=== PATIENT | female | born 1955 | race American Indian/Alaskan Native ===

== ENCOUNTER 2018-01-16 15:39 | Emergency (ER) | payer BC, OTHER ==
[~2018-01-16] VITALS: Ht 162.6 cm; Wt 94.8 kg
--- OUTSIDE RECORDS SUMMARY | ~2018-01-16 | XMS | Encounter Summary ---
Demographics + + + | Address | [address] | | | [place] [address] | + + + | Home Phone | | + + + | Preferred Language | Unknown | + + + | Marital Status | | + + + | Samaritan Affiliation | 1041 | + + + | Race | Unknown | + + + | Ethnic Group | Unknown | + + + Author + + + | Author | [facility] | + + + | Organization | [facility] | + + + | Address | Unknown | + + + | Phone | Unavailable | + + + Support + + + + + | Name | Relationship | Address | Phone | + + + + + | Jaydon Cornejo | ECON | [address] | | | | | [place] | | | | | [address] | | + + + + + Care Team Providers + +------+ + | Care Mutual Funds Agent Name | Role | Phone | + +------+ + | Ana Paula Mays MD | PCP | | + +------+ + Encounter Details +--------+ + + + + | Date | Type | Department | Care Team | Description | +--------+ + + + + | 01/16/ | Telephone | [facility] | Alessia Gamez, | | | 2018 | | Pulmonology [address] | WOOD CARVING LATHE OPERATOR | | | | | [address] | | | | | | [place] | | | | | | [address] | | | | | | [phone] | | | +--------+ + + + [...] Description | +--------+---------+ + + + | 01/26/ | Office | Pulmonology | Patrice Rowe MD | | | 2018 | Visit | | [address] | | | | | | [place] [address] | | | | | | [phone] | | | | | | | | +--------+---------+ + + + as of this encounter Visit Diagnoses Not on filein this encounter"
--- OUTSIDE RECORDS SUMMARY | ~2018-01-16 | XMS | Clinical Summary ---
Demographics + + + | Address | [address] | | | [place] [address] | + + + | Home Phone | | + + + | Preferred Language | Unknown | + + + | Marital Status | | + + + | Rastafari Affiliation | 1041 | + + + | Race | Unknown | + + + | Ethnic Group | Unknown | + + + Author + + + | Author | [facility] | + + + | Organization | [facility] | + + + | Address | Unknown | + + + | Phone | Unavailable | + + + Support + + + + + | Name | Relationship | Address | Phone | + + + + + | Jaydon Cornejo | ECON | [address] | | | | | [place] | | | | | [address] | | + + + + + Care Team Providers + +------+ + | Care Environmental Epidemiologist Name | Role | Phone | + +------+ + | Ana Paula Mays MD | PP | | + +------+ + Allergies + + + + + + | Active Allergy | Reactions | Severity | Noted | Comments | | | | | Date | | + + + + + + | Atorvastatin | Other (See Comments) | Medium | 03/15/20 | Muscle ache | | | | | 17 | | + + + + + + | Codeine | Nausea and Vomiting | Low | 03/15/20 | | | | | | 17 | | + + + + + + | Lisinopril | Cough | Low | 03/15/20 | | | | | | 17 | | + + + + + + | Metoclopramide | Nausea and Vomiting, | Low | 03/15/20 | | | | Headache | | 17 | | + + + + + + | Morphine | Other (See Comments) | Medium | 03/15/20 | UNKNOWN | | | | | 17 | | + + + + + + Current Medications + + +--------+---------+------+------+-------+ | Prescription | Sig. | Disp. | Refills | Star | End | Statu | | | | | | t | Date | s | | | | | | Date | | | + + +--------+---------+------+------+-------+ | | Take 25 mg by mouth | | | | | Activ | | hydrochlorothiazide | daily. | | | | | e | | (HYDRODIURIL) 25 MG | | | | | | | | tablet | | | | | | | + + +--------+---------+------+------+-------+ | omeprazole | Take 20 mg by mouth | | | | | Activ | | (PRILOSEC) 20 MG | daily. | | | | | e | | capsule | | | | | | | + + +--------+---------+------+------+-------+ | glipiZIDE | Take 5 mg by mouth | | | | | Activ | | (GLUCOTROL) 5 MG | daily. | | | | | e | | tablet | | | | | | | + + +--------+---------+------+------+-------+ | fluoxetine | Take 20 mg by mouth | | | | | Activ | | (PROZAC) 20 MG | daily. | | | | | e | | tablet | | | | | | | + + +--------+---------+------+------+-------+ | telmisartan | Take 80 mg by mouth | | | | | Activ | | (MICARDIS) 80 MG | daily. Pt is unsure | | | | | e | | tablet | of dose | | | | | | + + +--------+---------+------+------+-------+ | cholecalciferol | Take 1,000 Units by | | | | | Activ | | (VITAMIN D-3) 1000 | mouth daily. | | | | | e | | units tablet | | | | | | | + + +--------+---------+------+------+-------+ | cyanocobalamin | Take 500 mcg by | | | | | Activ | | (VITAMIN B-12) 500 | mouth daily. | | | | | e | | MCG tablet | | | | | | | + + +--------+---------+------+------+-------+ | albuterol | Inhale 2 puffs into | | | | | Activ | | (PROVENTIL | the lungs every 4 | | | | | e | | HFA;VENTOLIN HFA) | (four) hours as | | | | | | | 108 (90 Base) | needed for Wheezing. | | | | | | | MCG/ACT inhaler | | | | | | | + + +--------+---------+------+------+-------+ | JANUMET XR 50-1000 | | | | 05/1 | | Activ | | MG TB24 | | | | 1/20 | | e | | | | | | 17 | | | + + +--------+---------+------+------+-------+ | montelukast | Take 1 tablet by | 30 | 11 | 06/0 | 06/0 | Activ | | (SINGULAIR) 10 MG | mouth nightly. | tablet | | 6/20 | 6/20 | e | | tablet | | | | 17 | 18 | | + + +--------+---------+------+------+-------+ | ASMANEX 30 METERED | | | | 01/2 | | Activ | | DOSES 220 MCG/INH | | | | 4/20 | | e | | inhaler | | | | 18 | | | + + +--------+---------+------+------+-------+ | fish oil omega-3 | Take 1 g by mouth | | | | | Activ | | fatty acids 1000 MG | daily. | | | | | e | | capsule | | | | | | | + + +--------+---------+------+------+-------+ | Probiotic Product | Take by mouth. | | | | | Activ | | (PROBIOTIC DAILY PO) | | | | | | e | + + +--------+---------+------+------+-------+ | ranitidine | Take 150 mg by | | | | | Activ | | (ZANTAC) 150 MG | mouth. Pt taking one | | | | | e | | tabletIndications: | every other day | | | | | | | Gastroesophageal | | | | | | | | Reflux Disease | | | | | | | + + +--------+---------+------+------+-------+ | | Take 1 tablet by | 28 | 0 | 04/0 | 04/1 | Activ | | amoxicillin-clavulan | mouth 2 (two) times | tablet | | 2/20 | 6/20 | e | | ate (AUGMENTIN) | daily for 14 days. | | | 18 | 18 | | | 875-125 MG per | | | | | | | | tablet | | | | | | | + + +--------+---------+------+------+-------+ | levofloxacin | Take 1 tablet by | 10 | 0 | 04/0 | | Activ | | (LEVAQUIN) 500 MG | mouth daily. | tablet | | 2/20 | | e | | tablet | | | | 18 | | | + + +--------+---------+------+------+-------+ Active Problems + + + | Problem | Noted Date | + + + | Pneumonia due to infectious organism | 01/11/2018 | + + + | Mild intermittent asthma without complication | 03/15/2017 | + + + | Chest pain, unspecified | 09/05/2012 | + + + | Unspecified essential hypertension | 09/05/2012 | + + + | DM (diabetes mellitus) | 09/05/2012 | + + + | DHAVAL (obstructive sleep apnea) | 09/05/2012 | + + + Encounters +--------+ + + + + | Date | Type | Specialty | Care Team | Description | +--------+ + + + + | 01/16/ | Telephone | | Alessia Gamez, | | | 2017 | | | DOG FOOD DOUGH MIXER | | +--------+ + + + + | 01/09/ | Office | | Patrice Rowe MD | DHAVAL (obstructive | | 2018 | Visit | | | sleep apnea) | | | | | | (Primary Dx); Mild | | | | | | intermittent asthma | | | | | | without | | | | | | complication; | | | | | | Pneumonia of right | | | | | | lower lobe due to | | | | | | infectious organism | | | | | | (HCC) | +--------+ + + + + from Last 3 Months Family History + + +------+ + | Medical History | Relation | Name | Comments | + + +------+ + | Cancer | Brother | | lung cancer | + + +------+ + | Diabetes type II | Father | | | + + +------+ + | Diabetes type II | Mother | | | + + +------+ + | Cancer | Sister | | lung cancer | + + +------+ + + +------+ + + | Relation | Name | Status | Comments | + +------+ + + | Brother | | | | + +------+ + + | Father | | | | + +------+ + + | Mother | | | | + +------+ + + | Sister | | | | + +------+ + + Social History + +-------+ +--------+------+ [...] on file | | + + + Last Filed Vital Signs + + + + | Vital Sign | Reading | Time Taken | + + + + | Blood Pressure | 126/81 | 01/09/2018 12:34 PM PDT | + + + + | Pulse | 85 | 01/09/2018 12:34 PM PDT | + + + + | Temperature | 36.2 C (97.2 F) | 01/09/2018 12:34 PM PDT | + + + + | Respiratory Rate | 16 | 03/15/2017 9:53 AM PDT | + + + + | Oxygen Saturation | 96% | 01/09/2018 12:34 PM PDT | + + + + | Inhaled Oxygen | - | - | | Concentration | | | + + + + | Weight | 94.9 kg (209 lb 4.8 | 01/09/2018 12:34 PM PDT | | | oz) | | + + + + | Height | 163.8 cm (5' 4.5") | 01/09/2018 12:34 PM PDT | + + + + | Body Mass Index | 35.37 | 01/09/2018 12:34 PM PDT | + + + + Plan of Treatment +--------+---------+ + + + | Date | Type | Specialty | Care Team | Description | +--------+---------+ + + + | 01/26/ | Office | | Patrice Rowe MD | | | 2018 | Visit | | [address] | | | | | | [place] [address] | | | | | | [phone] | | | | | | | | +--------+---------+ + + + Results Not on filefrom Last 3 Months Insurance + +--------+ +------+-------+ + | Payer | Benefi | Subscriber | Type | Phone | Address | | | t Plan | ID | | | | | | / | | | | | | | Group | | | | | + +--------+ +------+-------+ + | PREMERA | PREMER | xxxxxxxxx | | | [address] [address] | | | A BLUE | | | | [place] | | | [place]OSS | | | | [phone] | | | FED | | | | | | | PPO | | | | | + +--------+ +------+-------+ + | [employer] | YELLOW | [phone] | | | | | PLANS | [place] | | | | | + +--------+ +------+-------+ + + +--------+ +--------+ + + | Guarantor Name | Accoun | Relation to | Date | Phone | Billing Address | | | t Type | Patient | of | | | | | | | | | | + +--------+ +--------+ + + | JAMIA CORNEJO | Person | Self | [birth year] Home: | [address] | | | al/Fam | | 1955 | [phone] | [place] | | | [address] | | | [address] | [phone] | + +--------+ +--------+ + +
--- OUTSIDE RECORDS SUMMARY | ~2018-01-16 | XMS | Encounter Summary ---
Demographics + + + | Address | [address] | | | [place] [address] | + + + | Home Phone | | + + + | Preferred Language | Unknown | + + + | Marital Status | | + + + | Sikh Affiliation | 1041 | + + + | Race | Unknown | + + + | Ethnic Group | Unknown | + + + Author + + + | Author | [facility] | + + + | Organization | [facility] | + + + | Address | Unknown | + + + | Phone | Unavailable | + + + Support + + + + + | Name | Relationship | Address | Phone | + + + + + | Jaydon Cornejo | ECON | [address] | | | | | [place] | | | | | [address] | | + + + + + Care Team Providers + +------+ + | Care Industrial Safety And Health Manager Name | Role | Phone | + +------+ + | Ana Paula Mays MD | PCP | | + +------+ + Encounter Details +--------+ + + + + | Date | Type | Department | Care Team | Description | +--------+ + + + + | 01/16/ | Telephone | [facility] | Alessia Gamez, | | | 2018 | | Pulmonology [address] | SENIOR TALENT MANAGEMENT CONSULTANT | | | | | [address] | | | | | | [place] | | | | | | [address] | | | | | | [phone] | | | +--------+ + + + [...] | | | | | [place] [address] | | | | | | [phone] | | | | | | | | +--------+---------+ + + + as of this encounter Visit Diagnoses Not on filein this encounter"
--- OUTSIDE RECORDS SUMMARY | ~2018-01-16 | XMS | Encounter Summary ---
Demographics + + + | Address | [address] | | | [place] [address] | + + + | Home Phone | | + + + | Preferred Language | Unknown | + + + | Marital Status | | + + + | Mandaen Affiliation | 1041 | + + + | Race | Unknown | + + + | Ethnic Group | Unknown | + + + Author + + + | Author | [facility] | + + + | Organization | [facility] | + + + | Address | Unknown | + + + | Phone | Unavailable | + + + Support + + + + + | Name | Relationship | Address | Phone | + + + + + | Jaydon Cornejo | ECON | [address] | | | | | [place] | | | | | [address] | | + + + + + Care Team Providers + +------+ + | Care Subway Conductor Name | Role | Phone | + +------+ + | Ana Paula Mays MD | PCP | | + +------+ + Reason for Visit + + + | Reason | Comments | + + + | Follow-up | | + + + | Asthma | lungs hurts, sputum yellow green | + + + Encounter Details +--------+---------+ + + + | Date | Type | Department | Care Team | Description | +--------+---------+ + + + | 01/09/ | Office | [facility] | Patrice Rowe MD | DHAVAL (obstructive | | 2018 | Visit | Pulmonology [address] | [address] | sleep apnea) | | | | [address] | [place] [address] | (Primary Dx); Mild | | | | [place], [place] | [phone] | intermittent asthma | | | | [address] | | without | | | | [phone] | | complication; | | | | [...] encounter Progress Notes Patrice Rowe MD - 01/09/2018 12:30 PM PDTFormatting of this note may be different from judy varghese. Subjective: Patient ID: Odalys Cornejo is a 62 y.o. female is here for evaluation of cough and shortne ss of breath. 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 She had been using albuterol . Now she feels better. She has stopped using Asmanex. Her albuterol use is minimal. 01/10/2018 The patient has been having cough with expectoration. She is having fever and chills. Her cough was thick with green expectoration. Review of Systems Constitutional: Positive for activity [...] to Visit Medication Sig Dispense Refill albuterol (PROVENTIL HFA;VENTOLIN HFA) 108 (90 Base) MCG/ACT inhaler Inhale 2 puffs int o the lungs every 4 (four) hours as needed for Wheezing. cholecalciferol (VITAMIN D-3) 1000 units tablet Take 1,000 Units by mouth daily. cyanocobalamin (VITAMIN B-12) 500 MCG tablet Take 500 mcg by mouth daily. fluoxetine (PROZAC) 20 MG tablet Take 20 mg by mouth daily. glipiZIDE (GLUCOTROL) 5 MG tablet Take 5 mg by mouth daily. hydrochlorothiazide (HYDRODIURIL) 25 MG tablet Take 25 mg by mouth daily. JANUMET XR 50-1000 MG TB24 montelukast (SINGULAIR) 10 MG tablet Take 1 tablet by mouth nightly. 30 tablet 11 omeprazole (PRILOSEC) 20 MG capsule Take 20 mg by mouth daily. telmisartan (MICARDIS) 80 MG tablet Take 80 mg by mouth daily. Pt is unsure of dose No current facility-administered medications on file prior to visit. Objective: Physical Exam Vitals: 01/09/18 1234 BP: 126/81 Pulse: 85 Temp: 97.2 F (36.2 C) SpO2: 96% Vital signs reviewed. GENERAL: pleasant, cooperative, oriented, [...] asymme try, and no other abnormalities. LUNGS: Right basilar crackles ABDOMEN: Flat abdomen, NABS, non-tender on palpation, Traube's space intact, liver span nor mal, no masses palpated EXTREMITIES: good distal pulses, no cyanosis, no edema, no clubbing, no nail abnormalities NEURO: awake and oriented, gait normal, no focal neurologic deficits Assessment and Plan: 1. Pneumonia bacterial I will start the patient on Levaquin 500 mg daily I have advised the patient to stay hydrated 2. Mild intermittent asthma She will continue to use Singulair 10 mg daily. 3. Obstructive sleep apnea Continue using CPAP regularly Thank you for allowing me to participate in your patient's care. We will review test result s that we have ordered with the patient once they become available. A return visit has been scheduled in 2 weeks. Patrice Rowe MD Pulmonary and Critical Care Medicine [facility] [address], [place] [address] in this encounter Plan of Treatment +--------+---------+ + + + | Date | Type | Specialty | Care Team | Description | +--------+---------+ + + + | 01/26/ | Office | Pulmonology | Patrice Rowe MD | | | 2017 | Visit | | [address] | | | | | | [place] [address] | | | | | | [phone] | | | | | | | | +--------+---------+ + + + as of this encounter Visit Diagnoses + + | Diagnosis | + + | DHAVAL (obstructive sleep apnea) - Primary | + + | Obstructive sleep apnea (adult) (pediatric) | + + | Mild intermittent asthma without complication | + + | Unspecified asthma | + + | Pneumonia of right lower lobe due to infectious organism (HCC) | + +
--- OUTSIDE RECORDS SUMMARY | ~2018-01-16 | XMS | Clinical Summary ---
Demographics + + + | Address | [address] | | | [place] [address] | + + + | Home Phone | | + + + | Preferred Language | Unknown | + + + | Marital Status | | + + + | Sikhism Affiliation | 1013 | + + + | Race | Unknown | + + + | Ethnic Group | Unknown | + + + Author + + + | Author | [facility] | | | and [place] | + + + | Organization | [facility] | | | and [place] | + + + | Address | Unknown | + + + | Phone | Unavailable | + + + Support + + + + + | Name | Relationship | Address | Phone | + + + + + | Jaydon Sweet | ECON | [address] | | | | | [place] | | | | | [address] | | + + + + + | Del Sweet | ECON | Unknown | | + + + + + Care Team Providers + +------+ + | Care No Bake Molder Name | Role | Phone | + [...] feel | | | | | | wierd | + + + + + + [...] + + +---------+ + | Cancer | | Farhat | Esophageal | + + +---------+ + | Diabetes | Brother | Farhat | | + + +---------+ + | Heart disease | Brothcarmita | Farhat | | + + +---------+ + | Other (see comment) | | Farhat | snored | + + +---------+ + | Cancer | | Zeferino | 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 | + + +---------+ + | Diabetes | | Zeferino | | + + +---------+ + | Heart disease | Brothcarmita | Zeferino | | + + +---------+ + | Diabetes | Brother | Mateo | | + + +---------+ + | Heart disease | Brothcarmita | Mateo | | + + +---------+ + | Kidney cancer | Brothcarmita | Mateo | | + + +---------+ + | Other (see comment) | | Mateo | fermin Delcid | + + +---------+ + | Diabetes | Brothcarmita | Pat | | + + +---------+ + | Heart disease | Brothcarmita | Pat | | + + +---------+ + | High blood pressure | Brother | Pat | | + + +---------+ + | Cancer | Brother | Randy | lymphoma | + + +---------+ + | Diabetes | Brothcarmita | Randy | | + + +---------+ + | Heart disease | Brothcarmita | Randy | | + + +---------+ + | Other (see comment) | | Randy | miguel | + + +---------+ + | Diabetes | Brothcarmita | Ra | | + + +---------+ + | Heart disease | Brother Harsh Knapp | | + + +---------+ + | [...] | + + +---------+ + | Sleep Apnea | Son | | | + + [...] + +---------+ + + | Brother | Miguel Ángel | | pancreatic cancer [...] + +---------+ + + | Brother | Mateo | | renal cell carcinoma | | | | (Age | | | | | 70) | | + +---------+ + + | Brother | Pat | | heart | | | | (Age | | | | | 73) | | + +---------+ + + | Brother | Randy | | lymphoma, snore | | | | (Age | | | | | 65) | | + +---------+ + + | Brother | Ra | | heart disease | | | [...] | + + + + + | Hepatitis C | | | | | Screening | 5 | | | + + + + + | Diabetic Eye Exam | | | | | (Bi-Annually) | 3 | | | + + + + + | Diabetic Foot Exam | | | | | | 3 | [...] | + + + + + | BREAST CANCER | | | | | SCREENING (MAMM Q2 | 5 | | | | YEARS 50-74) | | | | + + + + + | Vaccine: Zoster (#1) | | | | | | 5 | | | + + + + + | Hemoglobin A1c Q3 | | 12/01/2015, 09/17/2015 | | | Months | 6 | | | + + + + + | Microalbumin | | 12/01/2015, 12/01/2015, | | | Screening | 7 | 11/21/2015, Additional history | | | | | exists | | + + + + + | Vaccine: Influenza | | | | | (Season Ended) | 8 | | | + + + + + | COLON CANCER | | 04/02/2015 | | | SCREENING | 5 | | | | (COLONOSCOPY EVERY | | | | | 10 YEARS 50-75) | | | | + + + [...] +--------+ +--------+-------+---------+ | BCBS | BCBS | xxxxxxxxx | PPO | | | | | [place] | | | | | | | L FEP | | | | | + +--------+ +--------+-------+---------+ | HEALTH | IHS | xxxxxxxxx | Indemn | | | | SERVICE [...] | Self | [birth year] | Home: | [address] | | | al/Reji | | 1955 | [phone] | [place] [address] | | | [place] | | | [address] | | + +--------+ +--------+ + +
--- OUTSIDE RECORDS SUMMARY | ~2018-01-16 | XMS | Clinical Summary ---
Demographics + + + | Address | [address] | | | [place] [address] | + + + | Home Phone | | + + + | Preferred Language | Unknown | + + + | Marital Status | | + + + | Restorationist Affiliation | 1041 | + + + | Race | Unknown | + + + | Ethnic Group | Unknown | + + + Author + + + | Author | [facility] | + + + | Organization | [facility] | + + + | Address | Unknown | + + + | Phone | Unavailable | + + + Support + + + + + | Name | Relationship | Address | Phone | + + + + + | Jaydon Cornejo | ECON | [address] | | | | | [address] | | | | | [address] | | + + + + + Care Team Providers + +------+ + | Care Sheet Metal Fabricator Name | Role | Phone | + [...] | | | 2017 | | | AGILE BUSINESS ANALYST | | +--------+ + + + + [...] [address] | | | | | | [place] [address] | | | | | | [phone] | | | | | | | [...] | xxxxxxxxx | | | [address] [address] | | | A BLUE | | | | [place] | | | [place]OSS | | | | [address] | | | FED | | | | | | | PPO | | | | | + +--------+ +------+-------+ + | [employer] | YELLOW | xxxxxxxxx | | [...] | Self | [birth year] | Home: | [address] | | | al/Fam | | 1955 | [phone] | [place] | | | [place] | | | [address] | [address] | + +--------+ +--------+ + +
--- OUTSIDE RECORDS SUMMARY | ~2018-01-16 | XMS | Clinical Summary ---
Demographics + + + | Address | [address] | | | [place] [address] | + + + | Home Phone | | + + + | Preferred Language | Unknown | + + + | Marital Status | | + + + | Jew Affiliation | 1013 | + + + | Race | Unknown | + + + | Ethnic Group | Unknown | + + + Author + + + | Author | [facility] | | | and [place] | + + + | Organization | [facility] | | | and [place] | + + + | Address | Unknown | + + + | Phone | Unavailable | + + + Support + + + + + | Name | Relationship | Address | Phone | + + + + + | Jaydon Sweet | ECON | [address] | | | | | [place], [place] | | | | | [address] | | + + + + + | Del Sweet | ECON | Unknown | | + + + + + Care Team Providers + +------+ + | Care Yard Truck Driver Name | Role | Phone | + [...] | Self | [birth year] | Home: | [address] | | | al/Reji | | 1955 | [phone] | [place] [address] | | | [place] | | | [address] | | + +--------+ +--------+ + +
--- OUTSIDE RECORDS SUMMARY | ~2018-01-16 | XMS | Encounter Summary ---
Demographics + + + | Address | [address] | | | [place] [address] | + + + | Home Phone | | + + + | Preferred Language | Unknown | + + + | Marital Status | | + + + | Spiritism Affiliation | 1041 | + + + | Race | Unknown | + + + | Ethnic Group | Unknown | + + + Author + + + | Author | [facility] | + + + | Organization | [facility] | + + + | Address | Unknown | + + + | Phone | Unavailable | + + + Support + + + + + | Name | Relationship | Address | Phone | + + + + + | Jaydon Cornejo | ECON | [address] | | | | | [place] | | | | | [address] | | + + + + + Care Team Providers + +------+ + | Care Full Stack Php Developer Name | Role | Phone | + [...] + + | 01/09/ | Office | [facility] | Patrice Rowe MD | DHAVAL (obstructive | | 2018 | Visit | Pulmonology [address] | [address] | sleep apnea) | | | | [address] | [place] [address] | (Primary Dx); Mild | | | | [place], [place] | [phone] | intermittent asthma | | | | [address] | | without | | | | [phone] | | complication; | | | | [...] of this note may be different from juyd varghese. 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
[~2018-01-16 15:39] MED LIST: ASMANEX220 MC1 INH; ASPIRIN EC325 MG PO; FISH OIL 1,0001 EAC3 PO; FLUOXETINE HCL10 MG PO; GLIPIZIDE XL5 MG PO; HYDROCHLOROTHIA25 MG PO; JANUMET 50-1,01 EACH PO; LOVASTATIN20 MG PO; NIASPAN500 MG PO; NITROSTAT0.4 MG SL; OMEPRAZOLE20 MG PO; PREDNISONE20 MG PO; VENTOLIN HFA18 GM INH; VITAMIN B COMP1 EACH PO; VITAMIN D3400 UNIT PO; ZITHROMAX250 MG PO
[2018-01-16] MEDS ORDERED: METHYLPREDNISOLO4 M1 PO (17:21)
[2018-01-16] MEDS ORDERED: AUGMENTIN 875-1 EACH PO (17:21)
--- NOTE | 2018-01-17 07:22 | EKG ---
[facility] [address] [facility] [place] [address] Signed Normal sinus rhythm Nonspecific ST and T wave abnormality Abnormal ECG No previous ECGs available Confirmed by TERRENCE KRUSE MD ([id number]) on 01/17/2018 7:22:29 AM Electronically Signed By: TERRENCE KRUSE MD 01/17/18 07 PATIENT NAME: JAMIA SWEET Electrocardiogram DATE OF : 55 PHYSICIAN: TERRENCE KRUSE MD REPORT #: [id number] REPORT IS CONFIDENTIAL AND NOT TO BE RELEASED WITHOUT AUTHORIZATION
== END 2018-01-16 18:19 | disposition home or self-care (01) ==
LOC: ED 15:39
DX: J44.1 Chronic obstructive pulmonary disease with (acute) exacerbation (principal); E11.9 Type 2 diabetes mellitus without complications; I10 Essential (primary) hypertension; Z88.8 Allergy status to other drugs, medicaments and biological substances; Z79.84 Long term (current) use of oral hypoglycemic drugs; Z79.899 Other long term (current) drug therapy
CPT/HCPCS: 71046; 80053; 81001; 83880; 84484; 85025; 87502; 93005; 93010; 96374; 99283; J2930; J7030

== ENCOUNTER 2019-01-02 18:56 | Emergency (ER) | payer OTHER ==
[~2019-01-02] VITALS: Ht 162.6 cm; Wt 94.8 kg
--- OUTSIDE RECORDS SUMMARY | ~2019-01-02 | XMS | Encounter Summary ---
Demographics + + + | Address | [address] | | | [place] [address] | + + + | Home Phone | | + + + | Preferred Language | Unknown | + + + | Marital Status | | + + + | Lutheran Affiliation | 1041 | + + + | Race | Unknown | + + + | Ethnic Group | Unknown | + + + Author + + + | Author | [facility] | + + + | Organization | [facility] | + + + | Address | Unknown | + + + | Phone | Unavailable | + + + Support + + + + + | Name | Relationship | Address | Phone | + + + + + | Jaydon Cornejo | ECON | [address] | | | | | [place] | | | | | [address] | | + + + + + Care Team Providers + +------+ + | Care Upholstery Instructor Name | Role | Phone | + +------+ + | Ana Paula Mays MD | PCP | | + +------+ + Encounter Details +--------+ + + + + | Date | Type | Department | Care Team | Description | +--------+ + + + + | 12/22/ | Documentati | Adiel | Sofiya Colindres, | | | 2019 | on Only | [facility] | [address] | | | | [address] | [place] | | | | | [place] | [address] | | | | | [address] | | | | | | [phone] | | | +--------+ + + + + Social History + +-------+ +--------+------+ | Tobacco Use | Types | Packs/Day | Years | Date | | | | | Used | | + +-------+ +--------+------+ | Never Smoker | | | | | + +-------+ +--------+------+ + +---+---+---+ | Smokeless Tobacco: | | | | | Never Used | | | | + +---+---+---+ + + +---------+ + | Alcohol Use | Drinks/We | oz/Week | Comments | | | ek | | | + + +---------+ + | No | | | | + + +---------+ + + + + | Sex Assigned at | Date Recorded | | | | + + + | Not on file | | + + + as of this encounter Plan of Treatment +--------+---------+ + + + | Date | Type | Specialty | Care Team | Description | +--------+---------+ + + + | 01/05/ | Office | Neurology | Sofiya Colindres, | | | 2018 | Visit | | MD [address] | | | | | | [place] | | | | | | [address] | | | | | | | | +--------+---------+ + + + | 03/01/ | Office | Pulmonology | Patrice Rowe MD | | | 2019 | Visit | | [address] | | | | | | [place] [address] | | | | | | [phone] | | | | | | | | +--------+---------+ + + + as of this encounter Visit Diagnoses Not on filein this encounter"
--- OUTSIDE RECORDS SUMMARY | ~2019-01-02 | XMS | Clinical Summary ---
Demographics + + + | Address | [address] | | | [place] [address] | + + + | Home Phone | | + + + | Preferred Language | Unknown | + + + | Marital Status | | + + + | Bahai Affiliation | 1041 | + + + | Race | Unknown | + + + | Ethnic Group | Unknown | + + + Author + + + | Author | [facility] | | | and [place] | + + + | Organization | [facility] | | | and [place] | + + + | Address | Unknown | + + + | Phone | Unavailable | + + + Support + + + + + | Name | Relationship | Address | Phone | + + + + + | Jaydon Sweet | ECON | [address] | | | | | [place] | | | | | [address] | | + + + + + Care Team Providers + +------+ + | Care Microsoft Bi Architect Name | Role | Phone | + +------+ + | Karyn Shields PA-C | PP | | + +------+ + Allergies + + + + + + | Active Allergy | Reactions | Severity | Noted | Comments | | | | | Date | | + + + + + + | Atorvastatin | | | 03/05/20 | Muscle aches | | | | | 15 | | + + + + + + | Codeine Sulfate | | | | Nausea and vomit | + + + + + + | Lisinopril | | Medium | 03/05/20 | Cough | | | | | 15 | | + + + + + + | Metoclopramide | | | 01/01/20 | | | | | | 16 | | + + + + + + | Morphine | | Low | 03/05/20 | Pt. Dose not like | | | | | 15 | as makes her feel | | | | | | nicolasad | + + + + + + Current Medications + + +--------+---------+------+------+-------+ | Prescription | Sig. | Disp. | Refills | Star | End | Statu | | | | | | t | Date | s | | | | | | Date | | | + + +--------+---------+------+------+-------+ | nitroglycerin | Place 0.4 mg under | | | | | Activ | | (NITROSTAT) 0.4 mg | the tongue every 5 | | | | | e | | SL tablet | minutes as needed | | | | | | | | for Chest pain. | | | | | | + + +--------+---------+------+------+-------+ | | Take 1 tablet by | | | | | Activ | | sitagliptan-metFORMI | mouth 2 times daily | | | | | e | | N (JANUMET) 50-1000 | (with breakfast & | | | | | | | MG per tablet | dinner). | | | | | | + + +--------+---------+------+------+-------+ | omeprazole | Take 20 mg by mouth | | | | | Activ | | (PRILOSEC) 20 mg | every morning | | | | | e | | capsule | (before breakfast). | | | | | | + + +--------+---------+------+------+-------+ | lovastatin | Take 20 mg by mouth | | | | | Activ | | (MEVACOR) 20 mg | nightly. | | | | | e | | tablet | | | | | | | + + +--------+---------+------+------+-------+ | | Take 25 mg by mouth | | | | | Activ | | hydrochlorothiazide | Daily. | | | | | e | | 25 mg tablet | | | | | | | + + +--------+---------+------+------+-------+ | glipiZIDE | Take 5 mg by mouth | | | | | Activ | | (GLUCOTROL XL) 5 mg | daily (with | | | | | e | | 24 hr tablet | breakfast). | | | | | | + + +--------+---------+------+------+-------+ | FLUoxetine | Take 10 mg by mouth | | | | | Activ | | (PROZAC) 10 mg | Daily. | | | | | e | | capsule | | | | | | | + + +--------+---------+------+------+-------+ | Cholecalciferol | Take 2,000 Units by | | | | | Activ | | (VITAMIN D-3) 2000 | mouth Daily. | | | | | e | | units CAPS | | | | | | | + + +--------+---------+------+------+-------+ | ondansetron | Slowly start prep. | 2 | 0 | 06/1 | | Activ | | (ZOFRAN) 4 mg | If nausea occurs, | tablet | | 5/20 | | e | | tabletIndications: | wait 1/2 hr. Take 1 | | | 15 | | | | Gastroesophageal | tablet, wait 1/2 | | | | | | | reflux disease | hour. Slowly resume | | | | | | | without esophagitis, | prep. | | | | | | | Special screening | | | | | | | | for malignant | | | | | | | | neoplasms, colon | | | | | | | + + +--------+---------+------+------+-------+ | aspirin 325 mg | Take 81 mg by mouth | | | | | Activ | | tablet | Daily. | | | | | e | + + +--------+---------+------+------+-------+ | LORazepam (ATIVAN) | Take 0.5 mg by mouth | | | | | Activ | | 0.5 mg tablet | as needed for | | | | | e | | | Anxiety or Insomnia. | | | | | | | | Prn prior to | | | | | | | | Imaging study 1 | | | | | | | | tablet may repeat | | | | | | | | one time. | | | | | | + + +--------+---------+------+------+-------+ | dicyclomine | Take 10 mg by mouth | | | | | Activ | | (BENTYL) 10 mg | 4 times daily. | | | | | e | | capsule | | | | | | | + + +--------+---------+------+------+-------+ | metoclopramide | Take 10 mg by mouth | | | | | Activ | | (REGLAN) 10 mg | 3 times daily | | | | | e | | tablet | (before meals). | | | | | | + + +--------+---------+------+------+-------+ | ibuprofen | | | | 03/1 | | Activ | | (ADVIL,MOTRIN) 600 | | | | 0/20 | | e | | MG tablet | | | | 16 | | | + + +--------+---------+------+------+-------+ | albuterol 90 | Inhale 2 puffs into | | | | | Activ | | mcg/puff inhaler | the lungs every 6 | | | | | e | | | hours as needed for | | | | | | | | Wheezing or | | | | | | | | Shortness of Breath. | | | | | | + + +--------+---------+------+------+-------+ | cyanocobalamin | Take 500 mcg by | | | | | Activ | | (VITAMIN B-12) 500 | mouth Daily. | | | | | e | | mcg tablet | | | | | | | + + +--------+---------+------+------+-------+ | Fish Oil 1000 MG | Take 1,000 mg by | | | | | Activ | | delayed release | mouth 2 times daily. | | | | | e | | capsule | | | | | | | + + +--------+---------+------+------+-------+ Active Problems + + + | Problem | Noted Date | + + + | Pulmonary nodule seen on imaging study | 01/15/2016 | + + + | Restless legs syndrome | 04/24/2015 | + + + | GERD (gastroesophageal reflux disease) | 04/02/2015 | + + + | Chest pain | 03/05/2015 | + + + | Hyperlipidemia | 03/05/2015 | + + + | Stress at home | 03/05/2015 | + + + | DHAVAL (obstructive sleep apnea) | 09/25/2010 | + + + | Diabetes mellitus, type II (HCC) | 09/25/2010 | + + + | Family history of ischemic heart disease | 09/25/2010 | + + + | PERIODIC LIMB MOVEMENT DISORDER | 09/25/2010 | + + + | VERTIGO, CHRONIC | 09/25/2010 | + + + | Shortness of breath | | + + + + + | Overview: intermittent | + + Resolved Problems + + + + | Problem | Noted | Resolved | | | Date | Date | + + + + | BRBPR (bright red blood per rectum) | 04/02/20 | | | | 15 | 6 | + + + + Family History + + +---------+ + | Medical History | Relation | Name | Comments | + + +---------+ + | Diabetes | Brother | | | + + +---------+ + | Heart disease | Brother | | | + + +---------+ + | Diabetes | Brother | | | + + +---------+ + | Heart disease | Brother | | | + + +---------+ + | Diabetes | Brother | | | + + +---------+ + | Heart disease | Brother | | | + + +---------+ + | Diabetes | Brother | | | + + +---------+ + | Heart disease | Brother | | | + + +---------+ + | Cancer | Brother | Miguel Ángel | pancreatic | + + +---------+ + | Diabetes | Brother | Miguel Ángel | | + + +---------+ + | Heart disease | Brother | Miguel Ángel | | + + +---------+ + | Other (see comment) | Brother | Miguel Ángel | snored | + + +---------+ + | Cancer | Brother | Farhat | Esophageal | + + +---------+ + | Diabetes | Brother | Farhat | | + + +---------+ + | Heart disease | Brother | Farhat | | + + +---------+ + | Other (see comment) | Lizzer | Farhat | snored | + + +---------+ + | Cancer | Brother | Zeferino | 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 | + + +---------+ + | Diabetes | Brothcarmita | Zeferino | | + + +---------+ + | Heart disease | Brother | Zeferino | | + + +---------+ + | Diabetes | Brother | Mateo | | + + +---------+ + | Heart disease | Brother | Mateo | | + + +---------+ + | Kidney cancer | Brother | Mateo | | + + +---------+ + | Other (see comment) | | Mateo | fermin Delcid | + + +---------+ + | Diabetes | Brothcarmita | Pat | | + + +---------+ + | Heart disease | Brother | Pat | | + + +---------+ + | High blood pressure | Brother | Pat | | + + +---------+ + | Cancer | Brother | Randy | lymphoma | + + +---------+ + | Diabetes | Brother | Randy | | + + +---------+ + | Heart disease | Brother | Randy | | + + +---------+ + | Other (see comment) | | Randy | miguel | + + +---------+ + | Diabetes | Brothcarmita | Ra | | + + +---------+ + | Heart disease | Brothcarmita | Ra | | + + +---------+ + | Diabetes | Father | | | + + +---------+ + | Heart disease | Father | | | + + +---------+ + | High blood pressure | Father | | | + + +---------+ + | Diabetes | Mother | | | + + +---------+ + | Heart disease | Mother | | | + + +---------+ + | High blood pressure | Mother | | | + + +---------+ + | Other (see comment) | Mother | | snored | + + +---------+ + | Stroke | Mother | | | + + +---------+ + | Diabetes | Sister | | | + + +---------+ + | Heart disease | Sister | | CABG age about 60 | + + +---------+ + | Other (see comment) | Sister | | snores | + + +---------+ + | Sleep apnea | Son | | | + + +---------+ + + +---------+ + + | Relation | Name | Status | Comments | + +---------+ + + | Brother | | Alive | snore | + +---------+ + + | Brother | | Alive | snore | + +---------+ + + | Brother | | Alive | snore | + +---------+ + + | Brother | | Alive | snore | + +---------+ + + | Brothcarmiat | Miguel Ángel | | pancreatic cancer | | | | (Age | | | | | 61) | | + +---------+ + + | Brother | Farhat | | Esophageal Cancer | | | | (Age | | | | | 68) | | + +---------+ + + | Brother | Zeferino | | cancer | | | | (Age | | | | | 87) | | + +---------+ + + | Brothcarmita | Mateo | | renal cell carcinoma | | | | (Age | | | | | 70) | | + +---------+ + + | Brothcarmita | Nat | | heart | | | | (Age | | | | | 73) | | + +---------+ + + | | Randy | | lymphoma, snore | | | | (Age | | | | | 65) | | + +---------+ + + | Brother Harsh Gutiérrezald | | heart disease | | | | (Age | | | | | 52) | | + +---------+ + + | Father | | | heart attack | | | | (Age | | | | | 77) | | + +---------+ + + | Mother | | | diabetes complications | | | | (Age | | | | | 73) | | + +---------+ + + | Sister | | Alive | | + +---------+ + + | Son | | Alive | | + +---------+ + + | Son | | Alive | | + +---------+ + + | Son | | Alive | | + +---------+ + + Social History + + + [...] + +---------+ + | No | 0 | 0.0 | | | | Standard | | | | | drinks or | | | | | | | | | | equivalen | | | | | t | | | + + +---------+ + + + + | Sex Assigned at | Date Recorded | | | | + + + | Not on file | | + + + Last Filed Vital Signs + + + + | Vital Sign | Reading | Time Taken | + + + + | Blood Pressure | 130/64 | 05/28/2016914 PDT | + + + + | Pulse | 84 | 05/28/2016914 PDT | + + + + | Temperature | 36.5 C (97.7 F) | 01/15/2016924 PDT | + + + + | Respiratory Rate | 14 | 05/28/2016914 PDT | + + + + | Oxygen Saturation | 98% | 05/28/2016914 PDT | + + + + | Inhaled Oxygen | - | - | | Concentration | | | + + + + | Weight | 96.8 kg (213 lb 4.8 | 05/28/2016914 PDT | | | oz) | | + + + + | Height | 163.8 cm (5' 4.5") | 05/28/2016914 PDT | + + + + | Body Mass Index | 36.05 | 05/28/2016914 PDT | + + + + Plan of Treatment + + + + + | Health Maintenance | Due Date | Last Done | Comments | + + + + + | Vaccine: | | | | | Dtap/Tdap/Td (1 - | 4 | | | | Tdap) | | | | + + + + + | Vaccine: Zoster (1 | | | | | of 2) | 5 | | | + + + + + | Vaccine: Influenza | | | | | (#1) | 8 | | | + + + + + Results Not on filefrom Last 3 Months Insurance + +--------+ +--------+-------+---------+ | Payer | Benefi | Subscriber | Type | Phone | Address | | | t Plan | ID | | | | | | / | | | | | | | Group | | | | | + +--------+ +--------+-------+---------+ | [employer] | BCBS | [id number] | PPO | | | | | [place] | | | | | | | L FEP | | | | | + +--------+ +--------+-------+---------+ | [employer] | [employer] | [id number] | Indemn | | | | SERVICE | YELLOW | | ity | | | | | [place] | | | | | + +--------+ +--------+-------+---------+ + +--------+ +--------+ + + | Guarantor Name | Accoun | Relation to | Date | Phone | Billing Address | | | t Type | Patient | of | | | | | | | | | | + +--------+ +--------+ + + | JAMIA SWEET | Person | Self [birth year] | Home: | [address] | | | al/Fam | | 1955 | [phone] [place], [place] | | | [address]olinar | | | [address] | [address] | + +--------+ +--------+ + +
--- OUTSIDE RECORDS SUMMARY | ~2019-01-02 | XMS | Encounter Summary ---
Demographics + + + | Address | [address] | | | [place] [address] | + + + | Home Phone | | + + + | Preferred Language | Unknown | + + + | Marital Status | | + + + | Yarsanism Affiliation | 1041 | + + + | Race | Unknown | + + + | Ethnic Group | Unknown | + + + Author + + + | Author | [facility] | + + + | Organization | [facility] | + + + | Address | Unknown | + + + | Phone | Unavailable | + + + Support + + + + + | Name | Relationship | Address | Phone | + + + + + | Jaydon Cornejo | ECON | [address] | | | | | [place] | | | | | [address] | | + + + + + Care Team Providers + +------+ + | Care Brush Loader And Handle Attacher Name | Role | Phone | + +------+ + | Karyn Shields PA-C | PCP | | + +------+ + Reason for Visit + + + | Reason | Comments | + + + | Follow-up | 5 month follow up | + + + Consult and Treat (Routine) + +--------+ + + + + | Status | Reason | Specialty | Diagnoses / | Referred By | Referred To | | | | | Procedures | Contact | Contact | + +--------+ + + + + | Pending | | Pulmonology | Diagnoses | Clinic, | [facility] | | Review | | | asthma/dhaval | [place] | Pulmonology | | | | | | [address] | | | | | | [address] | [address] | | | | | | [place], | [place], [place] | | | | | | [place] [address] | [address] | | | | | | Phone: | Phone: | | | | | | [phone] | [phone] | | | | | | Fax: | | | | | | | [phone] | | + +--------+ + + + + Encounter Details +--------+---------+ + + + | Date | Type | Department | Care Team | Description | +--------+---------+ + + + | 12/25/ | Office | [facility] | Patrice Rowe MD | Mild persistent | | 2019 | Visit | Pulmonology [address] | [address] | asthma without | | | | [address] | [place] [address] | complication | | | | [place], [place] | [phone] | (Primary Dx); DHAVAL | | | | [address] | | (obstructive sleep | | | | [phone] | | apnea) | +--------+---------+ + + + Social History + +-------+ [...] + + + as of this encounter Last Filed Vital Signs + + + + | Vital Sign | Reading | Time Taken | + + + + | Blood Pressure | 131/76 | 12/25/2018 12:59 PM PDT | + + + + | Pulse | 77 | 12/25/2018 12:59 PM PDT | + + + + | Temperature | 36.8 C (98.2 F) | 12/25/2018 12:59 PM PDT | + + + + | Respiratory Rate | - | - | + + + + | Oxygen Saturation | 97% | 12/25/2018 12:59 PM PDT | + + + + | Inhaled Oxygen | - | - | | Concentration | | | + + + + | Weight | 87.5 kg (193 lb) | 12/25/2018 12:59 PM PDT | + + + + | Height | 162.6 cm (5' 4") | 12/25/2018 12:59 PM PDT | + + + + | Body Mass Index | 33.13 | 12/25/2018 12:59 PM PDT | + + + + in this encounter Progress Notes Patrice Rowe MD - 12/25/2018 1:00 PM PDTFormatting of this note may be different from th e original. Subjective: Patient ID: Odalys Cornejo is a 63 y.o. female is here for evaluation of cough and sh ortness of breath. HPI The following portions of the patient's history were reviewed and updated as appropriate: a llergies, current medications, past family history, past medical history, past social histor y, past surgical history and problem list. The patient is a pleasant 61-year-old female with past medical history of obstructive sleep apnea, hypertension, diabetes who presents with one year history of cough and shortness of breath. She says that her lungs hurt it to person time of the year. The shortness of breat h comes and goes. There is no significant aggravating or relieving factor. When she has th mamadou episodes of shortness of breath she uses albuterol which initially increases the symptom s but then ultimately relieve the symptoms. She often uses CPAP during the day during those episodes. Intermittently she will get a left-sided pleuritic chest pain which can stay 4 w eeks. She has history of gastroesophageal reflux disease for which she uses omeprazole twic e a day. She was seen by Dr. andres Paul and she says that she is here for a second opinion. She wa s given Asmanex which she uses once a week. Use of albuterol She is a lifetime nonsmoker. She has history of secondhand smoking. Her mother was diagno sed with tuberculosis. She has a left lower lobe calcified from August which has been fol lowed in the past. She says that she has been treated with prednisone in the past. She lives with animals such as chickens, dogs, cats. 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 She had been using albuterol . Now she feels better. She has stopped using Asmanex. Her albuterol use is minimal. 01/10/2018 The patient has been having cough with expectoration. She is having fever and chills. Her cough was thick with green expectoration. 01/26/2018 In the previous visit I treated the patient with 10 days of Levaquin. She felt little bett er but then went to the ER because of worsening symptoms where she was treated with Medrol D osepak. She feels much better now. Her cough is essentially resolved. 07/31/2018 The patient had one more exacerbation in the interim. She says she was treated with antibi otics and steroids. She has been prescribed inhaled steroids which she uses regularly. Lion pite that she has been using albuterol. She denies any nocturnal awakening. She has no regina st pain. INTERIM HISTORY 12/25/2018 The patient has been stable since her last visit. She has decreased her Symbicort by herse lf to 1 puff daily. She has no recurrence of symptoms. She has been complaining of some ru nny nose. She denies any significant allergies. The requirement of albuterol is minimal. Review of Systems Constitutional: Positive for activity change and fatigue. HENT: Negative. Eyes: Negative. Respiratory: Positive for apnea. Cardiovascular: Negative. Gastrointestinal: Negative. Endocrine: Negative. Genitourinary: Negative. Musculoskeletal: Negative. Allergic/Immunologic: Negative. Neurological: Negative. Hematological: Negative. Psychiatric/Behavioral: Negative. History: Past Medical History Diagnosis Date Bowel obstruction (HCC) 1987 and 1993 Bowel Obsturction Surgery Due to Endometriosis Diabetes mellitus type II Endometriosis Hypertension Sleep apnea Uses CPAP at home Past Surgical History Procedure Laterality Date HYSTERECTOMY TUBAL LIGATION Social History Main Topics Smoking status: Never Smoker Smokeless tobacco: Never Used Alcohol use No Drug use: No Sexual activity: Not Asked Allergies: Allergies Allergen Reactions Atorvastatin Other (See Comments) Muscle ache Morphine Other (See Comments) UNKNOWN Codeine Nausea and Vomiting Lisinopril Cough Metoclopramide Nausea and Vomiting and Headache Current Medications: Current Outpatient Prescriptions on File Prior to Visit Medication Sig Dispense Refill albuterol (ACCUNEB) 0.63 MG/3ML nebulizer solution Take 1 ampule by nebulization every 6 (six) hours as needed for Wheezing. albuterol (PROVENTIL HFA;VENTOLIN HFA) 108 (90 Base) MCG/ACT inhaler Inhale 2 puffs int o the lungs every 4 (four) hours as needed for Wheezing. budesonide-formoterol (SYMBICORT) 80-4.5 MCG/ACT inhaler Inhale 2 puffs into the lungs 2 (two) times daily. 1 Inhaler 12 cholecalciferol (VITAMIN D-3) 1000 units tablet Take 1,000 Units by mouth daily. cyanocobalamin (VITAMIN B-12) 500 MCG tablet Take 500 mcg by mouth daily. fish oil omega-3 fatty acids 1000 MG capsule Take 1 g by mouth daily. fluoxetine (PROZAC) 20 MG tablet Take 20 mg by mouth daily. glipiZIDE (GLUCOTROL) 5 MG tablet Take 5 mg by mouth daily. hydrochlorothiazide (HYDRODIURIL) 25 MG tablet Take 25 mg by mouth daily. JANUMET XR 50-1000 MG TB24 omeprazole (PRILOSEC) 20 MG capsule Take 20 mg by mouth daily. Probiotic Product (PROBIOTIC DAILY PO) Take by mouth. ranitidine (ZANTAC) 150 MG tablet Take 150 mg by mouth. Pt taking one every other day montelukast (SINGULAIR) 10 MG tablet Take 1 tablet by mouth nightly. 30 tablet 11 telmisartan (MICARDIS) 80 MG tablet Take 80 mg by mouth daily. Pt is unsure of dose [DISCONTINUED] levofloxacin (LEVAQUIN) 500 MG tablet Take 1 tablet by mouth daily. (Pat ient not taking: Reported on 12/25/2018) 10 tablet 0 No current facility-administered medications on file prior to visit. Objective: Physical Exam Vitals: 12/25/18 1259 BP: 131/76 Pulse: 77 Temp: 98.2 F (36.8 C) SpO2: 97% Vital signs reviewed. GENERAL: pleasant, cooperative, oriented, not in distress HEENT: pink conjunctiva, anicteric sclerae, moist oral mucosae and without any lesions, nor mal appearing nasal mucosae; no JVD; MALAMPATTI _2__; no thyromegaly; no cervicolymphadenopa najma CVS: PMI non displaced, NRRR, S1 and S2, no murmurs/gallops/rubs CHEST: Examination of the chest was unremarkable. There were no bony deformities, no asymme try, and no other abnormalities. LUNGS: Bilateral air entry equal ABDOMEN: Flat abdomen, NABS, non-tender on palpation, Traube's space intact, liver span nor mal, no masses palpated EXTREMITIES: good distal pulses, no cyanosis, no edema, no clubbing, no nail abnormalities NEURO: awake and oriented, gait normal, no focal neurologic deficits Assessment and Plan: 1. Mild persistent asthma She will continue to use Singulair 10 mg daily. I've advised her to keep Symbicort 1 puff daily for now and then we will stop it after her current prescription is over. I will give her a prescription of Atrovent solution for postnasal drip. She'll use albuterol as needed 2. Obstructive sleep apnea Continue using CPAP regularly Thank you for allowing me to participate in your patient's care. We will review test result s that we have ordered with the patient once they become available. A return visit has been scheduled in 4 months. Patrice Rowe MD Pulmonary and Critical Care Medicine [place] [address] [facility] , [place] [address] in this encounter Plan of Treatment +--------+---------+ + + + | Date | Type | Specialty | Care Team | Description | +--------+---------+ + + + | 01/05/ | Office | Neurology | Sofiya Colindres, | | | 2018 | Visit | | [address] | | | | | | [place] | | | | | | [address] | | | | | | | | +--------+---------+ + + + | 03/01/ | Office | Pulmonology | Patrice Rowe MD | | | 2018 | Visit | | [address] | | | | | | [place] [address] | | | | | | [phone] | | | | | | | | +--------+---------+ + + + as of this encounter Visit Diagnoses + + | Diagnosis | + + | Mild persistent asthma without complication - Primary | + + | Unspecified asthma | + + | DHAVAL (obstructive sleep apnea) | + + | Obstructive sleep apnea (adult) (pediatric) | + +
--- OUTSIDE RECORDS SUMMARY | ~2019-01-02 | XMS | Encounter Summary ---
Demographics + + + | Address | [address] | | | [place] [address] | + + + | Home Phone | | + + + | Preferred Language | Unknown | + + + | Marital Status | | + + + | Scientology Affiliation | 1041 | + + + | Race | Unknown | + + + | Ethnic Group | Unknown | + + + Author + + + | Author | [facility] | + + + | Organization | [facility] | + + + | Address | Unknown | + + + | Phone | Unavailable | + + + Support + + + + + | Name | Relationship | Address | Phone | + + + + + | Jaydon Cornejo | ECON | [address] | | | | | [address] | | | | | [address] | | + + + + + Care Team Providers + +------+ + | Care Portable Grinding Machine Operator Name | Role | Phone | + +------+ + | Karyn Shields PA-C | PCP | | + +------+ + Encounter Details +--------+ + + + + | Date | Type | Department | Care Team | Description | +--------+ + + + + | 12/25/ | Documentati | [facility] | Jannie Mcnair, | | | 2018 | on Only | Pulmonology [address] | [employer]IST[employer]OTB[employer]ACH | | | | | [address] | | | | | | [place], [place] | | | | | | [address] | | | | | | [phone] | | | +--------+ + + + [...] + + + as of this encounter Progress Notes Xu JannieCOLBY richter - 12/25/2018 4:14 PM PDTFaxed Rx for Atrovent nasal to Kevin at . Confirmation received in this encounter Plan of Treatment +--------+---------+ + + + | Date | Type | Specialty | Care Team | Description | +--------+---------+ + + + | 01/05/ | Office | Neurology | Sofiya Colindres, | | | 2018 | Visit | | [address] | | | | | | [place] | | | | | | [address] | | | | | | | | +--------+---------+ + + + | 03/01/ | Office | Pulmonology | Patrice Rowe MD | | | 2019 | Visit | | [address] | | | | | | [place] [address] | | | | | | [phone] | | | | | | | | +--------+---------+ + + + as of this encounter Visit Diagnoses Not on filein this encounter"
--- OUTSIDE RECORDS SUMMARY | ~2019-01-02 | XMS | Encounter Summary ---
Demographics + + + | Address | [address] | | | [place] [address] | + + + | Home Phone | | + + + | Preferred Language | Unknown | + + + | Marital Status | | + + + | Scientologist Affiliation | 1041 | + + + | Race | Unknown | + + + | Ethnic Group | Unknown | + + + Author + + + | Author | [facility] | + + + | Organization | [facility] | + + + | Address | Unknown | + + + | Phone | Unavailable | + + + Support + + + + + | Name | Relationship | Address | Phone | + + + + + | Jaydon Cornejo | ECON | [address] | | | | | [address] | | | | | [address] | | + + + + + Care Team Providers + +------+ + | Care Scooter Mechanic Name | Role | Phone | + +------+ + | Karyn Shields PA-C | PCP | | + +------+ + Reason for Visit +--------+ + | Reason | Comments | +--------+ + | Other | sooner appointment | +--------+ + Encounter Details +--------+ + + + + | Date | Type | Department | Care Team | Description | +--------+ + + + + | 01/01/ | Telephone | [facility] | Bernadine Sofiya, | Other (sooner | | 2019 | | [facility] | [address] | appointment ) | | | | [address] | [address] [place], [place] | | | | | [place], [place] | [address] | | | | | [address] | | | | | | [phone] | | | +--------+ + + + [...] [place] | | | | | | [address] | | | | | | | | +--------+---------+ + + + | 03/01/ | Office | Pulmonology | Patrice Rowe MD | | | 2019 | Visit | | [address] | | | | | | [place] [address] | | | | | | [phone] | | | | | | | | +--------+---------+ + + + as of this encounter Visit Diagnoses Not on filein this encounter"
--- OUTSIDE RECORDS SUMMARY | ~2019-01-02 | XMS | Encounter Summary ---
Demographics + + + | Address | [address] | | | [place] [address] | + + + | Home Phone | | + + + | Preferred Language | Unknown | + + + | Marital Status | | + + + | Mu-Ism Affiliation | 1041 | + + + | Race | Unknown | + + + | Ethnic Group | Unknown | + + + Author + + + | Author | [facility] | + + + | Organization | [facility] | + + + | Address | Unknown | + + + | Phone | Unavailable | + + + Support + + + + + | Name | Relationship | Address | Phone | + + + + + | Jaydon Cornejo | ECON | [address] | | | | | [address] | | | | | [address] | | + + + + + Care Team Providers + +------+ + | Care Search Engine Optimization Consultant Name | Role | Phone | + +------+ + | Ana Paula Mays MD | PCP | | + +------+ + Encounter Details +--------+ + + + + | Date | Type | Department | Care Team | Description | +--------+ + + + + | 10/17/ | Telephone | [facility] | Yonas Linn RN | | | 2018 | | Pulmonology [address] | | | | | | [address] | | | | | | [place] | | | | | | [address] | | | | | | [phone] | | | +--------+ + + + [...] [place] | | | | | | [id number] | | | | | | | | +--------+---------+ + + + | 03/01/ | Office | Pulmonology | Patrice Rowe MD | | | 2018 | Visit | | [address] | | | | | | [place] [address] | | | | | | [phone] | | | | | | | | +--------+---------+ + + + as of this encounter Visit Diagnoses Not on filein this encounter"
--- OUTSIDE RECORDS SUMMARY | ~2019-01-02 | XMS | Clinical Summary ---
Demographics + + + | Address | [address] | | | [place] [address] | + + + | Home Phone | | + + + | Preferred Language | Unknown | + + + | Marital Status | | + + + | Sabianist Affiliation | 1041 | + + + | Race | Unknown | + + + | Ethnic Group | Unknown | + + + Author + + + | Author | [facility] | + + + | Organization | [facility] | + + + | Address | Unknown | + + + | Phone | Unavailable | + + + Support + + + + + | Name | Relationship | Address | Phone | + + + + + | Jaydon Cornejo | ECON | [address] | | | | | [address] | | | | | [address] | | + + + + + Care Team Providers + +------+ + | Care Automatic Blocker Name | Role | Phone | + [...] + + + Current Medications + + +---------+---------+------+------+-------+ | Prescription | Sig. | Disp. | Refills | Star | End | Statu | | | | | | t | Date | s | | | | | | Date | | | + + +---------+---------+------+------+-------+ | | Take 25 mg by mouth | | | | | Activ | | hydrochlorothiazide | daily. | | | | | e | | (HYDRODIURIL) 25 MG | | | | | | | | tablet | | | | | | | + + +---------+---------+------+------+-------+ | omeprazole | Take 20 mg by mouth | | | | | Activ | | (PRILOSEC) 20 MG | daily. | | | | | e | | capsule | | | | | | | + + +---------+---------+------+------+-------+ | glipiZIDE | Take 5 mg by mouth | | | | | Activ | | (GLUCOTROL) 5 MG | daily. | | | | | e | | tablet | | | | | | | + + +---------+---------+------+------+-------+ | fluoxetine | Take 20 mg by mouth | | | | | Activ | | (PROZAC) 20 MG | daily. | | | | | e | | tablet | | | | | | | + + +---------+---------+------+------+-------+ | telmisartan | Take 80 mg by mouth | | | | | Activ | | (MICARDIS) 80 MG | daily. Pt is unsure | | | | | e | | tablet | of dose | | | | | | + + +---------+---------+------+------+-------+ | cholecalciferol | Take 1,000 Units by | | | | | Activ | | (VITAMIN D-3) 1000 | mouth daily. | | | | | e | | units tablet | | | | | | | + + +---------+---------+------+------+-------+ | cyanocobalamin | Take 500 mcg by | | | | | Activ | | (VITAMIN B-12) 500 | mouth daily. | | | | | e | | MCG tablet | | | | | | | + + +---------+---------+------+------+-------+ | albuterol | Inhale 2 puffs into [...] | | | | | + + +---------+---------+------+------+-------+ | JANUMET XR 50-1000 | | | | 05/1 | | Activ | | MG TB24 | | | | 1/20 | | e | | | | | | 17 | | | + + +---------+---------+------+------+-------+ | montelukast | Take 1 tablet by | 30 | 11 | 06/0 | | Activ | | (SINGULAIR) 10 MG | mouth nightly. | tablet | | 6/20 | | e | | tablet | | | | 17 | | | + + +---------+---------+------+------+-------+ | fish oil omega-3 | Take 1 g by mouth | | | | | Activ | | fatty acids 1000 MG | daily. | | | | | e | | capsule | | | | | | | + + +---------+---------+------+------+-------+ | Probiotic Product | Take by mouth. | | | | | Activ | | (PROBIOTIC DAILY PO) | | | | | | e | + + +---------+---------+------+------+-------+ | ranitidine | Take 150 mg by | | | | | Activ | | (ZANTAC) 150 MG | mouth. Pt taking one | | | | | e | | tabletIndications: | every other day | | | | | | | Gastroesophageal | | | | | | | | Reflux Disease | | | | | | | + + +---------+---------+------+------+-------+ | albuterol | Take 1 ampule by | | | | | Activ | | (ACCUNEB) 0.63 | nebulization every 6 | | | | | e | | MG/3ML nebulizer | (six) hours as | | | | | | | solution | needed for Wheezing. | | | | | | + + +---------+---------+------+------+-------+ | | Inhale 2 puffs into | 1 | 12 | 10/2 | 10/2 | Activ | | budesonide-formotero | the lungs 2 (two) | Inhaler | | 2/20 | 2/20 | e | | l (SYMBICORT) 80-4.5 | times daily. | | | 18 | 19 | | | MCG/ACT inhaler | | | | | | | + + +---------+---------+------+------+-------+ | ipratropium | 1 spray by Each Nare | 30 mL | 12 | 03/1 | 03/1 | Activ | | (ATROVENT) 0.03 % | route 2 (two) times | | | 8/ | 7/20 | e | | nasal | daily. | | | 19 | 20 | | + + +---------+---------+------+------+-------+ | levofloxacin | Take 1 tablet by | 10 | 0 | 04/0 | 03/1 | Disco | | (LEVAQUIN) 500 MG | mouth daily. | tablet | | 2/20 | 8/20 | ntinu | | tablet | | | | 18 | 19 | ed | + + +---------+---------+------+------+-------+ Active Problems + + + | Problem [...] + + | 01/01/ | Telephone | | Sofiya Colindres | Other (sooner | | 2018 | | | | appointment ) | +--------+ + + + + | 12/25/ | Office | | Patrice Rowe MD | Mild persistent | | 2019 | Visit | | | asthma without | | | | | | complication | | | | | | (Primary Dx); DHAVAL | | | | | | (obstructive sleep | | | | | | apnea) | +--------+ + + + + | 12/25/ | Telephone | | Yonas Linn RN | | | 2018 | | | | | +--------+ + + + + | 12/25/ | Documentati | | Jannie Mcnair, | | | 2019 | on Only | | MICROFILM OPERATOR | | +--------+ + + + + | 12/22/ | Telephone | | Sofiya Colindres, | Referral | | 2019 | | | MD | | +--------+ + + + + | 12/22/ | Documentati | | Sofiya Colindres, | | | 2019 | on Only | | MD | | +--------+ + + + + | 10/17/ | Telephone | | Yonas iLnn RN | | | 2019 | | | | | +--------+ + + + + from [...] + + + | Respiratory Rate | 18 | 07/31/2018 11:31 AM PDT | + + + + [...] + + | 01/05/ | Office | | Krysta Colindresitha, | | | 2018 | Visit | | [address] | | | | | | [place] | | | | | | [address] | | | | | | | | +--------+---------+ + + + | 03/01/ | Office | | Patrice Rowe MD | | | 2018 | Visit | | [address] | | | | | | [place] [address] | | | | | | [phone] | | | | | | | | +--------+---------+ + + + + + + + + | Health Maintenance | Due Date | Last Done | Comments | + + + + + | Diabetic Eye Exam | | | | | | 5 | | | + + + + + | Diabetic Foot Exam | | | | | | 5 | | | + + + + + | Microalbumin | | | | | Screening | 5 | | | + + + + + | Vaccine: | | | | | Dtap/Tdap/Td (1 - | 4 | | | | Tdap) | | | | + + + + + | Vaccine: | | | | | Pneumococcal 19-64 | 4 | | | | (PPSV23 only) Medium | | | | | Risk (1 of 1 - | | | | | PPSV23) | | | | + + + + + | Cervical Cancer | | | | | Screening (Pap) | 5 | | | + + + + + | Breast Cancer | | | | | Screening | 5 | | | | (Mammogram) | | | | + + + + + | Colon Cancer | | | | | Screening | 5 | | | | (Colonoscopy) | | | | + + + + + | Vaccine: Zoster (1 | | | | | of 2) | 5 | | | + + + + + | Hemoglobin A1c | | 09/05/2012 | | | | 3 | | | + + + + + | Vaccine: Influenza | | | | | (#1) | 8 | | | + + + + + Results Not on filefrom Last 3 Months Insurance + +--------+ +------+-------+---------+ | Payer | Benefi | Subscriber | Type | Phone | Address | | | t Plan | ID | | | | | | / | | | | | | | Group | | | | | + +--------+ +------+-------+---------+ | [employer] | YELLOW | [id number] | | | | | PLANS | [place] | | | | | + +--------+ +------+-------+---------+ + +--------+ +--------+ + + | Guarantor Name | Accoun | Relation to | Date | Phone | Billing Address | | | t Type | Patient | of | | | | | | | | | | + +--------+ +--------+ + + | JAMIA CORNEJO | Person | Self | [birth year] | Home: | [address] | | | al/Fam | | 5 | [phone] [place] | | | [place]olin[place] | | | [phone] | [phone] | + +--------+ +--------+ + +
--- OUTSIDE RECORDS SUMMARY | ~2019-01-02 | XMS | Encounter Summary ---
Demographics + + + | Address | [address] | | | [place] [address] | + + + | Home Phone | | + + + | Preferred Language | Unknown | + + + | Marital Status | | + + + | Jewish Affiliation | 1041 | + + + | Race | Unknown | + + + | Ethnic Group | Unknown | + + + Author + + + | Author | [facility] [employer] | + + + | Organization | [facility] [employer] | + + + | Address | Unknown | + + + | Phone | Unavailable | + + + Support + + + + + | Name | Relationship | Address | Phone | + + + + + | Jaydon Cornejo | ECON | [address] | | | | | [place] | | | | | [address] | | + + + + + Care Team Providers + +------+ + | Care Chef Head Name | Role | Phone | + +------+ + | Ana Paula Mays MD | PCP | | + +------+ + Encounter Details +--------+ + + + + | Date | Type | Department | Care Team | Description | +--------+ + + + + | 12/22/ | Documentati | Adiel | Sofiya Colindres, | | | 2019 | on Only | [facility] | [address] | | | | [address] | [place] | | | | | [place] | [address] | | | | | [address] | | | | | | [phone] | | | +--------+ + + + [...] [place] | | | | | | [address] | | | | | | | | +--------+---------+ + + + | 03/01/ | Office | Pulmonology | Patrice Rowe MD | | | 2019 | Visit | | [address] | | | | | | [place] [address] | | | | | | [phone] | | | | | | | | +--------+---------+ + + + as of this encounter Visit Diagnoses Not on filein this encounter"
--- OUTSIDE RECORDS SUMMARY | ~2019-01-02 | XMS | Encounter Summary ---
Demographics + + + | Address | [address] | | | [place] [address] | + + + | Home Phone | | + + + | Preferred Language | Unknown | + + + | Marital Status | | + + + | Jew Affiliation | 1041 | + + + | Race | Unknown | + + + | Ethnic Group | Unknown | + + + Author + + + | Author | [facility] [employer] | + + + | Organization | [facility] [employer] | + + + | Address | Unknown | + + + | Phone | Unavailable | + + + Support + + + + + | Name | Relationship | Address | Phone | + + + + + | Jaydon Cornejo | ECON | [address] | | | | | [place] | | | | | [address] | | + + + + + Care Team Providers + +------+ + | Care Door Core Assembler Name | Role | Phone | + [...] Pulmonology | | | | | | [place] [address] | [address] | | | | | | [address] | [address] | | | | | | [place], | [place], [place] | | | | | | [place] [address] | [address] | | | | | | Phone: | Phone: | | | | | | [phone] | [phone] | | | | | | Fax: | | | | | | | [phone] | | + +--------+ + + + + Encounter Details +--------+---------+ + + + | Date | Type | Department | Care Team | Description | +--------+---------+ + + + | 12/25/ | Office | [facility] | Patrice Rowe MD | Mild persistent | | 2019 | Visit | Pulmonology [address] | [address] | asthma without | | | | [address] | [place] [address] | complication | | | | [place], [place] | [phone] | (Primary Dx); [place] | | | | [address] | | (obstructive sleep | | | | [phone] | | apnea) | +--------+---------+ + + [...] 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 07/12/2017 The patient had difficult time when [...] Rowe MD Pulmonary and Critical Care Medicine [place] [address] [address] [facility], [facility] , [place] [address] in this encounter Plan of Treatment +--------+---------+ + + + | Date | Type | Specialty | Care Team | Description | +--------+---------+ + + + | 01/05/ | Office | Neurology | Sofiya Colindres, | | | 2018 | Visit | | [address] | | | | | | [place] | | | | | | [address] | | | | | | | | +--------+---------+ + + + | 03/01/ | Office | Pulmonology | Patrice Rowe MD | | | 2018 | Visit | | [address] | | | | | | [place] [address] | | | | | | [phone] | | | | | | | [...]
--- OUTSIDE RECORDS SUMMARY | ~2019-01-02 | XMS | Encounter Summary ---
Demographics + + + | Address | [address] | | | [place] [address] | + + + | Home Phone | | + + + | Preferred Language | Unknown | + + + | Marital Status | | + + + | Episcopal Affiliation | 1041 | + + + | Race | Unknown | + + + | Ethnic Group | Unknown | + + + Author + + + | Author | [facility] [employer] [facility] | + + + | Organization | [facility] [employer] | + + + | Address | Unknown | + + + | Phone | Unavailable | + + + Support + + + + + | Name | Relationship | Address | Phone | + + + + + | Jaydon Cornejo | ECON | [address] | | | | | [place] | | | | | [address] | | + + + + + Care Team Providers + +------+ + | Care Hydrometeorological Technician Name | Role | Phone | + +------+ + | Karyn Shields PA-C | PCP | | + +------+ + Encounter Details +--------+ + + + + | Date | Type | Department | Care Team | Description | +--------+ + + + + | 12/25/ | Documentati | [facility] | Jannie Mcnair, | | | 2018 | on Only | Pulmonology [address] | CERTIFIED PROCEDURAL CODER | | | | | [address] | | | | | | [place], [place] | | | | | | [address] | | | | | | [phone] | | | +--------+ + + + [...] [place] | | | | | | [address] | | | | | | | | +--------+---------+ + + + | 03/01/ | Office | Pulmonology | Patrice Rowe MD | | | 2019 | Visit | | [address] | | | | | | [place] [address] | | | | | | [phone] | | | | | | | | +--------+---------+ + + + as of this encounter Visit Diagnoses Not on filein this encounter"
--- OUTSIDE RECORDS SUMMARY | ~2019-01-02 | XMS | Encounter Summary ---
Demographics + + + | Address | [address] | | | [place] [address] | + + + | Home Phone | | + + + | Preferred Language | Unknown | + + + | Marital Status | | + + + | Samaritan Affiliation | 1041 | + + + | Race | Unknown | + + + | Ethnic Group | Unknown | + + + Author + + + | Author | [facility] [employer] | + + + | Organization | [facility] [employer] | + + + | Address | Unknown | + + + | Phone | Unavailable | + + + Support + + + + + | Name | Relationship | Address | Phone | + + + + + | Jaydon Cornejo | ECON | [address] | | | | | [place] | | | | | [address] | | + + + + + Care Team Providers + +------+ + | Care Ironer Or Presser Name | Role | Phone | + +------+ + | Karyn Shields PA-C | PCP | | + +------+ + Reason for Visit + + + | Reason | Comments | + + + | Referral | | + + + Encounter Details +--------+ + + + + | Date | Type | Department | Care Team | Description | +--------+ + + + + | 12/22/ | Telephone | [facility] | Sofiya Colindres, | Referral | | 2019 | | [facility] | [address] | | | | | [address] | [place] | | | | | [place] | [address] | | | | | [address] | | | | | | [phone] | | | +--------+ + + + [...] [place] | | | | | | Dr [place] | | | | | | [address] | | | | | | | | +--------+---------+ + + + | 03/01/ | Office | Pulmonology | Patrice Rowe MD | | | 2019 | Visit | | [address] | | | | | | [place] [address] | | | | | | [phone] | | | | | | | | +--------+---------+ + + + as of this encounter Visit Diagnoses Not on filein this encounter"
--- OUTSIDE RECORDS SUMMARY | ~2019-01-02 | XMS | Encounter Summary ---
Demographics + + + | Address | [address] | | | [place] [address] | + + + | Home Phone | | + + + | Preferred Language | Unknown | + + + | Marital Status | | + + + | Mandaeism Affiliation | 1041 | + + + | Race | Unknown | + + + | Ethnic Group | Unknown | + + + Author + + + | Author | [facility] [employer] [facility] | + + + | Organization | [facility] [employer] | + + + | Address | Unknown | + + + | Phone | Unavailable | + + + Support + + + + + | Name | Relationship | Address | Phone | + + + + + | Jaydon Cornejo | ECON | [address] | | | | | [place] | | | | | [address] | | + + + + + Care Team Providers + +------+ + | Care End Finder Twisting Department Name | Role | Phone | + [...] + + | 01/01/ | Telephone | [facility] | Bernadine Sofiya, | Other (sooner | | 2019 | | [facility] | [address] | appointment ) | | | | [address] | [address] [place], [place] | | | | | [place], [place] | [address] | | | | | [address] | | | | | | [phone] | | | +--------+ + + + [...] [place] | | | | | | [address] | | | | | | | | +--------+---------+ + + + | 03/01/ | Office | Pulmonology | Patrice Rowe MD | | | 2019 | Visit | | [address] | | | | | | [place] [address] | | | | | | [phone] | | | | | | | | +--------+---------+ + + + as of this encounter Visit Diagnoses Not on filein this encounter"
--- OUTSIDE RECORDS SUMMARY | ~2019-01-02 | XMS | Encounter Summary ---
Demographics + + + | Address | [address] | | | [place] [address] | + + + | Home Phone | | + + + | Preferred Language | Unknown | + + + | Marital Status | | + + + | Jainism Affiliation | 1041 | + + + | Race | Unknown | + + + | Ethnic Group | Unknown | + + + Author + + + | Author | [facility] [employer] | + + + | Organization | [facility] [employer] | + + + | Address | Unknown | + + + | Phone | Unavailable | + + + Support + + + + + | Name | Relationship | Address | Phone | + + + + + | Jaydon Cornejo | ECON | [address] | | | | | [place] | | | | | [address] | | + + + + + Care Team Providers + +------+ + | Care Manager Leasing Name | Role | Phone | + +------+ + | Ana Paula Mays MD | PCP | | + +------+ + Encounter Details +--------+ + + + + | Date | Type | Department | Care Team | Description | +--------+ + + + + | 10/17/ | Telephone | [facility] | Yonas Linn RN | | | 2018 | | Pulmonology [address] | | | | | | [address] | | | | | | [place] | | | | | | [address] | | | | | | [phone] | | | +--------+ + + + [...] [place] | | | | | | [id number] | | | | | | | | +--------+---------+ + + + | 03/01/ | Office | Pulmonology | Patrice Rowe MD | | | 2018 | Visit | | [address] | | | | | | [place] [address] | | | | | | [phone] | | | | | | | | +--------+---------+ + + + as of this encounter Visit Diagnoses Not on filein this encounter"
--- OUTSIDE RECORDS SUMMARY | ~2019-01-02 | XMS | Encounter Summary ---
Demographics + + + | Address | [address] | | | [place] [address] | + + + | Home Phone | | + + + | Preferred Language | Unknown | + + + | Marital Status | | + + + | Jehovah'S Witness Affiliation | 1041 | + + + | Race | Unknown | + + + | Ethnic Group | Unknown | + + + Author + + + | Author | [facility] [employer] | + + + | Organization | [facility] [employer] | + + + | Address | Unknown | + + + | Phone | Unavailable | + + + Support + + + + + | Name | Relationship | Address | Phone | + + + + + | Jaydon Cornejo | ECON | [address] | | | | | [place] | | | | | [address] | | + + + + + Care Team Providers + +------+ + | Care Tetryl Wringer Operator Name | Role | Phone | + +------+ + | Karyn Shields PA-C | PCP | | + +------+ + Encounter Details +--------+ + + + + | Date | Type | Department | Care Team | Description | +--------+ + + + + | 12/25/ | Telephone | [facility] | Yonas Linn RN | | | 2019 | | Pulmonology [address] | | | | | | [address] | | | | | | [place] | | | | | | [address] | | | | | | [phone] | | | +--------+ + + + [...] [place] | | | | | | [id number] | | | | | | | | +--------+---------+ + + + | 03/01/ | Office | Pulmonology | Patrice Rowe MD | | | 2019 | Visit | | [address] | | | | | | [place] [address] | | | | | | [phone] | | | | | | | | +--------+---------+ + + + as of this encounter Visit Diagnoses Not on filein this encounter"
--- OUTSIDE RECORDS SUMMARY | ~2019-01-02 | XMS | Clinical Summary ---
Demographics + + + | Address | [address] | | | [place] [address] | + + + | Home Phone | | + + + | Preferred Language | Unknown | + + + | Marital Status | | + + + | Nondenominational Affiliation | 1041 | + + + | Race | Unknown | + + + | Ethnic Group | Unknown | + + + Author + + + | Author | [facility] [employer] | + + + | Organization | [facility] [employer] | + + + | Address | Unknown | + + + | Phone | Unavailable | + + + Support + + + + + | Name | Relationship | Address | Phone | + + + + + | Jaydon Cornejo | ECON | [address] | | | | | [place] | | | | | [address] | | + + + + + Care Team Providers + +------+ + | Care Optical Design Engineer Name | Role | Phone | + [...] | 2019 | on Only | | CELEBRITY MANAGER | | +--------+ + + + + | 12/22/ | Telephone | | Sofiya Colindres, | Referral | | 2019 | | | MD | | +--------+ + + + + | 12/22/ | Documentati | | Sofiya Colindres, | | | 2019 | on Only | | MD | | +--------+ + + + + | 10/17/ | Telephone | | Yonas Linn RN [...] [place] | | | | | | [address] | | | | | | | | +--------+---------+ + + + | 03/01/ | Office | | Patrice Rowe MD | | | 2018 | Visit | | [address] | | | | | | [place] [address] | | | | | | [phone] | | | | | | | [...] | | | + +--------+ +------+-------+---------+ | [facility] | YELLOW | [id number] | | | | | PLANS | [...] | Self | [birth year] | Home: | [address] | | | al/Fam | | [phone] | [phone] [place] | | | [place] | | | [phone] | [address] | + +--------+ +--------+ + +
--- OUTSIDE RECORDS SUMMARY | ~2019-01-02 | XMS | Clinical Summary ---
Demographics + + + | Address | [address] | | | [place] [address] | + + + | Home Phone [...] | Author | [facility] | | | and [place] | + + + | Organization | [facility] | | | and [place] | + + + | Address | Unknown | + + + | Phone | Unavailable | + + + Support + + + + + | Name | Relationship | Address | Phone | + + + + + | Jaydon Sweet | ECON | [address] | | | | | [place] | | | | | [address] | | + + + + + Care Team Providers + +------+ + | Care Machine Finisher Name | Role | Phone | + [...] snore | + +---------+ + + | Brothcarmita | Miguel Ángel | | pancreatic cancer [...] +--------+ +--------+-------+---------+ | BCBS | BCBS | [id number] | PPO | | | | | [place] | | | | | | | L FEP | | | | | + +--------+ +--------+-------+---------+ | [facility] | IHS | [id number] | Indemn | | | | SERVICE [...] | Self | [birth year] | Home: | [address] | | | al/Fam | | [phone] | [phone] [place], [place] | | | [place] | | | [address] | [address] | + +--------+ +--------+ + +
--- OUTSIDE RECORDS SUMMARY | ~2019-01-02 | XMS | Encounter Summary ---
Demographics + + + | Address | [address] | | | [place] [address] | + + + | Home Phone | | + + + | Preferred Language | Unknown | + + + | Marital Status | | + + + | Rastafari Affiliation | 1041 | + + + | Race | Unknown | + + + | Ethnic Group | Unknown | + + + Author + + + | Author | [facility] [employer] [facility] | + + + | Organization | [facility] [employer] [facility] | + + + | Address | Unknown | + + + | Phone | Unavailable | + + + Support + + + + + | Name | Relationship | Address | Phone | + + + + + | Jaydon Cornejo | ECON | [address] | | | | | [place] | | | | | [address] | | + + + + + Care Team Providers + +------+ + | Care Wig Comber Name | Role | Phone | + [...] | | | [place] | [address] | | | | | [address] | | | | | | [phone] | | | +--------+ + + + [...] | | | | | Dr [place] [place] | | | | | | [address] | | | | | | | | +--------+---------+ + + + | 03/01/ | Office | Pulmonology | Patrice Rowe MD | | | 2019 | Visit | | [address] | | | | | | [place] [address] | | | | | | [phone] | | | | | | | | +--------+---------+ + + + as of this encounter Visit Diagnoses Not on filein this encounter"
--- OUTSIDE RECORDS SUMMARY | ~2019-01-02 | XMS | Encounter Summary ---
Demographics + + + | Address | [address] | | | [place] [address] | + + + | Home Phone | | + + + | Preferred Language | Unknown | + + + | Marital Status | | + + + | Amish Affiliation | 1041 | + + + | Race | Unknown | + + + | Ethnic Group | Unknown | + + + Author + + + | Author | [facility] [employer] | + + + | Organization | [facility] [employer] | + + + | Address | Unknown | + + + | Phone | Unavailable | + + + Support + + + + + | Name | Relationship | Address | Phone | + + + + + | Jaydon Cornejo | ECON | [address] | | | | | [place] | | | | | [address] | | + + + + + Care Team Providers + +------+ + | Care Dog Or Horse Racing Official Name | Role | Phone | + +------+ + | Karyn Shields PA-C | PCP | | + +------+ + Encounter Details +--------+ + + + + | Date | Type | Department | Care Team | Description | +--------+ + + + + | 12/25/ | Telephone | [facility] | Yonas Linn RN | | | 2019 | | Pulmonology [address] | | | | | | [address] | | | | | | [place] | | | | | | [address] | | | | | | [phone] | | | +--------+ + + + [...] [place] | | | | | | [id number] | | | | | | | | +--------+---------+ + + + | 03/01/ | Office | Pulmonology | Patrice Rowe MD | | | 2019 | Visit | | [address] | | | | | | [place] [address] | | | | | | [phone] | | | | | | | | +--------+---------+ + + + as of this encounter Visit Diagnoses Not on filein this encounter"
[~2019-01-02 18:56] MED LIST changes: +AUGMENTIN 875-1 EACH PO; +METHYLPREDNISOLO4 M1 PO
== END 2019-01-02 21:27 | disposition home or self-care (01) ==
LOC: ED 18:56
DX: R51 Headache (principal); E11.9 Type 2 diabetes mellitus without complications; I10 Essential (primary) hypertension; J43.9 Emphysema, unspecified; Z87.01 Personal history of pneumonia (recurrent); Z87.891 Personal history of nicotine dependence; Z90.710 Acquired absence of both cervix and uterus; Z88.8 Allergy status to other drugs, medicaments and biological substances; Z79.899 Other long term (current) drug therapy
CPT/HCPCS: 70450; 71045; 80053; 81001; 83605; 85025; 96361; 96374; 96375; 99284-25; J1200; J1885; J2765; J7030

== ENCOUNTER 2020-05-31 17:28 | Emergency (ER) | payer OTHER ==
[~2020-05-31] VITALS: Ht 162.6 cm; Wt 86.2 kg
--- OUTSIDE RECORDS SUMMARY | ~2020-05-31 | XMS | Encounter Summary ---
Demographics + + + | Address | [address] | | | [place] [address] | + + + | Home Phone | | + + + | Preferred Language | Unknown | + + + | Marital Status | | + + + | Mormon Affiliation | 1041 | + + + | Race | or | + + + | Ethnic Group | Not or | + + + Author + + + | Author | [facility] | | | and [place] | + + + | Organization | [facility] | | | and [place] | + + + | Address | Unknown | + + + | Phone | Unavailable | + + + Support + + +---------+ + | Name | Relationship | Address | Phone | + + +---------+ + | Kisha Rene | ECON | Unknown | | + + +---------+ + Care Team Providers + +------+ + | Care Elevator Operator Service Name | Role | Phone | + +------+ + | Conversion Transaction, | PCP | | | Provider Unknown | | | + +------+ + Encounter Details +--------+ + + + + | Date | Type | Department | Care Team | Description | +--------+ + + + + | 01/14/ | Hospital | [facility] | [place], | | | 2016 | Encounter | [facility] | Lisset Lira MD | | | | | [address] | | | | | | [place] | | | | | | [address] | | | | | | [phone] | | | +--------+ + + + + Social History + + + +--------+ + | Tobacco Use | Types | Packs/Day | Years | Date | | | | | Used | | + + + +--------+ + | Former Smoker | Cigarettes | 1.5 | 15 | Quit: 10/10/1983 | + + + +--------+ + + +---+---+---+ | Smokeless Tobacco: | | | | | Never Used | | | | + +---+---+---+ + + +---------+ + | Alcohol Use | Drinks/Week | oz/Week | Comments | + + +---------+ + | No | 0 Standard drinks | 0.0 | | | | or equivalent | | | + + +---------+ + + + + | Sex Assigned at | Date Recorded | | | | + + + | Not on file | | + + + documented as of this encounter Plan of Treatment Not on filedocumented as of this encounter Visit Diagnoses Not on filedocumented in this encounter"
--- OUTSIDE RECORDS SUMMARY | ~2020-05-31 | XMS | Encounter Summary ---
Demographics + + + | Address | [address] | | | [place] [address] | + + + | Home Phone | | + + + | Preferred Language | Unknown | + + + | Marital Status | | + + + | Confucianism Affiliation | 1041 | + + + | Race | or | + + + | Ethnic Group | Not or | + + + Author + + + | Author | [facility] | | | and [place] | + + + | Organization | [facility] | | | and [place] | + + + | Address | Unknown | + + + | Phone | Unavailable | + + + Support + + +---------+ + | Name | Relationship | Address | Phone | + + +---------+ + | Kishayessi Rene | ECON | Unknown | | + + +---------+ + Care Team Providers + +------+ + | Care Blending Technician Name | Role | Phone | + +------+ + | Conversion Transaction, | PCP | | | Provider Unknown | | | + +------+ + Reason for Visit +--------+--------+ + | Reason | Onset | Comments | | | Date | | +--------+--------+ + | Other | 11/19/ | | | | 2020 | | +--------+--------+ + Encounter Details +--------+ + + + + | Date | Type | Department | Care Team | Description | +--------+ + + + + | 11/19/ | Telephone | [facility] | Patrice Rowe MD | Other | | 2020 | | PULMONOLOGY [address] | [address] | | | | | [address] | [place], [place] | | | | | [place], [place] | [address] | | | | | [address] | | | | | | [phone] | | | +--------+ + + + [...] + + documented as of this encounter Miscellaneous Notes Telephone Encounter - Jannie Mcnair Acute Care Occupational Therapist - 11/19/2019 4:11 PM PSTLeft det red VM letting patient know Dr. Rowe has sent Medrol dose pack and Arnuity ellipta inhale r to [facility] fax [phone]. Confirmation received elephone Encounter - Jannie Mcnair M edical Lift Truck Operator - 11/19/2019 2:54 PM PSTSissy, (patient) is calling regarding Other and would like a call back. Additional Call Details: Patient is having a hard time breathing and is wheezing when layi ng down. Are you having any cough? yes SOB? yes Wheezing? yes Fevers? no Coughing anything up? no If phlegm present, what color is it? No Are you using any inhalers or nebulizers? Yes, albuterol How long have you had this for? Has got worse this last week What medications have you taken for this? No Have you received any treatment from anyone else? no What pharmacy do you use? [facility] If this is a symptom based call, was patient offered triage? Not Applicable If this is a symptom based call and you were unable to immediately transfer the call to a conchita ramsay mold construction supervisor was caller made aware that if at any time she feels it is an emergency they sh ould call 911 or go to the nearest emergency room? not applicable docum ented in this encounter Plan of Treatment Not on filedocumented as of this encounter Visit Diagnoses Not on filedocumented in this encounter"
--- OUTSIDE RECORDS SUMMARY | ~2020-05-31 | XMS | Encounter Summary ---
Demographics + + + | Address | [address] | | | [place] [address] | + + + | Home Phone | | + + + | Preferred Language | Unknown | + + + | Marital Status | | + + + | Shinto Affiliation | [id number] | + + + | Race | or | + + + | Ethnic Group | Not or | + + + Author + + + | Author | [facility] | | | and [place] | + + + | Organization | [facility] | | | [...] Team Providers + +------+ + | Care Platform Loader Name | Role | Phone | + +------+ + | Ana Paula Mays MD | PCP | | + +------+ + Reason for Visit + + + | Reason | Comments | + + + | New Patient | lung pain for the last 3 months with cough | + + + Evaluate & Treat (Routine) +--------+--------+ + + + + | Status | Reason | Specialty | Diagnoses / | Referred By | Referred To | | | | | Procedures | Contact | Contact | +--------+--------+ + + + + | Closed | | Pulmonology | Diagnoses | Otis, | Yoandy, | | | | | LUNG PAIN | Paolo Vazquez, | Lisset Lira, | | | | | Procedures | PA-C [id number] | MD [address] | | | | | NEW PT | [address] | [address] | | | | | CONSULT | [address] | [place] | | | | | | [place], | [place] [address] | | | | | | [place] [address] | | | | | | | Phone: | | | | | | | [phone] | | | | | | | Fax: | | | | | | | [phone] | | +--------+--------+ + + + + Encounter Details +--------+---------+ + + + | Date | Type | Department | Care Team | Description | +--------+---------+ + + + | 01/14/ | Office | [facility] [place] | Offenstein, | Pleuritic chest | | 2015 | Visit | PULMONARY [address] | Lisset Lira MD | pain; Pulmonary | | | | [place], | | nodule seen on | | | | [place] [address] | | imaging study; | | | | [phone] | | Duodenitis; | | | | | | Panlobular emphysema | | | | | | (HCC) | +--------+---------+ + + + Social History + + [...] + + documented as of this encounter Last Filed Vital Signs + + + + + | Vital Sign | Reading | Time Taken | Comments | + + + + + | Blood Pressure | 142/70 | 01/15/2016 9:25 AM | | | | | PDT | | + + + + + | Pulse | 72 | 01/15/2016 9:25 AM | | | | | PDT | | + + + + + | Temperature | 36.5 C (97.7 F) | 01/15/2016 9:25 AM | | | | | PDT | | + + + + + | Respiratory Rate | 16 | 01/15/2016 9:25 AM | | | | | PDT | | + + + + + | Oxygen Saturation | 98% | 01/15/2016 9:25 AM | | | | | PDT | | + + + + + | Inhaled Oxygen | - | - | | | Concentration | | | | + + + + + | Weight | 96.2 kg (212 lb) | 01/15/2016 9:25 AM | | | | | PDT | | + + + + + | Height | 162.6 cm (5' 4") | 01/15/2016 9:25 AM | | | | | PDT | | + + + + + | Body Mass Index | 36.39 | 01/15/2016 9:25 AM | | | | | PDT | | + + + + + documented in this encounter Patient Instructions Patient Instructions Lisset Pitt MD - 01/15/2016 10:47 AM PDTHave labs done toda y. Schedule upper GI barium swallow. Stop the Asmanex. If you need to, use the Proventil inhaler. You do not need a follow up CT scan routinely. I do think you should walk more and do some regular exercise. Instructions for Avoidance of Reflux 1. Elevate the head of your bed about 5 inches, using a cinder block, or 6x6". 2. Avoid eating about 4 hours before bed. 3. Avoid lying down about 1 hour after eating. 4. Avoid drinking caffeine. 5. Avoid drinking alcohol. 6. Avoid eating fatty or spicy foods. 7. Your largest meal should be at breakfast or lunch, instead of dinner. 8. Avoid large bolus meals, and eat small amounts frequently throughout the day. 9. Weight loss is beneficial. 10. Take your reflux medication, omeprazole, 30 minutes prior to eating. documented in this encounter Progress Notes Lisset Pitt MD - 01/15/2016 9:32 AM PDTFormatting of this note might be differe nt from the original. Pulmonary Consult Referring Provider: Paolo Berg PA-C HPI Odalys Cornejo is a 60 y.o. female patient of nAa Paula Mays MD here today for evalua tion of pain in her chest with coughing and a possible enlarging pulmonary nodule. She notes that she first started having troubles with burning in her lungs. She notes it wa s in early October. She had not been sick when this started. She describes it as a tightness , as if she is getting a cold. She then gets a burning sensation in the central part of her chest, and then down to the left lower part of her chest. She does not associate it with eat ing or exerting herself. She gets the pain before she starts coughing, but it is worse when she coughs. The pain is more prominent on some days than others. It lasts for hours when it occurs. There are no relieving factors. She took some inhalers, which seem to help, but it t akes a while to go away, about 1/2 hour. She was using Proventil and Asmanex, both as needed , but has not used either of these in a week. She was also given ibuprofen to use 2-3 months ago, and is still taking this. She notes she is currently about 90% better. She was having to use her sleep machine all da y. She notes she thinks taking ibuprofen helped tremendously as did the inhalers. She notes that last month, she had high fevers up to 104 degrees. She was treated with a co uple of courses of antibiotics. Her was sick at the time as well. She also had prolo nged worsening of her cough, but no sputum production. She had another episode of bronchitis last April, and was treated with antibiotics then too. She had upper respiratory symptoms wh en that began. She notes that with these episodes, she started having pain, that radiated to her should, then coughing, and fevers both times. She does have shortness of breath the last few months, which has gotten better. It does get better if she uses the inhaler. Currently they are able to walk 5 blocks at their own pace on level ground. The distance walked is predominately limited by her breathing. Six months a go, they feel that they could walk about a mile. 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 She does not produce mucous. They have not had hemoptysis. She has had a bloody nose. She saw gastroenterology in March of last year and had an endoscopy done. This showed mild c hronic duodenitis and Lianet's gland hyperplasia, a gastric polyp and minimal chronic gastr itis with vascular congestion. She saw Dr. Hamilton in follow up who suggested an MRCP of her l iver and raised the question of IBS. Her MRCP was normal. She was not seen back but is on om eprazole daily. She has a diagnosis of DHAVAL, and wears her CPAP machine reliably and follows with John Oro in the sleep center. She has not had any recent issues with her CPAP machine. Past Medical History Past Medical History Diagnosis Date DM type 2 (diabetes mellitus, type 2) (HCC) Hyperchloremia Heat stroke 2011 thinks that she might have had once, lost feeling on one side and fell down. mouth went d own for 2-3 weeks. GERD (gastroesophageal reflux disease) DHAVAL (obstructive sleep apnea) on CPAP PONV (postoperative nausea and vomiting) Depression feels alone Hypertension Hyperlipidemia Obesity Miscarriage 7, 3 successful pregnancies Diverticulitis of gastrointestinal tract Allergic rhinitis Vitamin D deficiency Diabetic polyneuropathy (HCC) Dysfunction of eustachian tube Spinal stenosis of lumbar region Chronic serous otitis media Disc disorder of lumbar region L4- L5 disc herniation Coronary arteriosclerosis Past Surgical History Past Surgical History Procedure Laterality Date Jeremy and bso 1994 Tonsillectomy age 4 Lumbar spine surgery 09/2014 Knee cartilage surgery Right Cholecystectomy Ectopic surgery Abdominal exploration surgery x 2 for bowel obstruction that she reports was due to endometriois Tubal ligation Egd and colonoscopy N/A 04/02/2015 Procedure: EGD / COLONOSCOPY; Surgeon: Yahir Edwards MD; Location: [facility] Cystoscopy Dr. Garrett Family History: Family History Problem Relation Age of Onset Heart disease Sister CABG age about 60 Diabetes Sister Other (see comment) Sister snores Heart disease Brother Diabetes Brother Cancer Brother 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 Heart disease Brother Diabetes Brother Other (see comment) Brother [place] PTSD, snore Kidney cancer Brother Diabetes Mother Heart disease Mother High blood pressure Mother Stroke Mother Other (see comment) Mother snored Diabetes Father Heart disease Father High blood pressure Father Diabetes Brother Heart disease Brother High blood pressure Brother Cancer Brother pancreatic Heart disease Brother Diabetes Brother Other (see comment) Brother snored Diabetes Brother Heart disease Brother Cancer Brother lymphoma Other (see comment) Brother snored Diabetes Brother Heart disease Brother Cancer Brother Esophageal Other (see comment) Brother snored Diabetes Brother Heart disease Brother Diabetes Brother Heart disease Brother Diabetes Brother Heart disease Brother Diabetes Brother Heart disease Brother Diabetes Brother Heart disease Brother Sleep Apnea Son Social History: History Social History Marital Status: Spouse Name: N/A Number of Children: N/A Years of Education: 12+ 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 Exposure to asbestos: Yes she took out instalation from her mothers attic that was wet and moldy. Exposure to tuberculosis: When younger her mother had it and was in the hospital for a yea r from it. Has had a PPD or Quantiferon before: Positive PPD test in the past and last one she had do ne was negative. Has pets at home: Cattle, dogs, cats, chickens, horses and mules Has ever owned birds: Parrot and canary about 15 years ago Other animal exposures: no Hobbies: Zesty work, playing [employer], painting and drawing. Travel: Recently [place] Allergies: Allergies Allergen Reactions Lisinopril Cough Atorvastatin Muscle aches Codeine Sulfate Nausea and vomit Metoclopramide Morphine Pt. Dose not like as makes her feel wierd Medications: Outpatient Encounter Prescriptions as of 01/15/2016 Medication Sig Dispense Refill [DISCONTINUED] albuterol 5 mg/mL nebulizer solution albuterol 90 mcg/puff inhaler Inhale 2 puffs into the lungs every 6 hours as needed for Wheezing or Shortness of Breath. [DISCONTINUED] albuterol-ipratropium (COMBIVENT RESPIMAT) 100-20 mcg/puff inhaler Inhal e 1 puff into the lungs 4 times daily. ASMANEX 120 METERED DOSES 220 MCG/INH inhaler 1 Inhaler as needed. aspirin 325 mg tablet Take 81 mg by mouth Daily. Cholecalciferol (VITAMIN D-3) 2000 units CAPS Take 2,000 Units by mouth Daily. dicyclomine (BENTYL) 10 mg capsule Take 10 mg by mouth 4 times daily. FLUoxetine (PROZAC) 10 mg capsule Take 10 mg by mouth Daily. glipiZIDE (GLUCOTROL XL) 5 mg 24 hr tablet Take 5 mg by mouth daily (with breakfast). hydrochlorothiazide 25 mg tablet Take 25 mg by mouth Daily. ibuprofen (ADVIL,MOTRIN) 600 MG tablet ipratropium (ATROVENT) 500 mcg/2.5 mL nebulizer solution LORazepam (ATIVAN) 0.5 mg tablet Take 0.5 mg by mouth as needed for Anxiety or Insomnia . Prn prior to Imaging study 1 tablet may repeat one time. lovastatin (MEVACOR) 20 mg tablet Take 20 mg by mouth nightly. metoclopramide (REGLAN) 10 mg tablet Take 10 mg by mouth 3 times daily (before meals). nitroglycerin (NITROSTAT) 0.[address] 0.4 mg under the tongue every 5 minute s as needed for Chest pain. omeprazole (PRILOSEC) 20 mg capsule Take 20 mg by mouth every morning (before breakfast ). ondansetron (ZOFRAN) 4 mg tablet Slowly start prep. If nausea occurs, wait 1/2 hr. Take 1 tablet, wait 1/2 hour. Slowly resume prep. 2 tablet 0 [DISCONTINUED] oxybutynin (DITROPAN-XL) 10 MG 24 hr tablet Take 10 mg by mouth Daily. [DISCONTINUED] promethazine (PHENERGAN) 25 mg tablet Take 25 mg by mouth every 6 hours as needed for Nausea. sitagliptan-metFORMIN (JANUMET) 50-1000 MG per tablet Take 1 tablet by mouth 2 times da apolinar (with breakfast & dinner). No facility-administered encounter medications on file as of 01/15/2016. Review of Systems: General: [x]Weight loss/gain (over 10 lbs) []Fever/chills/sweats [x]Night sweats Hematologic: []Bleeding/bruising tendencies [x]History of blood transfusion []Anemia []Enlarged lymph n odes EENT: [x]Hearing loss [x]Vision loss/change [x]Sinus congestion/nasal drainage []Nosebleeds [x]Hoarseness Cardiac: [x]Chest pain [x]Palpitations/heart racing [x]Swelling of legs/ankles []Waking up at nigh t short of breath []Difficulty sleeping flat Gastrointestinal: [x]Nausea/vomiting []Difficulty swallowing []Heartburn/acid reflux [x]Loss of appetite [x] Abdominal pain Musculoskeletal: [x]Joint stiffness/swelling [x]Joint pain [x]Back pain []Arthritis []Gout Urologic: []Blood in urine []Frequent urination at night []Burning/painful urination []Difficulty wit h urination Neurological: [x]Headaches []Seizures [x]Memory loss or confusion [x]Numbness or tingling in feet or hand s Psychiatric: []Depression []Anxiety/panic attacks []Suicidal ideation Sleep: [x]Difficulty falling asleep [x]Waking up at night frequently [x]Snoring [x]Stop breathin g in their sleep [x]Fall asleep frequently, or excessively tired Objective BP 142/70 mmHg | Pulse 72 | Temp(Src) 36.5 C (97.7 F) (Temporal) | Resp 16 | Ht 1.626 m (5' 4") | Wt 96.163 kg (212 lb) | BMI 36.37 kg/m2 | SpO2 98% RA General Appearance: Alert, cooperative, no distress, appears stated age Head: Normocephalic, without obvious abnormality, atraumatic Eyes: PERRL, conjunctiva clear, no scleral icterus, EOM's intact Ears: Normal TM's, external auditory canals, normal acuity Nose: Nares normal, septum midline, mucosa normal Mouth: No oral lesions or exudate Neck: Supple, symmetrical, no adenopathy Lungs: No accessory muscle use, breath sounds are very slightly diminished bilaterally, n o wheezes, crackles or rhonchi Chest Wall: No deformity Heart: Regular rate and rhythm, no murmur, rub or gallop Abdomen: Soft, non-tender, non-distended, mildly obese Extremities: No cyanosis, clubbing, or edema Pulses: Radial pulses 2+ and symmetric Skin: Warm and dry Lymph nodes: Cervical and supraclavicular nodes normal Data: Chest CT scan done December 29, 2015 was reviewed and interpreted in clinic today. It shows a calcified left lung base nodule measuring 9.6mm. Compared to imaging from 2014 and 2013 this appears stable in size. There is likely a background of mild emphysema. Pulmonary function tests were performed on January 11, 2016 and were reviewed and interpreted in clinic today. They show normal spirometry, normal lung volumes, and mildly reduced diffu na capacity. NM stress test was performed on March 06, 2015 and results were reviewed in clinic today. 1. Regadenoson EKG is negative. 2. Normal Regadenoson Sestamibi myocardial perfusion study with a normal left ventricular size and wall thickness. Preserved left ventricular systolic function. LVEF by gated SP ECT is 77 %. Labs: Ref. Range 12/01/2015 00:00 WBC, External Latest Ref Range: 4-11 7.3 RBC, External Unknown 4.63 HGB, External Unknown 12.4 HCT, External Unknown 38.2 MCV, External Unknown 82 MCH Latest Ref Range: 27.0-33.0 pg 26.8 (A) MCHC Latest Ref Range: 30.0-36.0 % 32.5 RDW, External Unknown 15.7 PLT, External Unknown 596 Neutrophils %, External Latest Ref Range: 37-67 63.3 Lymphocytes %, External Latest Ref Range: 24-44 31.6 Sodium, External Latest Ref Range: 132-140 138 Potassium, External Latest Ref Range: 3.6-5 4.8 Carbon Dioxide, External Latest Ref Range: 19-31 25 Chloride, External Latest Ref Range: 95-112 100 ANION GAP Latest Ref Range: 7-21 mmol/L 18 Glucose, External Latest Ref Range: 70-100 88 BUN, External Latest Ref Range: 6-23 18 Bun/Creatinine Latest Ref Range: 6.0-28 21.2 Creatinine, External Latest Ref Range: 0.7-1 0.85 Albumin, External Latest Ref Range: 3.5-5 3.9 Calcium, External Latest Ref Range: 8.4-10 9.8 ALP, External Latest Ref Range: 30-128 102 ALT, External Latest Ref Range: 7-52 16 AST, External Latest Ref Range: 13-39 14 Bilirubin, Total, External Latest Ref Range: 0-1 0.4 Protein, Total, External Latest Ref Range: 6-8 7.6 A/G Ratio Latest Ref Range: 1.1-2.0 1.1 eGFR, External Unknown 68 Hemoglobin A1c, external Unknown 6.2 Chol/HDL Ratio Latest Ref Range: 4.4 4.3 Cholesterol, Total, External Latest Ref Range: 200 mg/dl 207 (A) HDL Cholesterol, External Latest Ref Range: 40 mg/dl 47.9 LDL Cholesterol, External Latest Ref Range: 100 139 (A) Non HDL Chol. (LDL+VLDL) Latest Ref Range: 130 159 (A) Triglycerides, External Latest Ref Range: 30-150 102 Globulin Latest Ref Range: 1.8-3.5 3.7 (A) Ana Paula Mays MD's notes were reviewed in clinic today. Assessment 1. Pleuritic chest pain - Etiology is not clear, but may be due to pulled muscles from coug isma, costochondritis, muscle spasm, refluxing causing cough and pain. I did add on an autoi mmune panel given her history of 7 miscarriages as some disease such as lupus can be associa del with pleurisy. 2. Pulmonary nodule seen on imaging study - Calcified and stable in size. I do not know suzy navarrete was seen in [place], but given 2 year stability, no further imaging is required. I did s uggest a TB test to ensure no signs of latent TB which could present in this fashion. 3. Duodenitis - Endoscopy finding show gastritis and duodenitis with Lianet's gland hyperp lasia while on omeprazole. I do suspect some hypersecretory state, though on visual exam and biopsy she did not have esophagitis. It would not surprise me if reflux is contributing to her complex of pain and the cough. We will check an UGI and I provided anti reflux instructi ons. 4. Panlobular emphysema (HCC) - This is very minimal, and was not read by the radiologist o n her CT, but is likely present. This likely explains her mild reduction in her DLCO in comb ination with some degree of hypoventilation. Plan 1.Check Quantiferon and LEENA panel today. 2.No further routine chest imaging required. 3.Check UGI barium swallow. 4. Discontinue Asmanex, as it should not be used as needed anyway. 5. Continue Proventil as needed. 6. Continue omeprazole for now given endoscopy findings. This should be readdressed by GI i n the future. 7. Lifestyle modification instructions for avoidance of reflux provided. 8. I encouraged her to walk more often. She was advised to call if new pulmonary symptoms were to develop. Return to clinic as needed. CC: Ana Paula Mays MD, Paolo Berg, RONALD Portions of this report were transcribed using voice recognition software. Every effort wa s made to ensure accuracy; however, inadvertent computerized salesperson driver errors may be pre sent. documented in t his encounter Plan of Treatment +--------+---------+--------+ + + | Name | Type | Priori | Associated Diagnoses | Order Schedule | | | | ty | | | +--------+---------+--------+ + + | FL UGI | Imaging | Routin | Panlobular | Expected: | | | | e | emphysema (HCC) | 01/15/2016, Expires: | | | | | | 01/14/2017 | +--------+---------+--------+ + + documented as of this encounter Procedures + +--------+ + + + | Procedure Name | Priori | Date/Time | Associated Diagnosis | Comments | | | ty | | | | + +--------+ + + + | IMAGING REPORT - | | 12/29/2015 | | | | EXTERNAL SCAN | | 12:00 AM | | | | | | PDT | | | + +--------+ + + + | LABS - EXTERNAL SCAN | | 12/01/2015 | | | | | | 12:00 AM | | | | | | PST | | | + +--------+ + + + | IMAGING REPORT - | | 04/15/2015 | | | | EXTERNAL SCAN | | 12:00 AM | | | | | | PDT | | | + +--------+ + + + documented in this encounter Results Esvin Moses (01/15/2016 11:08 AM PDT) + + + + + + | Component | Value | Ref Range | Performed | Pathologist | | | | | At | Signature | + + + + + + | QUANTIFERON | See CommentsComment: | NEG | REFERENCE | | | GOLD TB | NegativeM. tuberculosis | | LAB [facility] | | | | infection NOT likelyThis | | | | | | is a qualitative test. | | | | | | The IU/mL values should | | | | | | not be used tomonitor | | | | | | disease progression or | | | | | | response to therapy. | | | | | | Diagnosing orexcluding | | | | | | tuberculosis disease and | | | | | | assessing the | | | | | | probability of | | | | | | LTBIrequire a | | | | | | combination of | | | | | | epidemiological, | | | | | | historical, medical | | | | | | anddiagnostic findings | | | | | | that should be taken | | | | | | into account | | | | | | wheninterpreting | | | | | | QuantiFERON TB Gold | | | | | | results.Values in IU/mL | | | | | | for the TB Antigen and | | | | | | Mitogen are corrected | | | | | | forbackground by | | | | | | subtracting the IU/mL | | | | | | value obtained from the | | | | | | respectiveNil control. | | | | | | These corrected values | | | | | | are used for | | | | | | interpretation of | | | | | | thetest results. | | | | + + + + + + | Tuberculosi | 0.02 | <0.35 IU/mL | REFERENCE | | | s Antigen | | | [facility] | | | Value | | | | | | (Ag-Nil) | | | | | + + + + + + | Mitogen | >10.00 | IU/mL | REFERENCE | | | | | | [facility] | | + + + + + + | NIL | 0.09Comment: Testing | IU/mL | REFERENCE | | | | Performed: [facility], [address] | | [facility] | | | | [address], [place] | | | | | | [id number] | | | | + + + + + + + + | Specimen | + + | Blood specimen | | (specimen) | + + + + + + + | Performing | Address | City/State/Zipcode | Phone Number | | Organization | | | | + + + + + | [facility] | [address] | [place] [address] | [phone] | + + + + + LEENA Specific Antibody Panel (01/15/2016 11:08 AM PDT) + + + + + + | Component | Value | Ref Range | Performed | Pathologist | | | | | At | Signature | + + + + + + | Centromere | <0.2Comment: Negative | <1.0 AI | REFERENCE | | | B | | | [facility] | | | Autoantibod | | | | | | y | | | | | + + + + + + | dsDNA | 1Comment: Negative: | <5 IU/mL | REFERENCE | | | Autoantibod | Equal to or <4 | | [facility] | | | y | | | | | + + + + + + | SM | <0.2Comment: Negative | <1.0 AI | REFERENCE | | | Autoantibod | | | [facility] | | | y | | | | | + + + + + + | Ribosomal P | <0.2Comment: Negative | <1.0 AI | REFERENCE | | | | | | [facility] | | | Autoantibod | | | | | | y | | | | | + + + + + + | Chromatin | <0.2Comment: Negative | <1.0 AI | REFERENCE | | | Autoantibod | | | [facility] | | | y | | | | | + + + + + + | STUDY COORDINATOR | <0.2Comment: Negative | <1.0 AI | REFERENCE | | | Autoantibod | | | [facility] | | | y | | | | | + + + + + + | SMRNP | <0.2Comment: Negative | <1.0 AI | REFERENCE | | | Autoantibod | | | [facility] | | | y | | | | | + + + + + + | Scleroderma | 0.2Comment: Negative | <1.0 AI | REFERENCE | | | SCL-70 AB | | | [facility] | | | IgG | | | | | + + + + + + | SS-A | <0.2Comment: Negative | <1.0 AI | REFERENCE | | | Autoantibod | | | [facility] | | | y | | | | | + + + + + + | SS-B | <0.2Comment: Negative | <1.0 AI | REFERENCE | | | Autoantibod | | | [facility] | | | y | | | | | + + + + + + | EDA-1 | <0.2Comment: | <1.0 AI | REFERENCE | | | ANTIBODY | NegativeTesting | | [facility] | | | IGG | Performed: [facility], [address] | | | | | | [address], [place] | | | | | | [address] | | | | + + + + + + + + | Specimen | + + | Blood specimen | | (specimen) | + + + + + + + | Performing | Address | City/State/Zipcode | Phone Number | | Organization | | | | + + + + + | [facility] | [address] | [place] [address] | [phone] | + + + + + documented in this encounter Visit Diagnoses + + | Diagnosis | + + | Pleuritic chest pain Painful respiration | + + | Pulmonary nodule seen on imaging study | + + | Duodenitis Duodenitis without mention of hemorrhage | + + | Panlobular emphysema (HCC) Other emphysema | + + documented in this encounter
--- OUTSIDE RECORDS SUMMARY | ~2020-05-31 | XMS | Encounter Summary ---
Demographics + + + | Address | [address] | | | [place] [address] | + + + | Home Phone | | + + + | Preferred Language | Unknown | + + + | Marital Status | | + + + | Presybeterian Affiliation | 1041 | + + + | Race | or | + + + | Ethnic Group | Not or | + + + Author + + + | Author | [facility] | | | and [place] | + + + | Organization | [facility] | | | and [...] Team Providers + +------+ + | Care Valving Machine Operator Name | Role | Phone | + +------+ + | Ana Paula Mays MD | PCP | | + +------+ + Encounter Details +--------+ + + + + | Date | Type | Department | Care Team | Description | +--------+ + + + + | 05/26/ | Hospital | [facility] | Jose Sanz | Restless legs | | 2015 | Encounter | [facility] | MD [place] [address] | syndrome | | | | [address] [place] | [address] [place] | | | | | [place], [place] | [place] [address] | | | | | [address] | [phone] | | | | | [phone] | | | +--------+ + + + + Social History + + + +--------+ + | Tobacco Use | Types | Packs/Day | Years | Date | | | | | Used | | + + + +--------+ + | Former Smoker | Cigarettes | | | Quit: 10/10/1983 | + + + [...] + + documented as of this encounter Medications at Time of Discharge + + + +---------+ + + | Medication | Sig | Dispensed | Refills | Start | End Date | | | | | | Date | | + + + +---------+ + + | FLUoxetine | Take 10 mg by mouth | | 0 | | | | (PROZAC) 10 mg | Daily. | | | | | | capsule | | | | | | + + + +---------+ + + | glipiZIDE | Take 5 mg by mouth | | 0 | | | | (GLUCOTROL XL) 5 mg | daily (with | | | | | | 24 hr tablet | breakfast). | | | | | + + + +---------+ + + | | Take 25 mg by mouth | | 0 | | | | hydrochlorothiazide | Daily. | | | | | | 25 mg tablet | | | | | | + + + +---------+ + + | | Take 1 tablet by | | 0 | | | | sitagliptan-metFORMI | mouth 2 times daily | | | | | | N (TATEDinesh) 50-1000 | (with breakfast & | | | | | | MG per tablet | dinner). | | | | | + + + +---------+ + + | aspirin 325 mg | Take 81 mg by mouth | | 0 | | | | tablet | Daily. | | | | 9 | + + + +---------+ + + | Cholecalciferol | Take 2,000 Units by | | 0 | | | | (VITAMIN D-3) 2000 | mouth Daily. | | | | 9 | | units CAPS | | | | | | + + + +---------+ + + | LORazepam (ATIVAN) | Take 0.5 mg by mouth | | 0 | | | | 0.5 mg tablet | as needed for | | | | 9 | | | Anxiety or Insomnia. | | | | | | | Prn prior to | | | | | | | Imaging study 1 | | | | | | | tablet may repeat | | | | | | | one time. | | | | | + + + +---------+ + + | lovastatin | Take 20 mg by mouth | | 0 | | | | (MEVACOR) 20 mg | nightly. | | | | 9 | | tablet | | | | | | + + + +---------+ + + | nitroglycerin | Place 0.4 mg under | | 0 | | | | (NITROSTAT) 0.4 mg | the tongue every 5 | | | | 9 | | SL tablet | minutes as needed | | | | | | | for Chest pain. | | | | | + + + +---------+ + + | omeprazole | Take 20 mg by mouth | | 0 | | | | (PRILOSEC) 20 mg | every morning | | | | 9 | | capsule | (before breakfast). | | | | | + + + +---------+ + + | ondansetron | Slowly start prep. | 2 | 0 | 03/24/20 | | | (ZOFRAN) 4 mg | If nausea occurs, | tablet | | 15 | 9 | | tabletIndications: | wait 1/2 hr. Take 1 | | | | | | Gastroesophageal | tablet, wait 1/2 | | | | | | reflux disease | hour. Slowly resume | | | | | | without esophagitis, | prep. | | | | | | Special screening | | | | | | | for malignant | | | | | | | neoplasms, colon | | | | | | + + + +---------+ + + documented as of this encounter Plan of Treatment Not on filedocumented as of this encounter Procedures + +--------+ + + + | Procedure Name | Priori | Date/Time | Associated Diagnosis | Comments | | | ty | | | | + +--------+ + + + | FERRITIN | Routin | 05/26/2015 | Restless legs | Results for this | | | e | 12:10 PM | syndrome | procedure are in the | | | | PDT | | results section. | + +--------+ + + + documented in this encounter Results Ferritin (05/26/2015 12:10 PM PDT) + +-------+ + + + | Component | Value | Ref Range | Performed | Pathologist | | | | | At | Signature | + +-------+ + + + | FERRITIN | 7 (L) | 11-<307 ng/mL | [facility] | | [facility] | [facility] - | | | | | | LABORATORY | | + +-------+ + + + + + | Specimen | + + | Blood | + + + + + + + | Performing | Address | City/State/Zipcode | Phone Number | | Organization | | | | + + + + + | [facility] | [address] | [place] | [phone] | | [facility] | | [address] | | | - LABORATORY | | | | + + + + + documented in this encounter Visit Diagnoses + + | Diagnosis | + + | Restless legs syndrome Restless legs syndrome (RLS) | + + documented in this encounter"
--- OUTSIDE RECORDS SUMMARY | ~2020-05-31 | XMS | Encounter Summary ---
Demographics + + + | Address | [address] | | | [place] [address] | + + + | Home Phone | | + + + | Preferred Language | Unknown | + + + | Marital Status | | + + + | Samaritan Affiliation | 1041 | + + + | Race | or | + + + | Ethnic Group | Not or | + + + Author + + + | Author | [facility] | | | and [place] | + + + | Organization | [facility] | | | and [...] Team Providers + +------+ + | Care Die Trouble Shooter Name | Role | Phone | + +------+ + PCP | Unavailable | + +------+ + Encounter Details +--------+ + + + + | Date | Type | Department | Care Team | Description | +--------+ + + + + | 06/26/ | Documentati | [facility] | Jannie Mcnair, | | | 2019 | on | PULMONOLOGY [address] | Powdered Sugar Supervisor | | | | | [address] | | | | | | [place], [place] | | | | | | [address] | | | | | | [phone] | | | +--------+ + + + [...] + + documented as of this encounter Progress Jannie Vences, Powdered Sugar Supervisor - 06/26/2019 9:43 AM PDTFaxed Rx for albuterol inhaler to isac phillips at [phone]. Confirmation received documented in this encounter Plan of Treatment Not on filedocumented as of this encounter Visit Diagnoses Not on filedocumented in this encounter"
--- OUTSIDE RECORDS SUMMARY | ~2020-05-31 | XMS | Encounter Summary ---
Demographics + + + | Address | [address] | | | [place] [address] | + + + | Home Phone | | + + + | Preferred Language | Unknown | + + + | Marital Status | | + + + | Religion Affiliation | 1041 | + + + | Race | or | + + + | Ethnic Group | Not or | + + + Author + + + | Author | [facility] | | | and [place] | + + + | Organization | [facility] | | | and [...] Team Providers + +------+ + | Care Cutter Operator Asbestos Shingle Name | Role | Phone | + +------+ + PCP | Unavailable | + +------+ + Encounter Details +--------+ + + + + | Date | Type | Department | Care Team | Description | +--------+ + + + + | 01/05/ | Emergency | [facility] | Mika Dennison, | ABDOMINAL PAIN | | 2002 | | [facility] | MD [address] | [address] SITE | | | | EMERGENCY CENTER | [place], [place] | | | | | [address] | [address] | | | | | [place], [place] | [phone] | | | | | [address] | | | | | | [phone] | | | +--------+ + + + + Social History + +-------+ +--------+------+ | Tobacco Use | Types | Packs/Day | Years | Date | | | | | Used | | + +-------+ +--------+------+ | Never Assessed | | | | | + +-------+ +--------+------+ + + + | Sex Assigned at | Date Recorded | | | | + + + | Not on file | | + + + documented as of this encounter Plan of Treatment Not on filedocumented as of this encounter Visit Diagnoses + + | Diagnosis | + + | Abdominal pain, unspecified site | + + documented in this encounter"
--- OUTSIDE RECORDS SUMMARY | ~2020-05-31 | XMS | Encounter Summary ---
Demographics + + + | Address | [address] | | | [place] [address] | + + + | Home Phone | | + + + | Preferred Language | Unknown | + + + | Marital Status | | + + + | Yarsani Affiliation | 1041 | + + + | Race | or | + + + | Ethnic Group | Not or | + + + Author + + + | Author | [facility] | | | and [place] | + + + | Organization | [facility] | | | [...] Team Providers + +------+ + | Care Economics Teacher Name | Role | Phone | + +------+ + PCP | Unavailable | + +------+ + Reason for Visit + + + | Reason | Comments | + + + | Constipation | | + + + | Diarrhea | | + + + Evaluate & Treat (Routine) +--------+--------+ + + + + | Status | Reason | Specialty | Diagnoses / | Referred By | Referred To | | | | | Procedures | Contact | Contact | +--------+--------+ + + + + | Closed | | Gastroenterol | Diagnoses | Hrabetin, | [facility] | | | | ogy | Alternating | Yehuda | Gastroenterol | | | | | | Santo, SENIOR SYSTEMS PROGRAMMER | ogy [address] | | | | | constipation | [address] [place] | | | | | and | [place] | [address] [place] | | | | | diarrhea | St | [place], [place] | | | | | Procedures | [place], | [address] | | | | | CONTACT WORKER office | [place] [address] | Phone: | | | | | visit | Phone: | [phone] | | | | | | [phone] | Fax: | | | | | | Fax: | [phone] | | | | | | [phone] | | +--------+--------+ + + + + Encounter Details +--------+---------+ + + + | Date | Type | Department | Care Team | Description | +--------+---------+ + + + | 06/13/ | Office | [facility] | Yahir Edwards MD | Fatty liver (Primary | | 2019 | Visit | GASTROENTEROLOGY | [address] | Dx); Nausea and | | | | [address] [place] | [place], [place] | vomiting, | | | | [address] [place], [place] | [address] | intractability of | | | | [address] | [phone] | vomiting not | | | | [phone] | | specified, | | | | | | unspecified vomiting | | | | | | type; Abdominal | | | | | | pain, unspecified | | | | | | abdominal location; | | | | | | RUQ abdominal pain; | | | | | | Constipation, | | | | | | unspecified | | | | | | constipation type | +--------+---------+ + + + Social History [...] + + + | Blood Pressure | 120/50 | 06/13/2019 3:14 PM | | | | | PDT | | + + + + + | Pulse | 81 | 06/13/2019 3:14 PM | | | | | PDT | | + + + + + | Temperature | 35.8 C (96.5 F) | 06/13/2019 3:14 PM | | | | | PDT | | + + + + + | Respiratory Rate | 14 | 06/13/2019 3:14 PM | | | | | PDT | | + + + + + | Oxygen Saturation | 98% | 06/13/2019 3:14 PM | | | | | PDT | | + + + + + | Inhaled Oxygen | - | - | | | Concentration | | | | + + + + + | Weight | 86.9 kg (191 lb 9.3 | 06/13/2019 3:14 PM | | | | oz) | PDT | | + + + + + | Height | 163.8 cm (5' 4.5") | 06/13/2019 3:14 PM | | | | | PDT | | + + + + + | Body Mass Index | 32.38 | 06/13/2019 3:14 PM | | | | | PDT | | + + + + + documented in this encounter Progress Notes Nina Sellers RN - 06/13/2019 3:30 PM PDTReferral for abdominal US entered and will luz l to schedule at [facility] once approved; advised high fiber diet with handout provided and adding metamucil QD and Miralax BID. Electronically signed by Nina Selelrs RN at 03/2019 1:40 PM PDTdocumented in this encounter H&P Notes Yahir Edwards MD - 06/13/2019 3:30 PM PDT Date of Office Visit: 06/13/19 Chief Complaint: Constipation and Diarrhea History of Present Illness: Odalys Cornejo is a 63 y.o. female who presents the GI cl in with complaints of a recent severe gastrointestinal illness with significant nausea and vomiting as well as abdominal pain in the upper abdomen as well as the lower abdomen. The patient states that most of her symptoms resolved. She was evaluated in the emergency depar tment were CT scan was unremarkable. She no longer has nausea and vomiting and the abdomina l pain is only located in the right upper quadrant. The pain is worse with eating. The pat ient does have significant constipation which started approximately a year ago. At times kenan edwards may not have a bowel movement for over a week. She denies bloody stools or black stools. She does take stool softeners including Dulcolax however this does not appear to be helping . She denies tobacco or alcohol use and also denies marijuana or illicit drug use. She las t had upper endoscopy and colonoscopy in 2014 which were unremarkable with negative biopsies . No polyps are noted on colonoscopy and she was advised to follow-up in 10 years. The pat chico did have her gallbladder taken out years ago. Past Medical History: Past Medical History: Diagnosis Date Abdominal pain Allergic rhinitis Alternating constipation and diarrhea Bowel obstruction (HCC) Chronic serous otitis media Coronary arteriosclerosis Depression feels alone Diabetic polyneuropathy (HCC) Disc disorder of lumbar region L4- L5 disc herniation Diverticulitis of gastrointestinal tract DM type 2 (diabetes mellitus, type 2) (HCC) Dysfunction of eustachian tube GERD (gastroesophageal reflux disease) Heat stroke 2011 thinks that she might have had once, lost feeling on one side and fell down. mouth went do wn for 2-3 weeks. Hyperchloremia Hyperlipidemia Hypertension Miscarriage 7, 3 successful pregnancies Obesity DHAVAL (obstructive sleep apnea) on CPAP PONV (postoperative nausea and vomiting) Spinal stenosis of lumbar region Vitamin D deficiency Past Surgical History: Past Surgical History: Procedure Laterality Date ABDOMINAL EXPLORATION SURGERY x 2 for bowel obstruction that she reports was due to endometriois CHOLECYSTECTOMY CYSTOSCOPY Dr. Garrett ECTOPIC SURGERY EGD AND COLONOSCOPY N/A 04/02/2015 Procedure: EGD / COLONOSCOPY; Surgeon: Yahir Edwards MD; Location: [facility] KNEE CARTILAGE SURGERY Right LUMBAR SPINE SURGERY 09/2014 DANA AND BSO 1994 TONSILLECTOMY age 4 TUBAL LIGATION Family History: Family History Problem Relation Age [...] Brother Diabetes Brother Heart disease Brother Sleep apnea Son Allergies: Allergies Allergen Reactions Atorvastatin Other (See Comments) Muscle aches Muscle ache Morphine Other (See Comments) Pt. Dose not like as makes her feel wierd UNKNOWN Codeine Sulfate Not Noted Nausea and vomit Codeine Nausea And Vomiting Metoclopramide Headache,Nausea And Vomiting Intolerance Allergen Reactions Lisinopril Cough Cough Medications: has a current medication list which includes the following prescription(s): acetaminophen, albuterol, cholecalciferol, dicyclomine, fish oil, fluoxetine, glipizide, hydrochlorothiazid e, ibuprofen, ipratropium, lovastatin, mometasone, montelukast, sitagliptin-metformin, sitag liptin, and topiramate. Review of Systems: A 10-point review of systems was performed and was negative except as n oted in the history of present illness. Physical Exam: Vitals:BP 120/50 | Pulse 81 | Temp 35.8 C (96.5 F) (Temporal) | Resp 14 | Ht 1.638 m (5' 4.5") | Wt 86.9 kg (191 lb 9.3 oz) | SpO2 98% | BMI 32.38 kg/m General: This is a well-developed,well-nurished female in no apparent distress, alert and o riented times 3. HEENT: Reveals normocephalic, atraumatic with extraocular muscles intact. Oropharynx is negar ar without obstruction. Neck: Supple without lymphadenopathy or thyromegaly. Lungs: Clear to auscultation without rales or wheezes. Cardiac: Reveals regular rate and rhythm with normal S1 and S2 and no murmurs, rubs or gall ops. Abdomen: Soft and nontender without masses or organmegaly. Extremities: Without cyanosis, clubbing or edema. Neuro: Awake, alert, oriented x3. Normal station and gait. Skin: Warm and dry, no erythematous rash. Lab Results Component Value Date NA 138 03/05/2015 K 3.5 03/05/2015 CL 104 03/05/2015 CO2 29 03/05/2015 ANIONGAP 18 12/01/2015 GLU 117 (H) 03/05/2015 BUN 15 03/05/2015 CREA 0.81 03/05/2015 GFRNONAA >60 03/05/2015 CALCIUM 8.7 03/05/2015 ALBUMIN 3.4 03/05/2015 BILITOT 0.4 03/05/2015 TOTALPROTEIN 6.1 03/05/2015 AST 18 03/05/2015 ALT 18 03/05/2015 ALKPHOS 84 03/05/2015 WBC 1 12/01/2015 HGB 11.6 03/05/2015 HCT 35.6 03/05/2015 MCV 83.8 03/05/2015 PLT 315 03/05/2015 No results found for this or any previous visit. No results found for: LACTOQL, CAMPY, CULTURE, SHIGATOXINI, SHIGATOXINII, GIARDIAAG, CRSPAG , CDIFFICILEGD, CDIFF, LABOVA Last CT abd - No results found for this or any previous visit. Last MRI abd - No results found for this or any previous visit. Last US abd - No results found for this or any previous visit. Assessment and Plan: 63-year-old female with recent gastrointestinal illness which has for the most part resolved. She does have persistent intermittent right upper quadrant pain will ecially after eating. The patient also complains of significant constipation with no stool for a week at times. I recommend further evaluation with right upper quadrant ultrasound to evaluate for liver or biliary disorder. The patient did have cholecystectomy years ago. I also advise MiraLAX twice a day as well as Metamucil once a day for constipation and hard s tools. documented in thi s encounter Plan of Treatment Not on filedocumented as of this encounter Procedures + +--------+ + + + | Procedure Name | Priori | Date/Time | Associated Diagnosis | Comments | | | ty | | | | + +--------+ + + + | IMAGING REPORT - | | 01/02/2019 | | Results for this | | EXTERNAL SCAN | | 12:00 AM | | procedure are in the | | | | PDT | | results section. | + +--------+ + + + documented in this encounter Results IMAGING REPORT - EXTERNAL SCAN (01/02/2019 12:00 AM PDT) + + + | Narrative | Performed At | + + + | Ordered by an | | | unspecified provider. | | + + + documented in this encounter Visit Diagnoses + + | Diagnosis | + + | Fatty liver - Primary Other chronic nonalcoholic liver disease | + + | Nausea and vomiting, intractability of vomiting not specified, unspecified vomiting | | type | + + | Abdominal pain, unspecified abdominal location | + + | RUQ abdominal pain Abdominal pain, right upper quadrant | + + | Constipation, unspecified constipation type | + + documented in this encounter
--- OUTSIDE RECORDS SUMMARY | ~2020-05-31 | XMS | Encounter Summary ---
Demographics + + + | Address | [address] | | | [place] [address] | + + + | Home Phone | | + + + | Preferred Language | Unknown | + + + | Marital Status | | + + + | Muslim Affiliation | 1041 | + + + | Race | or | + + + | Ethnic Group | Not or | + + + Author + + + | Author | [facility] | | | and [place] | + + + | Organization | [facility] | | | and [...] Team Providers + +------+ + | Care Engrosser Name | Role | Phone | + +------+ + | Ana Paula Mays MD | PCP | | + +------+ + Reason for Referral Diagnostic/Screening (Routine) +--------+--------+ + + + + | Status | Reason | Specialty | Diagnoses / | Referred By | Referred To | | | | | Procedures | Contact | Contact | +--------+--------+ + + + + | Closed | | Radiology | Diagnoses | Harri, | [facility] | | | | | RUQ pain | Carlos Yao MD | [address] | | | | | Jaundice | [address] | [place], | | | | | Procedures | [address], [place] | [place] | | | | | MRI MRCP | [address] [place] | [address] | | | | | Liver SD | [place], [place] | Phone: | | | | | MRI, ABDOMEN | [address] | [phone] | | | | | (MRI) | Phone: | Fax: | | | | | | [phone] | [phone] | | | | | | Fax: | | | | | | | [phone] | | +--------+--------+ + + + + Reason for Visit Diagnostic/Screening (Routine) +--------+--------+ + + + + | Status | Reason | Specialty | Diagnoses / | Referred By | Referred To | | | | | Procedures | Contact | Contact | +--------+--------+ + + + + | Closed | | Radiology | Diagnoses | Harri, | [facility] | | | | | RUQ pain | Calros Yao MD | [address] | | | | | Jaundice | [address] | [place], | | | | | Procedures | [address], [place] | [place] | | | | | MRI MRCP | [address] [place] | [address] | | | | | Liver SD | [place], [place] | Phone: | | | | | MRI, ABDOMEN | [address] | [phone] | | | | | (MRI) | Phone: | Fax: | | | | | | [phone] | [phone] | | | | | | Fax: | | | | | | | [phone] | | +--------+--------+ + + + + Encounter Details +--------+ + + + + | Date | Type | Department | Care Team | Description | +--------+ + + + + | 05/29/ | Hospital | [facility] | Carlos Hamilton MD | RUQ pain; | | 2014 | Encounter | MED CTR MRI [address] | [address], [place] | Jaundice | | | | [address] [place], | [address] [place], [place] | | | | | [place] [address] | [address] | | | | | [phone] | | | +--------+ + + + [...] | | | | | | N (JEANNE) [phone] | (with breakfast & | | [...] | + +--------+ + + + | MRI MRCP LIVER WO | Routin | 05/29/2015 | RUQ pain Jaundice | Results for this | | CONTRAST | e | 9:38 AM | | procedure are in the | | | | PDT | | results section. | + +--------+ + + + documented in this encounter Results MRI MRCP Liver (05/29/2015 9:38 AM PDT) + + | Specimen | + + | | + + + + + | Narrative | Performed At | + + + | MRI MRCP LIVER 05/29/2015 9:00 AM HISTORY:?RUQ pain, jaundice, | [facility] | | post cholecystectomy. COMPARISON: CT scan of abdomen and pelvis | [facility] | | 12/31/2008, MRCP 11/19/2008. PROTOCOL: Coronal T2 airline radio operator, axial T2 [facility] | | airline radio operator, coronal 3D respiratory triggered, coronal T2 thin slab, T2 | - IMAGING | | thick slab set. Reconstruction views were obtained. FINDINGS: The | | | gallbladder is absent, consistent with prior cholecystectomy. Hepatic | | | ducts are normal. The common bile duct measures 5.6 mm, which is | | | normal. The pancreatic duct has a normal appearance and measures 2.2 | | | mm, which is normal. Chest base and liver are normal. Spleen, | | | pancreas, and adrenals show no acute findings. There is a tiny cyst | | | with high T2 signal in the mid right kidney. The left kidney is | | | normal. Limited evaluation of the stomach, small bowel, and colon | | | demonstrate no acute findings. Vasculature and lymph nodes are normal. | | | Body wall structures are normal. There are no acute osseous | | | abnormalities. IMPRESSION - Normal appearance of common bile duct | | | and pancreatic duct, no evidence for choledocholithiasis. | | | Dictated and Signed by: Jaydon Garner MD Electronically signed: | | | 05/29/2015 11:27 AM | | + + + + + | Procedure Note | + + | Kristian, Rad Results In - 05/29/2015 11:30 AM PDT MRI MRCP LIVER 05/29/2015 9:00 AM | | | | HISTORY:?RUQ pain, jaundice, post cholecystectomy. | | | | COMPARISON: CT scan of abdomen and pelvis 12/31/2008, MRCP 11/19/2008. | | | | PROTOCOL: Coronal T2 airline radio operator, axial T2 airline radio operator, coronal 3D respiratory triggered, | | coronal T2 thin slab, T2 thick slab set. Reconstruction views were obtained. | | | | FINDINGS: | | The gallbladder is absent, consistent with prior cholecystectomy. Hepatic ducts | | are normal. The common bile duct measures 5.6 mm, which is normal. The | | pancreatic duct has a normal appearance and measures 2.2 mm, which is normal. | | | | Chest base and liver are normal. Spleen, pancreas, and adrenals show no acute | | findings. There is a tiny cyst with high T2 signal in the mid right kidney. The | | left kidney is normal. Limited evaluation of the stomach, small bowel, and colon | | demonstrate no acute findings. Vasculature and lymph nodes are normal. Body wall | | structures are normal. There are no acute osseous abnormalities. | | | | IMPRESSION - | | Normal appearance of common bile duct and pancreatic duct, no evidence for | | choledocholithiasis. | | | | Dictated and Signed by: Jaydon Garner MD | | Electronically signed: 05/29/2015 11:27 AM | + + + + + + + | Performing | Address | City/State/Zipcode | Phone Number | | Organization | | | | + + + + + | [facility] | [address] | [place] | [phone] | | [facility] | | [address] | | | - IMAGING | | | | + + + + + documented in this encounter Visit Diagnoses + + | Diagnosis | + + | RUQ pain Abdominal pain, right upper quadrant | + + | Jaundice Jaundice, unspecified, not of | + + documented in this encounter"
--- OUTSIDE RECORDS SUMMARY | ~2020-05-31 | XMS | Encounter Summary ---
Demographics + + + | Address | [address] | | | [place] [address] | + + + | Home Phone | | + + + | Preferred Language | Unknown | + + + | Marital Status | | + + + | Yazdanism Affiliation | 1041 | + + + | Race | or | + + + | Ethnic Group | Not or | + + + Author + + + | Author | [facility] | | | and [place] | + + + | Organization | [facility] | | | [...] Team Providers + +------+ + | Care Seamless Tube Roller Name | Role | Phone | + +------+ + PCP | Unavailable | + +------+ + Encounter Details +--------+ + + + + | Date | Type | Department | Care Team | Description | +--------+ + + + + | 12/19/ | [facility] | [facility] | Jose Sanz | | | 2006 | Encounter | MED CTR SLEEP | MD Chi[address] | | | | | [place] [address] | [address] [place] | | | | | [place], [place] | [place] [address] | | | | | [address] | [phone] | | | | | [phone] | | | +--------+ + + + [...]
--- OUTSIDE RECORDS SUMMARY | ~2020-05-31 | XMS | Encounter Summary ---
Demographics + + + | Address | [address] | | | [place] [address] | + + + | Home Phone | | + + + | Preferred Language | Unknown | + + + | Marital Status | | + + + | Anglican Affiliation | 1041 | + + + | Race | or | + + + | Ethnic Group | Not or | + + + Author + + + | Author | [facility] | | | and [place] | + + + | Organization | [facility] | | | and [...] Team Providers + +------+ + | Care Director Enterprise Sales Name | Role | Phone | + +------+ + PCP | Unavailable | + +------+ + Encounter Details +--------+ + + + + | Date | Type | Department | Care Team | Description | +--------+ + + + + | 07/15/ | Hospital | [facility] | Pamela Blandon | | | 2006 | Encounter | MED CTR EMERGENCY | MD Soraida [address] | | | | | CENTER [address] | [facility], | | | | | [place], [place] | [place] [address] | | | | | [address] | [phone] | | | | | [phone] | | | +--------+ + + + [...]
--- OUTSIDE RECORDS SUMMARY | ~2020-05-31 | XMS | Encounter Summary ---
Demographics + + + | Address | [address] | | | [place] [address] | + + + | Home Phone [...] Team Providers + +------+ + | Care Final Tester Name | Role | Phone | + +------+ + | Ana Paula Mays MD | PCP | | + +------+ + Reason for Referral Evaluate & Treat (Routine) +--------+ + + + + + | Status | Reason | Specialty | Diagnoses / | Referred By | Referred To | | | | | Procedures | Contact | Contact | +--------+ + + + + + | Closed | Specialty | Gastroenterol | Diagnoses | Matti, | Grace, | | | Services | ogy | | Carlos Yao MD | MD Yahir | | | Required | | Gastroesopha | [address] | | | | | geal reflux | [place], [place] | [place], | | | | | disease | [address] [place] | [place] [address] | | | | | without | [place], [place] | Phone: | | | | | esophagitis | [address] | [phone] | | | | | Special | Phone: | Fax: | | | | | screening | [phone] | [phone] | | | | | for | Fax: | | | | | | malignant | [phone] | | | | | | neoplasms, | | | | | | | colon | | | | | | | Obstructive | | | | | | | sleep apnea | | | | | | | (adult) | | | | | | | (pediatric) | | | +--------+ + + + + + Reason for Visit +--------+--------+ + | Reason | Onset | Comments | | | Date | | +--------+--------+ + | Other | 03/21/ | schedule egd/colon | | | 2014 | | +--------+--------+ + Encounter Details +--------+ + + + + | Date | Type | Department | Care Team | Description | +--------+ + + + + | 03/21/ | Telephone | [facility] | Carlos Hamilton MD | Other (schedule | | 2014 | | GASTROENTEROLOGY | [address] [place], [facility] | egd/colon) | | | | [address] [facility] | [address] [place], [place] | | | | | [address] [place], [place] | [id number] | | | | | [address] | | | | | | [phone] | | | +--------+ + + + + Social History + +-------+ +--------+------+ | Tobacco Use | Types | Packs/Day | Years | Date | | | | | Used | | + +-------+ +--------+------+ | Never Smoker | | | | | + +-------+ +--------+------+ + + +---------+ + | Alcohol Use [...] this encounter Miscellaneous Notes Telephone Encounter - Kelly Bonilla RN - 03/24/2015 11:27 AM PDTSpoke with Odalys, she st ates she would like to have the procedures as soon as possible. There has been a in and would like to go back to [place] as soon as possible to be with family. I let the patient know some insurances may take a couple weeks before we receive an answer regarding authorization. Patient states she wishes to talk with her insurance and will also talk with Lidia from our department. After we determine insurance wait time, will schedule p rocedures accordingly. Lidia let me know we should be able to get auth in a timely manner. Patient has been scheduled for egd/colon, prop with Dr. Edwards. Procedure date 04/02/15, arri hannah time 0730, at [facility]. Patient instruction sheet has been reviewed with patient. Patient allergies, medications, address, and pharmacy have been verified. Denies joint replacement, heart valve replacement, pacemaker, or stent placement in the pas t year. Patient has had back surgery 07/2014, states 4 metal rods were placed. Patient instructions, map, low residue diet info sheet, clear liquid diet info sheet and pa caro questionnaire have been mailed. Referral placed, prep sent to pharmacy, OR booking request submitted. elephone Encounter - Kelly Bonilla RN - 03/21/2015 11:51 AM PDTReceived [facility] After Dr[facility] Matt judd's review ok'd for egd/colon only, propofol d/t DHAVAL. LM for patient to return call. 11: 52 AM PDTdocumented in this encounter Plan of Treatment + + +--------+ + + | Name | Type | Priori | Associated Diagnoses | Order Schedule | | | | ty | | | + + +--------+ + + | Ambulatory referral | Outpatient | Routin | Gastroesophageal | Expected: | | to Gastroenterology | Referral | e | reflux disease | 04/02/2015, Expires: | | [facility] | | | without esophagitis | 03/23/2016 | | | | | Special screening | | | | | | for malignant | | | | | | neoplasms, colon | | + + +--------+ + + documented as of this encounter Visit Diagnoses + + | Diagnosis | + + | Gastroesophageal reflux disease without esophagitis - Primary Esophageal reflux | + + | Special screening for malignant neoplasms, colon | + + documented in this encounter"
--- OUTSIDE RECORDS SUMMARY | ~2020-05-31 | XMS | Encounter Summary ---
Demographics + + + | Address | [address] | | | [place] [address] | + + + | Home Phone | | + + + | Preferred Language | Unknown | + + + | Marital Status | | + + + | Evangelical Affiliation | 1041 | + + + | Race | or | + + + | Ethnic Group | Not or | + + + Author + + + | Author | [facility] | | | and [place] | + + + | Organization | [facility] | | | [...] Team Providers + +------+ + | Care Pathology Laboratory Technologist Name | Role | Phone | + [...] Closed | | Radiology | Diagnoses | Dominique, | | | | | | Sciatica, | Manojer | | | | | | right | TIM Rodriguez | | | | | | Procedures | [address] | | | | | | MRI Lumbar | [address] | | | | | | Spine wo | [place], | | | | | | Contrast | [place] [address] | | | | | | | Phone: | | | | | | | [phone] | | | | | | | Fax: | | | | | | | [phone] | | +--------+--------+ + + + + Reason for Visit Diagnostic/Screening (Routine) +--------+--------+ + + + + | Status | Reason | Specialty | Diagnoses / | Referred By | Referred To | | | | | Procedures | Contact | Contact | +--------+--------+ + + + + | Closed | | Radiology | Diagnoses | Dominique, | | | | | | Sciatica, | Marcinopher | | | | | | right | TIM Rodriguez | | | | | | Procedures | [address] | | | | | | MRI Lumbar | [address] | | | | | | Spine wo | [place], | | | | | | Contrast | [place] [address] | | | | | | | Phone: | | | | | | | [phone] | | | | | | | Fax: | | | | | | | [phone] | | +--------+--------+ + + + + Encounter Details +--------+ + + + + | Date | Type | Department | Care Team | Description | +--------+ + + + + | 06/14/ | Hospital | [facility] | Wojciech Fox | Reymundoa, right | | 2013 | Encounter | MED CTR MRI [address] | [address] | (Primary Dx) | | | | [address] [place], | [address] | | | | | [place] [address] | [place] | | | | | [phone] | [address] | | | | | | | | +--------+ + + + [...] + + + +---------+ + + | fluoxetine | Take 20 mg by mouth | | 0 | 06/22/20 | | | (PROZAC) 20 MG | Daily. | | | 12 | 5 | | tablet | | | | | | + + + +---------+ + + | glipiZIDE | 1/2 tablet daily | | 0 | 06/22/20 | | | (GLUCOTROL) 10 MG | | | | 12 | 5 | | tablet | | | | | | + + + +---------+ + + | metformin | two and half daily | | 0 | 06/22/20 | | | (GLUCOPHAGE) 1000 MG | | | | 12 | 5 | | tablet | | | | | | + + + +---------+ + + | omeprazole | Take 20 mg by mouth | | 0 | 06/22/20 | | | (PRILOSEC) 20 mg | 2 times daily. | | | 12 | 5 | | TBEC | | | | | | + + + +---------+ + + | telmisartan | Take 80 mg by mouth | | 0 | 06/22/20 | | | (MICARDIS) 80 MG | Daily. | | | 12 | 5 | | tablet | | | | | | + + + +---------+ + + documented as of this encounter Miscellaneous Notes Miscellaneous - ANASTAICO YEBOAH - 06/27/2014 12:00 AM PDT documented in this encounter Plan of Treatment Not on filedocumented as of this encounter Procedures + +--------+ + + + | Procedure Name | Priori | Date/Time | Associated Diagnosis | Comments | | | ty | | | | + +--------+ + + + | MRI LUMBAR SPINE WO | Routin | 06/14/2014 | Sciatica, right | Results for this | | CONTRAST | e | 4:42 PM | | procedure are in the | | | | PDT | | results section. | + +--------+ + + + documented in this encounter Results MRI Lumbar Spine wo Contrast (06/14/2014 4:42 PM PDT) + + | Specimen | + + | | + + + + + | Narrative | Performed At | + + + | MRI LUMBAR SPINE WITHOUT CONTRAST: 06/14/2014 4:00 PM CLINICAL | [facility] | | HISTORY: LOW BACK PAIN, RT LEG BURNING BC FED I # [id number] | LAB | | COMPARISON: None TECHNIQUE: In the 3T scanner multiplanar, | | | multisequence imaging of the lumbar spine is performed. FINDINGS: | | | There are 5 lumbar-type vertebral bodies. Vertebral body heights are | | | normally maintained. Vertebral alignment is within normal limits. No | | | areas of abnormal marrow signal. No adjacent soft tissue abnormality. | | | Conus terminates at L1-L2. Distal cord and cauda equina nerve | | | roots show normal appearance. Level by level analysis follows | | | T12-L1: Not included on the axial image set. Moderate broad-based disc | | | bulge and posterior vertebral endplate osteophytes. This disc | | | osteophyte complex mildly contours the anterior cord but anterior to | | | posterior dimension of the canal is maintained at 10 mm. L1-L2 | | | and L2-L3: Also not included in the axial images. Minimal prominence | | | to the disc posteriorly with no central canal or foraminal narrowing | | | suggested. L3-L4: Minimal broad-based disc bulge. Desiccation | | | change to the nucleus pulposus. Mild symmetric facet degenerative | | | change. No central canal or foraminal narrowing. L4-L5: Minimal | | | prominence to the posterior disc. Mild symmetric posterior facet | | | degenerative change. No central canal or foraminal narrowing. | | | L5-S1: Large midline disc protrusion extending 8 mm posteriorly. High | | | signal in the annulus indicating an accompanying annular tear. | | | Endplate osteophyte of the inferior endplate of L5 overhangs S1 | | | vertebral body. Moderate posterior facet degenerative change. The | | | central canal is capacious but the large disc bulge contacts the | | | descending S1 nerve roots in the lateral recess and subarticular | | | region. No foraminal stenosis. IMPRESSION - 1. Large midline | | | disc protrusion at L5-S1 with annular tear. Disc is broad-based and | | | combines with facet degenerative changes to encroach upon the | | | descending S1 nerve roots bilaterally in the lateral recess and | | | subarticular regions. 2. Broad-based moderate disc bulge at T12-L1 | | | producing mild central canal stenosis. Dictated and Signed by: | | | Vince Cornejo MD Electronically signed: 06/14/2014 5:08 PM | | + + + + + | Procedure Note | + + | Kristian, Rad Results In - 06/14/2014 5:11 PM PDT MRI LUMBAR SPINE WITHOUT CONTRAST: | | 06/14/2014 4:00 PMCLINICAL HISTORY: LOW BACK PAIN, RT LEG BURNINGBC FED RQI # | | [id number]: NoneTECHNIQUE: In the 3T scanner multiplanar, multisequence imaging | | of the lumbarspine is performed.FINDINGS: There are 5 lumbar-type vertebral bodies. | | Vertebral body heights arenormally maintained. Vertebral alignment is within normal | | limits. No areas ofabnormal marrow signal. No adjacent soft tissue abnormality.Conus | | terminates at L1-L2. Distal cord and cauda equina nerve roots show normalappearance. | | Level by level analysis [id number]: Not included on the axial image set. Moderate | | broad-based disc bulge andposterior vertebral endplate osteophytes. This disc osteophyte | | complex mildlycontours the anterior cord but anterior to posterior dimension of the | | canal ismaintained at 10 mm.L1-L2 and L2-L3: Also not included in the axial images. | | Minimal prominence tothe disc posteriorly with no central canal or foraminal narrowing | | suggested.L3-L4: Minimal broad-based disc bulge. Desiccation change to the | | nucleuspulposus. Mild symmetric facet degenerative change. No central canal orforaminal | | narrowing.L4-L5: Minimal prominence to the posterior disc. Mild symmetric posterior | | facetdegenerative change. No central canal or foraminal narrowing.L5-S1: Large midline | | disc protrusion extending 8 mm posteriorly. High signal inthe annulus indicating an | | accompanying annular tear. Endplate osteophyte of theinferior endplate of L5 overhangs | | S1 vertebral body. Moderate posterior facetdegenerative change. The central canal is | | capacious but the large disc bulgecontacts the descending S1 nerve roots in the lateral | | recess and subarticularregion. No foraminal stenosis.IMPRESSION - 1. Large midline disc | | protrusion at L5-S1 with annular tear. Disc is broad-basedand combines with facet | | degenerative changes to encroach upon the descending A7btopx roots bilaterally in the | | lateral recess and subarticular regions.2. Broad-based moderate disc bulge at T12-L1 | | producing mild central canalstenosis.Dictated and Signed by: Vince Cornejo MD | | Electronically signed: 06/14/2014 5:08 PM | |pulposus. Mild symmetric facet degenerative change. No central canal or | |foraminal narrowing. | | | |L4-L5: Minimal prominence to the posterior disc. Mild symmetric posterior facet | |degenerative change. No central canal or foraminal narrowing. | | | |L5-S1: Large midline disc protrusion extending 8 mm posteriorly. High signal in | |the annulus indicating an accompanying annular tear. Endplate osteophyte of the | |inferior endplate of L5 overhangs S1 vertebral body. Moderate posterior facet | |degenerative change. The central canal is capacious but the large disc bulge | |contacts the descending S1 nerve roots in the lateral recess and subarticular | |region. No foraminal stenosis. | | | |IMPRESSION - | |1. Large midline disc protrusion at L5-S1 with annular tear. Disc is broad-based | |and combines with facet degenerative changes to encroach upon the descending S1 | |nerve roots bilaterally in the lateral recess and subarticular regions. | | | |2. Broad-based moderate disc bulge at T12-L1 producing mild central canal | |stenosis. | | | |Dictated and Signed by: Vince Cornejo MD | | Electronically signed: 06/14/2014 5:08 PM | + + + +---------+ + + | Performing | Address | City/State/Zipcode | Phone Number | | Organization | | | | + +---------+ + + | MISCELLANEOUS LAB | | | [phone] | + +---------+ + + | MISCELANIOUS LAB | | | [phone] | + +---------+ + + documented in this encounter Visit Diagnoses + + | Diagnosis | + + | Sciatica, right - Primary | + + documented in this encounter"
--- OUTSIDE RECORDS SUMMARY | ~2020-05-31 | XMS | Encounter Summary ---
Demographics + + + | Address | [address] | | | [place] [address] | + + + | Home Phone | | + + + | Preferred Language | Unknown | + + + | Marital Status | | + + + | Sikhism Affiliation | 1041 | + + + | Race | or | + + + | Ethnic Group | Not or | + + + Author + + + | Author | [facility] | | | and [place] | + + + | Organization | [facility] | | [...] Team Providers + +------+ + | Care Patient Services Rep Name | Role | Phone | + +------+ + PCP | Unavailable | + +------+ + Reason for Visit + +--------+ + | Reason | Onset | Comments | | | Date | | + +--------+ + | Medication Refill | 06/25/ | | | | 2019 | | + +--------+ + Encounter Details +--------+--------+ + + + | Date | Type | Department | Care Team | Description | +--------+--------+ + + + | 06/25/ | Refill | [facility] | Patrice Rowe MD | Medication Refill | | 2019 | | PULMONOLOGY [address] | | | | | [address] | [place], [place] | | | | | [place], [place] | [address] | | | | | [address] | | | | | | [phone] | | | +--------+--------+ + + + Social History + + [...] Mild persistent asthma without complication - Primary Unspecified asthma | + + documented in this encounter"
--- OUTSIDE RECORDS SUMMARY | ~2020-05-31 | XMS | Encounter Summary ---
Demographics + + + | Address | [address] | | | [place] [address] | + + + | Home Phone | | + + + | Preferred Language | Unknown | + + + | Marital Status | | + + + | Yazdanism Affiliation | 1041 | + + + | Race | or | + + + | Ethnic Group | Not or | + + + Author + + + | Author | [facility] | | | and [place] | + + + | Organization | [facility] | | | [...] Team Providers + +------+ + | Care Wafer Production Worker Name | Role | Phone | + +------+ + PCP | Unavailable | + +------+ + Reason for Visit + +--------+ + | Reason | Onset | Comments | | | Date | | + +--------+ + | Results, Imaging | 07/31/ | ([facility]) | | | 2019 | | + +--------+ + Encounter Details +--------+ + + + + | Date | Type | Department | Care Team | Description | +--------+ + + + + | 07/31/ | Telephone | [facility] | Ray Astudillo | Results, Imaging (US | | 2019 | | GASTROENTEROLOGY | MD Sukhwinder [address] | ([facility])) | | | | [address] | [address] | | | | | [address] | [facility] [place] [address] | | | | | [address] | [phone] | | | | | [phone] | | | +--------+ + + + [...] this encounter Miscellaneous Notes Telephone Encounter - Rosetta Santana RN - 07/31/2019 10:44 AM PDTAdvised patient of her results from [place] was normal; she was excited to hear and reports she feels great. Further advised there is nothing else to do at this point; she agreed; informed her Dr. Edwards is now at [facility] so if she needs GI care, Dr. Astudillo or JEAN CARLOS De [place] co shaunna assist. docum ented in this encounter Plan of Treatment Not on filedocumented as of this encounter Visit Diagnoses Not on filedocumented in this encounter"
--- OUTSIDE RECORDS SUMMARY | ~2020-05-31 | XMS | Encounter Summary ---
Demographics + + + | Address | [address] | | | [place] [address] | + + + | Home Phone | | + + + | Preferred Language | Unknown | + + + | Marital Status | | + + + | Scientology Affiliation | 1041 | + + + | Race | or | + + + | Ethnic Group | Not or | + + + Author + + + | Author | [facility] | | | and [place] | + + + | Organization | [facility] | | | [...] Team Providers + +------+ + | Care Change Manager Name | Role | Phone | + +------+ + | Ana Paula Mays MD | PCP | | + +------+ + Encounter Details +--------+ + + + + | Date | Type | Department | Care Team | Description | +--------+ + + + + | 03/21/ | Orders Only | [facility] [place] | [place], | Other chest pain | | 2016 | | PULMONARY [address] | Lisset Lira MD | | | | | [place], | | | | | | [place] [address] | | | | | | [phone] | | | +--------+ + + + [...] + | Diagnosis | + + | Other chest pain | + + documented in this encounter"
--- OUTSIDE RECORDS SUMMARY | ~2020-05-31 | XMS | Encounter Summary ---
Demographics + + + | Address | [address] | | | [place] [address] | + + + | Home Phone | | + + + | Preferred Language | Unknown | + + + | Marital Status | | + + + | Roman Catholic Affiliation | 1041 | + + + | Race | or | + + + | Ethnic Group | Not or | + + + Author + + + | Author | [facility] | | | and [place] | + + + | Organization | [facility] | | | [...] Team Providers + +------+ + | Care Mother Baby Rn Name | Role | Phone | + +------+ + | Ana Paula Mays MD | PCP | | + +------+ + Reason for Visit +---------+ + | Reason | Comments | +---------+ + | Consult | | +---------+ + | Snoring | | +---------+ + Evaluate & Treat (Routine) +--------+--------+ + + + + | Status | Reason | Specialty | Diagnoses / | Referred By | Referred To | | | | | Procedures | Contact | Contact | +--------+--------+ + + + + | Closed | | Internal | Diagnoses | Tabatha, | Yvon, | | | | Medicine - | Obstructive | MD Ana Paula | Jose Horton | | | | Sleep | sleep apnea | [address] | MD [address] | | | | Medicine / | (adult) | SUSANNA TREVINO | Oneil Silva | | | | Sleep | (pediatric) | [facility] [place] | [facility] | | | | Medicine | CONSULT [address] | [address] | [place], [place] | | | | | 930 YRS AGO | Phone: | [phone] Phone: | | | | | Procedures | [phone] | [phone] | | | | | NEW PATIENT | Fax: | Fax: | | | | | | [phone] | [phone] | +--------+--------+ + + + + Encounter Details +--------+---------+ + + + | Date | Type | Department | Care Team | Description | +--------+---------+ + + + | 04/24/ | Office | [facility] | Jose Sanz | DHAVAL (obstructive | | 2014 | Visit | SLEEP DISORDER [address] | MD [address] | sleep apnea) | | | | [address] [place] | [address] [place] | (Primary Dx); | | | | [place] [address] | [place] [address] | Restless legs | | | | [phone] | [phone] | syndrome; Depression | | | | | | with anxiety; Type | | | | | | 2 diabetes mellitus | | | | | | without complication | | | | | | ([facility]); Chest pain, | | | | | | unspecified chest | | | | | | pain type | +--------+---------+ + + + Social [...] + + + | Blood Pressure | 140/80 | 04/24/2015 9:43 AM | | | | | PDT | | + + + + + | Pulse | 77 | 04/24/2015 9:43 AM | | | | | PDT | | + + + + + | Temperature | - | - | | + + + + + | Respiratory Rate | 14 | 04/24/2015 9:43 AM | | | | | PDT | | + + + + + | Oxygen Saturation | 97% | 04/24/2015 9:43 AM | | | | | PDT | | + + + + + | Inhaled Oxygen | - | - | | | Concentration | | | | + + + + + | Weight | 99.2 kg (218 lb 9.6 | 04/24/2015 9:43 AM | | | | oz) | PDT | | + + + + + | Height | 163.8 cm (5' 4.5") | 04/24/2015 9:43 AM | | | | | PDT | | + + + + + | Body Mass Index | 36.94 | 04/24/2015 9:43 AM | | | | | PDT | | + + + + + documented in this encounter Patient Instructions Patient Instructions Jose Sanz Jr., MD - 04/24/2015 10:35 AM PDT Continuous Positive Air Pressure (CPAP) Continuous positive air pressure (CPAP)uses gentle air pressure to hold the airway open. CPAP is often the most effective treatment for sleep apnea and severe snoring. It works very well for many people. But keep in mind that it can take several adjustments before the setu p is right for you. How CPAP Works CPAP is asmall portable pump beside the bed. The pumpsends air through a hose, which is held over your noseand/or mouthby a mask.Mild air pressureis gently pushed through your airway. The air pressure nudges sagging tissues aside. This widens the airway so you ca n breathe better. CPAP may be combined with other kinds of therapy for sleep apnea. Types of Air Pressure Treatments There are different types of CPAP. Your doctor or CPAP survey data technician will help you decide whic h type is best for you: Basic CPAPkeeps the pressure constant all night long. A bilevel device(BiPAP)providesmore pressure when you breathe in and less when you breathe out.A BiPAP machine also may be set to provide automatic breaths to maintain jesus thing if you stop breathing while sleeping. An autoCPAP deviceautomatically adjusts pressure throughout the night and in response to changes such as body position, sleep stage, and snoring. [id number] [employer]. [address] [place] [address], [place] [address]. All righ ts reserved. This information is not intended as a substitute for professional medical care. Always follow your healthcare professional's instructions. Continuous Positive Airway Pressure (CPAP) Your health care provider has prescribed continuous positive airway pressure (CPAP) therapy for you. A CPAPdevice helps you breathe better at night. The device delivers air through your nose or mouth when you breathe in to keep your air passages open. CPAP is: Used most often to treat sleep apnea and some other problems (Sleep apnea is a chronic c ondition with periods of sleep in which you briefly stop breathing.) Safe and very effective, but it takes time to get used to the mask. Your health care provider, nurse, or medical supplier will give you tips for wearing and ca ring for your CPAP device. General guidelines It's very important not togive up! It takes time to get used to wearing the mask at [facility]. Practice using your CPAP device during the day, especially whenever you take a nap. Remember, there are several different types of masks. If you can t get used to your ma sk, ask your provider or medical supply company about trying another style. If you have nasal stuffiness or dryness when using your CPAP device, talk with your prov ider or medical supply company. There are ways to lessen these problems. For example, your p rovider may recommend moistening nasal spray or the medical supply company may recommend a d evice with a humidifier. The goal is to use yourCPAP all night, every night, during all naps, and even when you travel. Keep your mask clean. Wash it with soap and water. Be sure to rinse the mask and tubing well with water to remove any soap. Let them air-dry thoroughly before using. Make yourself comfortable when sleeping with CPAP. Try using extra pillows. Work with your medical supply company so that you know how to correctly use your CPAP. The r field representative will be able to help you: Use the CPAP correctly Troubleshoot any problems that come up Learn to clean and maintain the device Adjust to regular use of the CPAP [id number] [employer]. [address] [place] [address]. All righ ts reserved. This information is not intended as a substitute for professional medical care. Always follow your healthcare professional's instructions. documented in this encounter Progress Notes Jose Sanz Jr., MD - 04/24/2015 10:03 AM PDTFormatting of this note might be differen t from the original. 04/24/15 0900 Davis Depression Inventory-II Depression Score 15 - Mild depression Insomnia Severity Index Insomnia Severity Index 15 Turkey Sleepiness Scale Sitting and reading 2 Watching TV 2 Sitting, inactive in a public place (e.g. a theatre or a meeting) 0 As a passenger in a car for an hour without a break 0 Lying down to rest in the afternoon when circumstances permit 2 Sitting and talking to someone 0 Sitting quietly after a lunch without alcohol 0 In a car, while stopped for a few minutes in traffic 0 Total score 6 SF-36v2 Score PF 23.36 RP 27.47 BP 37.18 GH 41.02 VT 48.97 SF 35.03 RE 20.89 MH 58.46 PCS 28.29 MCS 47.5 imon, Jose Horton Jr., MD - 04/24/2015 9:39 AM PDTFormatting of this note might be different from the origin al. [facility] [place] [address] Ref: Ana Paula Mays MD CC: Chief Complaint Patient presents with Consult Snoring History of the Present Illness: This is a 59 year old female who is referred for sleep medi cine consultation by Dr. Carlos Mays because of DHAVAL. Other significant medical issues include atypical chest pain, AODM, history of CVA, GERD, anxiety/depression. The patient's records ( [facility] EMR, Dr. Carlos Bean's notes, old sleep records) are reviewed. The patient is interviewed and examined. The patient was admitted to [facility] in February with chest pain. Nuclear medicine st ress test was normal (EKG and perfusion normal) and the LVEF was estimated at 71%. She has s ubsequently also undergone colonoscopy at [facility] in March (it was unremarkable). I first saw t his patient in sleep medicine consultation on 11/30/2006 because of sleepiness and snoring. P SG performed on 12/19/2006 demonstrated a latency to sleep onset of 12.5 minutes and a sleep efficiency of 83.4%. All stages of sleep were present. The AHI was25.6 with a branden oxygen s aturation of 89%. Based on a PSG guided CPAP titration, she was treated with CPAP 9cm. She d id well until fall when she stopped wearing CPAP because of vertigo. Repeat PSG perf ormed on 11/01/2010 demonstrated a prolonged latency to sleep onset of 37.5 minutes and a low sleep efficiency of 57.7%. The RDI was mildly elevated at 13.7 and the AHI was mildly eleva del at 6 with minimal oxygen desaturation (she had lost 12 pounds). Mild PLMS (PLMS Arousal Index 6.7) were also noted. She was on 11/05/[address] Rivka Alvarez for consideration of dental appliance therapy - I have not seen her since then. Our last note from Dr. Alvarez 's office was from 03/31/2011 which states that she was given a TAP3 TL appliance. She felt t hat the dental appliance actually made her choke and so she stopped it. Over the several years she has lost 5 brothers to cancer and she has another who has renal cancer. She had back surgery also about 8 months ago. This has been a very stressful year. Bedtime is about 10pm and rise time is about 7:30am. She estimates a latency to sleep onset of about 30 minutes. She gets up three times a night to urinate and she gets back to sleep easily most of the but occasionally she has trouble falling asleep and she then prays a lot. She has night sweats every night. She has nocturnal heartburn every night too. She always a wakens with a dry mouth and nasal/sinus congestion. She also awakens frequently with headach es. She dreams in her sleep. She dreams vividly but she denies hypnagogic hallucinations. She d oesn't have nightmares. She doesn't walk in her sleep. She denies dream enactment while asle ep. She denies sleep paralysis. She gets a restlessness in her legs about 4 nights a month which can make it difficult for her to sleep. Movement doesn't seem to help much though. Her has told her that her l egs and arms can kick and twitch rhythmically at night after she falls asleep. She is snoring every night and she thinks that this is getting worse. He has noted that she does stop breathing too. He has told her that she really needs to get back on her CPAP mach ine. She awakens herself gasping and choking frequently too. In the daytime she feels fatigued and tired. She naps infrequently. She doesn't fall asleep driving. She denies cataplexy. She consumes about 2 cups of coffee in the morning. Past Medical History: has a past medical history of Diabetes mellitus (HCC); Hyperchloremi a; Stroke (HCC); GERD (gastroesophageal reflux disease); DHAVAL (obstructive sleep apnea); PONV (postoperative nausea and vomiting); Depression; Chest pain; Diabetes type 2, controlled (H CC); Shortness of breath; Abdominal pain; Nausea; Hypertension; and Hyperlipidemia. has past surgical history that includes Hysterectomy (1994); Tonsillectomy; Lumbar spine s urgery (Approx ); knee surgery; Cholecystectomy; Ectopic surgery; bowel obs truction surgery; endometriosis surgery; Tubal ligation; back surgery (07/2014); and Esophag us dilation (N/A, 04/02/2015). Allergies Allergen Reactions Lisinopril Cough Atorvastatin Muscle aches Codeine Sulfate Nausea and vomit Morphine Pt. Dose not like as makes her feel wierd Current Outpatient Prescriptions Medication Sig Dispense Refill aspirin 325 mg tablet Take 325 mg by mouth Daily. Cholecalciferol (VITAMIN D-3) 2000 units CAPS Take 2,000 Units by mouth Daily. FLUoxetine (PROZAC) 10 mg capsule Take 10 mg by mouth Daily. glipiZIDE (GLUCOTROL XL) 5 mg 24 hr tablet Take 5 mg by mouth daily (with breakfast). hydrochlorothiazide 25 mg tablet Take 25 mg by mouth Daily. lovastatin (MEVACOR) 20 mg tablet Take 20 mg by mouth nightly. nitroglycerin (NITROSTAT) 0.[address] 0.4 mg under the tongue every 5 minute s as needed for Chest pain. omeprazole (PRILOSEC) 20 mg capsule Take 20 mg by mouth every morning (before breakfast ). ondansetron (ZOFRAN) 4 mg tablet Slowly start prep. If nausea occurs, wait 1/2 hr. Take 1 tablet, wait 1/2 hour. Slowly resume prep. 2 tablet 0 sitagliptan-metFORMIN (JANUMET) 50-1000 MG per tablet Take 1 tablet by mouth 2 times da apolinar (with breakfast & dinner). No current facility-administered medications for this visit. Family Medical History: family history includes Cancer in her brother and another family me mber; Heart disease in her brother and sister. has no family status information on file. Social History: History Social History Marital Status: Spouse Name: N/A Number of Children: N/A Years of Education: N/A Social History Main Topics Smoking status: Former Smoker Types: Cigarettes Quit date: 10/10/1983 Smokeless tobacco: Never Used Alcohol Use: No Drug Use: No Sexual Activity: Not on file Other Topics Concern Not on file Social History Narrative Review of Systems: Constitutional: Denies unexplained fevers, chills, significant recent weight change. Occ asional sweats. Eyes:Denies sudden loss of vision, diplopia, blurred vision. ENT: Denies loss of hearing, vertigo, nasal or sinus congestion, bleeding gums or poor de ntal repair. Card:Currently no chest pain. Resp: some wheezing GI: Denies vomiting, abdominal pain, diarrhea, Hematochezia. Frequent nausea and consti pation. : Occasional blood in urine in the past but not currently. MS: Denies back pain, neck pain, arthralgias, arthritis, myalgias - she states that she d oesn't have pain currently. Neuro: Denies seizures, strokes, loss of consciousness, dysesthesias or paresthesias, syn cope, concussions. Psych: Significant depression from grief. Endocrine: Denies heat or cold intolerance Heme: Denies easy bruising or prolonged bleeding. Allergic/Immunologic: Has seasonal allergies PE: BP 140/80 mmHg | Pulse 77 | Resp 14 | Ht 1.638 m (5' 4.5") | Wt 99.156 kg (218 lb 9.6 o z) | BMI 36.96 kg/m2 | SpO2 97% Gen: alert and not in acute distress HEENT:Head: Normocephalic, no lesions, without obvious abnormality. Eye: Normal external eye, conjunctiva, lids cornea, SEGUNDO. Nose: Normal external nose, mucus membranes and septum. Pharynx: Dental Hygiene adequate. Normal buccal mucosa. Mallamapti 2. Neck / Thyroid: Supple, no masses, nodes, nodules or enlargement. Pulm: lungs clear to auscultation Card: regular rate and rhythm, S1, S2 normal, no murmur, click, rub or gallop GI: soft and normal bowel sounds : Not examined Rectal: Not Examined Ext: peripheral pulses normal, no pedal edema, no clubbing or cyanosis Skin:no rashes Neuro:Grossly normal Psych:age appropriate and casually dressedoriented to time, place and person, mood and aff ect are within normal limits, pt is a good historian; no memory problems were noted Heme: No cervical LN. Questionnaires Review: The score of 6 on the Turkey Sleepiness scale suggests mild excessi ve daytime sleepiness. The score of 15 on the Insomnia Severity Scale suggests that the jeanne ent has mild to moderate dissatisfaction with the quality of sleep. The score of 15 on the B cheryl Depression Inventory is consistent with mild depression. The score of 19 on the Davis Anx iety Inventory suggests mild to moderate recognized anxiety. The SF36v2 suggests demonstrate s that she scores nearly 3 standard deviations below the mean on subscales Physical Function and Role Emotional; that she scores about 2 standard deviations below the mean on the Role Physical subscale; that she scores about 1 standard deviation below the mean subscales Body Pain, General Health, and social function; and that she scores at the mean on the Vitality s ubscale. She scores nearly 1 standard deviation above the mean on the Mental Health subscale . She scores at the mean on the Mental Component Scale and about 2 standard deviations below the mean on the Physical Component Scale. Assessment: DHAVAL: The patient has had moderate to mild DHAVAL in the past. She wore CPAP for se veral years but then stopped it. She was intolerant of a dental appliance and it appears she stopped wearing it but didn't follow-up with Dr. Alvarez. She recently was hospitalized at [facility] with chest pain with normal Stress Test and was felt to have DHAVAL. I have discussed in d etail the pathophysiology of Obstructive Sleep Apnea with the patient. I've discussed that d uring NREM sleep the skeletal muscles relax and in REM sleep the skeletal muscles are paraly zed. The muscles that support the back of the throat (the tongue in particular) also relax d uring NREM sleep and are paralyzed in REM sleep and when this occurs, the back of the throat collapses some. In some patients with a smaller back of the throat, this can result in obst ruction to the flow of air. This is fundamentally what occurs in DHAVAL. This can cause repetit nigel obstruction to the flow of air all night long cause a person with DHAVAL to awaken repeated ly at night to "open" the back of the throat. If airflow is significantly restricted, blood oxygen levels can fall. The combination of the repetitive awakenings at night and low oxygen levels lead to numerous other physiologic abnormalities which can result in nocturia, noctu rnal heartburn, night sweats, morning dry mouth, morning headache, and daytime fatigue/sleep iness. Additionally, DHAVAL can cause hypertension and it dramatically increases the risk of he art disease, heart attack, and stroke. It may play a causative role in obesity and AODM. Unt reated DHAVAL also dramatically increases the risk of fall asleep car accidents. Treatment can help with all of these issues. But I've discussed that typically DHAVAL has to be relatively se alexander (AHI 20-30) for these co-morbidities to be significant. I've suggested that we could ta ke one of two approaches: repeat PSG (I think this is the best) or restart autoadjusting CPA P and do PSG if she is unable to wear it. She prefers the latter approach - in part because she is leaving to visit her now dying brother in [place] in two or three days. RLS: I've discussed Restless Legs Syndrome with the patient. I've also discussed Periodic Limb Movements of Sleep. I've discussed the relationship between the two. I've also discuss ed that I generally offer treatment symptomatically. I've also discussed an overview of mauricio goddardkelly: 1) maintain a ferritin level above 50; 2) Bedtime leg/arm massage; 3) review the nee d for medications that can worsen RLS/PLMS (such as antidepressants (except for buproprion) and antihistamines); 4) prescribe medications such as a) dopaminergics, b) benzodiazepine re ceptor agonists, c) opiates, and/or d) atypical anti-seizure agents. Chest Pain: I'm not sure the etiology of this. Depression and Anxiety: I think very important issues, probably related to the stresses s he has had to face with numerous deaths in her family. She states that she has good support from friends, all of whom are counselors. AODM: I do not know the control of this. Plan: Resmed AirSense 10 autoset CPAP: 4-20cm with f/u in [facility] in 3 weeks Ferritin Level. Patient Active Problem List Diagnosis Obstructive sleep apnea Diabetes mellitus, type II Family history of ischemic heart disease PERIODIC LIMB MOVEMENT DISORDER VERTIGO, CHRONIC Chest pain Hyperlipidemia Stress at home Shortness of breath BRBPR (bright red blood per rectum) GERD (gastroesophageal reflux disease) Lung nodule documented in th is encounter Plan of Treatment Not on filedocumented as of this encounter Results Ferritin (05/26/2015 12:10 PM PDT) + +-------+ + + + | Component | Value | Ref Range | Performed | Pathologist | | | | | At | Signature | + +-------+ + + + | [facility] | 7 (L) | 11-<307 ng/mL | [facility] | | | | | | [facility] | | | | | | [facility] [...] + + | [facility] | [address] | [place] | [phone] | | [facility] | | [address] | | | - LABORATORY | | | | + + + + + documented in this encounter Visit Diagnoses + + | Diagnosis | + + | DHAVAL (obstructive sleep apnea) - Primary Obstructive sleep apnea (adult) (pediatric) | + + | Restless legs syndrome Restless legs syndrome (RLS) | + + | Depression with anxiety Dysthymic disorder | + + | Type 2 diabetes mellitus without complication (HCC) | + + | Chest pain, unspecified chest pain type | + + documented in this encounter
--- OUTSIDE RECORDS SUMMARY | ~2020-05-31 | XMS | Encounter Summary ---
Demographics + + + | Address | [address] | | | [place] [address] | + + + | Home Phone | | + + + | Preferred Language | Unknown | + + + | Marital Status | | + + + | Holiness Affiliation | 1041 | + + + | Race | or | + + + | Ethnic Group | Not or | + + + Author + + + | Author | [facility] | | | and [place] | + + + | Organization | [facility] | | | [...] Team Providers + +------+ + | Care Cider Press Operator Name | Role | Phone | + +------+ + | Conversion Transaction, | PCP | | | Provider Unknown | | | + +------+ + Reason for Visit + +--------+ + | Reason | Onset | Comments | | | Date | | + +--------+ + | Follow-up | 06/08/ | | | | 2019 | | + +--------+ + Encounter Details +--------+ + + + + | Date | Type | Department | Care Team | Description | +--------+ + + + + | 06/08/ | Telephone | [facility] | Sofiya Colindres, | Follow-up | | 2019 | | NEUROLOGY [address] | MD [address] | | | | | [address] | [address] [facility] | | | | | [place], [place] | [place] [address] | | | | | [address] | [phone] | | | | | [phone] | | | +--------+ + + + [...] this encounter Miscellaneous Notes Telephone Encounter - [place], Fuad George - 06/08/2019 2:01 PM PDTSissy, is calling regarding Follow-up and would like a call back. Additional Call Details: Calling to reschedule (06/12/19) appointment. Please call her trinity k at [phone]. If this is a symptom based call, was patient offered triage? Not Applicable If this is a symptom based call and you were unable to immediately transfer the call to a conchita ramsay towboat operator was caller made aware that if at any time she feels it is an emergency they sh ould call 911 or go to the nearest emergency room? not applicable documented in this encounter Plan of Treatment Not on filedocumented as of this encounter Visit Diagnoses Not on filedocumented in this encounter"
--- OUTSIDE RECORDS SUMMARY | ~2020-05-31 | XMS | Encounter Summary ---
Demographics + + + | Address | [address] | | | [place] [address] | + + + | Home Phone [...] + + + | Author | [facility] | | | and [place] | + + + | Organization | [facility] | | [...] Team Providers + +------+ + | Care Client Operations Manager Name | Role | Phone | + +------+ + | Ana Paula Mays MD | PCP | | + +------+ + Reason for Visit Auth/Cert +--------+--------+ + + + + | Status | Reason | Specialty | Diagnoses / | Referred By | Referred To | | | | | Procedures | Contact | Contact | +--------+--------+ + + + + | Closed | | | Diagnoses | | | | | | | | | | | | | | Gastroesopha | | | | | | | geal reflux | | | | | | | disease | | | | | | | without | | | | | | | esophagitis | | | | | | | Special | | | | | | | screening | | | | | | | for | | | | | | | malignant | | | | | | | neoplasms, | | | | | | | colon | | | | | | | Gastroesopha | | | | | | | geal reflux | | | | | | | disease | | | | | | | without | | | | | | | esophagitis | | | | | | | [530.81] | | | | | | | Special | | | | | | | screening | | | | | | | for | | | | | | | malignant | | | | | | | neoplasms, | | | | | | | colon | | | | | | | [V76.51] | | | | | | | Procedures | | | | | | | [facility] | | | | | | | ESOPHAGOGAST | | | | | | | RODUODENOSCO | | | | | | | PY TRANSORAL | | | | | | | DIAGNOSTIC | | | | | | | [place] | | | | | | | COLONOSCOPY | | | | | | | FLX DX | | | | | | | W/COLLJ SPEC | | | | | | | WHEN PFRMD | | | | | | | EGD / | | | | | | | COLONOSCOPY | | | +--------+--------+ + + + + Encounter Details +--------+ + + + + | Date | Type | Department | Care Team | Description | +--------+ + + + + | 04/02/ | Anesthesia | [facility] | Michael Aceves MD | | | 2015 | Event | MED CTR MP INTRA OP | [address] | | | | | [address] | [place] | | | | | [place] | [address] | | | | | [address] | [phone] | | | | | [phone] | | | +--------+ + + + + Anesthesia Record + + + + + | Procedure Name | Responsible | Anesthesia Start | Anesthesia Stop Time | | | Anesthesiologist | Time | | + + + + + | EGD / SAMUEL Aceves MD | 04/02/15 0833 | 04/02/15 0917 | | (N/A ) | | | | + + + + + +----+---+ + + | Da | T | Event | Comment | | te | i | | | | | m | | | | | e | | | +----+---+ + + | 06 | 0 | An Checkout | Pre-use anesthesia machine/equipment checkout. | | /2 | 8 | | | | 4/ | 3 | | | | 20 | 2 | | | | 15 | | | | +----+---+ + + | | 0 | | | | | 8 | | | | | 3 | | | | | 3 | | | +----+---+ + + | | 0 | An Start | Reassessment prior to anesthesia induction/procedure. | | | 8 | | | | | 3 | | | | | 3 | | | +----+---+ + + | | 0 | An | | | | 8 | Induction | | | | 3 | | | | | 9 | | | +----+---+ + + | | 0 | Breathing | | | | 8 | Spontaneous | | | | 4 | ly | | | | 0 | | | +----+---+ + + | | 0 | an stop | | | | 9 | data | | | | 0 | | | | | 8 | | | +----+---+ + + | | 0 | An Stop | Patient handed off to recovery nurse. | | | 1 | | | | | 7 | | | +----+---+ + + +------+ | Meds | +------+ + + + | Name | Total | + + + | propofol | 120 mg | + + + | propofol | 526.14 mg | + + + | lidocaine 2% | 50 mg | + + + | lactated ringers (LR) infusion | 475 mL | + + + + + | No agents on file. | + + + + | No blood administrations on file. | + + +--------+ + + + | Type | Details | Placement | Removal | +--------+ + + + | [READ | 04/02/15; 0741 (started by Kayla | 04/02/15 0741 by | 04/02/15 1029 by | | ONLY] | YUNIEL Davison); Chemistry; 04/02/15; | Pari Leavitt RN | Joanna E | | | 1029 | | YUNIEL Aquino | | Periph | | | | | eral | | | | | IV - | | | | | Single | | | | | Lumen | | | | | | | | | +--------+ + + + documented in this encounter Social History + + + +--------+ + [...] + + documented as of this encounter OR Notes Anesthesia Postprocedure Evaluation - Michael Aceves MD - 04/02/2015 9:21 AM PDTFormattin g of this note might be different from the original. ANESTHESIA POSTANESTHESIA EVALUATION Odalys Cornejo 59 y.o. female 1955 [id number] Procedure(s) EGD / COLONOSCOPY (N/A ) Filed Vitals: 04/02/15 0713 04/02/15 0915 BP: 133/77 128/68 Pulse: 80 67 Temp: 36.6 C (97.9 F) Resp: 16 16 SpO2: 97% 95% Cooperates? Yes Mental Status Performs simple tasks. Respiratory Satisfactory - Airway patent (self maintained). Cardiovascular Satisfactory Blood pressure and heart rate acceptable Temperature Satisfactory Pain Satisfactory N/V Control Satisfactory Hydration Satisfactory No signs of dehydration Complications None apparent Electronically signed by Michael Aceves MD 04/02/2015 9:21 [facility] 5{TEMPERATURE:13640::"Satisfactory"}6{POST OP PAIN:73499::"Satisfactory"}7{NAUSEA/ VOMITING CONTROL:::"Satisfactory"}9{ANESTHESIA COMPLICATION:::"None apparent"} PL ACEHOLDER_METADATA_END GRAMMAR_METADATA_BEGIN GRAMMAR_METADATA_END AUTOREFRESH_METADATA_BEG IN AUTOREFRESH_METADATA_END A M PDTAnesthesia Preprocedure Evaluation - Michael Aceves MD - 04/02/2015 8:10 AM PDTFormat ting of this note might be different from the original. ANESTHESIA PREANESTHESIA EVALUATION Odalys Cornejo 59 y.o. female 1955 [id number] Procedure(s): EGD / COLONOSCOPY (N/A ) Medical history, anesthesia, medications, allergy histories reviewed. Labs reviewed. ROS / Med History Ane (+) PONV. CV (+) hypertension. Pulm (+) shortness of breath, sleep apnea. Neuro (+) CVA (some right side weakness). Psych (+) depression. GI/Hep (+) reflux/GERD, hypercholesterolemia. Endo (+) Diabetes:type 2. (+) obesity: BMI (30-39). Physical Exam Airway MP II, TM >3 FB, Mouth opening >2 FB. Neck: full ROM, extends >30 degrees. Jaw protrus ion normal. Dental Grossly normal except where noted below.; CV Rhythm regular. Rate Normal. (-) murmur. Neuro Grossly normal. Anesthesia Plan ASA 3 Type: General and TIVA. Induction: Intravenous. Potential problems: None anticipated. Monitors: Standard ASA monitors. Consent statement:Anesthetic plan, alternatives, risks and benefits discussed with patient. Risks discussed included (but were not limited to): sore throat, pain, nausea, . Consenting person understands and agrees to proceed. documented in this enc ounter Plan of Treatment Not on filedocumented as of this encounter Visit Diagnoses Not on filedocumented in this encounter Administered Medications + +--------+ +-------+------+------+ | Medication Order | MAR | Action | Dose | Rate | Site | | | Action | Date | | | | + +--------+ +-------+------+------+ | lidocaine (PF) 2% injection | Given | 04/02/20 | 50 mg | | | | Intravenous, PRN, Starting Wed | | 15 8:39 | | | | | 04/02/15 at 0839, Anesthesia | | AM PDT | | | | | Intra-op | | | | | | + +--------+ +-------+------+------+ +---+---+ | | | +---+---+ + +-------+ +--------+---+---+ | propofol (DIPRIVAN) injection | Given | 04/02/20 | 120 mg | | | | Intravenous, PRN, Starting Wed | | 15 8:39 | | | | | 04/02/15 at 0839, Anesthesia | | AM PDT | | | | | Intra-op | | | | | | + +-------+ +--------+---+---+ +---+---+ | | | +---+---+ + +---------+ + +-------+---+ | propofol (DIPRIVAN) injection | New Bag | 04/02/20 | 150 | 85.3 | | | Intravenous, CONTINUOUS PRN, | | 15 8:40 | mcg/kg/m | mL/hr | | | Starting 04/02/15 at 0840, | | AM PDT | in | | | | Anesthesia Intra-op | | | | | | + +---------+ + +-------+---+ +---+---+ | | | +---+---+ documented in this encounter
--- OUTSIDE RECORDS SUMMARY | ~2020-05-31 | XMS | Encounter Summary ---
Demographics + + + | Address | [address] | | | [place] [address] | + + + | Home Phone | | + + + | Preferred Language | Unknown | + + + | Marital Status | | + + + | Taoism Affiliation | 1041 | + + + | Race | or | + + + | Ethnic Group | Not or | + + + Author + + + | Author | [facility] | | | and [place] | + + + | Organization | [facility] | | [...] Team Providers + +------+ + | Care Group Leader Wafer Polishing Name | Role | Phone | + +------+ + PCP | Unavailable | + +------+ + Encounter Details +--------+ + + + + | Date | Type | Department | Care Team | Description | +--------+ + + + + | 12/20/ | [facility] | [facility] | Jose Sanz | | | 2006 | Encounter | MED CTR SLEEP | MD [place] [address] | | | | | [place] [address] | [address] [place] | | | | | [place], [place] | [place] [address] | | | | | [address] | [phone] | | | | | [phone] | | | +--------+ + + + [...]
--- OUTSIDE RECORDS SUMMARY | ~2020-05-31 | XMS | Encounter Summary ---
Demographics + + + | Address | [address] | | | [place] [address] | + + + | Home Phone | | + + + | Preferred Language | Unknown | + + + | Marital Status | | + + + | Advent Affiliation | 1041 | + + + | Race | or | + + + | Ethnic Group | Not or | + + + Author + + + | Author | [facility] | | | and [place] | + + + | Organization | [facility] | | | [...] Team Providers + +------+ + | Care River Boat Captain Name | Role | Phone | + +------+ + | Ana Paula Mays MD | PCP | | + +------+ + Reason for Visit +--------+--------+ + | Reason | Onset | Comments | | | Date | | +--------+--------+ + | Other | 03/11/ | RE: Appointment 03/17/15 | | | 2015 | | +--------+--------+ + Encounter Details +--------+ + + + + | Date | Type | Department | Care Team | Description | +--------+ + + + + | 03/11/ | Telephone | [facility] | Garcia Felipe | Other (RE: | | 2014 | | [address] | MD [address] | [facility] 03/17/15) | | | | [address], | [address] [place] | | | | | [place] [address] | [place] [address] | | | | | [phone] | [phone] | | | | | | | [...] this encounter Miscellaneous Notes Telephone Encounter - Rosalba Vallejo Master of Arts - 03/11/2015 4:24 PM PDTPre-appt Intake call to patient. Patient expressed her wishes that this appointment be cancelled. A recent d eath in the family along with other health concerns she is addressing. Assured patient we sonu e here for her in the future should she ever need follow up with a Refuge Manager. Initial Cons ultation appointment for 03/17/15 is cancelled. Thank you, Rosalba Yoni, MA-R documented in this encounter Plan of Treatment Not on filedocumented as of this encounter Visit Diagnoses Not on filedocumented in this encounter"
--- OUTSIDE RECORDS SUMMARY | ~2020-05-31 | XMS | Encounter Summary ---
Demographics + + + | Address | [address] | | | [place] [address] | + + + | Home Phone | | + + + | Preferred Language | Unknown | + + + | Marital Status | | + + + | Methodist Affiliation | 1041 | + + + | Race | or | + + + | Ethnic Group | Not or | + + + Author + + + | Author | [facility] | | | and [place] | + + + | Organization | [facility] | | | [...] Team Providers + +------+ + | Care Teasel Setter Name | Role | Phone | + +------+ + PCP | Unavailable | + +------+ + Encounter Details +--------+ + + + + | Date | Type | Department | Care Team | Description | +--------+ + + + + | 11/18/ | [facility] | [facility] | Carlos Hamilton MD | | | 2006 | Encounter | MED CTR GENERIC OP | [address], [place] | | | | | CONV DEPT [address] [place], [place] | | | | | [place], | [address] | | | | | [place] [address] | | | | | | [phone] | | | +--------+ + + + [...]
--- OUTSIDE RECORDS SUMMARY | ~2020-05-31 | XMS | Encounter Summary ---
Demographics + + + | Address | [address] | | | [place] [address] | + + + | Home Phone | | + + + | Preferred Language | Unknown | + + + | Marital Status | | + + + | Yazidi Affiliation | 1041 | + + + | Race | or | + + + | Ethnic Group | Not or | + + + Author + + + | Author | [facility] | | | and [place] | + + + | Organization | [facility] | | [...] Team Providers + +------+ + | Care Rib Builder Name | Role | Phone | + +------+ + | Ana Paula Mays MD | PCP | | + +------+ + Encounter Details +--------+ + + + + | Date | Type | Department | Care Team | Description | +--------+ + + + + | 12/28/ | Orders Only | [facility] | [place], | Other chest pain | | 2016 | | PULMONARY [address] | Lisset Lira MD | (Primary Dx) | | | | [place], | | | | | | [place] [address] | | | | | | [phone] | | | +--------+ + + + [...] as of this encounter Plan of Treatment + +---------+--------+ + + | Name | Type | Priori | Associated Diagnoses | Order Schedule | | | | ty | | | + +---------+--------+ + + | XR Chest PA and | Imaging | Routin | Other chest pain | Expected: | | Lateral | | e | | 12/29/2015, Expires: | | | | | | 12/28/2016 | + +---------+--------+ + + documented as of this encounter Results PFT PULMONARY FUNCTION TESTING ORDERS Full PFT (Lawrence w/BD, lung volumes, diffusion)?: Yes (01/11/2016 4:36 PM PDT) + + + | Narrative | Performed At | + + + | Lisset Pitt MD 01/11/2016 16:36 PULMONARY | | | FUNCTION TESTING METHOD: Spirometry was obtained pre | | | administration of inhaled bronchodilator only. Lung volumes were | | | obtained by body plethysmography. Diffusion capacity was obtained by | | | single breath method and was not corrected for a measured | | | hemoglobin. ATS standards were met. SPIROMETRY: FVC was | | | normal at 2.79 L or 88% of predicted. FEV1 was normal at 2.21 L or | | | 88% of predicted. FEV1/FVC ratio was normal at 79%. LUNG | | | VOLUMES: Total lung capacity was normal at 5.19 L or 101% of | | | predicted. Residual volume was normal at 2.37 L or 118% of | | | predicted. RV/TLC ratio was normal at 46% or 116 % of predicted. | | | DIFFUSION CAPACITY: Diffusion capacity was mildly reduced at 16.3 | | | mL/mmHg per minute or 65% of predicted and was not corrected for a | | | measured hemoglobin. IMPRESSION: Spirometry is normal. Lung volume | | | testing is normal. Diffusion capacity is normal and is not | | | corrected for measured hemoglobin. Electronically signed by: | | | Lisset Pitt MD 01/11/2016 16:34 [facility] | | | [facility] CC: Ana Paula Mays MD | | + + + documented in this encounter Visit Diagnoses + + | Diagnosis | + + | Other chest pain - Primary | + + documented in this encounter"
--- OUTSIDE RECORDS SUMMARY | ~2020-05-31 | XMS | Encounter Summary ---
Demographics + + + | Address | [address] | | | [place] [address] | + + + | Home Phone | | + + + | Preferred Language | Unknown | + + + | Marital Status | | + + + | Cheondoism Affiliation | 1041 | + + + | Race | or | + + + | Ethnic Group | Not or | + + + Author + + + | Author | [facility] | | | and [place] | + + + | Organization | [facility] | | | [...] Team Providers + +------+ + | Care Editor News Name | Role | Phone | + +------+ + PCP | Unavailable | + +------+ + Encounter Details +--------+ + + + + | Date | Type | Department | Care Team | Description | +--------+ + + + + | 05/01/ | Orders Only | [facility] | Provider, | | | 2019 | | SYSTEM GENERIC OP | MD [address] | | | | | [address] | [place] | | | | | [address] [place], [place] | [place] [address] | | | | | [address] | | | | | | [phone] | | | +--------+ + + + [...]
--- OUTSIDE RECORDS SUMMARY | ~2020-05-31 | XMS | Encounter Summary ---
Demographics + + + | Address | [address] | | | [place] [address] | + + + | Home Phone | | + + + | Preferred Language | Unknown | + + + | Marital Status | | + + + | Restorationism Affiliation | 1041 | + + + | Race | or | + + + | Ethnic Group | Not or | + + + Author + + + | Author | [facility] | | | and [place] | + + + | Organization | [facility] | | | and [...] Team Providers + +------+ + | Care Customer Complaint Clerk Name | Role | Phone | + +------+ + | Ana Paula Mays MD | PCP | | + +------+ + Encounter Details +--------+ + + + + | Date | Type | Department | Care Team | Description | +--------+ + + + + | 12/31/ | Abstract | [facility] | [place], | | | 2015 | | PULMONARY [address] | Lisset Lira MD | | | | | [place], | | | | | | [place] [address] | | | | | | [phone] | | | +--------+ + + + [...] | + +--------+ + + + | EXTERNAL LAB: BUN | Routin | 12/01/2015 | | Results for this | | | e | | | procedure are in the | | | | | | results section. | + +--------+ + + + | EXTERNAL LAB: | Routin | 12/01/2015 | | Results for this | | GLUCOSE | e | | | procedure are in the | | | | | | results section. | + +--------+ + + + | EXTERNAL LAB: | Routin | 12/01/2015 | | Results for this | | GLUCOSE | e | | | procedure are in the | | | | | | results section. | + +--------+ + + + | EXTERNAL LAB: ALT | Routin | 12/01/2015 | | Results for this | | | e | | | procedure are in the | | | | | | results section. | + +--------+ + + + | EXTERNAL LAB: AST | Routin | 12/01/2015 | | Results for this | | | e | | | procedure are in the | | | | | | results section. | + +--------+ + + + | EXTERNAL LAB: | Routin | 12/01/2015 | | Results for this | | ALKALINE PHOSPHATASE | e | | | procedure are in the | | | | | | results section. | + +--------+ + + + | EXTERNAL LAB: | Routin | 12/01/2015 | | Results for this | | BILIRUBIN, TOTAL | e | | | procedure are in the | | | | | | results section. | + +--------+ + + + | EXTERNAL LAB: | Routin | 12/01/2015 | | Results for this | | ALBUMIN | e | | | procedure are in the | | | | | | results section. | + +--------+ + + + | EXTERNAL LAB: | Routin | 12/01/2015 | | Results for this | | PROTEIN, TOTAL | e | | | procedure are in the | | | | | | results section. | + +--------+ + + + | EXTERNAL LAB: | Routin | 12/01/2015 | | Results for this | | CALCIUM | e | | | procedure are in the | | | | | | results section. | + +--------+ + + + | EXTERNAL LAB: CARBON | Routin | 12/01/2015 | | Results for this | | DIOXIDE | e | | | procedure are in the | | | | | | results section. | + +--------+ + + + | EXTERNAL LAB: | Routin | 12/01/2015 | | Results for this | | CHLORIDE | e | | | procedure are in the | | | | | | results section. | + +--------+ + + + | EXTERNAL LAB: | Routin | 12/01/2015 | | Results for this | | POTASSIUM | e | | | procedure are in the | | | | | | results section. | + +--------+ + + + | EXTERNAL LAB: SODIUM | Routin | 12/01/2015 | | Results for this | | | e | | | procedure are in the | | | | | | results section. | + +--------+ + + + | EXTERNAL LAB: | Routin | 12/01/2015 | | Results for this | | URINALYSIS | e | | | procedure are in the | | | | | | results section. | + +--------+ + + + | EXTERNAL LAB: CBC | Routin | 12/01/2015 | | Results for this | | | e | | | procedure are in the | | | | | | results section. | + +--------+ + + + | EXTERNAL LAB: CBC | Routin | 12/01/2015 | | Results for this | | | e | | | procedure are in the | | | | | | results section. | + +--------+ + + + | EXTERNAL LAB: | Routin | 12/01/2015 | | Results for this | | TRIGLYCERIDES | e | | | procedure are in the | | | | | | results section. | + +--------+ + + + | EXTERNAL LAB: | Routin | 12/01/2015 | | Results for this | | CHOLESTEROL, HDL | e | | | procedure are in the | | | | | | results section. | + +--------+ + + + | EXTERNAL LAB: | Routin | 12/01/2015 | | Results for this | | CHOLESTEROL, TOTAL | e | | | procedure are in the | | | | | | results section. | + +--------+ + + + | EXTERNAL LAB: | Routin | 12/01/2015 | | Results for this | | CHOLESTEROL, LDL | e | | | procedure are in the | | | | | | results section. | + +--------+ + + + | EXTERNAL LAB: | Routin | 12/01/2015 | | Results for this | | MICROALBUMIN/CREATIN | e | | | procedure are in the | | INE RATIO, URINE | | | | results section. | + +--------+ + + + | EXTERNAL LAB: EGFR | Routin | 12/01/2015 | | Results for this | | | e | | | procedure are in the | | | | | | results section. | + +--------+ + + + | EXTERNAL LAB: | Routin | 12/01/2015 | | Results for this | | CREATININE | e | | | procedure are in the | | | | | | results section. | + +--------+ + + + | LIPID PANEL | Routin | 12/01/2015 | | Results for this | | | e | | | procedure are in the | | | | | | results section. | + +--------+ + + + | URINALYSIS, REFLEX | Routin | 12/01/2015 | | Results for this | | MICROSCOPIC AND/OR | e | | | procedure are in the | | CULTURE | | | | results section. | + +--------+ + + + | MICROALBUMIN/CREATIN | Routin | 12/01/2015 | | Results for this | | INE RATIO, URINE | e | | | procedure are in the | | TEST | | | | results section. | + +--------+ + + + | CBC WITH | Routin | 12/01/2015 | | Results for this | | DIFFERENTIAL | e | | | procedure are in the | | | | | | results section. | + +--------+ + + + | HEMOGLOBIN A1C | Routin | 12/01/2015 | | Results for this | | | e | | | procedure are in the | | | | | | results section. | + +--------+ + + + | COMPREHENSIVE | Routin | 12/01/2015 | | Results for this | | METABOLIC PANEL | e | | | procedure are in the | | | | | | results section. | + +--------+ + + + | EXTERNAL LAB: | Routin | 11/21/2015 | | Results for this | | MICROALBUMIN/CREATIN | e | | | procedure are in the | | INE RATIO, URINE | | | | results section. | + +--------+ + + + | MICROALBUMIN/CREATIN | Routin | 11/21/2015 | | Results for this | | INE RATIO, URINE | e | | | procedure are in the | | TEST | | | | results section. | + +--------+ + + + | EXTERNAL LAB: BUN | Routin | 09/17/2015 | | Results for this | | | e | | | procedure are in the | | | | | | results section. | + +--------+ + + + | EXTERNAL LAB: | Routin | 09/17/2015 | | Results for this | | GLUCOSE | e | | | procedure are in the | | | | | | results section. | + +--------+ + + + | EXTERNAL LAB: | Routin | 09/17/2015 | | Results for this | | GLUCOSE | e | | | procedure are in the | | | | | | results section. | + +--------+ + + + | EXTERNAL LAB: ALT | Routin | 09/17/2015 | | Results for this | | | e | | | procedure are in the | | | | | | results section. | + +--------+ + + + | EXTERNAL LAB: AST | Routin | 09/17/2015 | | Results for this | | | e | | | procedure are in the | | | | | | results section. | + +--------+ + + + | EXTERNAL LAB: | Routin | 09/17/2015 | | Results for this | | ALKALINE PHOSPHATASE | e | | | procedure are in the | | | | | | results section. | + +--------+ + + + | EXTERNAL LAB: | Routin | 09/17/2015 | | Results for this | | BILIRUBIN, TOTAL | e | | | procedure are in the | | | | | | results section. | + +--------+ + + + | EXTERNAL LAB: | Routin | 09/17/2015 | | Results for this | | ALBUMIN | e | | | procedure are in the | | | | | | results section. | + +--------+ + + + | EXTERNAL LAB: | Routin | 09/17/2015 | | Results for this | | PROTEIN, TOTAL | e | | | procedure are in the | | | | | | results section. | + +--------+ + + + | EXTERNAL LAB: | Routin | 09/17/2015 | | Results for this | | CALCIUM | e | | | procedure are in the | | | | | | results section. | + +--------+ + + + | EXTERNAL LAB: CARBON | Routin | 09/17/2015 | | Results for this | | DIOXIDE | e | | | procedure are in the | | | | | | results section. | + +--------+ + + + | EXTERNAL LAB: | Routin | 09/17/2015 | | Results for this | | CHLORIDE | e | | | procedure are in the | | | | | | results section. | + +--------+ + + + | EXTERNAL LAB: | Routin | 09/17/2015 | | Results for this | | POTASSIUM | e | | | procedure are in the | | | | | | results section. | + +--------+ + + + | EXTERNAL LAB: SODIUM | Routin | 09/17/2015 | | Results for this | | | e | | | procedure are in the | | | | | | results section. | + +--------+ + + + | EXTERNAL LAB: | Routin | 09/17/2015 | | Results for this | | VITAMIN D, | e | | | procedure are in the | | 1,25-DIHYDROXY | | | | results section. | + +--------+ + + + | EXTERNAL LAB: CBC | Routin | 09/17/2015 | | Results for this | | | e | | | procedure are in the | | | | | | results section. | + +--------+ + + + | EXTERNAL LAB: TSH | Routin | 09/17/2015 | | Results for this | | | e | | | procedure are in the | | | | | | results section. | + +--------+ + + + | EXTERNAL LAB: | Routin | 09/17/2015 | | Results for this | | TRIGLYCERIDES | e | | | procedure are in the | | | | | | results section. | + +--------+ + + + | EXTERNAL LAB: | Routin | 09/17/2015 | | Results for this | | CHOLESTEROL, HDL | e | | | procedure are in the | | | | | | results section. | + +--------+ + + + | EXTERNAL LAB: | Routin | 09/17/2015 | | Results for this | | CHOLESTEROL, TOTAL | e | | | procedure are in the | | | | | | results section. | + +--------+ + + + | EXTERNAL LAB: | Routin | 09/17/2015 | | Results for this | | CHOLESTEROL, LDL | e | | | procedure are in the | | | | | | results section. | + +--------+ + + + | EXTERNAL LAB: EGFR | Routin | 09/17/2015 | | Results for this | | | e | | | procedure are in the | | | | | | results section. | + +--------+ + + + | EXTERNAL LAB: | Routin | 09/17/2015 | | Results for this | | CREATININE | e | | | procedure are in the | | | | | | results section. | + +--------+ + + + | TSH+T3+T4 (NON ORD) | Routin | 09/17/2015 | | Results for this | | | e | | | procedure are in the | | | | | | results section. | + +--------+ + + + | LIPID PANEL | Routin | 09/17/2015 | | Results for this | | | e | | | procedure are in the | | | | | | results section. | + +--------+ + + + | VITAMIN B-12 | Routin | 09/17/2015 | | Results for this | | | e | | | procedure are in the | | | | | | results section. | + +--------+ + + + | CBC WITH | Routin | 09/17/2015 | | Results for this | | DIFFERENTIAL | e | | | procedure are in the | | | | | | results section. | + +--------+ + + + | HEMOGLOBIN A1C | Routin | 09/17/2015 | | Results for this | | | e | | | procedure are in the | | | | | | results section. | + +--------+ + + + | COMPREHENSIVE | Routin | 09/17/2015 | | Results for this | | METABOLIC PANEL | e | | | procedure are in the | | | | | | results section. | + +--------+ + + + documented in this encounter Results CBC with Differential (12/01/2015) + + + + + + | Component | Value | Ref Range | Performed | Pathologist | | | | | At | Signature | + + + + + + | MCH | 26.8 (A) | 27.0 - 33.0 pg | | | + + + + + + | MCHC | 32.5 | 30.0 - 36.0 % | | | + + + + + + + + | Specimen | + + | Blood specimen | | (specimen) | + + External Lab: CBC (12/01/2015) + + + + + + | Component | Value | Ref Range | Performed | Pathologist | | | | | At | Signature | + + + + + + | HGB, | 12.4 | | EXTERNAL | | | External | | | LAB | | + + + + + + | HCT, | 38.2 | | EXTERNAL | | | External | | | LAB | | + + + + + + | PLT, | 596Comment: High | | EXTERNAL | | | External | | | LAB | | + + + + + + | Neutrophils | 63.3 | 37 - 67 | EXTERNAL | | | %, | | | LAB | | | External | | | | | + + + + + + | Lymphocytes | 31.6 | 24 - 44 | EXTERNAL | | | %, | | | LAB | | | External | | | | | + + + + + + | RBC, | 4.63 | | EXTERNAL | | | External | | | LAB | | + + + + + + | MCV, | 82 | | EXTERNAL | | | External | | | LAB | | + + + + + + | RDW, | 15.7Comment: High | | EXTERNAL | | | External | | | LAB | | + + + + + + + + | Resulting Agency Comment | + + | [facility] | + + + +---------+ + + | Performing | Address | City/State/Zipcode | Phone Number | | Organization | | | | + +---------+ + + | EXTERNAL LAB | | | | + +---------+ + + Hemoglobin A1C (12/01/2015) + +-------+ + + + | Component | Value | Ref Range | Performed | Pathologist | | | | | At | Signature | + +-------+ + + + | Hemoglobin | 6.2 | | EXTERNAL | | | A1c, | | | LAB | | | external | | | | | + +-------+ + + + + + | Specimen | + + | Blood specimen | | (specimen) | + + + + | Resulting Agency Comment | + + | [facility] | + + + +---------+ + + | Performing | Address | City/State/Zipcode | Phone Number | | Organization | | | | + +---------+ + + | EXTERNAL LAB | | | | + +---------+ + + External Lab: Glucose (12/01/2015) + + + + + + | Component | Value | Ref Range | Performed | Pathologist | | | | | At | Signature | + + + + + + | Glucose, | 131 (A)Comment: EST AVG | 65 - 100 | EXTERNAL | | | External | GLUCOSE | | LAB | | + + + + + + + + | Resulting Agency Comment | + + | [facility] | + + + +---------+ + + | Performing | Address | City/State/Zipcode | Phone Number | | Organization | | | | + +---------+ + + | EXTERNAL LAB | | | | + +---------+ + + External Lab: CBC (12/01/2015) + +-------+ + + + | Component | Value | Ref Range | Performed | Pathologist | | | | | At | Signature | + +-------+ + + + | WBC, | 7.3 | 4 - 11 | EXTERNAL | | | External | | | LAB | | + +-------+ + + + + + | Resulting Agency Comment | + + | [facility] | + + + +---------+ + + | Performing | Address | City/State/Zipcode | Phone Number | | Organization | | | | + +---------+ + + | EXTERNAL LAB | | | | + +---------+ + + Lipid Panel (12/01/2015) + +---------+ + + + | Component | Value | Ref Range | Performed | Pathologist | | | | | At | Signature | + +---------+ + + + | Chol/HDL | 4.3 | 4.4 | | | | Ratio | | | | | + +---------+ + + + | VLDL | 20 | 4 - 40 | | | | Cholesterol | | | | | | Jaden | | | | | + +---------+ + + + | Non HDL | 159 (A) | 130 | | | | Chol. | | | | | | (LDL+VLDL) | | | | | + +---------+ + + + + + | Specimen | + + | Blood specimen | | (specimen) | + + External Lab: Triglycerides (12/01/2015) + +-------+ + + + | Component | Value | Ref Range | Performed | Pathologist | | | | | At | Signature | + +-------+ + + + | Triglycerid | 102 | 30 - 150 | EXTERNAL | | | es, | | | LAB | | | External | | | | | + +-------+ + + + + + | Specimen | + + | Blood specimen | | (specimen) | + + + + | Resulting Agency Comment | + + | [facility] | + + + +---------+ + + | Performing | Address | City/State/Zipcode | Phone Number | | Organization | | | | + +---------+ + + | EXTERNAL LAB | | | | + +---------+ + + External Lab: Cholesterol, HDL (12/01/2015) + +-------+ + + + | Component | Value | Ref Range | Performed | Pathologist | | | | | At | Signature | + +-------+ + + + | HDL | 47.9 | 40 mg/dl | EXTERNAL | | | Cholesterol | | | LAB | | | , External | | | | | + +-------+ + + + + + | Specimen | + + | Blood specimen | | (specimen) | + + + + | Resulting Agency Comment | + + | [facility] | + + + +---------+ + + | Performing | Address | City/State/Zipcode | Phone Number | | Organization | | | | + +---------+ + + | EXTERNAL LAB | | | | + +---------+ + + External Lab: Cholesterol, Total (12/01/2015) + +---------+ + + + | Component | Value | Ref Range | Performed | Pathologist | | | | | At | Signature | + +---------+ + + + | Cholesterol | 207 (A) | 200 mg/dl | EXTERNAL | | | , Total, | | | LAB | | | External | | | | | + +---------+ + + + + + | Specimen | + + | Blood specimen | | (specimen) | + + + + | Resulting Agency Comment | + + | [facility] | + + + +---------+ + + | Performing | Address | City/State/Zipcode | Phone Number | | Organization | | | | + +---------+ + + | EXTERNAL LAB | | | | + +---------+ + + External Lab: Cholesterol, LDL (12/01/2015) + +---------+ + + + | Component | Value | Ref Range | Performed | Pathologist | | | | | At | Signature | + +---------+ + + + | LDL | 139 (A) | 100 | EXTERNAL | | | Cholesterol | | | LAB | | | , Direct, | | | | | | External | | | | | + +---------+ + + + + + | Specimen | + + | Blood specimen | | (specimen) | + + + + | Resulting Agency Comment | + + | [facility] | + + + +---------+ + + | Performing | Address | City/State/Zipcode | Phone Number | | Organization | | | | + +---------+ + + | EXTERNAL LAB | | | | + +---------+ + + Comprehensive Metabolic Panel (12/01/2015) + +---------+ + + + | Component | Value | Ref Range | Performed | Pathologist | | | | | At | Signature | + +---------+ + + + | Anion Gap | 18 | 7 - 21 mmol/L | [facility] | | | | | | [facility] | | | | | | [facility] | | | | [facility] - | | | | | | [facility]ORY | | + +---------+ + + + | Bun/Creatin | 21.2 | 6.0 - 28 | [facility] | | | ine | | | [facility] | | | | | | [facility] | | [facility] | | | [facility] - | | | | | | LABORATORY | | + +---------+ + + + | Globulin | 3.7 (A) | 1.8 - 3.5 | [facility] | | | | | | [facility] | | | | | | [facility] | | | | | [facility] - | | | | | | LABORATORY | | + +---------+ + + + | Albumin/Janene | 1.1 | 1.1 - 2.0 | [facility] | | | bulin Ratio | | | [facility] | | | | | | [facility] | | | | | | [facility] - | | | | | | LABORATORY | | + +---------+ + + + + + | Specimen | + + | Blood specimen | | (specimen) | + + + + + + + | Performing | Address | City/State/Zipcode | Phone Number | | Organization | | | | + + + + + | [facility] | [address] | [place] | [phone] | | [facility] | | [id number], [facility] | | | - LABORATORY | | | | + + + + + External Lab: PATRICK (12/01/2015) + +-------+ + + + | Component | Value | Ref Range | Performed | Pathologist | | | | | At | Signature | + +-------+ + + + | PATRICK, | 18 | 6 - 23 | EXTERNAL | | | External | | | LAB | | + +-------+ + + + + + | Resulting Agency Comment | + + | [facility] | + + + +---------+ + + | Performing | Address | City/State/Zipcode | Phone Number | | Organization | | | | + +---------+ + + | EXTERNAL LAB | | | | + +---------+ + + External Lab: Glucose (12/01/2015) + +-------+ + + + | Component | Value | Ref Range | Performed | Pathologist | | | | | At | Signature | + +-------+ + + + | Glucose, | 88 | 70 - 100 | EXTERNAL | | | External | | | LAB | | + +-------+ + + + + + | Resulting Agency Comment | + + | [facility] | + + + +---------+ + + | Performing | Address | City/State/Zipcode | Phone Number | | Organization | | | | + +---------+ + + | EXTERNAL LAB | | | | + +---------+ + + External Lab: ALT (12/01/2015) + +-------+ + + + | Component | Value | Ref Range | Performed | Pathologist | | | | | At | Signature | + +-------+ + + + | ALT, | 16 | 7 - 52 | EXTERNAL | | | External | | | LAB | | + +-------+ + + + + + | Resulting Agency Comment | + + | [facility] | + + + +---------+ + + | Performing | Address | City/State/Zipcode | Phone Number | | Organization | | | | + +---------+ + + | EXTERNAL LAB | | | | + +---------+ + + External Lab: AST (12/01/2015) + +-------+ + + + | Component | Value | Ref Range | Performed | Pathologist | | | | | At | Signature | + +-------+ + + + | AST, | 14 | 13 - 39 | EXTERNAL | | | External | | | LAB | | + +-------+ + + + + + | Resulting Agency Comment | + + | [facility] | + + + +---------+ + + | Performing | Address | City/State/Zipcode | Phone Number | | Organization | | | | + +---------+ + + | EXTERNAL LAB | | | | + +---------+ + + External Lab: Alkaline Phosphatase (12/01/2015) + +-------+ + + + | Component | Value | Ref Range | Performed | Pathologist | | | | | At | Signature | + +-------+ + + + | ALP, | 102 | 30 - 128 | EXTERNAL | | | External | | | LAB | | + +-------+ + + + + + | Resulting Agency Comment | + + | [facility] | + + + +---------+ + + | Performing | Address | City/State/Zipcode | Phone Number | | Organization | | | | + +---------+ + + | EXTERNAL LAB | | | | + +---------+ + + External Lab: Bilirubin, Total (12/01/2015) + +-------+ + + + | Component | Value | Ref Range | Performed | Pathologist | | | | | At | Signature | + +-------+ + + + | Bilirubin, | 0.4 | 0 - 1 | EXTERNAL | | | Total, | | | LAB | | | External | | | | | + +-------+ + + + + + | Resulting Agency Comment | + + | [facility] | + + + +---------+ + + | Performing | Address | City/State/Zipcode | Phone Number | | Organization | | | | + +---------+ + + | EXTERNAL LAB | | | | + +---------+ + + External Lab: Albumin (12/01/2015) + +-------+ + + + | Component | Value | Ref Range | Performed | Pathologist | | | | | At | Signature | + +-------+ + + + | Albumin, | 3.9 | 3.5 - 5 | EXTERNAL | | | External | | | LAB | | + +-------+ + + + + + | Resulting Agency Comment | + + | [facility] | + + + +---------+ + + | Performing | Address | City/State/Zipcode | Phone Number | | Organization | | | | + +---------+ + + | EXTERNAL LAB | | | | + +---------+ + + External Lab: Protein, Total (12/01/2015) + +-------+ + + + | Component | Value | Ref Range | Performed | Pathologist | | | | | At | Signature | + +-------+ + + + | Protein, | 7.6 | 6 - 8 | EXTERNAL | | | Total, | | | LAB | | | External | | | | | + +-------+ + + + + + | Resulting Agency Comment | + + | [facility] | + + + +---------+ + + | Performing | Address | City/State/Zipcode | Phone Number | | Organization | | | | + +---------+ + + | EXTERNAL LAB | | | | + +---------+ + + External Lab: Calcium (12/01/2015) + +-------+ + + + | Component | Value | Ref Range | Performed | Pathologist | | | | | At | Signature | + +-------+ + + + | Calcium, | 9.8 | 8.4 - 10 | EXTERNAL | | | External | | | LAB | | + +-------+ + + + + + | Resulting Agency Comment | + + | [facility] | + + + +---------+ + + | Performing | Address | City/State/Zipcode | Phone Number | | Organization | | | | + +---------+ + + | EXTERNAL LAB | | | | + +---------+ + + External Lab: Carbon Dioxide (12/01/2015) + +-------+ + + + | Component | Value | Ref Range | Performed | Pathologist | | | | | At | Signature | + +-------+ + + + | Carbon | 25 | 19 - 31 | EXTERNAL | | | Dioxide, | | | LAB | | | External | | | | | + +-------+ + + + + + | Resulting Agency Comment | + + | [facility] | + + + +---------+ + + | Performing | Address | City/State/Zipcode | Phone Number | | Organization | | | | + +---------+ + + | EXTERNAL LAB | | | | + +---------+ + + External Lab: Chloride (12/01/2015) + +-------+ + + + | Component | Value | Ref Range | Performed | Pathologist | | | | | At | Signature | + +-------+ + + + | Chloride, | 100 | 95 - 112 | EXTERNAL | | | External | | | LAB | | + +-------+ + + + + + | Resulting Agency Comment | + + | [facility] | + + + +---------+ + + | Performing | Address | City/State/Zipcode | Phone Number | | Organization | | | | + +---------+ + + | EXTERNAL LAB | | | | + +---------+ + + External Lab: Potassium (12/01/2015) + +-------+ + + + | Component | Value | Ref Range | Performed | Pathologist | | | | | At | Signature | + +-------+ + + + | Potassium, | 4.8 | 3.6 - 5 | EXTERNAL | | | External | | | LAB | | + +-------+ + + + + + | Resulting Agency Comment | + + | [facility] | + + + +---------+ + + | Performing | Address | City/State/Zipcode | Phone Number | | Organization | | | | + +---------+ + + | EXTERNAL LAB | | | | + +---------+ + + External Lab: Sodium (12/01/2015) + +-------+ + + + | Component | Value | Ref Range | Performed | Pathologist | | | | | At | Signature | + +-------+ + + + | Sodium, | 138 | 132 - 140 | EXTERNAL | | | External | | | LAB | | + +-------+ + + + + + | Resulting Agency Comment | + + | [facility] | + + + +---------+ + + | Performing | Address | City/State/Zipcode | Phone Number | | Organization | | | | + +---------+ + + | EXTERNAL LAB | | | | + +---------+ + + External Lab: eGFR (12/01/2015) + +-------+ + + + | Component | Value | Ref Range | Performed | Pathologist | | | | | At | Signature | + +-------+ + + + | eGFR, | 68 | | EXTERNAL | | | External | | | LAB | | + +-------+ + + + + + | Specimen | + + | Blood specimen | | (specimen) | + + + + | Resulting Agency Comment | + + | [facility] | + + + +---------+ + + | Performing | Address | City/State/Zipcode | Phone Number | | Organization | | | | + +---------+ + + | EXTERNAL LAB | | | | + +---------+ + + External Lab: Creatinine (12/01/2015) + +-------+ + + + | Component | Value | Ref Range | Performed | Pathologist | | | | | At | Signature | + +-------+ + + + | Creatinine, | 0.85 | 0.7 - 1 | EXTERNAL | | | External | | | LAB | | + +-------+ + + + + + | Specimen | + + | Blood specimen | | (specimen) | + + + + | Resulting Agency Comment | + + | [facility] | + + + +---------+ + + | Performing | Address | City/State/Zipcode | Phone Number | | Organization | | | | + +---------+ + + | EXTERNAL LAB | | | | + +---------+ + + Urinalysis, Reflex Microscopic and/or Culture (12/01/2015) + + + + + + | Component | Value | Ref Range | Performed | Pathologist | | | | | At | Signature | + + + + + + | Color | Yellow | | [facility] | | | | | | [facility] | | | | | | [facility] | | | | | | [facility] - | | | | | | LABORATORY | | + + + + + + | Clarity, | Clear | | [facility] | | | Urine | | | [facility] | | | | | | MED[facility] | | | | | | CENTER - | | | | | | LABORATORY | | + + + + + + | Nitrite, | Negative | Negative | [facility] | | | Urine | | | [facility] | | | | | | MEDICAL | | | | | | CENTER - | | | | | | LABORATORY | | + + + + + + | Urobilinoge | Normal | < 0.2 mg/dL, | [facility] | | | n, Urine | | 1.0 mg/dL, 4.0 | [facility] | | | | | mg/dL, Normal, | MEDICAL | | | | | 1.0 E.U./dL, | CENTER - | | | | | 0.2 E.U./dL, | LABORATORY | | | | | 0.2 mg/dL, | | | | | | Negative, 1 | | | | | | mg/dL, <2.0 | | | | | | mg/dL | | | + + + + + + | Bilirubin, | Negative | Negative | [facility] | | | Urine | | | [facility] | | | | | | MEDICAL | | | | | | CENTER - | | | | | | LABORATORY | | + + + + + + | WBC | 1 | 0 - 4 | [facility] | | | | | | [facility] | | | | | | MEDICAL | | | | | | CENTER - | | | | | | LABORATORY | | + + + + + + | Epithelial | Few | | [facility] | | | Cells | | | [facility] | | | | | | MEDICAL | | | | | | CENTER - | | | | | | LABORATORY | | + + + + + + | CASTS | Negative | | [facility] | | | | | | [facility] | | | | | | MEDICAL | | | | | | CENTER - | | | | | | LABORATORY | | + + + + + + | Bacteria, | Negative | Negative /HPF | [facility] | | | Urine | | | [facility] | | | | | | MEDICAL | | | | | | CENTER - | | | | | | LABORATORY | | + + + + + + | CRYSTAL UA | Negative | | [facility] | | | | | | [facility] | | | | | | MEDICAL | | | | | | CENTER - | | | | | | LABORATORY | | + + + + + + + + | Specimen | + + | Urine specimen | | (specimen) | + + + + + + + | Performing | Address | City/State/Zipcode | Phone Number | | Organization | | | | + + + + + | [facility] | [address] | [place] | [phone] | | [facility] | | [address] | | | - LABORATORY | | | | + + + + + External Lab: Urinalysis (12/01/2015) + + + + + + | Component | Value | Ref Range | Performed | Pathologist | | | | | At | Signature | + + + + + + | UA Blood, | Negative | | EXTERNAL | | | External | | | LAB | | + + + + + + | UA Glucose, | Negative | | EXTERNAL | | | External | | | LAB | | + + + + + + | UA Ketones, | Negative | | EXTERNAL | | | External | | | LAB | | + + + + + + | UA Ph, | 7.0 | 5 - 9 | EXTERNAL | | | External | | | LAB | | + + + + + + | UA | Negative | | EXTERNAL | | | Proteins, | | | LAB | | | External | | | | | + + + + + + | UA RBC, | 0 | 0 - 4 | EXTERNAL | | | External | | | LAB | | + + + + + + | UA Specific | 1.010 | | EXTERNAL | | | [place], | | | LAB | | | External | | | | | + + + + + + | UA | Negative | | EXTERNAL | | | Leukocyte | | | LAB | | | Esterase, | | | | | | External | | | | | + + + + + + + + | Resulting Agency Comment | + + | [facility] | + + + +---------+ + + | Performing | Address | City/State/Zipcode | Phone Number | | Organization | | | | + +---------+ + + | EXTERNAL LAB | | | | + +---------+ + + External Lab: Microalbumin/Creatinine Ratio, Urine (12/01/2015) + +-------+ + + + | Component | Value | Ref Range | Performed | Pathologist | | | | | At | Signature | + +-------+ + + + | Microalbumi | 8.7 | 0 - 18 | EXTERNAL | | | n/Creatinin | | | LAB | | | e Ratio, | | | | | | External | | | | | + +-------+ + + + + + | Specimen | + + | Blood specimen | | (specimen) | + + + + | Resulting Agency Comment | + + | [facility] | + + + +---------+ + + | Performing | Address | City/State/Zipcode | Phone Number | | Organization | | | | + +---------+ + + | EXTERNAL LAB | | | | + +---------+ + + Microalbumin/Creatinine Ratio, Urine (12/01/2015) + +-------+ + + + | Component | Value | Ref Range | Performed | Pathologist | | | | | At | Signature | + +-------+ + + + | Microalbumi | 0.5 | mg/L | [facility] | | | n, Urine | | | [facility] | | | | | | MEDICAL | | | | | | CENTER - | | | | | | LABORATORY | | + +-------+ + + + | Creatinine, | 57.2 | | [facility] | | | Urine | | | [facility] | | | | | | MEDICAL | | | | | | CENTER - | | | | | | LABORATORY | | + +-------+ + + + + + | Specimen | + + | Urine specimen | | (specimen) | + + + + + + + | Performing | Address | City/State/Zipcode | Phone Number | | Organization | | | | + + + + + | [facility] | [address] | [place] | [phone] | | [facility] | | [id number], [facility] | | | - LABORATORY | | | | + + + + + Microalbumin/Creatinine Ratio, Urine (11/21/2015) + + + + + + | Component | Value | Ref Range | Performed | Pathologist | | | | | At | Signature | + + + + + + | Microalbumi | 40.9 (A) | 0.0 - 2.0 mg/L | [facility] | | | n, Urine | | | [facility] | | | | | | MEDICAL | | | | | | CENTER - | | | | | | LABORATORY | | + + + + + + | Creatinine, | 377 | | [facility] | | | Urine | | | [facility] | | | | | | MEDICAL | | | | | | CENTER - | | | | | | LABORATORY | | + + + + + + + + | Specimen | + + | Urine specimen | | (specimen) | + + + + + + + | Performing | Address | City/State/Zipcode | Phone Number | | Organization | | | | + + + + + | [facility] | [address] | [place], [place] | [phone] | | [facility] | | [id number] | | | - LABORATORY | | | | + + + + + External Lab: Microalbumin/Creatinine Ratio, Urine (11/21/2015) + + + + + + | Component | Value | Ref Range | Performed | Pathologist | | | | | At | Signature | + + + + + + | Microalbumi | 108.5 (A) | 0 - 30 | EXTERNAL | | | n/Creatinin | | | LAB | | | e Ratio, | | | | | | External | | | | | + + + + + + + + | Specimen | + + | Blood specimen | | (specimen) | + + + + | Resulting Agency Comment | + + | [facility] | + + + +---------+ + + | Performing | Address | City/State/Zipcode | Phone Number | | Organization | | | | + +---------+ + + | EXTERNAL LAB | | | | + +---------+ + + CBC with Differential (09/17/2015) + + + + + + | Component | Value | Ref Range | Performed | Pathologist | | | | | At | Signature | + + + + + + | MCH | 36.4 (A) | 26.0 - 33.0 pg | | | + + + + + + | MCHC | 32.3 | 30.0 - 36.0 % | | | + + + + + + + + | Specimen | + + | Blood specimen | | (specimen) | + + External Lab: Glucose (09/17/2015) + + + + + + | Component | Value | Ref Range | Performed | Pathologist | | | | | At | Signature | + + + + + + | Glucose, | 151 (A)Comment: | 65 - 100 | EXTERNAL | | | External | ESTIMATED AVG GLUCOSE | | LAB | | + + + + + + + + | Resulting Agency Comment | + + | [facility] | + + + +---------+ + + | Performing | Address | City/State/Zipcode | Phone Number | | Organization | | | | + +---------+ + + | EXTERNAL LAB | | | | + +---------+ + + External Lab: CBC (09/17/2015) + +-------+ + + + | Component | Value | Ref Range | Performed | Pathologist | | | | | At | Signature | + +-------+ + + + | WBC, | 7.0 | | EXTERNAL | | | External | | | LAB | | + +-------+ + + + | HGB, | 12.8 | | EXTERNAL | | | External | | | LAB | | + +-------+ + + + | HCT, | 39.6 | | EXTERNAL | | | External | | | LAB | | + +-------+ + + + | PLT, | 394 | | EXTERNAL | | | External | | | LAB | | + +-------+ + + + | Neutrophils | 60.6 | | EXTERNAL | | | %, | | | LAB | | | External | | | | | + +-------+ + + + | Lymphocytes | 31.8 | | EXTERNAL | | | %, | | | LAB | | | External | | | | | + +-------+ + + + | RBC, | 4.85 | | EXTERNAL | | | External | | | LAB | | + +-------+ + + + | MCV, | 82 | | EXTERNAL | | | External | | | LAB | | + +-------+ + + + | RDW, | 15 | | EXTERNAL | | | External | | | LAB | | + +-------+ + + + + + | Resulting Agency Comment | + + | [facility] | + + + +---------+ + + | Performing | Address | City/State/Zipcode | Phone Number | | Organization | | | | + +---------+ + + | EXTERNAL LAB | | | | + +---------+ + + Comprehensive Metabolic Panel (09/17/2015) + +---------+ + + + | Component | Value | Ref Range | Performed | Pathologist | | | | | At | Signature | + +---------+ + + + | Bun/Creatin | 25.9 | | [facility] | | | ine | | | [facility] | | | | | | MEDICAL | | | | | | CENTER - | | | | | | LABORATORY | | + +---------+ + + + | Anion Gap | 16 | 7 - 21 mmol/L | [facility] | | | | | | [facility] | | | | | | MEDICAL | | | | | | CENTER - | | | | | | LABORATORY | | + +---------+ + + + | Globulin | 3.6 (A) | 1.8 - 3.5 | [facility] | | | | | | [facility] | | | | | | MEDICAL | | | | | | CENTER - | | | | | | LABORATORY | | + +---------+ + + + | Albumin/Janene | 1.1 | | [facility] | | | bulin Ratio | | | [facility] | | | | | | MEDICAL | | | | | | CENTER - | | | | | | LABORATORY | | + +---------+ + + + + + | Specimen | + + | Blood specimen | | (specimen) | + + + + + + + | Performing | Address | City/State/Zipcode | Phone Number | | Organization | | | | + + + + + | [facility] | [address] | [place], [place] | [phone] | | [facility] | | [id number] | | | - LABORATORY | | | | + + + + + Hemoglobin A1C (09/17/2015) + +-------+ + + + | Component | Value | Ref Range | Performed | Pathologist | | | | | At | Signature | + +-------+ + + + | Hemoglobin | 6.9 | | EXTERNAL | | | A1c, | | | LAB | | | external | | | | | + +-------+ + + + + + | Specimen | + + | Blood specimen | | (specimen) | + + + + | Resulting Agency Comment | + + | [facility] | + + + +---------+ + + | Performing | Address | City/State/Zipcode | Phone Number | | Organization | | | | + +---------+ + + | EXTERNAL LAB | | | | + +---------+ + + External Lab: PATRICK (09/17/2015) + +-------+ + + + | Component | Value | Ref Range | Performed | Pathologist | | | | | At | Signature | + +-------+ + + + | BUN, | 22 | 6 - 23 | EXTERNAL | | | External | | | LAB | | + +-------+ + + + + + | Resulting Agency Comment | + + | [facility] | + + + +---------+ + + | Performing | Address | City/State/Zipcode | Phone Number | | Organization | | | | + +---------+ + + | EXTERNAL LAB | | | | + +---------+ + + External Lab: Glucose (09/17/2015) + +---------+ + + + | Component | Value | Ref Range | Performed | Pathologist | | | | | At | Signature | + +---------+ + + + | Glucose, | 160 (A) | 70 - 100 | EXTERNAL | | | External | | | LAB | | + +---------+ + + + + + | Resulting Agency Comment | + + | [facility] | + + + +---------+ + + | Performing | Address | City/State/Zipcode | Phone Number | | Organization | | | | + +---------+ + + | EXTERNAL LAB | | | | + +---------+ + + External Lab: ALT (09/17/2015) + +-------+ + + + | Component | Value | Ref Range | Performed | Pathologist | | | | | At | Signature | + +-------+ + + + | ALT, | 21 | 7 - 52 | EXTERNAL | | | External | | | LAB | | + +-------+ + + + + + | Resulting Agency Comment | + + | [facility] | + + + +---------+ + + | Performing | Address | City/State/Zipcode | Phone Number | | Organization | | | | + +---------+ + + | EXTERNAL LAB | | | | + +---------+ + + External Lab: AST (09/17/2015) + +-------+ + + + | Component | Value | Ref Range | Performed | Pathologist | | | | | At | Signature | + +-------+ + + + | AST, | 16 | 13 - 39 | EXTERNAL | | | External | | | LAB | | + +-------+ + + + + + | Resulting Agency Comment | + + | [facility] | + + + +---------+ + + | Performing | Address | City/State/Zipcode | Phone Number | | Organization | | | | + +---------+ + + | EXTERNAL LAB | | | | + +---------+ + + External Lab: Alkaline Phosphatase (09/17/2015) + +-------+ + + + | Component | Value | Ref Range | Performed | Pathologist | | | | | At | Signature | + +-------+ + + + | ALP, | 121 | 30 - 128 | EXTERNAL | | | External | | | LAB | | + +-------+ + + + + + | Resulting Agency Comment | + + | [facility] | + + + +---------+ + + | Performing | Address | City/State/Zipcode | Phone Number | | Organization | | | | + +---------+ + + | EXTERNAL LAB | | | | + +---------+ + + External Lab: Bilirubin, Total (09/17/2015) + +-------+ + + + | Component | Value | Ref Range | Performed | Pathologist | | | | | At | Signature | + +-------+ + + + | Bilirubin, | 0.6 | | EXTERNAL | | | Total, | | | LAB | | | External | | | | | + +-------+ + + + + + | Resulting Agency Comment | + + | [facility] | + + + +---------+ + + | Performing | Address | City/State/Zipcode | Phone Number | | Organization | | | | + +---------+ + + | EXTERNAL LAB | | | | + +---------+ + + External Lab: Albumin (09/17/2015) + +-------+ + + + | Component | Value | Ref Range | Performed | Pathologist | | | | | At | Signature | + +-------+ + + + | Albumin, | 4.1 | | EXTERNAL | | | External | | | LAB | | + +-------+ + + + + + | Resulting Agency Comment | + + | [facility] | + + + +---------+ + + | Performing | Address | City/State/Zipcode | Phone Number | | Organization | | | | + +---------+ + + | EXTERNAL LAB | | | | + +---------+ + + External Lab: Protein, Total (09/17/2015) + +-------+ + + + | Component | Value | Ref Range | Performed | Pathologist | | | | | At | Signature | + +-------+ + + + | Protein, | 7.7 | | EXTERNAL | | | Total, | | | LAB | | | External | | | | | + +-------+ + + + + + | Resulting Agency Comment | + + | [facility] | + + + +---------+ + + | Performing | Address | City/State/Zipcode | Phone Number | | Organization | | | | + +---------+ + + | EXTERNAL LAB | | | | + +---------+ + + External Lab: Calcium (09/17/2015) + +-------+ + + + | Component | Value | Ref Range | Performed | Pathologist | | | | | At | Signature | + +-------+ + + + | Calcium, | 9.3 | 8.4 - 10 | EXTERNAL | | | External | | | LAB | | + +-------+ + + + + + | Resulting Agency Comment | + + | [facility] | + + + +---------+ + + | Performing | Address | City/State/Zipcode | Phone Number | | Organization | | | | + +---------+ + + | EXTERNAL LAB | | | | + +---------+ + + External Lab: Carbon Dioxide (09/17/2015) + +-------+ + + + | Component | Value | Ref Range | Performed | Pathologist | | | | | At | Signature | + +-------+ + + + | Carbon | 24 | | EXTERNAL | | | Dioxide, | | | LAB | | | External | | | | | + +-------+ + + + + + | Resulting Agency Comment | + + | [facility] | + + + +---------+ + + | Performing | Address | City/State/Zipcode | Phone Number | | Organization | | | | + +---------+ + + | EXTERNAL LAB | | | | + +---------+ + + External Lab: Chloride (09/17/2015) + +-------+ + + + | Component | Value | Ref Range | Performed | Pathologist | | | | | At | Signature | + +-------+ + + + | Chloride, | 101 | | EXTERNAL | | | External | | | LAB | | + +-------+ + + + + + | Resulting Agency Comment | + + | [facility] | + + + +---------+ + + | Performing | Address | City/State/Zipcode | Phone Number | | Organization | | | | + +---------+ + + | EXTERNAL LAB | | | | + +---------+ + + External Lab: Potassium (09/17/2015) + +-------+ + + + | Component | Value | Ref Range | Performed | Pathologist | | | | | At | Signature | + +-------+ + + + | Potassium, | 4.2 | | EXTERNAL | | | External | | | LAB | | + +-------+ + + + + + | Resulting Agency Comment | + + | [facility] | + + + +---------+ + + | Performing | Address | City/State/Zipcode | Phone Number | | Organization | | | | + +---------+ + + | EXTERNAL LAB | | | | + +---------+ + + External Lab: Sodium (09/17/2015) + +-------+ + + + | Component | Value | Ref Range | Performed | Pathologist | | | | | At | Signature | + +-------+ + + + | Sodium, | 137 | | EXTERNAL | | | External | | | LAB | | + +-------+ + + + + + | Resulting Agency Comment | + + | [facility] | + + + +---------+ + + | Performing | Address | City/State/Zipcode | Phone Number | | Organization | | | | + +---------+ + + | EXTERNAL LAB | | | | + +---------+ + + External Lab: eGFR (09/17/2015) + +-------+ + + + | Component | Value | Ref Range | Performed | Pathologist | | | | | At | Signature | + +-------+ + + + | eGFR, | 68 | | EXTERNAL | | | External | | | LAB | | + +-------+ + + + + + | Specimen | + + | Blood specimen | | (specimen) | + + + + | Resulting Agency Comment | + + | [facility] | + + + +---------+ + + | Performing | Address | City/State/Zipcode | Phone Number | | Organization | | | | + +---------+ + + | EXTERNAL LAB | | | | + +---------+ + + External Lab: Creatinine (09/17/2015) + +-------+ + + + | Component | Value | Ref Range | Performed | Pathologist | | | | | At | Signature | + +-------+ + + + | Creatinine, | 0.85 | | EXTERNAL | | | External | | | LAB | | + +-------+ + + + + + | Specimen | + + | Blood specimen | | (specimen) | + + + + | Resulting Agency Comment | + + | [facility] | + + + +---------+ + + | Performing | Address | City/State/Zipcode | Phone Number | | Organization | | | | + +---------+ + + | EXTERNAL LAB | | | | + +---------+ + + TSH+T3+T4 (09/17/2015) + +-------+ + + + | Component | Value | Ref Range | Performed | Pathologist | | | | | At | Signature | + +-------+ + + + | Free T4 | 1.3 | 0.8 - 1.6 ng/dL | | | + +-------+ + + + + + | Specimen | + + | | + + External Lab: Vitamin D, 1,25-Dihydroxy (09/17/2015) + +-------+ + + + | Component | Value | Ref Range | Performed | Pathologist | | | | | At | Signature | + +-------+ + + + | Vitamin D | 42 | 30 - 100 | EXTERNAL | | | 1,25 | | | LAB | | | Dihydroxy, | | | | | | External | | | | | + +-------+ + + + + + | Resulting Agency Comment | + + | [facility] | + + + +---------+ + + | Performing | Address | City/State/Zipcode | Phone Number | | Organization | | | | + +---------+ + + | EXTERNAL LAB | | | | + +---------+ + + External Lab: TSH (09/17/2015) + + + + + + | Component | Value | Ref Range | Performed | Pathologist | | | | | At | Signature | + + + + + + | TSH, | 0.792Comment: 3RD GEN | | EXTERNAL | | | External | | | LAB | | + + + + + + + + | Specimen | + + | Blood specimen | | (specimen) | + + + + | Resulting Agency Comment | + + | [facility] | + + + +---------+ + + | Performing | Address | City/State/Zipcode | Phone Number | | Organization | | | | + +---------+ + + | EXTERNAL LAB | | | | + +---------+ + + Vitamin B-12 (09/17/2015) + +-------+ + + + | Component | Value | Ref Range | Performed | Pathologist | | | | | At | Signature | + +-------+ + + + | Vitamin B12 | 492.4 | 211 - 940 | | | | Bind | | | | | | Capacity | | | | | + +-------+ + + + | Folate | 15.26 | 2.9 | | | + +-------+ + + + + + | Specimen | + + | Blood specimen | | (specimen) | + + Lipid Panel (09/17/2015) + +---------+ + + + | Component | Value | Ref Range | Performed | Pathologist | | | | | At | Signature | + +---------+ + + + | Chol/HDL | 4.5 (A) | 4.4 | | | | Ratio | | | | | + +---------+ + + + | VLDL | 39 | 4 - 40 | | | | Cholesterol | | | | | | Jaden | | | | | + +---------+ + + + | Non HDL | 189 (A) | 130 | | | | Chol. | | | | | | (LDL+VLDL) | | | | | + +---------+ + + + + + | Specimen | + + | Blood specimen | | (specimen) | + + External Lab: Triglycerides (09/17/2015) + +---------+ + + + | Component | Value | Ref Range | Performed | Pathologist | | | | | At | Signature | + +---------+ + + + | Triglycerid | 197 (A) | 30 - 150 | EXTERNAL | | | es, | | | LAB | | | External | | | | | + +---------+ + + + + + | Specimen | + + | Blood specimen | | (specimen) | + + + + | Resulting Agency Comment | + + | [facility] | + + + +---------+ + + | Performing | Address | City/State/Zipcode | Phone Number | | Organization | | | | + +---------+ + + | EXTERNAL LAB | | | | + +---------+ + + External Lab: Cholesterol, HDL (09/17/2015) + +-------+ + + + | Component | Value | Ref Range | Performed | Pathologist | | | | | At | Signature | + +-------+ + + + | HDL | 54.6 | 40 mg/dl | EXTERNAL | | | Cholesterol | | | LAB | | | , External | | | | | + +-------+ + + + + + | Specimen | + + | Blood specimen | | (specimen) | + + + + | Resulting Agency Comment | + + | [facility] | + + + +---------+ + + | Performing | Address | City/State/Zipcode | Phone Number | | Organization | | | | + +---------+ + + | EXTERNAL LAB | | | | + +---------+ + + External Lab: Cholesterol, Total (09/17/2015) + +---------+ + + + | Component | Value | Ref Range | Performed | Pathologist | | | | | At | Signature | + +---------+ + + + | Cholesterol | 244 (A) | 200 mg/dl | EXTERNAL | | | , Total, | | | LAB | | | External | | | | | + +---------+ + + + + + | Specimen | + + | Blood specimen | | (specimen) | + + + + | Resulting Agency Comment | + + | [facility] | + + + +---------+ + + | Performing | Address | City/State/Zipcode | Phone Number | | Organization | | | | + +---------+ + + | EXTERNAL LAB | | | | + +---------+ + + External Lab: Cholesterol, LDL (09/17/2015) + +---------+ + + + | Component | Value | Ref Range | Performed | Pathologist | | | | | At | Signature | + +---------+ + + + | LDL | 150 (A) | 100 | EXTERNAL | | | Cholesterol | | | LAB | | | , Direct, | | | | | | External | | | | | + +---------+ + + + + + | Specimen | + + | Blood specimen | | (specimen) | + + + + | Resulting Agency Comment | + + | [facility] | + + + +---------+ + + | Performing | Address | City/State/Zipcode | Phone Number | | Organization | | | | + +---------+ + + | EXTERNAL LAB | | | | + +---------+ + + documented in this encounter Visit Diagnoses Not on filedocumented in this encounter"
--- OUTSIDE RECORDS SUMMARY | ~2020-05-31 | XMS | Encounter Summary ---
Demographics + + + | Address | [address] | | | [place] [address] | + + + | Home Phone | | + + + | Preferred Language | Unknown | + + + | Marital Status | | + + + | Congregation Affiliation | 1041 | + + + | Race | or | + + + | Ethnic Group | Not or | + + + Author + + + | Author | [facility] | | | and [place] | + + + | Organization | [facility] | | | [...] Team Providers + +------+ + | Care Cyber Forensic Specialist Name | Role | Phone | + +------+ + PCP | Unavailable | + +------+ + Reason for Visit +--------+--------+ + | Reason | Onset | Comments | | | Date | | +--------+--------+ + | Other | 06/28/ | | | | 2019 | | +--------+--------+ + Encounter Details +--------+ + + + + | Date | Type | Department | Care Team | Description | +--------+ + + + + | 06/28/ | Telephone | [facility] | Yahir Edwards MD | Other | | 2019 | | GASTROENTEROLOGY | [address] [facility] | | | | | [address] [facility] | [place], [place] | | | | | [address] [place], [place] | [address] | | | | | [address] | [phone] | | | | | [phone] | | | +--------+ + + + [...] this encounter Miscellaneous Notes Telephone Encounter - Concetta Borrero CMA - 07/04/2019 2:58 PM PDTNoted. Once results are back will call patient. Ultrasound was ordered by Dr. Edwards. elephone Encounter - Sd Pablo - 06/28 2:24 PM PDTName of Caller:Odalys Cornejo Name of Patient:Odalys Cornejo Reason for call: Patient schedule her US ABD at [facility] on 07/16/19. Please call patien t will the results once completed. Routing to clinical staff. Provider/Nurse: Dr. Edwards Call back number: [phone] documented in this encou nter Plan of Treatment Not on filedocumented as of this encounter Visit Diagnoses Not on filedocumented in this encounter"
--- OUTSIDE RECORDS SUMMARY | ~2020-05-31 | XMS | Encounter Summary ---
Demographics + + + | Address | [address] | | | [place] [address] | + + + | Home Phone [...] + | Author | [facility] | | | and [place] | + + + | Organization | [facility] | | | and [...] Team Providers + +------+ + | Care Wood Miller Name | Role | Phone | + +------+ + PCP | Unavailable | + +------+ + Encounter Details +--------+ + + + + | Date | Type | Department | Care Team | Description | +--------+ + + + + | 06/02/ | Hospital | [facility] | Carloz Rain MD | PRECORDIAL PAIN | | 2004 | Encounter | [facility] | | | | | | CLINICAL DECISION | | | | | | [address] | | | | | | [place], [place] | | | | | | [address] | | | | | | [phone] | | | +--------+ + + + [...] + | Diagnosis | + + | Precordial pain | + + documented in this encounter"
--- OUTSIDE RECORDS SUMMARY | ~2020-05-31 | XMS | Encounter Summary ---
Demographics + + + | Address | [address] | | | [place] [address] | + + + | Home Phone | | + + + | Preferred Language | Unknown | + + + | Marital Status | | + + + | Adventism Affiliation | 1041 | + + + | Race | or | + + + | Ethnic Group | Not or | + + + Author + + + | Author | [facility] | | | and [place] | + + + | Organization | [facility] | | | [...] Team Providers + +------+ + | Care Rotoformer Backtender Name | Role | Phone | + +------+ + PCP | Unavailable | + +------+ + Encounter Details +--------+ + + + + | Date | Type | Department | Care Team | Description | +--------+ + + + + | 12/08/ | [facility] | [facility] | Jagdish Borrero | UTERINE LEIOMYOMA | | 2003 - | Encounter | [facility] | Carlos [phone] | NOS | | | | AND DELIVERY [address] | (Fax) | | | 12/11/ | | [address] | | | | 2003 | | [place], [place] | | | | | | [address] | | | | | | [phone] | | | +--------+ + + + [...] + | Diagnosis | + + | Leiomyoma of uterus, unspecified | + + documented in this encounter"
--- OUTSIDE RECORDS SUMMARY | ~2020-05-31 | XMS | Encounter Summary ---
Demographics + + + | Address | [address] | | | [place] [address] | + + + | Home Phone | | + + + | Preferred Language | Unknown | + + + | Marital Status | | + + + | Zoroastrianism Affiliation | 1041 | + + + | Race | or | + + + | Ethnic Group | Not or | + + + Author + + + | Author | [facility] | | | and [place] | + + + | Organization | [facility] | | | and [...] Team Providers + +------+ + | Care Inspector Metal Fabricating Name | Role | Phone | + +------+ + PCP | Unavailable | + +------+ + Encounter Details +--------+ + + + + | Date | Type | Department | Care Team | Description | +--------+ + + + + | 01/08/ | [facility] | [facility] | Jagdish Borrero | ROSI RUIZ | | 2002 | Encounter | [facility] | Carlos [phone] | ENDOMETRIOSIS | | | | OUTPATIENT | (Fax) | | | | | PROCEDURES [address] | | | | | | [address] | | | | | | [place], [place] | | | | | | [address] | | | | | | [phone] | | | +--------+ + + + [...] + | Diagnosis | + + | Endometriosis of pelvic peritoneum | + + documented in this encounter"
--- OUTSIDE RECORDS SUMMARY | ~2020-05-31 | XMS | Encounter Summary ---
Demographics + + + | Address | [address] | | | [place] [address] | + + + | Home Phone | | + + + | Preferred Language | Unknown | + + + | Marital Status | | + + + | Pentecostal Affiliation | 1041 | + + + | Race | or | + + + | Ethnic Group | Not or | + + + Author + + + | Author | [facility] | | | and [place] | + + + | Organization | [facility] | | | and [...] Team Providers + +------+ + | Care Stone Mill Operator Name | Role | Phone | + +------+ + | Conversion Transaction, | PCP | | | Provider Unknown | | | + +------+ + Reason for Visit + + + | Reason | Comments | + + + | Follow-up | | + + + Encounter Details +--------+---------+ + + + | Date | Type | Department | Care Team | Description | +--------+---------+ + + + | 08/13/ | Office | [facility] | Patrice Rowe MD | DHAVAL (obstructive | | 2019 | Visit | PULMONOLOGY [address] | sleep apnea) | | | | [address] | [address] [place], [place] | (Primary Dx); Mild | | | | [place], [place] | [address] | intermittent asthma | | | | [address] | | without complication | | | | [phone] | | | +--------+---------+ + + + Social History [...] + + + | Blood Pressure | 119/75 | 08/13/2019 2:36 PM | | | | | PST | | + + + + + | Pulse | 76 | 08/13/2019 2:36 PM | | | | | PST | | + + + + + | Temperature | - | - | | + + + + + | Respiratory Rate | - | - | | + + + + + | Oxygen Saturation | 97% | 08/13/2019 2:36 PM | | | | | PST | | + + + + + | Inhaled Oxygen | - | - | | | Concentration | | | | + + + + + | Weight | 81.6 kg (180 lb) | 08/13/2019 2:36 PM | Per pt | | | | PST | | + + + + + | Height | 163.8 cm (5' 4.5") | 08/13/2019 2:36 PM | | | | | PST | | + + + + + | Body Mass Index | 30.42 | 08/13/2019 2:36 PM | | | | | PST | | + + + + + documented in this encounter Progress Notes Patrice Rowe MD - 08/13/2019 2:20 PM PST Subjective: Patient ID: Odalys Cornejo is a [...] 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 07/12/2017 The patient had difficult time when [...] inhaled steroids which she uses regularly. Lion daniellee that she has been using albuterol. She denies any nocturnal awakening. She has no regina st pain. 12/25/2018 The patient has been stable since her last visit. She has decreased her Symbicort by herse lf to 1 puff daily. She has no recurrence of symptoms. She has been complaining of some ru nny nose. She denies any significant allergies. The requirement of albuterol is minimal. 03/06/2019 The patient has been stable since her last visit. She has no new symptoms.Her symptoms hav e responded to Atrovent nasal solution. Interim history 08/13/2019 The patient has been doing very well.she has not used any inhalers for the last 3 months . She has had no hospitalizations in the interim. Her need of albuterol is minimal. Review of Systems Constitutional: Negative. HENT: Negative. Eyes: Negative. Respiratory: Negative. Cardiovascular: Negative. Gastrointestinal: Negative. Musculoskeletal: Negative. Skin: Negative. Neurological: Negative. Endo/Heme/Allergies: Negative. Psychiatric/Behavioral: Negative. History: Past Medical History: Diagnosis Date Abdominal pain Allergic rhinitis Alternating constipation and diarrhea Bowel obstruction (HCC) Chronic serous otitis media Coronary arteriosclerosis Depression feels alone Diabetic polyneuropathy (HCC) Disc disorder of lumbar region L4- L5 disc herniation Diverticulitis of gastrointestinal tract DM type 2 (diabetes mellitus, type 2) ([facility]) Dysfunction of eustachian tube GERD (gastroesophageal reflux [...] region Vitamin D deficiency Past Surgical History: Procedure Laterality Date ABDOMINAL EXPLORATION SURGERY x 2 for bowel obstruction that she reports was due to endometriois CHOLECYSTECTOMY CYSTOSCOPY Dr. Garrett ECTOPIC SURGERY EGD AND COLONOSCOPY N/A 04/02/2015 Procedure: EGD / COLONOSCOPY; Surgeon: Yahir Edwards MD; Location: [facility] E UNIT [facility] [place] SURGERY Right LUMBAR SPINE SURGERY 09/2014 DANA AND BSO 1994 TONSILLECTOMY age 4 TUBAL LIGATION Social History Socioeconomic History Marital status: Spouse name: Not on file Number of children: Not on file Years of education: 12+ Highest education level: Not on file Social Needs Financial resource strain: Not on file Food insecurity - worry: Not on file Food insecurity - inability: Not on file Transportation needs - medical: Not on file Transportation needs - non-medical: Not on file Occupational History 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 Tobacco Use Smoking status: Former Smoker Packs/day: 1.50 Years: 15.00 Pack years: 22.50 Types: Cigarettes Last attempt to quit: 10/10/1983 Years since quittin.8 Smokeless tobacco: Never Used Substance and Sexual Activity Alcohol use: No Alcohol/week: 0.0 oz Drug use: No Sexual activity: Yes Partners: Male Other Topics Concern Not on file Social History Narrative Lives in house in [place] with (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 Travel: Recently [place] Family History Problem Relation Age of Onset [...] Other (See Comments) Muscle aches Muscle ache Lisinopril Cough Cough Morphine Other (See Comments) Pt. Dose not like as makes her feel wierd UNKNOWN Codeine Sulfate Nausea and vomit Codeine Nausea And Vomiting Metoclopramide Headache and Nausea And Vomiting Current Medications: Current Outpatient Medications on File Prior to Visit Medication Sig Dispense Refill albuterol 90 mcg/puff inhaler Inhale 1-2 puffs into the lungs EVERY 4 TO 6 HOURS NEE DED for Wheezing. 1 Inhaler 11 Fish Oil 1000 MG delayed release capsule Take 1,000 mg by mouth 2 times daily. FLUoxetine (PROZAC) 10 mg capsule Take 10 mg by mouth Daily. glipiZIDE (GLUCOTROL XL) 5 mg 24 hr tablet Take 5 mg by mouth daily (with breakfast). hydrochlorothiazide 25 mg tablet Take 25 mg by mouth Daily. sitagliptan-metFORMIN (JANUMET) 50-1000 MG per tablet Take 1 tablet by mouth 2 times da apolinar (with breakfast & dinner). No current facility-administered medications on file prior to visit. Objective: Physical Exam Vitals: 08/13/19 1436 BP: 119/75 Pulse: 76 PainSc: 0 - No pain Vital signs reviewed. GENERAL: pleasant, cooperative, oriented, [...] oriented, gait normal, no focal neurologic deficits Assessment/Plan Assessment and Plan: 1. Mild persistent asthma She will continue to use Singulair 10 mg daily. She will use albuterol as needed. 2. Obstructive sleep apnea Continue using CPAP regularly Thank you for allowing me to participate in your patient's care. We will review test result s that we have ordered with the patient once they become available. A return visit has been scheduled in 6 months. Patrice Rowe MD Pulmonary and Critical Care Medicine [address] , [place] [address] documented in this enco unter Plan of Treatment Not on filedocumented as of this encounter Visit Diagnoses + + | Diagnosis | + + | DHAVAL (obstructive sleep apnea) - Primary Obstructive sleep apnea (adult) (pediatric) | + + | Mild intermittent asthma without complication Unspecified asthma | + + documented in this encounter
--- OUTSIDE RECORDS SUMMARY | ~2020-05-31 | XMS | Encounter Summary ---
Demographics + + + | Address | [address] | | | [place] [address] | + + + | Home Phone | | + + + | Preferred Language | Unknown | + + + | Marital Status | | + + + | Jehovah'S Witness Affiliation | 1041 | + + + | Race | or | + + + | Ethnic Group | Not or | + + + Author + + + | Author | [facility] | | | and [place] | + + + | Organization | [facility] | | | and [...] Team Providers + +------+ + | Care Form Worker Name | Role | Phone | + +------+ + PCP | Unavailable | + +------+ + Encounter Details +--------+ + + + + | Date | Type | Department | Care Team | Description | +--------+ + + + + | 01/21/ | Hospital | [facility] | | | | 2002 | Encounter | MED CTR EMERGENCY | | | | | | CENTER [address] | | | | | | [place], [place] | | | | | | [address] | | | | | | [phone] | | | +--------+ + + + [...]
--- OUTSIDE RECORDS SUMMARY | ~2020-05-31 | XMS | Encounter Summary ---
Demographics + + + | Address | [address] | | | [place] [address] | + + + | Home Phone | | + + + | Preferred Language | Unknown | + + + | Marital Status | | + + + | Synagogue Affiliation | 1041 | + + + | Race | or | + + + | Ethnic Group | Not or | + + + Author + + + | Author | [facility] | | | and [place] | + + + | Organization | [facility] | | | [...] Team Providers + +------+ + | Care Job Estimator Name | Role | Phone | + +------+ + PCP | Unavailable | + +------+ + Encounter Details +--------+ + + + + | Date | Type | Department | Care Team | Description | +--------+ + + + + | 07/05/ | Hospital | [facility] | | | | 2005 | Encounter | MED CTR XRAY [address] | | | | | | [address] [place] | | | | | | [place] [address] | | | | | | [phone] | | | +--------+ + + + [...]
--- OUTSIDE RECORDS SUMMARY | ~2020-05-31 | XMS | Encounter Summary ---
Demographics + + + | Address | [address] | | | [place] [address] | + + + | Home Phone | | + + + | Preferred Language | Unknown | + + + | Marital Status | | + + + | Advent Affiliation | 1041 | + + + | Race | or | + + + | Ethnic Group | Not or | + + + Author + + + | Author | [facility] | | | and [place] | + + + | Organization | [facility] | | | [...] Team Providers + +------+ + | Care Paint Striping Machine Operator Name | Role | Phone | + +------+ + | Ana Paula Mays MD | PCP | | + +------+ + Reason for Visit +--------+ + | Reason | Comments | +--------+ + | Apnea | | +--------+ + Encounter Details +--------+---------+ + + + | Date | Type | Department | Care Team | Description | +--------+---------+ + + + | 05/26/ | Office | [facility] | John Oro PA | DHAVAL on CPAP (Primary | | 2015 | Visit | SLEEP DISORDER [address] | Dx) | | | | [address] [place] | [place] | | | | | [place] [address] | [address] | | | | | [phone] | | | +--------+---------+ + + + [...] + + + | Blood Pressure | 120/72 | 05/26/2015 11:11 AM | | | | | PDT | | + + + + + | Pulse | 78 | 05/26/2015 11:11 AM | | | | | PDT | | + + + + + | Temperature | - | - | | + + + + + | Respiratory Rate | 14 | 05/26/2015 11:11 AM | | | | | PDT | | + + + + + | Oxygen Saturation | 98% | 05/26/2015 11:11 AM | | | | | PDT | | + + + + + | Inhaled Oxygen | - | - | | | Concentration | | | | + + + + + | Weight | 98.4 kg (217 lb) | 05/26/2015 11:11 AM | | | | | PDT | | + + + + + | Height | - | - | | + + + + + | Body Mass Index | 36.67 | 05/14/2015 4:06 PM | | | | | PDT | | + + + + + documented in this encounter Progress Notes John Oro PA - 05/26/2015 11:06 AM PDT Subjective: Patient ID: Odalys Cornejo is a 59 y.o. female. HPI last office visit was: 04/24/2015 date of polysomnography: 12/19/2006 AHI: 25.6 RDI: O2%: 89% with 0.0 minutes below 88% Machine type: ResMed AirSense 10 obtained from: [facility] in [place] pressure: 4-20 cm Median: 5.4 cm 95%: 7.1 cm maximum: 7.9 cm Nights using CPAP: / % of nights >4 hours: 100% average usage (all nights): 8:04 average usage (nights used): 8:04 AHI: 0.3 Odalys comes in for CPAP compliance. She was diagnosed with DHAVAL in 2006, but did not do wel l with CPAP. She was again tested for apnea in 2010, but again struggled with compliance wi th CPAP and oral appliance. She is now interested in trying CPAP again. She has used her C PAP 31 of her first 31 nights for the duration of her sleep. She feels that it is going wel l, but she is still adjusting to her mask and the process of using CPAP. She is still tired during the day, but feels that she is sleeping better. She is now dreaming and feels that she will improve as she continues. Her is asleo sleeping better because she is no l onger snoring. Her main concern is with treating her apnea when camping and without [facility]. She is interested in trying Provent for this. We went through each of the settings on the CPAP, to ensure that there is a good understand ing of how to make changes to temperature, humidity and/or the ramp. She is comfortable morteza ing adjustments to the settings, if necessary. I have discussed the download in detail. This shows that her sleep apnea is well controlle d, with an AHI of 0.3. It also shows that her leaks are controlled. It shows that she is w earing her CPAP >4 hours for 100% of the nights during the last 31 nights. Review of Systems Objective: Physical Exam Assessment: Problem #1: OBSTRUCTIVE SLEEP APNEA (327.23) This is well controlled with CPAP. Her CPAP compliance is going well. She is wearing her CPAP >4 hours for 100% of the nights during the last 31 nights. Plan: She is to continue with CPAP indefinitely. We have faxed a prescription to [facility] in [place] to convert her CPAP/BiPAP to purchase. We have faxed a prescription to [facility] in [place] for Provent for treating her apnea when without electricity. At her last federico ointment, Dr. Sanz had ordered a ferritin level for her, but she was not aware that she cou ld do this that day. She will do this today. We will call her with the results. I will follow up again in 2 months, sooner prn. At that time we will reassess with all federico ropriate paperwork. Thirty minutes were spent [id number], with the majority of time spent in counseling. John Oro PA-C cc: Kevin documented in this enco unter Plan of Treatment Not on filedocumented as of this encounter Visit Diagnoses + + | Diagnosis | + + | DHAVAL on CPAP - Primary Obstructive sleep apnea (adult) (pediatric) | + + documented in this encounter"
--- OUTSIDE RECORDS SUMMARY | ~2020-05-31 | XMS | Encounter Summary ---
Demographics + + + | Address | [address] | | | [place] [address] | + + + | Home Phone [...] Team Providers + +------+ + | Care Harvest Contractor Name | Role | Phone | + +------+ + PCP | Unavailable | + +------+ + Encounter Details +--------+ + + + + | Date | Type | Department | Care Team | Description | +--------+ + + + + | 11/01/ | [facility] | [facility] | Jose Sanz | | | 2010 | Encounter | MED CTR SLEEP | [place] [address] | | | | | [place] [address] | [address] [place] | | | | | [place], [place] | [place] [address] | | | | | [address] | [phone] | | | | | [phone] | | | +--------+ + + + [...]
--- OUTSIDE RECORDS SUMMARY | ~2020-05-31 | XMS | Encounter Summary ---
Demographics + + + | Address | [address] | | | [place] [address] | + + + | Home Phone | | + + + | Preferred Language | Unknown | + + + | Marital Status | | + + + | Buddhist Affiliation | 1041 | + + + | Race | or | + + + | Ethnic Group | Not or | + + + Author + + + | Author | [facility] | | | and [place] | + + + | Organization | [facility] | | | [...] Team Providers + +------+ + | Care Finish Photographer Name | Role | Phone | + +------+ + | Ana Paula Mays MD | PCP | | + +------+ + Reason for Visit + +--------+ + | Reason | Onset | Comments | | | Date | | + +--------+ + | Appointment | 02/18/ | | | | 2014 | | + +--------+ + Encounter Details +--------+ + + + + | Date | Type | Department | Care Team | Description | +--------+ + + + + | 02/18/ | Telephone | [facility] | Garcia Felipe | Appointment | | 2014 | | [address] | [address] | | | | | [place], | [address] [place] | | | | | [place] [address] | [place] [address] | | | | | [phone] | [phone] | | | | | | | [...] this encounter Miscellaneous Notes Telephone Encounter - Caryn Islas - 02/18/2015 3:58 PM PDTPatient called back and acc epted Dr. Felipe appointment on 03-17-15.Electronically signed by Caryn Islas at 5 3:58 PM PDTTelephone Encounter - Caryn Islas - 02/18/2015 2:30 PM PDTPatient has be en referred to cardiology by PCP, Ana Paula Mays. New Patient appointment scheduled with Dr. Felipe on 03-17-15 at 1:00. Called and left message with patient's requesting patien t to call back to confirm. Tdocumented in this encounter Plan of Treatment Not on filedocumented as of this encounter Visit Diagnoses Not on filedocumented in this encounter"
--- OUTSIDE RECORDS SUMMARY | ~2020-05-31 | XMS | Encounter Summary ---
Demographics + + + | Address | [address] | | | [place] [address] | + + + | Home Phone | | + + + | Preferred Language | Unknown | + + + | Marital Status | | + + + | Latter Day Affiliation | 1041 | + + + | Race | or | + + + | Ethnic Group | Not or | + + + Author + + + | Author | [facility] | | | and [place] | + + + | Organization | [facility] | | | [...] Team Providers + +------+ + | Care Kiln Stacker Name | Role | Phone | + +------+ + PCP | Unavailable | + +------+ + Encounter Details +--------+ + + + + | Date | Type | Department | Care Team | Description | +--------+ + + + + | 01/14/ | Hospital | [facility] | Carlos Hamilton MD | | | 2009 | Encounter | MED CTR XRAY [address] | | | | | [place] | [address] | | | | | [place] [address] | [address] | | | | | [phone] | | | +--------+ + + + [...]
--- OUTSIDE RECORDS SUMMARY | ~2020-05-31 | XMS | Encounter Summary ---
Demographics + + + | Address | [address] | | | [place] [address] | + + + | Home Phone | | + + + | Preferred Language | Unknown | + + + | Marital Status | | + + + | Taoism Affiliation | [id number] | + + + | Race | or | + + + | Ethnic Group | Not or | + + + Author + + + | Author | [facility] | | | and [place] | + + + | Organization | [facility] | | | and [...] Team Providers + +------+ + | Care Infectious Diseases Physician Name | Role | Phone | + +------+ + PCP | Unavailable | + +------+ + Encounter Details +--------+ + + + + | Date | Type | Department | Care Team | Description | +--------+ + + + + | 09/04/ | Hospital | [facility] | KaushikRyleez, | Chest pain; Diabetes | | 2012 - | Encounter | [facility] | MD Jose [address] | mellitus (HCC); | | | | CLINICAL DECISION | [address] | Uncontrolled | | 09/05/ | | [address] | [place] [address] | hypertension; | | 2011 | | [place], [place] | [phone] | Diagnosis unknown; | | | | [address] | | Chest pain, | | | | [phone] | | unspecified; DM | | | | | | (diabetes mellitus) | | | | | | (HCC) | +--------+ + + + + Social [...] + + documented as of this encounter Discharge Summaries Dina Hansen MD - 09/05/2012 12:55 PM PST Discharge Summaries by Dina Hansen MD at 09/05/12 1256 Author: Dina Hansen MD Service: Hospitalist Author Type: Physician Filed: 09/05/121 Date of Service: 09/05/121254 Status: Signed Clinical Nursing Professor: Dina Hansen MD (Physician) [facility] Service: Hospitalist Physician Discharge Summary Pt: Jamia Cornejo AGE/SEX: 57 y.o. female ROOM: [address] [place] [address] PCP: ANA PAULA MAYS MD : 1955 Admit date: 09/04/2012 Discharge date and time: 09/05/2012 12:55 PM Admitting Physician: Jose Staley MD Discharge Physician: Dina Hansen MD Consults: nill Primary Discharge Diagnoses: Diabetes mellitus [250.00] Chest pain [786.50] Uncontrolled hypertension [401.9] Diagnosis unknown [799.9] Secondary Discharge Diagnoses: Nill Discharged Condition: stable Significant Diagnostic Studies: Stress test IMPRESSION: 1. Normal Myocardial perfusion no evidence of ischemia or infarction. technetium 2. Left ventricular ejection fraction is calculated at 68%. 3. Normal left ventricular wall motion. CTA IMPRESSION: 1. No CT evidence of pulmonary embolus. 2. Minimal pulmonary parenchymal scarring right upper lobe. 3. Calcified granuloma left lung base HPI and Hospital Course: 57 YO F with HO DM2, HTN, Family h/o CAD came with CP and had negative stress test and CTA. She Had no CP, SOB, N/V, Diarrhea, Abdominal pain or GRIGSBY. No constipation or change in bowel habits. No orthopnea or PND. Appetite is good without abdominal bloating. No cough or fever . No dizziness, lightheadedness or any symptoms suggestive of stroke. Turk likely her pain was costochondritis. Discharge Vitals: Filed Vitals: 09/05/12 0425 09/05/12 0646 09/05/12 0829 09/05/12 1152 BP: 121/79 107/53 125/62 Pulse: 71 70 61 Temp: 98.7 F (37.1 C) 98.3 F (36.8 C) 98.4 F (36.9 C) 98.2 F (36.8 C) TempSrc: Oral Oral Oral Oral Resp: 18 18 18 Height: Weight: SpO2: 97% 97% 95% Discharge Exam: Constitutional: Alert and oriented to person, place, and time. Appears well-developed and w ell-nourished. Cardiovascular: Normal rate, regular rhythm, normal heart sounds with S1 and S2 and intact distal pulses. Exam reveals no gallop and no friction rub. No murmur heard. Pulmonary/Chest: Effort normal and breath sounds normal. No stridor. No respiratory distres s. no wheezes. no rales. exhibits no tenderness. Abdominal: Soft. Bowel sounds are normal. exhibits no distension and no mass. There is no t enderness. There is no rebound and no guarding. Musculoskeletal: Normal range of motion.exhibits no tenderness. exhibits no edema. Neurological: Alert and oriented to person, place, and time. Has normal reflexes. display s normal reflexes. No cranial nerve deficit. Exhibits normal muscle tone. Coordination norm al. Skin: Skin is warm and dry. No rash noted. No erythema. No pallor. Psychiatric: Has a normal mood and affect. Behavior is normal. Judgment normal. LABS: Lab 09/05/12 0530 WBC 8.0 HGB 12.1 HCT 36.9 PLT 335 NEUTOPHILPCT 64.8 MONOPCT 7.2 Lab 09/05/12 0530 NA 138 K 4.1 CL 103 CO2 26 BUN 10 CREATININE 1.03* CALCIUM -- PROT 7.4 BILITOT 0.7 ALKPHOS -- ALT 31 AST 21 GLUCOSE -- Phosphorus: Lab Results Component Value Date PHOS 5.2* 09/05/2012 No components found with this basename: LABALBU:3 Lab 09/05/12 0530 MG 1.8 No results found for this basename: AMYLASE:3 in the last 168 hours No results found for this basename: PHART:3,PO2ART:3,ITY8SCW:3,X5YXBDJV:3,BEART:[address] 168 hours Lab 09/05/12 0530 APTT -- INR 1.0 PTT -- Lab 09/05/12 0530 TSH 1.50 T3FREE -- FREET4 -- Lab 09/05/12 0842 CKTOTAL 121 TROPONINI <0.02 TROPONINT -- CKMBINDEX UNABLE TO CALCULATE Disposition: Home or Self Care Patient Instructions: Current Discharge Medication List START taking these medications Details aspirin 81 MG EC tablet Take 1 tablet by mouth daily. Qty: 30 tablet, Refills: 1 CONTINUE these medications which have NOT CHANGED Details fluoxetine (PROZAC) 20 MG tablet Take 20 mg by mouth daily. glipiZIDE (GLUCOTROL) 5 MG tablet Take 5 mg by mouth daily. hydrochlorothiazide (HYDRODIURIL) 25 MG tablet Take 25 mg by mouth daily. metformin (GLUCOPHAGE) 1000 MG tablet Take 1,000 mg by mouth 2 (two) times daily with meal s. Pt takes 500 mg at night. omeprazole (PRILOSEC) 20 MG capsule Take 20 mg by mouth daily. telmisartan (MICARDIS) 80 MG tablet Take 80 mg by mouth daily. Pt is unsure of dose STOP taking these medications sitagliptan (JANUVIA) 100 MG tablet Activity: activity as tolerated Diet: regular diet Wound Care: not applicable Follow-up with PCP 1 week Signed: [facility]/05/2012 12:55 PM documented in this enc ounter Medications at Time of Discharge + + [...] + documented as of this encounter Progress Notes Conversion Transaction, Provider Unknown - 09/05/2012 2:54 PM PSTFormatting of this note m ight be different from the original. Progress Notes by Candice Estrella RN at 09/05/12 0558 Author: Candice Estrella RN Service: (none) Author Type: Registered Nurse Filed: 09/05/12 2076 Date of Service: 09/05/121453 Status: Signed Clinical Nursing Professor: Candice Estrella RN (Registered Nurse) Patient's ride has arrived. Patient discharged to home. onver na Transaction, Provider Unknown - 09/05/2012 1:32 PM PST Progress Notes by Candice Estrella RN at 11/05/102 Author: Candice Estrella RN Service: (none) Author Type: Registered Nurse Filed: 09/05/12 1454 Date of Service: 09/05/121331 Status: Addendum Clinical Nursing Professor: Candice Estrella RN (Registered Nurse) Related Notes: Original Note by Candice Estrella RN (Registered Nurse) filed at 09/05/12 1 333 Patient discharged in stable condition to home. Family to transport. Discharge instructions and Rx for aspirin provided. Patient awaiting 's arrival for transport. onver na Transaction, Provider Unknown - 09/05/2012 12:35 PM PST Progress Notes by Candice Estrella RN at 09/05/12 1235 Author: Candice Estrella RN Service: (none) Author Type: Registered Nurse Filed: 09/05/12 1235 Date of Service: 09/05/12 1235 Status: Signed Clinical Nursing Professor: Candice Estrella RN (Registered Nurse) Patient returned from stress test. Sitting in room. No c/o CP. Vital signs stable. Telemetr y NSR. onver na Transaction, Provider Unknown - 09/05/2012 8:38 AM PST Progress Notes by Candice Estrella RN at 09/05/12 0838 Author: Candice Estrella RN Service: (none) Author Type: Registered Nurse Filed: 09/05/12837 Date of Service: 09/05/12837 Status: Signed Clinical Nursing Professor: Candice Estrella RN (Registered Nurse) Patient transferred via w/c to nuclear medicine for stress test. onver na Transaction, Provider Unknown - 09/05/2012 7:21 AM PST Progress Notes by Candice Estrella RN at 09/05/12 0721 Author: Candice Estrella RN Service: (none) Author Type: Registered Nurse Filed: 09/05/12720 Date of Service: 09/05/12720 Status: Signed Clinical Nursing Professor: Candice Estrella RN (Registered Nurse) notified of chest pain episode. onver na Transaction, Provider Unknown - 09/05/2012 6:50 AM PST Progress Notes by Kale Hernandez RN at 09/05/12 0650 Author: Kale Hernandez RN Service: (none) Author Type: Registered Nurse Filed: 09/05/12716 Date of Service: 09/05/12649 Status: Signed Clinical Nursing Professor: Kale Hernandez RN (Registered Nurse) Pt states that she is no longer having any discomfort in her chest. But still is nauseated and cold. Will continue to monitor. KALE HERNANDEZ RN 09/05/2012, 50 onver na Transaction, Provider Unknown - 09/05/2012 6:45 AM PST Progress Notes by Kale Hernandez RN at 09/05/1245 Author: Kale Hernandez RN Service: (none) Author Type: Registered Nurse Filed: 09/05/12699 Date of Service: 09/05/12644 Status: Signed Clinical Nursing Professor: Kale Hernandez RN (Registered Nurse) Pt states that she is nauseated, is very cold and states that she has been having chest dis omfort of a 4/10 for the last hour or so. Reinforced the need for pt to inform us of any regina st pain/discomfort/pressure, shortness of breath or nausea. Pt states understanding. O2 appl ied via nasal canula at 1L per pt request, one SL nitro and tylenol given. Stat EKG called. Will continue to monitor. KALE HERNANDEZ RN 09/05/2012, 0645 onver na Transaction, Provider Unknown - 09/05/2012 5:33 AM PST Progress Notes by Manoj Paiz RPH at 09/05/12532 Author: Manoj Paiz RPH Service: (none) Author Type: Pharmacist Filed: 09/05/12532 Date of Service: 09/05/12532 Status: Signed Clinical Nursing Professor: Manoj Paiz RPH (Pharmacist) Clinical Pharmacy Note: Renal Monitoring Jamia Cornejo 57 y.o. female Ht Readings from Last 1 Encounters: 09/05/12 1.626 m (5' 4") Wt Readings from Last 1 Encounters: 09/05/12 102.059 kg (225 lb) No results found for this basename: creatinine Creatinine clearance cannot be calculated - Pharmacy dosing for renal function per Dr. Staley. Currently, there are no medications needing to be adjusted. Pharmacy will continue to monit or for changes in medication orders and in renal function and adjust accordingly. Manoj Paiz RPh 09/05/2012 5:32 AM docume nted in this encounter H&P Notes Jose Staley MD - 09/05/2012 2:02 AM PSTFormatting of this note might be diffe rent from the original. H&P by Jose Staley MD at 09/05/12201 Author: Jose Staley MD Service: (none) Author Type: Physician Filed: 09/05/12 1845 Date of Service: 09/05/12201 Status: Signed Clinical Nursing Professor: Jose Staley MD (Physician) Related Notes: Original Note by Jose Staley MD (Physician) filed at 09/05/12 0218 [facility] Service: Hospitalist Admission History & Physical Date of Admission: 09/04/2012 Requesting Physician: Dr Allen, Emergency Department / Transfer from [facility] Reason for Admission: Chest pain History Obtained From: patient CHIEF COMPLAINT: Chest pain HISTORY OF PRESENT ILLNESS The patient is a 57 y.o. female with significant past medical history of Hypertension, DM, DHAVAL who presents with Chest pain The patient is a 57-year-old female with a past medical history of hypertension, diabetes, and sleep apnea, who comes to the ED with chest pain. The patient is a transfer from [facility]. The patient refers that her symptoms started actually on Tuesday while she was putting up her Emma lights at home around 2:30 p.m., with a left thoracic chest pain 7 to 8 out of 10 intensity, burning pressure-like sensation in quality, that was radiating to her left arm, that increased with activity and with no specific element that decreased her discomfort. She took her blood pressure and it was found to be low, reason why she lay down. The discomfort lasted around 2 to 3 hours accompanied with shortness of breath, positive nausea, no vomiting, positive sweating. Since then, the patient has been having recurrent chest pain that appears predominantly with activity. No fevers, no chills, does refer some lower extremity edema. No orthopnea, no paroxysmal nocturnal dyspnea, no tobacco abuse. The patient does refer a strong family history of coronary arterial problems. Due to the recurrence of the symptoms, the patient decided to go to the ED for further assessment and [facility]. The patient received aspirin, nitroglycerin, and labs were done, which came back negative for first set of cardiac enzymes but an increase in the D-dimer, reason why the patient was transferred to [facility] for a CT PA to rule out pulmonary embolism. At [facility], the patient has remained chest pain free in the ED. A CT PA was done which came back negative for pulmonary embolism. Cardiac enzymes negative. EKG normal sinus rhythm with no ST changes. At this point, the patient will be admitted to the hospitalist service for further assessment and treatment. REVIEW OF SYSTEMS Review of Systems Constitutional: Positive for diaphoresis and fatigue. Negative for fever and chills. HENT: Negative for neck pain and neck stiffness. Respiratory: Positive for shortness of breath. Negative for apnea, cough, choking, chest ti ghtness, wheezing and stridor. Cardiovascular: Positive for chest pain. Negative for palpitations and leg swelling. Gastrointestinal: Positive for nausea. Negative for vomiting, diarrhea, constipation and ab dominal distention. Genitourinary: Negative for dysuria and enuresis. Neurological: Negative for dizziness, tremors, seizures, syncope, weakness, light-headednes s and numbness. Past Medical History Diagnosis Date Diabetes mellitus type II Hypertension Endometriosis Past Surgical History Procedure Date Hysterectomy Tubal ligation Immunizations: Influenza: Pneumoccocal: No Known Allergies (Not in a hospital admission) History reviewed. No pertinent family history. History Social History Marital Status: Spouse Name: N/A Number of Children: N/A Years of Education: N/A Occupational History Not on file. Social History Main Topics Smoking status: Never Smoker Smokeless tobacco: Not on file Alcohol Use: No Drug Use: No Sexually Active: Other Topics Concern Not on file Social History Narrative No narrative on file PHYSICAL EXAM Vital Signs: BP 185/84 | Pulse 71 | Temp(Src) 98.1 F (36.7 C) (Oral) | Resp 16 | Ht 1.626 m (5' 4") | Wt 99.791 kg (220 lb) | BMI 37.76 kg/m2 | SpO2 97% Physical Exam Constitutional: She is oriented to person, place, and time. She appears well-developed. HENT: Head: Normocephalic and atraumatic. Eyes: EOM are normal. Pupils are equal, round, and reactive to light. Neck: Neck supple. No JVD present. Cardiovascular: Normal rate, regular rhythm, normal heart sounds and intact distal pulses. Exam reveals no gallop and no friction rub. No murmur heard. Pulmonary/Chest: Effort normal and breath sounds normal. No respiratory distress. She has n o wheezes. She has no rales. She exhibits no tenderness. Abdominal: Soft. Bowel sounds are normal. She exhibits no distension and no mass. There is no tenderness. There is no rebound and no guarding. Musculoskeletal: She exhibits no edema. Neurological: She is alert and oriented to person, place, and time. DATA CBC: No results found for this basename: WBC, RBC, HGB, HCT, MCV, MCH, MCHC, RDW, PLT, MPV, DIFF TYPE CMP: No results found for this basename: NA, K, CL, CO2, ANIONGAP, GLUF, BUN, CREATININE, BCR, C A, PROT, ALB, GLOB, AGRATIO, BILITOT, ALP, AST, ALT, EGFR Troponin: No results found for this basename: TROPONINI Labs from [facility] shows a BMP with sodium 141, potassium 4.5, chloride 106, glucose 87, BUN 10, creatinine 0.99, calcium 9.4. LFT within normal limits. BNP of 195. CBC with white blood cell count of 9.5, hemoglobin 13.6, hematocrit 42, platelet count 425. D-dimer was high at 400. Cardiac enzymes negative with troponin of less than 0.03. EKG shows normal sinus rhythm with ventricular response of [address] Chest PE Protocol [[id number]] Collected:09/04/122104 Order Status:Completed Updated:09/04/122112 Narrative: JAMIA CORNEJO CT CHEST PULMONARY EMBOLISM W CONTRAST 09/04/2012 8:33 PM HISTORY: 57 years. Female. Elevated d-dimer. Evaluate for pulmonary embolus TECHNIQUE: Highly collimated images obtained in the presence of 60 cc Isovue 370. Axial images were ma nipulated on a dedicated 3-D workstation with coronal reconstruction COMPARISON: None FINDINGS: Bone window settings are unremarkable. Lung window settings showed calcified granuloma in t he right lung base left lung base, image 36/6. Also noted is a small amount of parenchymal s carring right upper lobe image 20/6. Mediastinum is unremarkable. No adenopathy is identified. No CT evidence of pulmonary embolus is identified. Abdominal findings unremarkable on this study IMPRESSION: 1. No CT evidence of pulmonary embolus. 2. Minimal pulmonary parenchymal scarring right upper lobe. 3. Calcified granuloma left lung base LEM LIST Principal Problem: *Chest pain, unspecified Active Problems: Unspecified essential hypertension DM (diabetes mellitus) DHAVAL (obstructive sleep apnea) ASSESSMENT & PLAN A. -chest pain - in the context of patient with hx of DM, hypertension, DHAVAL, obesity, positive family history / EKG with no acute ST changes / first set of cardiac enzymes negative / CTP A negative for PE Will rule out cardiac etiology , if workup is negative possible GI or musculosketal in etio logy -Hypertension -DM -DHAVAL P Will admit to observation EKG if chest pain recurs/ telemetry for cardiac monitoring CE x 3 and if negative stress test in AM Bblocker (will hold if HR < 60), ASA, statin therapy NTG and morphine PRN for pain Lipid panel and a1c in am Labetalol PRN novolog sliding scale Continue CPAP therapy DVT . GI prophylaxis Disposition: Observation / DNR DNI - discussed with patient Code Status: No Order Primary Care Physician: ANA PAULA A MD Jose MAYS MD 09/05/2012 documented i n this encounter Procedure Notes Jamey Boswell NP - 09/05/2012 11:00 AM PST Procedures by JEAN CARLOS Pedro at 09/05/12 1100 Author: JEAN CARLOS Pedro Service: (none) Author Type: Advanced Registered Nurse Pr actitioner Filed: 09/05/121100 Date of Service: 09/05/121099 Status: Signed Clinical Nursing Professor: JEAN CARLOS Pedro (Advanced Registered Nurse Practitioner) Pre-procedure Diagnoses: 1. Chest pain [786.50] Post-procedure Diagnoses: 1. Chest pain [786.50] Procedures: 1. NM CARDIOVASCULAR STRESS TEST [[id number] (Custom)] [facility] Service: Diagnostic Imaging/Nuclear Medicine Cardiac Stress Test Note Type of Stress Test performed (protocol): Exercise stress test, Juan protocol Juan protocol time (if applicable): 7:29 Rhythm changes: none Ectopy: None Symptoms experienced during exam: Mild chest tightness - improved ST/T wave changes: None Medications administered: None JEAN CARLOS PEDRO 09/05/2012 11:00 AM documented in th is encounter ED Notes Conversion Transaction, Provider Unknown - 09/05/2012 1:56 AM PSTFormatting of this note m ight be different from the original. ED Notes by Jose J Alexis RN at 09/05/12155 Author: Jose J Alexis RN Service: (none) Author Type: Registered Nurse Filed: 09/05/12155 Date of Service: 09/05/12155 Status: Signed Clinical Nursing Professor: Jose J Alexis RN (Registered Nurse) Hospitalist at bedside. Jose J Alexis RN 09/05/12155 onver na Transaction, Provider Unknown - 09/05/2012 1:52 AM PST ED Notes by Jose J Alexis RN at 09/05/12151 Author: Jose J Alexis RN Service: (none) Author Type: Registered Nurse Filed: 09/05/12152 Date of Service: 09/05/12151 Status: Signed Clinical Nursing Professor: Jose J Alexis RN (Registered Nurse) Dr. Allen speaking with Dr. Faulkner (Hospitalist) in regards to patient, in ED. Jose J Alexis RN 09/05/12152 onver na Transaction, Provider Unknown - 09/05/2012 12:06 AM PST ED Notes by Dann Madsen RN at 09/05/125 Author: Dann Madsen RN Service: (none) Author Type: Registered Nurse Filed: 09/05/126 Date of Service: 09/05/125 Status: Signed Clinical Nursing Professor: Dann Madsen RN (Registered Nurse) Lights turned off per pts request. Pt resting quietly in bed. Dann Madsen RN 09/05/126 onver na Transaction, Provider Unknown - 09/04/2012 11:04 PM PST ED Notes by Shelley Bautista at 09/04/122303 Author: Shelley Bautista Service: (none) Author Type: Assembler Piano Filed: 09/04/122303 Date of Service: 09/04/122303 Status: Signed Clinical Nursing Professor: Shelley Bautista (Assembler Piano) Call light answered. Patient requesting to leave and go home. Dr. Allen notified. Shelley Bautista 09/04/122303 onver na Transaction, Provider Unknown - 09/04/2012 7:14 PM PST ED Notes by Dann Madsen RN at 09/04/121913 Author: Dann Madsen RN Service: (none) Author Type: Registered Nurse Filed: 09/04/121913 Date of Service: 09/04/121913 Status: Signed Clinical Nursing Professor: Dann Madsen RN (Registered Nurse) Dr. Allen at bedside. Dann Madsen RN 09/04/121913 hitak er, DO Chloe - 09/04/2012 7:07 PM PSTFormatting of this note might be different from the o riginal. ED Provider Notes by Chloe Allen DO at 09/04/121906 Author: Chloe Allen DO Service: (none) Author Type: Physician Filed: 09/06/122117 Date of Service: 09/04/121906 Status: Signed Clinical Nursing Professor: Chloe Allen DO (Physician) 7:07 PM [facility] Department of Emergency Medicine Provider Name: [facility] Pertinent History and Concerns: chest pain last several days, intermittent, resolved with n itro, rule out [place]/angina (09/04/121716 : ADELFO LARA) History of Present Illness Patient Identification Jamia Cornejo is a 57 y.o. female. Patient information was obtained from patient. History/Exam limitations: none. Patient presented to the Emergency Department by: Ambulance Chief Complaint Chief Complaint Patient presents with Chest Pain The patient presents with complaints of chest pain. Onset of symptoms was gradual a week ag o, with an intermittent course since that time. The symptoms are described to be of moderate severity. The patient describes the quality and location of the symptoms as the following: burning pain in left chest radiating to her neck. The patient also complains of shortness of breath, sweats, a sore throat, nausea, and abdominal pain. Care prior to arrival consisted of Nitro, with relief. Pt denies black or bloody stools, dysuria, or increased swelling in l egs. Pt has a hx of angina. Pt is a transfer from [facility]. Past Medical History Diagnosis Date Diabetes mellitus type II Hypertension Endometriosis Bowel obstruction 1987 and 1993 Bowel Obsturction Surgery Due to Endometriosis Sleep apnea Uses CPAP at home Past Surgical History Procedure Date Hysterectomy Tubal ligation Prior to Admission medications Medication Sig Start Date End Date Taking? Authorizing Provider glipiZIDE (GLUCOTROL) 5 MG tablet Take 5 mg by mouth 2 (two) times daily before meals. Yes Historical Provider hydrochlorothiazide (HYDRODIURIL) 25 MG tablet Take 25 mg by mouth daily. Yes Historica l Provider metformin (GLUCOPHAGE) 1000 MG tablet Take 1,000 mg by mouth 2 (two) times daily with meals . Yes Historical Provider omeprazole (PRILOSEC) 20 MG capsule Take 20 mg by mouth daily. Yes Historical Provider sitagliptan (JANUVIA) 100 MG tablet Take 100 mg by mouth daily. Yes Historical Provider No Known Allergies History Social History Marital Status: Spouse Name: N/A Number of Children: N/A Years of Education: N/A Occupational History Not on file. Social History Main Topics Smoking status: Never Smoker Smokeless tobacco: Not on file Alcohol Use: No Drug Use: No Sexually Active: Other Topics Concern Not on file Social History Narrative No narrative on file History reviewed. No pertinent family history. Review of Systems Constitutional: Negative for: Fever Positive for: sweats Eyes: Negative for: decreased vision or irritated eyes Nose: Negative for: nosebleed Throat: Positive for: sore throat Cardiovascular/Respiratory: Positive for: chest pain, shortness of breath Gastrointestinal: Negative for: vomiting, diarrhea, black or bloody stools Positive for: nausea, abdominal pain Genitourinary: Negative for: dysuria, hematuria, urinary problems Musculoskeletal: Negative for: myalgias and arthralgias Skin: Negative for: laceration or lesion Neuro and psych: Negative for: fainting, head injury, seizure, trouble walking Endocrine/Heme/Lymph: Negative for: swollen lymph nodes, easy bruising Physical Exam BP 153/71 | Pulse 75 | Temp(Src) 99.6 F (37.6 C) (Oral) | Resp 18 | Ht 1.626 m (5' 4") | Wt 99.791 kg (220 lb) | BMI 37.76 kg/m2 | SpO2 95% Pulse Oximetry interpretation: Mildly hypoxic. Vital signs: low grade fever, hypertensive, otherwise normal General: Alert, in no apparent distress Eyes: Normal inspection, pupils equal and round, non-icteric ENT: Ears normal Nose normal Pharynx normal Neck: Normal inspection Supple Cardiovascular: Rate and rhythm normal No murmurs Respiratory: Breath sounds normal bilaterally Abdomen: Soft, non-tender, non-distended No guarding or rebound Bowel sounds normal Back: Normal inspection Extremities: No peripheral edema Skin: Color normal Warm and dry No rash Neuro: Alert, Oriented No gross motor deficit No gross sensory deficit Medical Decision Making and Emergency Department Course ED Department Course Pt presents with c/o chest pain. Pt is a transfer from [facility]. Reviewed labs and CXR. Electrolytes normal, glucose normal. BUN normal, creatinine normal, CBC unremarkable, D-dim er was positive, troponin was negative. Sodium Was 141, potassium was 4.5, chloride was 106 , carbon dioxide was 27, glucose was 87, urea nitrogen was 10, creatinine was 0.99, hemoglob in was 13.6, hematocrit was 42, platelet was 425, d-dimer was 400. Will order CT. Informed p t of need for admission, she agrees. All questions and concerns addressed. 7:18 PM Troponin is 0.00 1957 Patient flagged for admission, hospitalist paged. 9:56 PM There is no evidence of pulmonary embolism, aortic dissection, pneumonia, pneumothorax, or pleural effusion. Patient requires admission for serial ekg, enzymes, and monitoring. [address] Faulkner, who is seeing the patient in the ED. Records Reviewed Old medical records. Nursing notes. Ambulance run sheet. No recent ED visits. Last clinic note is from 2003. Laboratory Evaluation Results Procedure Component Value Ref Range Date/Time POC cardiac troponin [[id number]] Collected:09/05/12 0151 Order Status:Completed Updated:09/05/12 0205 POC CARDIAC TROPONIN 0.00 0.00 - 0.10 ng/mL POC cardiac troponin [[id number]] Collected:09/04/12 1906 Order Status:Completed Updated:09/04/12 1918 POC CARDIAC TROPONIN 0.00 0.00 - 0.10 ng/mL Radiology and EKG Evaluation Imaging Results CT Chest PE Protocol (Final result) Result time:09/04/122106 Final result by Rad Results In Kristian (09/04/12 21:07:28) Narrative: JAMIA CORNEJO CT CHEST PULMONARY EMBOLISM W CONTRAST 09/04/2012 8:33 PM HISTORY: 57 years. Female. Elevated d-dimer. Evaluate for pulmonary embolus TECHNIQUE: Highly collimated images obtained in the presence of 60 cc Isovue 370. Axial images were ma nipulated on a dedicated 3-D workstation with coronal reconstruction COMPARISON: None FINDINGS: Bone window settings are unremarkable. Lung window settings showed calcified granuloma in t he right lung base left lung base, image 36/6. Also noted is a small amount of parenchymal s carring right upper lobe image 20/6. Mediastinum is unremarkable. No adenopathy is identified. No CT evidence of pulmonary embolus is identified. Abdominal findings unremarkable on this study IMPRESSION: 1. No CT evidence of pulmonary embolus. 2. Minimal pulmonary parenchymal scarring right upper lobe. 3. Calcified granuloma left lung base 18:59 Normal sinus rhythm, rate 70, normal RI, normal CABRERA, normal axis, normal QRS. Independentl y viewed and interpreted by No att. providers found CXR: Normal mediastinum, normal great vessels, no infiltrates ED Diagnoses Final diagnoses Chest pain Diabetes mellitus Uncontrolled hypertension Disposition: ED Disposition Admit/Observation Bed request special needs: None Diagnosis?: chest pain Follow-up Information Follow up With Details Comments Contact Info Ana Paula Mays MD in 1 week [facility] [address] [facility] [address] Discharge Medications: Discharge Medication List as of 09/05/2012 1:16 PM START taking these medications Details aspirin 81 MG EC tablet Take 1 tablet by mouth daily., Starting 09/05/2012, Until 09/05, Print Additional Documentation Procedures Attending Note: Documentation assistance provided by Indira Florentino (Scribe). Information recorded by the scribe has been reviewed and validated by me. I rachell herbert with its contents. DO Chloe Mejia DO 09/06/122117 onversion Transacti on, Provider Unknown - 09/04/2012 7:00 PM PSTFormatting of this note might be different fro m the original. ED Notes by Dann Madsen RN at 09/04/121899 Author: Dann Madsen RN Service: (none) Author Type: Registered Nurse Filed: 09/04/121899 Date of Service: 09/04/121899 Status: Signed Clinical Nursing Professor: Dann Madsen RN (Registered Nurse) 2 patient identifiers checked, patient gowned, side rails up x1 ID band placed on patient , call light instructed on and given to patient. Dann Madsen RN 09/04/121899 onver na Transaction, Provider Unknown - 09/04/2012 6:52 PM PST ED Notes by Dann Madsen RN at 09/04/121851 Author: Dann Madsen RN Service: (none) Author Type: Registered Nurse Filed: 09/04/121851 Date of Service: 09/04/121851 Status: Signed Clinical Nursing Professor: Dann Madsen RN (Registered Nurse) Bed:10
Expected date:
Expected time:
Means of arrival:
Comments:
docume nted in this encounter Plan of Treatment Not on filedocumented as of this encounter Procedures + +--------+ + + + | Procedure Name | Priori | Date/Time | Associated Diagnosis | Comments | | | ty | | | | + +--------+ + + + | NM MYOCARDIAL | Routin | 09/05/2012 | | Results for this | | PERFUSION MULT SPECT | e | 11:45 AM | | procedure are in the | | | | PST | | results section. | + +--------+ + + + | NM NUCLEAR STRESS | Routin | 09/05/2012 | | Results for this | | TEST (EXERCISE) | e | 11:02 AM | | procedure are in the | | | | PST | | results section. | + +--------+ + + + | CT ANGIOGRAM | Routin | 09/04/2012 | | Results for this | | PULMONARY | e | 8:45 PM | | procedure are in the | | | | PST | | results section. | + +--------+ + + + | XR CHEST 1 VIEW | Routin | 09/04/2012 | | Results for this | | | e | 3:29 PM | | procedure are in the | | | | PST | | results section. | + +--------+ + + + documented in this encounter Results NM Myocardial Perfusion Mult SPECT (09/05/2012 11:45 AM PST) + + | Specimen | + + | | + + + + + | Narrative | Performed At | + + + | HISTORY: 57-year-old female hypertensive diabetic smoker | | | hypercholesterolemia reports an episode of chest pain and shortness of | | | breath associated with dizziness and nausea. No prior cardiac | | | history. TECHNIQUE: A same day, single -isotope protocol was | | | used. Resting protocol: The patient was injected intravenously with | | | 9.7 mCi of technetium 99M Myoview. Gated SPECT images were acquired | | | in the supine. The patient exercised 7 minutes 29 seconds and to | | | Juan protocol stress test test achieving a maximum work level of 7.5 | | | Max METs. Stress protocol: The patient was injected intravenously | | | with 40.3 mCi of technetium 99M Myoview at peak exercise. Gated | | | SPECT images were acquired in the prone and supine positions. | | | Resting heart rate luis daniel from 66 beats/min to 139 beats/min which was | | | 85% of the maximum age-predicted heart rate. Chest pain: Mild chest | | | tightness which resolved Arrhythmias: none ST segment changes: none | | | COMPARISON: None. FINDINGS: All segments of the ventricular | | | myocardium demonstrate normal perfusion. Wall motion is normal in | | | all segments. The following functional data was obtained: | | | End-diastolic volume: 78 mL End-systolic volume: 25 mL Ejection | | | fraction: 68% IMPRESSION: 1. Normal Myocardial perfusion no | | | evidence of ischemia or infarction. technetium 2. Left ventricular | | | ejection fraction is calculated at 68%. 3. Normal left ventricular | | | wall motion. Electronically signed by Catarino Sierra MD on | | | 09/05/2012 12:08 PM | | + + + + + | Procedure Note | + + | Karan Townsend Conversion - 06/02/2019 3:46 AM PDT HISTORY:57-year-old female hypertensive | | diabetic smoker hypercholesterolemia reports an episode of chest pain and shortness of | | breath associated with dizziness and nausea. No prior cardiac history. TECHNIQUE:A same | | day, single -isotope protocol was used.Resting protocol:The patient was injected | | intravenously with 9.7 mCi of technetium 99M Myoview. Gated SPECT images were acquired | | in the supine. The patient exercised 7 minutes 29 seconds and to Juan protocol stress | | test test achieving a maximum work level of 7.5 Max METs.Stress protocol:The patient was | | injected intravenously with 40.3 mCi of technetium 99M Myoview at peak exercise. Gated | | SPECT images were acquired in the prone and supine positions. Resting heart rate luis daniel | | from 66 beats/min to 139 beats/min which was 85% of the maximum age-predicted heart | | rate.Chest pain: Mild chest tightness which resolvedArrhythmias: noneST segment changes: | | none COMPARISON:None. FINDINGS:All segments of the ventricular myocardium demonstrate | | normal perfusion. Wall motion is normal in all segments. The following functional | | data was obtained:End-diastolic volume: 78 mLEnd-systolic volume: 25 mLEjection | | fraction: 68% IMPRESSION:1. Normal Myocardial perfusion no evidence of ischemia or | | infarction. technetium2. Left ventricular ejection fraction is calculated at 68%.3. | | Normal left ventricular wall motion. Electronically signed by Catarino Sierra MD on | | 09/05/2012 12:08 PM | |None. | | | |FINDINGS: | |All segments of the ventricular myocardium demonstrate normal perfusion. Wall motion is normal in all segments. | | | |The following functional data was obtained: | |End-diastolic volume: 78 mL | |End-systolic volume: 25 mL | |Ejection fraction: 68% | | | |IMPRESSION: | |1. Normal Myocardial perfusion no evidence of ischemia or infarction. technetium | |2. Left ventricular ejection fraction is calculated at 68%. | |3. Normal left ventricular wall motion. | | | | | + + NM Nuclear Stress Test (Exercise) (09/05/2012 11:02 AM PST) + + | Specimen | + + | | + + + + + | Narrative | Performed At | + + + | This procedure was resulted in [place] (the cardiology system). Please | | | see the Media tab in Chart Review to see the result for this | | | procedure. | | + + + + + | Procedure Note | + + | Karan Townsend Conversion - 06/02/2019 3:46 AM PDT This procedure was resulted in [place] | | (the cardiology system). Please seethe Media tab in Chart Review to see the result for | | this procedure. | + + CT Angiogram Pulmonary w Contrast (09/04/2012 8:45 PM PST) + + | Specimen | + + | | + + + + + | Narrative | Performed At | + + + | JAMIA CORNEJO CT CHEST PULMONARY EMBOLISM W CONTRAST 09/04/2012 | | | 8:33 PM HISTORY: 57 years. Female. Elevated d-dimer. Evaluate | | | for pulmonary embolus TECHNIQUE: Highly collimated images | | | obtained in the presence of 60 cc Isovue 370. Axial images were | | | manipulated on a dedicated 3-D workstation with coronal reconstruction | | | COMPARISON: None FINDINGS: Bone window settings are | | | unremarkable. Lung window settings showed calcified granuloma in the | | | right lung base left lung base, image 36/6. Also noted is a small | | | amount of parenchymal scarring right upper lobe image 20/6. | | | Mediastinum is unremarkable. No adenopathy is identified. No CT | | | evidence of pulmonary embolus is identified. Abdominal findings | | | unremarkable on this study IMPRESSION: 1. No CT evidence of | | | pulmonary embolus. 2. Minimal pulmonary parenchymal scarring | | | right upper lobe. 3. Calcified granuloma left lung base | | | | | + + + + + | Procedure Note | + + | Kristian, Rad Conversion - 06/02/2019 3:46 AM PDT SISSY Charlie JOHNSONCT CHEST PULMONARY | | EMBOLISM W [id number]/26/2012 8:33 PM HISTORY:57 years. Female. Elevated d-dimer. | | Evaluate for pulmonary embolus TECHNIQUE:Highly collimated images obtained in the | | presence of 60 cc Isovue 370. Axial images were manipulated on a dedicated 3-D | | workstation with coronal reconstruction COMPARISON:None FINDINGS:Bone window settings | | are unremarkable. Lung window settings showed calcified granuloma in the right lung base | | left lung base, image 36/6. Also noted is a small amount of parenchymal scarring right | | upper lobe image 20/6. Mediastinum is unremarkable. No adenopathy is identified.No CT | | evidence of pulmonary embolus is identified. Abdominal findings unremarkable on this | | studyIMPRESSION:1. No CT evidence of pulmonary embolus. 2. Minimal pulmonary | | parenchymal scarring right upper lobe. 3. Calcified granuloma left lung base | | | | | |FINDINGS: | |Bone window settings are unremarkable. Lung window settings showed calcified granuloma in t he right lung base left lung base, image 36/6. Also noted is a small amount of parenchymal s carring right upper lobe image 20/6. | | | |Mediastinum is unremarkable. No adenopathy is identified. | |No CT evidence of pulmonary embolus is identified. | | | |Abdominal findings unremarkable on this study | |IMPRESSION: | |1. No CT evidence of pulmonary embolus. | | | |2. Minimal pulmonary parenchymal scarring right upper lobe. | | | |3. Calcified granuloma left lung base | | | | | + + XR Chest 1 Vw (09/04/2012 3:29 PM PST) + + | Specimen | + + | | + + + + + | Narrative | Performed At | + + + | This is a non-reportable procedure without a radiologist report and | | | is used for image storage only | | + + + + + | Procedure Note | + + | Karan Townsend - 06/02/2019 3:46 AM PDT This is a non-reportable procedure | | without a radiologist report and isused for image storage only | + + documented in this encounter Visit Diagnoses + + | Diagnosis | + + | Chest pain Chest pain, unspecified | + + | Diabetes mellitus (HCC) Type II or unspecified type diabetes mellitus without mention | | of complication, not stated as uncontrolled | + + | Uncontrolled hypertension Unspecified essential hypertension | + + | Diagnosis unknown Other unknown and unspecified cause of morbidity or mortality | + + | Chest pain, unspecified | + + | DM (diabetes mellitus) (HCC) Type II or unspecified type diabetes mellitus without | | mention of complication, not stated as uncontrolled | + + documented in this encounter
--- OUTSIDE RECORDS SUMMARY | ~2020-05-31 | XMS | Encounter Summary ---
Demographics + + + | Address | [address] | | | [place] [address] | + + + | Home Phone | | + + + | Preferred Language | Unknown | + + + | Marital Status | | + + + | Druze Affiliation | 1041 | + + + | Race | or | + + + | Ethnic Group | Not or | + + + Author + + + | Author | [facility] | | | and [place] | + [...] Team Providers + +------+ + | Care Triage Registered Nurse Name | Role | Phone | + +------+ + PCP | Unavailable | + +------+ + Encounter Details +--------+ + + + + | Date | Type | Department | Care Team | Description | +--------+ + + + + | 11/19/ | [facility] | [facility] | Carlos Hamilton MD | | | 2009 | Encounter | MED CTR GENERIC OP | [address], [place] | | | | | CONV DEPT [address] | [address] [place], [place] | | | | | [place], | [address] | | | | | [place] [address] | | | | | | [phone] | | | +--------+ + + + [...]
--- OUTSIDE RECORDS SUMMARY | ~2020-05-31 | XMS | Encounter Summary ---
Demographics + + + | Address | [address] | | | [place] [address] | + + + | Home Phone | | + + + | Preferred Language | Unknown | + + + | Marital Status | | + + + | Confucianism Affiliation | 1041 | + + + | Race | or | + + + | Ethnic Group | Not or | + + + Author + + + | Author | [facility] | | | and [place] | + + + | Organization | [facility] | | | [...] Team Providers + +------+ + | Care Supervisor Roving Department Name | Role | Phone | + +------+ + | Ana Paula Mays MD | PCP | | + +------+ + Encounter Details +--------+ + + + + | Date | Type | Department | Care Team | Description | +--------+ + + + + | 04/14/ | Documentati | [facility] | Yahir Edwards MD | | | 2014 | on | GASTROENTEROLOGY | [address] | | | | | [address] [facility] | [place], [place] | | | | | [address] [place], [place] | [address] | | | | | [address] | [phone] | | | | | [phone] | | | +--------+ + + + [...] documented as of this encounter Progress Notes Kelly Bonilla RN - 04/14/2015 11:28 AM PDTDr. Edwards reviewed pathology from procedure da te 04/02/15. Pathology result letter dictated, received from medical records, and mailed to conchita morton on 04/09/15. Copy of pathology letter has been sent back to medical records to be scanned into [employer] [facility] 1bib. Copy of pathology letter has been mailed to patient's listed PCP with pathology report if o [facility]. Per Dr. Edwards colonoscopy and biopsy results came back normal, family history negative for colon cancer. Recommends repeating colonoscopy screening in 10 years. If GI symptoms occur m ay follow up in the GI clinic. Patient currently scheduled for 05/06/[address] Edwards. I tried to reach patient, no answer , no voicemail. Message to front services agent to contact patient. If asymptomatic may cancel appt. documented in this en counter Plan of Treatment Not on filedocumented as of this encounter Visit Diagnoses Not on filedocumented in this encounter"
--- OUTSIDE RECORDS SUMMARY | ~2020-05-31 | XMS | Encounter Summary ---
Demographics + + + | Address | [address] | | | [place] [address] | + + + | Home Phone | | + + + | Preferred Language | Unknown | + + + | Marital Status | | + + + | Anabaptist Affiliation | 1041 | + + + | Race | or | + + + | Ethnic Group | Not or | + + + Author + + + | Author | [facility] | | | and [place] | + + + | Organization | [facility] | | [...] Team Providers + +------+ + | Care Manufacturing Supervisor Name | Role | Phone | + +------+ + | Ana Paula Mays MD | PCP | | + +------+ + Encounter Details +--------+ + + + + | Date | Type | Department | Care Team | Description | +--------+ + + + + | 01/14/ | Orders Only | [facility] [place] | [place], | Panlobular emphysema | | 2016 | | PULMONARY [address] | Lisset Lira MD | ([facility]) | | | | [place], | | | | | | [place] [address] | | | | | | [phone] | | | +--------+ + + + [...] + | Diagnosis | + + | Panlobular emphysema (HCC) Other emphysema | + + documented in this encounter"
--- OUTSIDE RECORDS SUMMARY | ~2020-05-31 | XMS | Encounter Summary ---
Demographics + + + | Address | [address] | | | [place] [address] | + + + | Home Phone | | + + + | Preferred Language | Unknown | + + + | Marital Status | | + + + | Hinduism Affiliation | 1041 | + + + | Race | or | + + + | Ethnic Group | Not or | + + + Author + + + | Author | [facility] | | | and [place] | + + + | Organization | [facility] | | [...] Team Providers + +------+ + | Care Head Librarian Name | Role | Phone | + +------+ + | Ana Paula Mays MD | PCP | | + +------+ + Reason for Visit +---------+--------+ + | Reason | Onset | Comments | | | Date | | +---------+--------+ + | Results | 06/09/ | | | | 2014 | | +---------+--------+ + Encounter Details +--------+ + + + + | Date | Type | Department | Care Team | Description | +--------+ + + + + | 06/09/ | Telephone | [facility] | Carlos Hamilton MD | Results | | 2014 | | GASTROENTEROLOGY | [address], [place] | | | | | [address] [place] | [address] [place], [place] | | | | | [address] [place], [place] | [address] | | | | | [address] | | | | | | [phone] | | | +--------+ + + + [...] this encounter Miscellaneous Notes Telephone Encounter - Brittany Frey RN - 06/20/2015 10:45 AM PDTNotified patient th at [facility] normal. Common bile duct and pancreatic Duct normal. She reports she is doing bet ter. elephone En counter - Marry Frazier - 06/19/2015 2:29 PM PDTPatient called back to speak with Chris. Perez lozada try her again. elephone Encounter - Brittany Frey RN - 06/18/2015 1:13 PM PDTLeft message asking patient t o call for results. elephone Encounter - Brittany Frey RN - 06/13/2015 11:41 AM PDTPatient is out of town this week. Person answering asks that we call back next week. elephone Encounter - Brittany Frey RN - 06/09/2015 12:03 PM PDTLeft message asking patient to call for results. [employer] sh[employer]y signed by Brittany Frey RN at 06/09/2015 12:03 PM PDTdocumented in this encounter Plan of Treatment Not on filedocumented as of this encounter Visit Diagnoses Not on filedocumented in this encounter"
--- OUTSIDE RECORDS SUMMARY | ~2020-05-31 | XMS | Encounter Summary ---
Demographics + + + | Address | [address] | | | [place] [address] | + + + | Home Phone | | + + + | Preferred Language | Unknown | + + + | Marital Status | | + + + | Zoroastrianism Affiliation | 1041 | + + + | Race | or | + + + | Ethnic Group | Not or | + + + Author + + + | Author | [facility] | | | and [place] | + + + | Organization | [facility] | | | [...] Team Providers + +------+ + | Care Ultra Sound Technician Name | Role | Phone | [...] | | | | | | | [place] | | | | | | | ESOPHAGOGAST | | | | | | | RODUODENOSCO | | | | | | | PY TRANSORAL | | | | | | | DIAGNOSTIC | | | | | | | [place] | | | | | | | [...] Description | +--------+---------+ + + + | 04/02/ | Surgery | [facility] | Yahir Edwards MD | EGD / COLONOSCOPY | | 2015 | | MED CTR [facility] OP | [address] | | | | | [address] | [place], [place] | | | | | [place], [place] | [address] | | | | | [address] | [phone] | | | | | [phone] | | | +--------+---------+ + + + [...] + + + | Blood Pressure | 133/77 | 04/02/2015 7:13 AM | | | | | PDT | | + + + + + | Pulse | 80 | 04/02/2015 7:13 AM | | | | | PDT | | + + + + + | Temperature | 36.6 C (97.9 F) | 04/02/2015 7:13 AM | | | | | PDT | | + + + + + | Respiratory Rate | 16 | 04/02/2015 7:13 AM | | | | | PDT | | + + + + + | Oxygen Saturation | 97% | 04/02/2015 7:13 AM | | | | | PDT | | + + + + + | Inhaled Oxygen | - | - | | | Concentration | | | | + + + + + | Weight | 94.8 kg (209 lb) | 04/02/2015 7:13 AM | | | | | PDT | | + + + + + | Height | 162.6 cm (5' 4") | 04/02/2015 7:13 AM | | | | | PDT | | + + + + + | Body Mass Index | 35.87 | 04/02/2015 7:13 AM | | | | | PDT | | + + + + + documented in this encounter Discharge Instructions Instructions Yahir Edwards MD - 04/01/2015Patient Discharge Instructions after an Endosco py Procedure ? You may resume your regular diet after discharge. ? Do not drive, operate machinery, make critical decisions or do activities that require co ordination or balance for 24hrs. ? Resume normal medications unless otherwise instructed. ? If biopsies were taken, the physician s office will contact you within 7-10 days. ? If a colonoscopy was performed, then you may continue to expel large amounts of air from your rectum. Please call the physician who did your procedure at [phone] if you have any questions or experience any of the following: ? Increasing abdominal pain, nausea, or vomiting. ? Chills and fever over 101F. ? New abdominal swelling or bloating. ? Signs of rectal bleeding (black or red stool). If you cannot get a hold of your physician, then call the [facility] [phone] . If necessary, report to the Emergency Department at [facility]. Quit smoking: If you smoke or have smoked within the last year, quitting is the most import ant thing you can do to protect and improve your health. documented in this encounter Medications at Time of Discharge [...] | | | | | | N (JANTARAH) 50-1000 | (with breakfast & | | | | | | MG per tablet | dinner). | | | | | + + + +---------+ + + | aspirin 81 MG | Take 1 tablet by | | 0 | 03/06/20 | | | tablet | mouth Daily. | | | 15 | 5 | + + + +---------+ + + | Cholecalciferol | Take 2,000 Units by | | 0 | | | | (VITAMIN D-3) 2000 | mouth Daily. | | | | 9 | | units CAPS | | | | | | + + + +---------+ + + | cyclobenzaprine | Take 10 mg by mouth | | 0 | | | | (FLEXERIL) 10 mg | 3 times daily as | | | | 5 | | tablet | needed for Muscle | | | | | | | spasms. | | | | | + + [...] documented as of this encounter Progress Notes Joanna Aquino RN - 04/02/2015 10:28 AM PDTAwake and alert, no further nausea, ta karina po fluids well, passing flatus, up amb with stable gait and balance. Electronically signed by: Joanna Aquino RN 04/02/2015 10:28 Joanna Sotelo RN - 04/02/2015 9:56 AM PDTNausea after procedure treated with zofran IV with g ood results. Electronically signed by: Joanna Aquino RN 04/02/2015 9:57 documented in this encounter H&P Notes Yahir Edwards MD - 04/01/2015 11:35 AM PDT PRE-ENDOSCOPY HISTORY AND PRE-SEDATION ASSESSMENT PATIENT NAME: Odalys Cornejo : 1955 TODAY'S DATE: 04/01/2015 PLANNED PROCEDURE: Upper Endoscopy and Colonoscopy PERTINENT HISTORY/INDICATION FOR PROCEDURE: Odalys Cornejo is a 59 y.o. female who i s undergoing upper endoscopy for severe GERD with family history of esophageal cancer. Patie nt is undergoing colonoscopy for colon cancer screening. . PAST HISTORY: Past Medical History Diagnosis Date Diabetes mellitus (HCC) Hyperchloremia Stroke (HCC) thinks that she might have had once, lost feeling on one side and fell down. mouth went d own for 2-3 weeks. GERD (gastroesophageal reflux disease) DHAVAL (obstructive sleep apnea) Does not use CPAP anymore as says caused sinus and ear infections PAST SURGICAL HISTORY Past Surgical History Procedure Laterality Date Hysterectomy 1994 Tonsillectomy Lumbar spine surgery Approx -2013 Knee surgery Rt. Knee Cholecystectomy Ectopic surgery Bowel obstruction surgery twice Endometriosis surgery HOME MEDS: Scheduled Meds: Continuous Infusions: PRN Meds:. ALLERGIES Allergies Allergen Reactions Lisinopril Cough Atorvastatin Muscle aches Codeine Sulfate Nausea and vomit Morphine Pt. Dose not like as makes her feel wierd ASA CLASSIFICATION: Class 3 A patient with severe systemic disease that limits activity but is not incapacitating EXAMINATION: There were no vitals taken for this visit. General: Alert and oriented Throat: Normal Lungs: Clear Heart: Regular rate and rhythm with out significant murmur Abdomen: flat, normal bowel sounds. Soft, nontender 1. Available medical records have been reviewed. 2. Medication list reviewed. IMPRESSION: . Patient appropriate for procedure. PLAN: 1. Proceed with procedure as stated above with moderate sedation/analgesia 2. Procedure, indications, risks and alternatives explained to patient/family and they agre ed to proceed and consent was signed. 3. Patient will be reevaluated immediately (1-2 minutes) before sedation administration and approved for the plan as stated above. Electronically Signed by: Yahir Edwards MD 04/01/2015 [facility] Portions of this chart may have been created with [employer] voice recognition software. Occasi onal wrong-word or sound-alike substitutions may have occurred due to the inherent wilkins itations of voice recognition software. Please read the chart carefully and recognize, using context, where these substitutions have occurred documented in this enc ounter Plan of Treatment Not on filedocumented as of this encounter Procedures + +--------+ + + + | Procedure Name | Priori | Date/Time | Associated Diagnosis | Comments | | | ty | | | | + +--------+ + + + | PATHOLOGY - EXTERNAL | | 04/07/2015 | | | | SCAN | | 12:00 AM | | | | | | PDT | | | + +--------+ + + + | EGD / COLONOSCOPY | | 04/02/2015 | Gastroesophageal | | | | | 8:32 AM | reflux disease | | | | | PDT | without esophagitis | | | | | | Special screening | | | | | | for malignant | | | | | | neoplasms, colon | | + +--------+ + + + | EGD | Routin | 04/02/2015 | | Results for this | | | e | 8:29 AM | | procedure are in the | | | | PDT | | results section. | + +--------+ + + + | COLONOSCOPY | Routin | 04/02/2015 | | Results for this | | | e | 8:28 AM | | procedure are in the | | | | PDT | | results section. | + +--------+ + + + | POC GLUCOSE | Routin | 04/02/2015 | | Results for this | | | e | 7:32 AM | | procedure are in the | | | | PDT | | results section. | + +--------+ + + + | PATHOLOGY - EXTERNAL | | 04/02/2015 | | | | SCAN | | 12:00 AM | | | | | | PDT | | | + +--------+ + + + | SURGICAL PATHOLOGY | Routin | 04/02/2015 | | Results for this | | EXAM | e | 12:00 AM | | procedure are in the | | | | PDT | | results section. | + +--------+ + + + documented in this encounter Results EGD (04/02/2015 8:29 AM PDT) + + | Specimen | + + | | + + + + -+ | Narrative | Performed At | + + -+ | | [facility] | | GastroenterologyPatient Name: Odalys CornejoProcedure Date: 04/02/2015 | [facility] | | 8:29 AMMRN: [id number] #: [id number] of : | | | 5Admit Type: AmbulatoryAge: 59Room: [facility] 02Gender: FemaleNote | | | Status: FinalizedAttending MD: Yahir Edwards, MDProcedure: | | | Upper GI endoscopyIndications: Epigastric abdominal | | | pain, Dyspepsia, Dysphagia, Suspected | | | esophageal refluxProviders: Yahir Edwards MD, Lorlyn | | | YUNIEL Triana, María Elena Sprague, | | | Pricing Lead, Michael Aceves MD (Anesthesia Staff)Referring MD: | | | Ana Paula Mays MD (Referring MD)Medicines: Monitored | | | Anesthesia CareComplications: No immediate | | | complications.Procedure: Pre-Anesthesia Assessment: - | | | Prior to the procedure, a History and Physical was performed, and | | | patient medications and allergies were reviewed. The patient is | | | competent. The risks and benefits of the procedure and the | | | sedation options and risks were discussed with the patient. All | | | questions were answered and informed consent was obtained. | | | Patient identification and proposed procedure were verified by | | | the physician, the nurse, the anesthesiologist and the | | | appliance technician in the pre-procedure area in the endoscopy suite. | | | Mental Status Examination: alert and oriented. Airway | | | Examination: normal oropharyngeal airway and neck mobility. | | | Respiratory Examination: clear to auscultation. CV Examination: | | | normal. Prophylactic Antibiotics: The patient does not require | | | prophylactic antibiotics. Prior Anticoagulants: The patient | | | has taken no previous anticoagulant or antiplatelet agents. ASA | | | Grade Assessment: III - A patient with severe systemic | | | disease. After reviewing the risks and benefits, the patient | | | was deemed in satisfactory condition to undergo the procedure. The | | | anesthesia plan was to use monitored anesthesia care (MAC). | | | Immediately prior to administration of medications, the patient | | | was re-assessed for adequacy to receive sedatives. The heart | | | rate, respiratory rate, oxygen saturations, blood pressure, | | | adequacy of pulmonary ventilation, and response to care were | | | monitored throughout the procedure. The physical status of the | | | patient was re-assessed after the procedure. After obtaining | | | informed consent, the endoscope was passed under direct vision. | | | Throughout the procedure, the patient's blood pressure, pulse, | | | and oxygen saturations were monitored continuously. The AhometoANER | | | SCOPE was introduced through the mouth, and advanced to the | | | third part of duodenum. The upper GI endoscopy was accomplished | | | without difficulty. The patient tolerated the procedure | | | well.Findings: The examined esophagus was normal. Biopsies were | | | taken with a cold forceps for histology. Verification of | | | patient identification for the specimen was done by the | | | physician and nurse using the patient's name and date. | | | Estimated blood loss was minimal. Patchy mildly erythematous | | | mucosa without bleeding was found in the stomach. Biopsies were | | | taken with a cold forceps for histology. Verification of | | | patient identification for the specimen was done by the | | | physician and nurse using the patient's name and date. Estimated | | | blood loss was minimal. Multiple 7 mm semi-sessile | | | polyps with no bleeding and no stigmata of recent bleeding were | | | found in the gastric body. Biopsies were taken with a cold | | | forceps for histology. Verification of patient identification for | | | the specimen was done by the physician and nurse using the | | | patient's name and date. Estimated blood loss was | | | minimal. No other significant abnormalities were identified in a | | | careful examination of the stomach. The cardia and | | | gastric fundus were normal on retroflexion. The duodenal bulb, | | | 2nd part of the duodenum and 3rd part of the duodenum were | | | normal. Biopsies were taken with a cold forceps for histology. | | | Verification of patient identification for the specimen was done by | | | the physician and nurse using the patient's name and | | | date. Estimated blood loss was minimal.Impression: - | | | Normal esophagus. Biopsied. - Erythematous mucosa in the | | | stomach. Biopsied. - Multiple gastric polyps. Biopsied. - | | | Normal duodenal bulb, 2nd part of the duodenum and 3rd part of the | | | duodenum. Biopsied.Recommendation: - Patient has a contact | | | number available for emergencies. The signs and symptoms of | | | potential delayed complications were discussed with the | | | patient. Return to normal activities tomorrow. Written discharge | | | instructions were provided to the patient. - High fiber diet | | | indefinitely. - Discharge patient to home. - Continue | | | present medications. - Await pathology results. - Return | | | to GI clinic in 4 weeks. - The findings and recommendations were | | | discussed with the patient.Yahir Edwards MD04/02/2015 9:10 | | | AMNumber of Addenda: 0Note Initiated On: 04/02/2015 8:29 AMScope | | | Withdrawal Time: 0 hours 0 minutes 0 seconds Total Procedure Duration: | | | 0 hours 7 minutes 34 seconds Scope In: 8:41:58 AMScope Out: 8:49:32 | | | AM [facility], [address] [place] [address] | | | [place] [address] | | | - High fiber diet indefinitely. | | | - Discharge patient to home. | | | - Continue present medications. | | | - Await pathology results. | | | - Return to GI clinic in 4 weeks. | | | - The findings and recommendations were discussed with the patient. | | |Yahir Edwards MD | | |04/02/2015 9:10 AM | | |Number of Addenda: 0 | | |Note Initiated On: 04/02/2015 8:29 AM | | |Scope Withdrawal Time: 0 hours 0 minutes 0 seconds | | |Total Procedure Duration: 0 hours 7 minutes 34 seconds | | |Scope In: 8:41:58 AM | | |Scope Out: 8:49:32 AM | | | [facility], [facility] [place], [place] | | | [address] | | + + -+ + +---------+ + + | Performing | Address | City/State/Zipcode | Phone Number | | Organization | | | | + +---------+ + + | [facility] | | | | + +---------+ + + COLONOSCOPY (04/02/2015 8:28 AM PDT) + + | Specimen | + + | | + + + + -+ | Narrative | Performed At | + + -+ | | [facility] | | GastroenterologyPatient Name: Odalys CornejoProcedure Date: 04/02/2015 | [place] | | 8:28 AMMRN: [id number] #: [id number] of : | | | 5Admit Type: AmbulatoryAge: 59Room: [facility] 02Gender: FemaleNote | | | Status: FinalizedAttending MD: Yahir Edwards, MDProcedure: | | | ColonoscopyIndications: Abdominal pain, Clinically | | | significant diarrhea of unexplained | | | origin, HematocheziaProviders: Yahir Edwards MD, | | | Ana Triana RN, María Elena Gonzalez | | | Darcie, Pricing Lead, Michael Aceves MD (Anesthesia Staff)Referring MD: | | | Ana Paula Mays MD (Referring MD)Medicines: | | | Monitored Anesthesia CareComplications: No immediate | | | complications.Procedure: Pre-Anesthesia Assessment: - | | | Prior to the procedure, a History and Physical was performed, and | | | patient medications and allergies were reviewed. The patient is | | | competent. The risks and benefits of the procedure and the | | | sedation options and risks were discussed with the patient. All | | | questions were answered and informed consent was obtained. | | | Patient identification and proposed procedure were verified by | | | the physician, the nurse, the anesthesiologist and the | | | appliance technician in the pre-procedure area in the endoscopy suite. | | | Mental Status Examination: alert and oriented. Airway | | | Examination: normal oropharyngeal airway and neck mobility. | | | Respiratory Examination: clear to auscultation. CV Examination: | | | normal. Prophylactic Antibiotics: The patient does not require | | | prophylactic antibiotics. Prior Anticoagulants: The patient | | | has taken no previous anticoagulant or antiplatelet agents. ASA | | | Grade Assessment: III - A patient with severe systemic | | | disease. After reviewing the risks and benefits, the patient | | | was deemed in satisfactory condition to undergo the procedure. The | | | anesthesia plan was to use monitored anesthesia care (MAC). | | | Immediately prior to administration of medications, the patient | | | was re-assessed for adequacy to receive sedatives. The heart | | | rate, respiratory rate, oxygen saturations, blood pressure, | | | adequacy of pulmonary ventilation, and response to care were | | | monitored throughout the procedure. The physical status of the | | | patient was re-assessed after the procedure. After I obtained | | | informed consent, the scope was passed under direct vision. | | | Throughout the procedure, the patient's blood pressure, pulse, | | | and oxygen saturations were monitored continuously. The endoscope was | | | introduced through the anus and advanced to the terminal ileum, | | | with identification of the appendiceal orifice and IC valve. | | | The colonoscopy was performed without difficulty. The patient | | | tolerated the procedure well. The quality of the bowel | | | preparation was good.Findings: The perianal and digital rectal | | | examinations were normal. No other significant abnormalities | | | were identified in a careful examination of the remainder of | | | the colon. Biopsies were taken with a cold forceps from the | | | right colon and left colon for evaluation of microscopic | | | colitis. Verification of patient identification for the | | | specimen was done by the physician and nurse using the | | | patient's name and date. Estimated blood loss was | | | minimal. Non-bleeding internal hemorrhoids were found during | | | retroflexion and were small. No additional abnormalities | | | were found on retroflexion. The terminal ileum appeared | | | normal.Impression: - Non-bleeding internal hemorrhoids. - | | | The examined portion of the ileum was normal.Recommendation: - | | | Patient has a contact number available for emergencies. The signs and | | | symptoms of potential delayed complications were discussed with | | | the patient. Return to normal activities tomorrow. Written | | | discharge instructions were provided to the patient. - | | | High fiber diet indefinitely. - Discharge patient to home. | | | - Continue present medications. - Await pathology results. | | | - Repeat colonoscopy in 10 years for screening purposes. - | | | Return to GI clinic in 4 weeks. - The findings and | | | recommendations were discussed with the patient.Yahir Edwards, | | | 04/02/2015 9:13 AMNumber of Addenda: 0Note Initiated On: 04/02/2015 | | | 8:28 AMScope Withdrawal Time: 0 hours 10 minutes 14 seconds Total | | | Procedure Duration: 0 hours 14 minutes 24 seconds Scope In: 8:53:22 | | | AMScope Out: 9:07:46 AM [facility], [address] | | [place] [address] | | | - High fiber diet indefinitely. | | | - Discharge patient to home. | | | - Continue present medications. | | | - Await pathology results. | | | - Repeat colonoscopy in 10 years for screening purposes. | | | - Return to GI clinic in 4 weeks. | | | - The findings and recommendations were discussed with the patient. | | |Yahir Edwards MD | | |04/02/2015 9:13 AM | | |Number of Addenda: 0 | | |Note Initiated On: 04/02/2015 8:28 AM | | |Scope Withdrawal Time: 0 hours 10 minutes 14 seconds | | |Total Procedure Duration: 0 hours 14 minutes 24 seconds | | |Scope In: 8:53:22 AM | | |Scope Out: 9:07:46 AM | | | [facility], [address] [facility], [place], [place] | | | [address] | | + + -+ + +---------+ + + | Performing | Address | City/State/Zipcode | Phone Number | | Organization | | | | + +---------+ + + | [facility] | | | | + +---------+ + + POC Glucose (04/02/2015 7:32 AM PDT) + +---------+ + + + | Component | Value | Ref Range | Performed | Pathologist | | | | | At | Signature | + +---------+ + + + | Glucose, | 161 (H) | 70 - 150 mg/dL | [facility] | | | POC | | | [facility] | [...] | + + + + + | [facility] | [address] | [place], [place] | [phone] | | [facility] | | [address] | | | - LABORATORY | | | | + + + + + Surgical Pathology Exam (04/02/2015 12:00 AM PDT) + + | Specimen | + + | | + + + + + | Narrative | Performed At | + + + | SPECIMEN(S): A DUODENAL BIOPSY SPECIMEN(S): B GASTRIC POLYP | [facility] | | SPECIMEN(S): C GASTRIC BIOPSY SPECIMEN(S): D ESOPHAGEAL BIOPSY | [facility] | | SPECIMEN(S): E RIGHT COLON BIOPSY SPECIMEN(S): F LEFT COLON | | | SPECIMEN SOURCE: A. DUODENAL BIOPSY B. GASTRIC POLYP C. GASTRIC | | | BIOPSY D. ESOPHAGEAL BIOPSY E. RIGHT COLON BIOPSY F. LEFT COLON | | | CLINICAL HISTORY: A. Rule out sprue. D. Rule out eosinophilic | | | esophagitis. 530.81 (GERD), V76.51 (screening for malignant neoplasms, | | | colon) MICROSCOPIC DESCRIPTION: Histologic sections of all | | | submitted blocks are examined by light microscopy. These findings, | | | together with the gross examination, support the pathologic diagnosis. | | | FINAL PATHOLOGIC DIAGNOSIS: A. 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 - Negative for | | | active inflammation of villous blunting. B. Gastric polyp, | | | biopsy: - Benign fundic gland polyp. C. Stomach, biopsies: - | | | Minimal chronic gastritis with vascular congestion. - | | | Helicobacter pylori immunostain is negative for organisms. D. | | | Esophagus, biopsies: - Benign squamous esophageal mucosa with mild | | | vascular congestion. - Negative for increased eosinophils. - | | | Negative for Marsk's (goblet cell) metaplasia, dysplasia or | | | malignancy. E. Right colon, biopsies: - Unremarkable colonic | | | mucosa. - Negative for active colitis, granulomas or dysplasia. | | | F. Left colon, biopsies: - Unremarkable colonic mucosa. - | | | Negative for active colitis, granulomas or dysplasia. COMMENT: | | | This case was reviewed by Barbara Torres M.D., fellowship-trained GI | | | surgical pathologist. AMB:[facility]:C2NR GROSS DESCRIPTION: | | | Received in formalin in six parts. A. Labeled "Sisrobbie Clemente, | | | duodenum bx" are five molina tissue fragments measuring 0.3 cm in | | | greatest dimension, completely submitted in (A1). B. Labeled | | | "Sissy Clemente, gastric polyp" is one molina tissue fragment measuring | | | 0.5 cm in greatest dimension, completely submitted in (B1). C. | | | Labeled "Sissy Clemente, gastric bx" are three molina tissue fragments | | | measuring 0.5 cm in greatest dimension, completely submitted in (C1). | | | D. Labeled "Sissy Clemente, esophagus bx" are four molina-white tissue | | | fragments measuring 0.4 cm in greatest dimension, completely | | | submitted in (D1). E. Labeled "Sissy Clemente, Rt colon" are three | | | molina-red tissue fragments measuring 0.3 cm in greatest dimension, | | | completely submitted in (E1). F. Labeled "Odalys Cornejo, lt colon | | | bx" are four molina tissue fragments measuring 0.3 cm in greatest | | | dimension, completely submitted in (F1). jf:RYLEY:smh ADDITIONAL | | | NOTES: Immunohistochemical studies were performed on this case with | | | the appropriate negative and positive controls that react as expected. | | | This test was developed and its performance characteristics | | | determined by [facility]. It has not been cleared or | | | approved by the U.S. Food and Drug Administration. The FDA has | | | determined that such clearance or approval is not necessary. This | | | test is used for clinical purposes. It should not be regarded as | | | investigational or for research. [facility] is certified | | | under the Clinical Laboratory Improvement Amendments of 1988 (CLIA) as | | | qualified to perform high complexity clinical laboratory testing. | | | PERFORMING LABORATORY: Tissue processing and slide preparation were | | | performed by [facility], [facility] [address] | | | [place], [place] [id number] (Car Sales Representative: Kelvin Kee M.D. CLIA#: | | | [id number]). Professional interpretation was performed by [employer] | | | [place], [facility] [address], [place] [address] | | | (Car Sales Representative: Kelvin Kee M.D.; CLIA#: [id number]). | | | Diagnostician: Barbara Torres MD Pathologist Electronically Signed | | | 04/03/2015 | | + + + + +---------+ + + | Performing | Address | City/State/Zipcode | Phone Number | | Organization | | | | + +---------+ + + | [facility] | | | | | [place] | | | | + +---------+ + + documented in this encounter Visit Diagnoses + + | Diagnosis | + + | Gastroesophageal reflux disease without esophagitis Esophageal reflux | + + | Special screening for malignant neoplasms, colon | + + documented in this encounter Administered Medications + +---------+ +------+-------+------+ | Medication Order | MAR | Action | Dose | Rate | Site | | | Action | Date | | | | + +---------+ +------+-------+------+ | lactated ringers (LR) infusion | New Bag | 04/02/20 | | 100 | | | at 100 mL/hr, Intravenous, | | 15 7:48 | | mL/hr | | | CONTINUOUS, Starting 04/02/15 | | AM PDT | | | | | at 0730, Pre-op | | | | | | + +---------+ +------+-------+------+ +---+---+ | | | +---+---+ + +-------+ +------+---+---+ | ondansetron (ZOFRAN) injection | Given | 04/02/20 | 4 mg | | | | 4 mg 4 mg, Intravenous, EVERY 4 | | 15 9:40 | | | | | HOURS PRN, Nausea, Vomiting, | | AM PDT | | | | | Starting 04/02/15 at 0921, | | | | | | | Recovery/Phase I | | | | | | + +-------+ +------+---+---+ +---+---+ | | | +---+---+ documented in this encounter
--- OUTSIDE RECORDS SUMMARY | ~2020-05-31 | XMS | Encounter Summary ---
Demographics + + + | Address | [address] | | | [place] [address] | + + + | Home Phone | | + + + | Preferred Language | Unknown | + + + | Marital Status | | + + + | Uatsdin Affiliation | 1041 | + + + | Race | or | + + + | Ethnic Group | Not or | + + + Author + + + | Author | [facility] | | | and [place] | + + + | Organization | [facility] | [...] Team Providers + +------+ + | Care Securities Underwriter Name | Role | Phone | + +------+ + | Ana Paula Mays MD | PCP | | + +------+ + Reason for Visit Diagnostic/Screening (Routine) +--------+--------+ + + + + | Status | Reason | Specialty | Diagnoses / | Referred By | Referred To | | | | | Procedures | Contact | Contact | +--------+--------+ + + + + | Closed | | Pulmonology | Diagnoses | Cand[facility], | [facility] | | | | | COMPLETE PT | Paolo Vazquez, | Pulmonary | | | | | TOLD NO ALB | [place] [address] | Function [address] | | | | | TEST ONLY | [address] | [address] | | | | | (CONSULT | WAY | [place], | | | | | 01/15/2016) | [place], | [place] [address] | | | | | Procedures | [place] [address] | Phone: | | | | | [facility] | Phone: | [phone] | | | | | | [phone] | Fax: | | | | | | Fax: | [phone] | | | | | | [phone] | | +--------+--------+ + + + + Encounter Details +--------+ + + + + | Date | Type | Department | Care Team | Description | +--------+ + + + + | 01/08/ | Hospital | [facility] | [place], | Other chest pain | | 2016 | Encounter | MED CTR PUL[facility] | Lisset Lira MD | | | | | FUNCTION [address] | | | | | | [address] [place], | | | | | | [place] [address] | | | | | | [phone] | | | +--------+ + + + [...] + + + +---------+ + + | albuterol 5 mg/mL | | | 0 | 11/19/19 | | | nebulizer solution | | | | 16 | 6 | + + + +---------+ + + | | Inhale 1 puff into | | 0 | | | | albuterol-ipratropiu | the lungs 4 times | | | | 6 | | m (COMBIVENT | daily. | | | | | | RESPIMAT) 100-20 | | | | | | | mcg/puff inhaler | | | | | | + + + +---------+ + + | ASMANEX 120 | 1 Inhaler as needed. | | 0 | 12/18/19 | | | METERED DOSES 220 | | | | 16 | 6 | | MCG/INH inhaler | | | | | | + [...] + + + +---------+ + + | dicyclomine | Take 10 mg by mouth | | 0 | | | | (BENTYL) 10 mg | 4 times daily. | | | | 9 | | capsule | | | | | | + + + +---------+ + + | ibuprofen | | | 0 | 12/18/19 | | | (ADVIL,MOTRIN) 600 | | | | 16 | 9 | | MG tablet | | | | | | + + + +---------+ + + | ipratropium | | | 0 | 11/19/19 | | | (ATROVENT) 500 | | | | 16 | 6 | | mcg/2.5 mL nebulizer | | | | | | | solution | | | | | | + [...] + + + +---------+ + + | metoclopramide | Take 10 mg by mouth | | 0 | | | | (REGLAN) 10 mg | 3 times daily | | | | 9 | | tablet | (before meals). | | | | | + + [...] + + + +---------+ + + | oxybutynin | Take 10 mg by mouth | | 0 | | | | (DITROPAN-XL) 10 MG | Daily. | | | | 6 | | 24 hr tablet | | | | | | + + + +---------+ + + | promethazine | Take 25 mg by mouth | | 0 | | | | (PHENERGAN) 25 mg | every 6 hours as | | | | 6 | | tablet | needed for Nausea. | | | | | + + + +---------+ + + documented as of this encounter Procedure Notes Lisset Pitt MD - 01/11/2016 4:34 PM PDTAssociated Order(s): PFT PULMONARY FUNCT ION TESTING ORDERSProcedure(s): PFT PULMONARY FUNCTION TESTING ORDERSPre-Procedure Diagnose( s): Other chest pain PULMONARY FUNCTION TESTING METHOD: Spirometry was obtained pre administration of inhaled bronchodilator only. Lung vol umes were obtained by body plethysmography. Diffusion capacity was obtained by single breath method and was not corrected for a measured hemoglobin. ATS standards were met. SPIROMETRY: FVC was normal at 2.79 L or 88% of predicted. FEV1 was normal at 2.21 L or 88% of predicted. FEV1/FVC ratio was normal at 79%. LUNG VOLUMES: Total lung capacity was normal at 5.19 L or 101% of predicted. Residual volum e was normal at 2.37 L or 118% of predicted. RV/TLC ratio was normal at 46% or 116 % of pred icted. DIFFUSION CAPACITY: Diffusion capacity was mildly reduced at 16.3 mL/mmHg per minute or 65% of predicted and was not corrected for a measured hemoglobin. IMPRESSION: Spirometry is normal. Lung volume testing is normal. Diffusion capacity is norm al and is not corrected for measured hemoglobin. Electronically signed by: Lisset Pitt MD 01/11/2016 16:34 [facility] CC: Ana Paula Mays MD documented in t his encounter Plan of Treatment Not on filedocumented as of this encounter Procedures + +--------+ + + + | Procedure Name | Priori | Date/Time | Associated Diagnosis | Comments | | | ty | | | | + +--------+ + + + | PFT PULMONARY | ALBERT | 01/11/2016 | Other chest pain | Results for this | | FUNCTION TESTING | | 4:36 PM | | procedure are in the | | ORDERS | | PDT | | results section. | + +--------+ + + + | PFT PULMONARY | ALBERT | 01/11/2016 | Other chest pain | Results for this | | FUNCTION TESTING | | 4:36 PM | | procedure are in the | | ORDERS | | PDT | | results section. | + +--------+ + + + | PFT PULMONARY | [place]ERT | 01/11/2016 | Other chest pain | Results for this | | FUNCTION TESTING | | 4:36 PM | | procedure are in the | | ORDERS | | PDT | | results section. | + +--------+ + + + | PFT PULMONARY | [place]ERT | 01/11/2016 | Other chest pain | Results for this | | FUNCTION TESTING | | 4:36 PM | | procedure are in the | | ORDERS | | PDT | | results section. | + +--------+ + + + | DIAGNOSTIC REPORT - | | 01/09/2016 | | | | EXTERNAL SCAN | | 12:00 AM | | | | | | PDT | | | + +--------+ + + + documented in this encounter Results PFT PULMONARY FUNCTION TESTING ORDERS Full PFT (Nimesh w/BD, lung volumes, diffusion)?: Yes (01/11/2016 4:36 [...] | | Lisset Pitt MD 01/11/2016 16:34 [facility] | | | [facility] CC: Ana Paula Mays MD | | + + + documented in this encounter Visit Diagnoses + + | Diagnosis | + + | Other chest pain | + + documented in this encounter"
--- OUTSIDE RECORDS SUMMARY | ~2020-05-31 | XMS | Encounter Summary ---
Demographics + + + | Address | [address] | | | [place] [address] | + + + | Home Phone [...] + + + | Author | [facility] | | | and [place] | + + + | Organization | [facility] | | | [...] Team Providers + +------+ + | Care Lean Six Sigma Black Belt Name | Role | Phone | + +------+ + PCP | Unavailable | + +------+ + Encounter Details +--------+ + + + + | Date | Type | Department | Care Team | Description | +--------+ + + + + | 05/15/ | Abstract | [facility] | Provider, | | | 2019 | | GASTROENTEROLOGY | MD [address] | | | | | [address] [place] | Glenn Saenz. | | | | | [address], [place] | [place] [address] | | | | | [address] | | | | | | [phone] | | | +--------+ + + + [...]
--- OUTSIDE RECORDS SUMMARY | ~2020-05-31 | XMS | Encounter Summary ---
Demographics + + + | Address | [address] | | | [place] [address] | + + + | Home Phone [...] Team Providers + +------+ + | Care Chocolate Finisher Operator Name | Role | Phone | + +------+ + | Ana Paula Mays MD | PCP | | + +------+ + Encounter Details +--------+ + + + + | Date | Type | Department | Care Team | Description | +--------+ + + + + | 01/14/ | Orders Only | [facility] | Anisa Angulo | Pleuritic chest | | 2016 | | [facility] LAB[facility] | I, Test Inspection Engineer | pain; Pulmonary | | | | [address] [place] | | nodule seen on | | | | [place], [place] | | imaging study | | | | [address] | | | | | | [phone] | | | +--------+ + + + [...] | + +--------+ + + + | LEENA SPECIFIC | Routin | 01/15/2016 | Pleuritic chest | Results for this | | ANTIBODY PANEL | e | 11:08 AM | pain | procedure are in the | | | | PDT | | results section. | + +--------+ + + + | QUANTIFERON GOLD | Routin | 01/15/2016 | Pulmonary nodule | Results for this | | | e | 11:08 AM | seen on imaging | procedure are in the | | | | PDT | study | results section. | + +--------+ + + + documented in this encounter Results Quantiferon Gold (01/15/2016 11:08 AM PDT) + + + [...] | [facility] | | | | [address], [place] | | | | | | [address] | | | | + + + [...] [address] | [place] [address] | [phone] | + + + + + LEENA [...] + + + + + + | EQUIPMENT WORKER | <0.2Comment: Negative | <1.0 AI | [...] W. | | | | | | [address], [place] | | | | | | [address] | | | | + + + + + + + + | Specimen | + + | Blood specimen | | (specimen) | + + + + + + + | Performing | Address | City/State/Zipcode | Phone Number | | Organization | | | | + + + + + | [facility] | [address] | [place] [address] | [phone] | + + + + + documented in this encounter Visit Diagnoses + + | Diagnosis | + + | Pleuritic chest pain Painful respiration | + + | Pulmonary nodule seen on imaging study | + + documented in this encounter"
--- OUTSIDE RECORDS SUMMARY | ~2020-05-31 | XMS | Encounter Summary ---
Demographics + + + | Address | [address] | | | [place] [address] | + + + | Home Phone | | + + + | Preferred Language | Unknown | + + + | Marital Status | | + + + | Tenriism Affiliation | 1041 | + + + | Race | or | + + + | Ethnic Group | Not or | + + + Author + + + | Author | [facility] | | | and [place] | + + + | Organization | [facility] | | | and [...] Team Providers + +------+ + | Care Senior Environmental Technician Name | Role | Phone | [...] | | | | | | | [place] | | | | | | | ESOPHAGOGAST | | | | | | | RODUODENOSCO | | | | | | | PY TRANSORAL | | | | | | | DIAGNOSTIC | | | | | | | [place] | | | | | | | [...] + + + + | 04/02/ | Hospital | [facility] | Yahir Edwards MD | Gastroesophageal | | 2015 | Encounter | MED CTR MP INTRA OP | [address] | reflux disease | | | | [address] | [place], [place] | without esophagitis | | | | [place], [place] | [address] | (Primary Dx); BRBPR | | | | [address] | [phone] | (bright red blood | | | | [phone] | | per rectum) | +--------+ + + + + Social [...] + + + | Blood Pressure | 133/78 | 04/02/2015 9:55 AM | | | | | PDT | | + + + + + | Pulse | 69 | 04/02/2015 9:55 AM | | | | | PDT | | + + + + + | Temperature | 36.6 C (97.9 F) | 04/02/2015 7:13 AM | | | | | PDT | | + + + + + | Respiratory Rate | 18 | 04/02/2015 9:55 AM | | | | | PDT | | + + + + + | Oxygen Saturation | 99% | 04/02/2015 9:55 AM | | | | | PDT [...] the physician who did your procedure at [phone] if you have any questions or experience any of the following: ? Increasing abdominal pain, nausea, or vomiting. ? Chills and fever over 101F. ? New abdominal swelling or bloating. ? Signs of rectal bleeding (black or red stool). If you cannot get a hold of your physician, then call the [facility] [phone] . If necessary, report to the Emergency Department at [facility]. Quit smoking: If you smoke or [...] signed by: Joanna Aquino RN 04/02/2015 10:28 oanna Samayoa RN - 04/02/2015 9:56 AM PDTNausea after [...] Electronically Signed by: Yahir Edwards MD 04/01/2015 [facility] Portions of this chart may have been created with [employer] voice recognition software. Occasi onal wrong-word or [...] 04/02/2015 | [facility]OV[facility] | | 8:29 AMMRN: [id number] #: [id number] of : | | | 5Admit Type: AmbulatoryAge: 59Room: [facility] 02Gender: FemaleNote | | | Status: FinalizedAttending MD: Yahir Edwards, MDProcedure: | | | Upper GI endoscopyIndications: Epigastric abdominal | | | pain, Dyspepsia, Dysphagia, Suspected | | | esophageal refluxProviders: Yahir Edwards MD, Ana | | | YUNIEL Triana, María Elena Sprague, | | | Industrial Maintenance Mechanic, Michael Aceves MD (Anesthesia Staff)Referring MD: | [...] the anesthesiologist and the | | | aircraft technician in the pre-procedure area in the [...] and oxygen saturations were monitored continuously. The [employer] | | | SCOPE was introduced through [...] AMScope Out: 8:49:32 | | | AM [facility] [address] [facility] | | | [place] [address] | | | - High fiber diet [...] |Scope Out: 8:49:32 AM | | | [facility], [address] [facility], [place], [place] | | | [address] | | + + -+ + +---------+ [...] | [facility] | | GastroenterologyPatient Name: Odalys CornejoHosea Date: 04/02/2015 | [facility]OVATION | | 8:28 AMMRN: [id number] #: [id number] of : | | | 5Admit Type: AmbulatoryAge: 59Room: [facility] 02Gender: FemaleNote | | | Status: FinalizedAttending MD: Yahir Edwards [facility]: | | | ColonoscopyIndications: Abdominal pain, Clinically | | | significant diarrhea of unexplained | | | origin, HematocheziaProviders: Yahir Edwards MD, | | | Ana Triana RN, María Elena Gonzalez | | | Darcie, Industrial Maintenance Mechanic, Michael Aceves MD (Anesthesia Staff)Referring MD: | [...] the anesthesiologist and the | | | aircraft technician in the pre-procedure area in the [...] | | | AMScope Out: 9:07:46 AM [facility], [address] | | | [place] [address] | | | - High fiber diet [...] |Scope Out: 9:07:46 AM | | | [facility] [place], [place] | | | [address] | | + + -+ + +---------+ + + | Performing | Address | City/State/[facility] Mexicocode | Phone Number | | Organization | [...] | | | POC | | | [facility] [place] | | | | | | [...] ST. | [address] | [place] | [phone] | | [facility] | | [address] | | | - LABORATORY | | | | + + + + + Surgical Pathology Exam (04/02/2015 12:00 AM PDT) + + | Specimen | + + | | + + + + + | Narrative | Performed At | + + + | SPECIMEN(S): A DUODENAL BIOPSY SPECIMEN(S): B GASTRIC POLYP | [facility] | | SPECIMEN(S): C GASTRIC BIOPSY [...] eosinophils. - | | | Negative for Marks's (goblet cell) metaplasia, dysplasia or | | [...] fellowship-trained GI | | | surgical pathologist. [facility]:C2NR GROSS DESCRIPTION: | | | Received in formalin in six parts. A. Labeled "Sissy Clemente, | | | duodenum bx" are [...] | | submitted in (D1). E. Labeled "Odalys Cornejo, Rt colon" are three | | | molina-red tissue fragments measuring 0.3 cm in greatest dimension, | | | completely submitted in (E1). F. Labeled "Odalys Cornejo, lt colon | | | bx" are four omlina tissue fragments measuring 0.3 cm in greatest | | | dimension, completely submitted in (F1). jf:[facility] ADDITIONAL | | | NOTES: Immunohistochemical studies were performed on this case with | | | the appropriate negative and positive controls that react as expected. | | | This test was developed and its performance characteristics | | | determined by [facility]. It has not been cleared or | | | approved by the U.S. Food and Drug Administration. The FDA has | | | determined that such clearance or approval is not necessary. This | | | test is used for clinical purposes. It should not be regarded as | | | investigational or for research. [facility] is certified | | | under the Clinical Laboratory Improvement Amendments of 1988 (CLIA) as | | | qualified to perform high complexity clinical laboratory testing. | | | PERFORMING LABORATORY: Tissue processing and slide preparation were | | | performed by [facility], [address], [facility] | | | [place] [address] (Personal Development Mentor: Kelvin Kee M.D. CLIA#: | | | [id number]). Professional interpretation was performed by [facility] | | | [facility], [address], [place] [address] | | | (Personal Development Mentor: Kelvin Kee M.D.; CLIA#: [id number]). | | | Diagnostician: Barbara Torres MD [...] Primary Esophageal reflux | + + | BRBPR (bright red blood per rectum) Hemorrhage of rectum and anus | + + | Shortness of breath | + + | GERD (gastroesophageal reflux disease) Esophageal reflux | + + documented in this encounter [...] | mL/hr | | | CONTINUOUS, Starting Tue04/02/15 | | AM PDT | | | [...] PDT | | | | | Starting Tue04/02/15 at 0921, | | | | | | | Recovery/Phase I | | | | | | + +-------+ +------+---+---+ +---+---+ | | | +---+---+ documented in this encounter
--- OUTSIDE RECORDS SUMMARY | ~2020-05-31 | XMS | Encounter Summary ---
Demographics + + + | Address | [address] | | | [place] [address] | + + + | Home Phone | | + + + | Preferred Language | Unknown | + + + | Marital Status | | + + + | Nondenominational Affiliation | 1041 | + + + | Race | or | + + + | Ethnic Group | Not or | + + + Author + + + | Author | [facility] | | | and [place] | + + + | Organization | [facility] | | [...] Team Providers + +------+ + | Care Forensic Audit Expert Name | Role | Phone | + +------+ + PCP | Unavailable | + +------+ + Encounter Details +--------+ + + + + | Date | Type | Department | Care Team | Description | +--------+ + + + + | 12/31/ | Hospital | [facility] | [place] | | | 2008 | Encounter | MED CTR EMER[facility]ENCY | Michael Huston MD [address] | | | | | CENTER [address] | [address] | | | | | [place] | [place] [address] | | | | | [address] | [phone] | | | | | [phone] | | | +--------+ + + + [...]
--- OUTSIDE RECORDS SUMMARY | ~2020-05-31 | XMS | Clinical Summary ---
Demographics + + + | Address | [address] | | | [place] [address] | + + + | Home Phone | | + + + | Preferred Language | Unknown | + + + | Marital Status | | + + + | Episcopalian Affiliation | 1041 | + + + | Race | or | + + + | Ethnic Group | Not or | + + + Author + + + | Author | [facility] | | | and [place] | + + + | Organization | [facility] | | [...] Team Providers + +------+ + | Care Meteorological Equipment Repairer Name | Role | Phone | + +------+ + | Conversion Transaction, | PCP | | | Provider Unknown | | | + +------+ + Allergies + + + + + + | Active Allergy | Reactions | Severity | Noted | Comments | | | | | Date | | + + + + + + | Atorvastatin | Other (See Comments) | Medium | 03/05/20 | Muscle aches | | | | | 15 | Muscle ache | + + + + + + | Codeine | Nausea And Vomiting | Low | 03/15/20 | | | | | | 17 | | + + + + + + | Codeine Sulfate | | | | Nausea and vomit | + + + + + + | Lisinopril | Cough | Medium | 03/05/20 | Cough | | | | | 15 | | + + + + + + | Metoclopramide | Headache, Nausea And | Low | 01/01/20 | | | | Vomiting | | 16 | | + + + + + + | Morphine | Other (See Comments) | Medium | 03/05/20 | Pt. Dose not like | | | | | 15 | as makes her feel | | | | | | wierd UNKNOWN | + + + + + + Medications + + + +---------+------+------+-------+ | Medication | Sig | Dispensed | Refills | Star | End | Statu | | | | | | t | Date | s | | | | | | Date | | | + + + +---------+------+------+-------+ | | Take 1 tablet by | | 0 | | | Activ | | sitagliptan-metFORMI | mouth 2 times daily | | | | | e | | N (JEANNE) 50-1000 | (with breakfast & | | | | | | | MG per tablet | dinner). | | | | | | + + + +---------+------+------+-------+ | | Take 25 mg by mouth | | 0 | | | Activ | | hydrochlorothiazide | Daily. | | | | | e | | 25 mg tablet | | | | | | | + + + +---------+------+------+-------+ | glipiZIDE | Take 5 mg by mouth | | 0 | | | Activ | | (GLUCOTROL XL) 5 mg | daily (with | | | | | e | | 24 hr tablet | breakfast). | | | | | | + + + +---------+------+------+-------+ | FLUoxetine | Take 10 mg by mouth | | 0 | | | Activ | | (PROZAC) 10 mg | Daily. | | | | | e | | capsule | | | | | | | + + + +---------+------+------+-------+ | Fish Oil 1000 MG | Take 1,000 mg by | | 0 | | | Activ | | delayed release | mouth 2 times daily. | | | | | e | | capsule | | | | | | | + + + +---------+------+------+-------+ | albuterol 90 | Inhale 1-2 puffs | 1 | 11 | 06/10 | | Activ | | mcg/puff | into the lungs EVERY | Inhaler | | 03/29 | | e | | inhalerIndications: | 4 TO 6 HOURS | | | 19 | | | | Mild persistent | NEEDED for Wheezing. | | | | | | | asthma without | | | | | | | | complication | | | | | | | + + + +---------+------+------+-------+ | fluticasone | Inhale 1 puff into | 1 | 11 | 11/10 | | Activ | | furoate (ARNUITY | the lungs Daily. | Inhaler | | 0/20 | | e | | ELLIPTA) 100 | | | | 20 | | | | mcg/puff inhaler | | | | | | | + + + +---------+------+------+-------+ | methylPREDNISolone | Follow package | 21 | 0 | 11/10 | | Activ | | (MEDROL DOSEPAK) 4 | directions. 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 [...] + | Other (see comment) | | Miguel Ángel | snored | + + +---------+ + | Cancer | | Randy | lymphoma | + + +---------+ + | Diabetes | Brothcarmita | Randy | | + + +---------+ + | Heart disease | | Randy | | + + +---------+ + | Other (see comment) | | Randy | miguel | + + +---------+ + | Cancer | | Farhat | Esophageal | + + +---------+ + | Diabetes | | Farhat | | + + +---------+ + | Heart disease | | Farhat | | + + +---------+ + | Other (see comment) | | Farhat | miguel | + + +---------+ + [...] +---------+ + | Diabetes | Brother | Ra | | + + +---------+ + | Heart disease | Brother | Ra | | + + +---------+ [...] | | + + + + + Plan of Treatment + + + + + | Health Maintenance | Due Date | Last | Comments | | | | Done | | + + + + + | Hepatitis C | | | | | Screening | 5 | | | + + + + + | Medication | | | | | Management | 5 | | | + + + + + | Vaccine: | | | | | Pneumococcal 19-64 | 1 | | | | (1 of 1 - PPSV23) | | | | + + + + + | Diabetic Eye Exam | | | | | | 3 | | | + + + + + | Diabetic Foot Exam | | | | | | 3 | | | + + + + + | Breast Cancer | | | | | Screening | 0 | | | + + + + + | Vaccine: Zoster (2 | | 02/18/20 | | | of 3) | 5 | 15 | | + + + + + | Hemoglobin A1c | | 12/01/19 | | | Screening | 6 | 16, | | | | | 09/17/20 | | | | | 15 | | + + + + + | Med Mgmt: HBA1C | | 12/01/19 | | | | 6 | 16, | | | | | 09/17/20 | | | | | 15 | | + + + + + | Med Mgmt: Cr | | 12/01/19 | | | | 7 | 16, | | | | | 12/01/19 | | | | | 16, | | | | | 09/17/20 | | | | | 15, | | | | | Addition | | | | | al | | | | | history | | | | | exists | | + + + + + | Med Mgmt: K | | 12/01/19 | | | | 7 | 16, | | | | | 12/01/19 | | | | | 16, | | | | | 09/17/20 | | | | | 15, | | | | | Addition | | | | | al | | | | | history | | | | | exists | | + + + + + | Med Mgmt: Na | | 12/01/19 | | | | 7 | 16, | | | | | 12/01/19 | | | | | 16, | | | | | 09/17/20 | | | | | 15, | | | | | Addition | | | | | al | | | | | history | | | | | exists | | + + + + + | Med Mgmt: eGFR | | 12/01/19 | | | | 7 | 16, | | | | | 12/01/19 | | | | | 16, | | | | | 09/17/20 | | | | | 15, | | | | | Addition | | | | | al | | | | | history | | | | | exists | | + + + + + | Microalbumin | | 12/01/19 | | | Screening | 9 | 16, | | | | | 12/01/19 | | | | | 16, | | | | | 11/21/19 | | | | | 16, | | | | | Addition | | | | | al | | | | | history | | | | | exists | | + + + + + | Vaccine: Influenza | | 11/29/19 | | | (#1) | 0 | 19, | | | | | 07/01/20 | | | | | 16, | | | | | 08/04/20 | | | | | 07, | | | | | Addition | | | | | al | | | | | history | | | | | exists | | + + + + + | Vaccine: | | 07/19/20 | | | Dtap/Tdap/Td (2 - | 2 | 12, | | | Td) | | 12/22/19 | | | | | 02 | | + + + + + | Colorectal Cancer | | 04/02/20 | | | Screening | 5 | 15, | | | (Colonoscopy) | | 04/02/20 | | | | | 15 | | + + + + + Results Not on filefrom Last 3 Months Insurance + +--------+ +--------+ +---------+--------+ | Payer | Benefi | Subscriber | Effect | Phone | Address | Type | | | t Plan | ID | nigel | | | | | | / | | Dates | | | | | | Group | | | | | | + +--------+ +--------+ +---------+--------+ | [place] | MEDICA | [id number] | | [phone] | | [place] | | [place] | | 019-Pr | 2 | | id | | | PLUS | | esent | | | | + +--------+ +--------+ +---------+--------+ | [employer] | IHS | [id number] | 10/10/19 | | | Indemn | | SERVICE | YELLOW | | 14-Pre | | | ity | | | HAWK | | sent | | | | + +--------+ +--------+ +---------+--------+ | [employer] [place] | MEDICA | [id number] | | [phone] | | [place] | | | [place] | | 019-Pr | 2 | | id | | | PLUS | | esent | | | | + +--------+ +--------+ +---------+--------+ | [employer] | IHS | [id number] | 10/10/19 | | | Indemn | | SERVICE | YELLOW | | 19-Pre | | | ity | | | HAWK | | sent | | | | + +--------+ +--------+ +---------+--------+ + +--------+ +--------+ + + | Guarantor Name | Accoun | Relation to | Date | Phone | Billing Address | | | t Type | Patient | of | | | | | | | | | | + +--------+ +--------+ + + | Odalys Cornejo | Person | Self | [birth year] | [address] | | | al/Fam | | 1954 | [phone] | [place] | | | [place] | | | [address] (Home) | [address] | + +--------+ +--------+ + + | Odalys Cornejo | Person | Self | [birth year] | | [address] | | | al/Fam | | 1954 | [phone] | [place] | | | [place] | | | [address] (Home) | [address] | + +--------+ +--------+ + + Advance Directives + + + + + | Type | Date Recorded | Patient | Explanation | | | | Chemical Waste Management Technician | | + + + + + | Power of | | | | | Bilingual Instructor | | | | + + + + + | Advance | 04/02/2015 3:43 | | | | Directive | PM | | | + + + + + + + + + + | Code Status | Date | Date | Comments | | | Activated | Inactivated | | + + + + + | DNR (No | 03/05/2015 | 03/06/2015 | EPI MCCLENDON, discussed with patient in ICU room | | Code) | 6:47 PM | 6:08 PM | with nurse present, truly her wishes | + + + + + + + +---+ | Orders discussed with: | Patient | | + + +---+ | RN or to pronounce: | RN may | | | | pronounce | | + + +---+
--- OUTSIDE RECORDS SUMMARY | ~2020-05-31 | XMS | Encounter Summary ---
Demographics + + + | Address | [address] | | | [place] [address] | + + + | Home Phone | | + + + | Preferred Language | Unknown | + + + | Marital Status | | + + + | Buddhism Affiliation | 1041 | + + + [...] Team Providers + +------+ + | Care Sales Representative [employer]ather [employer]s Name | Role | Phone | + +------+ + | Ana Paula Mays MD | PCP | | + +------+ + Reason for Visit + + + | Reason | Comments | + + + | CPAP Follow Up | | + + + Evaluate & Treat (Routine) +--------+--------+ + + + + | Status | Reason | Specialty | Diagnoses / | Referred By | Referred To | | | | | Procedures | Contact | Contact | +--------+--------+ + + + + | Closed | | Physician | Diagnoses | Tabatha, | John Oro | | | | Seasonal Package Handler / | Obstructive | MD Ana Paula | D, PA [address] | | | | Sleep | sleep apnea | [address] | | | | Medicine | (adult) | [place] | [place], | | | | | (pediatric) | [place] | [place] [address] | | | | | [address] | [address] | Phone: | | | | | [address] | Phone: | [phone] | | | | | 9:00 | [phone] | Fax: | | | | | Procedures | Fax: | [phone] | | | | | OFFICE VISIT | [phone] | | | | | | EXTENDED | | | +--------+--------+ + + + + Encounter Details +--------+---------+ + + + | Date | Type | Department | Care Team | Description | +--------+---------+ + + + | 05/28/ | Office | [facility] | John Oro PA | DHAVAL on CPAP (Primary | | 2016 | Visit | SLEEP DISORDER [address] | [address] | Dx) | | | | [address] [place] | [place], [place] | | | | | [place] [address] | [phone] | | | | | [phone] | | | +--------+---------+ + + + [...] + | Blood Pressure | 130/64 | 05/28/2016 9:15 AM | | | | | PDT | | + + + + + | Pulse | 84 | 05/28/2016 9:15 AM | | | | | PDT | | + + + + + | Temperature | - | - | | + + + + + | Respiratory Rate | 14 | 05/28/2016 9:15 AM | | | | | PDT | | + + + + + | Oxygen Saturation | 98% | 05/28/2016 9:15 AM | | | | | PDT | | + + + + + | Inhaled Oxygen | - | - | | | Concentration | | | | + + + + + | Weight | 96.8 kg (213 lb 4.8 | 05/28/2016 9:15 AM | | | | oz) | PDT | | + + + + + | Height | 163.8 cm (5' 4.5") | 05/28/2016 9:15 AM | | | | | PDT | | + + + + + | Body Mass Index | 36.05 | 05/28/2016 9:15 AM | | | | | PDT | | + + + + + documented in this encounter Progress Notes John Oro PA - 05/28/2016 9:29 AM PDT Subjective: Patient ID: Odalys Cornejo is a 60 y.o. female. HPI last office visit was: 05/26/2015 date of polysomnography: 12/19/2006 AHI: 25.6 RDI: O2%: 89% with 0.0 minutes below 88% Machine type: Push Health AirSense 10 obtained from: [facility] [place] pressure: 4-20 cm Median: 5.9 cm 95%: 8.0 cm maximum: 8.9 cm Nights using CPAP: 331/365 % of nights >4 hours: 83% average usage (all nights): 6:37 average usage (nights used): 7:18 AHI: 0.4 Odalys comes in for CPAP compliance. She was diagnosed with DHAVAL in 2006, but did not do wel l with CPAP. She was again tested for apnea in 2010, but again struggled with compliance wi th CPAP and oral appliance. She began using CPAP again in April, and has done well. Erik edwards continues wearing her CPAP regularly for the duration of her sleep and it has become a reg ular part of her sleep routine. She now feels that she breathes much better with her CPAP a nd cannot sleep without it. She says there are times that she wears it when awake if she is having a difficult time breathing. She does not have any questions or concerns. I have discussed the download in detail. This shows that her sleep apnea is well controlle d, with an AHI of 0.4. It also shows that her leaks are controlled. BP 130/64 mmHg | Pulse 84 | Resp 14 | Ht 1.638 m (5' 4.5") | Wt 96.752 kg (213 lb 4.8 oz) | BMI 36.06 kg/m2 | SpO2 98% Review of Systems Objective: Physical Exam Assessment: Problem #1: OBSTRUCTIVE SLEEP APNEA ([id number]) This is well controlled with CPAP. Her CPAP compliance is going well. Plan: 1. She is to continue with CPAP indefinitely. 2. Touch base with medical supplier twice per year to ensure that all equipment is satisfa ctory. I will follow up again in 1 year, sooner prn. At that time we will reassess with all appro priate paperwork. Fifteen minutes were spent nuet-sv-dpeo, with the majority of time spent in counseling. John Oro PA-C cc: Kevin Ric Paulson, [employer] - 05/28/2016 9:13 AM PDT 05/28/16 0900 Davis Depression Inventory-II Depression Score 1 - Minimal depression Insomnia Severity Index Insomnia Severity Index 3 [place] Sleepiness Scale Sitting and reading 0 Watching TV 0 Sitting, inactive in a public place (e.g. a theatre or a meeting) 0 As a passenger in a car for an hour without a break 0 Lying down to rest in the afternoon when circumstances permit 1 Sitting and talking to someone 0 Sitting quietly after a lunch without alcohol 0 In a car, while stopped for a few minutes in traffic 0 Total score 1 SF-36v2 Score PF 47.97 RP 39.19 BP 38.21 GH 50.81 VT 46.66 SF 47.31 RE 45.72 MH 58.72 PCS 40.64 MCS 53.8 documented in this enco unter Plan of Treatment Not on filedocumented as of this encounter Visit Diagnoses + + | Diagnosis | + + | DHAVAL on CPAP - Primary Obstructive sleep apnea (adult) (pediatric) | + + documented in this encounter
--- OUTSIDE RECORDS SUMMARY | ~2020-05-31 | XMS | Encounter Summary ---
Demographics + + + | Address | [address] | | | [place] [address] | + + + | Home Phone | | + + + | Preferred Language | Unknown | + + + | Marital Status | | + + + | Taoist Affiliation | [id number] | + + + | Race | or | + + + | Ethnic Group | Not or | + + + Author + + + | Author | Located Within [facility] | | | and [place] | + + + | Organization | Located Within [facility] | | [...] Team Providers + +------+ + | Care Security Escort Name | Role | Phone | + [...] | Carlos Yao MD | [address] | | | | | Jaundice | [address] | [place], | | | | | Procedures | [address], [place] | [place] | | | | | MRI MRCP | [address] [place] | [address] | | | | | Liver [place] | [place], [place] | Phone: | | | | | MRI, ABDOMEN | [address] | [phone] | | | | | (MRI) | Phone: | Fax: | | | | | | [phone] | [phone] | | | | | | Fax: | | | | | | | [phone] | | +--------+--------+ + + + + Reason for Visit + + + | Reason | Comments | + + + | Follow-up | EGD/colonoscopy 04/02/2015 - Grace | + + + Evaluate & Treat (Routine) +--------+--------+ + + + + | Status | Reason | Specialty | Diagnoses / | Referred By | Referred To | | | | | Procedures | Contact | Contact | +--------+--------+ + + + + | Closed | | Gastroenterol | Diagnoses | [place], | Joy, | | | | ogmaria del carmen | Follow up | MD Ana Paula | Carlos Yao MD | | | | | wants to see | [address] | [address], | | | | | joy still | [address] [place] | [place] [address] | | | | | having | [place], [place] | [place], | | | | | problems | [address] | [place] [address] | | | | | after | Phone: | Phone: | | | | | procedureBCB | [phone] | [phone] | | | | | S/Tabatha | Fax: | Fax: | | | | | Procedures | [phone] | [phone] | | | | | OFFICE VISIT | | | | | | | REGULAR | | | +--------+--------+ + + + + Encounter Details +--------+---------+ + + + | Date | Type | Department | Care Team | Description | +--------+---------+ + + + | 05/14/ | [facility] | [facility] Carlos Hamilton MD | RUQ pain (Primary | | 2015 | Visit | GASTROENTEROLOGY | [address], [place] | Dx); Jaundice | | | | [address] [place] | [address] [place], [place] | | | | | [address] [place], [place] | [address] | | | | | [address] | | | | | | [phone] | | | +--------+---------+ + + + [...] + + + | Blood Pressure | 106/58 | 05/14/2015 4:06 PM | | | | | PDT | | + + + + + | Pulse | 83 | 05/14/2015 4:06 PM | | | | | PDT | | + + + + + | Temperature | - | - | | + + + + + | Respiratory Rate | 16 | 05/14/2015 4:06 PM | | | | | PDT | | + + + + + | Oxygen Saturation | 93% | 05/14/2015 4:06 PM | | | | | PDT | | + + + + + | Inhaled Oxygen | - | - | | | Concentration | | | | + + + + + | Weight | 94.8 kg (209 lb) | 05/14/2015 4:06 PM | | | | | PDT | | + + + + + | Height | 163.8 cm (5' 4.5") | 05/14/2015 4:06 PM | | | | | PDT | | + + + + + | Body Mass Index | 35.32 | 05/14/2015 4:06 PM | | | | | PDT | | + + + + + documented in this encounter Progress Notes Carlos Hamilton MD - 05/15/2015 6:50 AM PDT Subjective: Patient ID: Odalys Cornejo is a 59 y.o. female. HPI Comments: Patient is seen with respect to abdominal symptoms. The patient had an upper endoscopy colonoscopy by Dr. Edwards on March 2015. There were negative for significant abnor malities. No office note is available to determine the symptoms or other cause for the abov e evaluation. Biopsies of the duodenum were positive for mild chronic duodenitis H. pylori biopsy by microbiology was negative esophagus was normal colon was normal biopsies from the right and left Patient complains of bulging and pressure in the right upper quadrant which radiates throug h to the back. It happens daily is not as precipitated by any activities or food. Usually occurs 1 hour postprandially. She'll also have a gnawing lower abdominal pain. She's had 2 episodes of what she believes her jaundice since the beginning of the year. The last occur red 2-1/2 years ago. Her will notice some yellow eye she'll have some dark colored urine chronic: Colored pale stools. She also has been undergoing evaluation for hematuria. CT scan of the abdomen and pelvis done in [place] was negative for significant abnormalit ies. There was some fatty infiltration of the pancreas. Patient was hospitalized for chest pain and was found to have noncardiac cause with respect to the same. She's recently undergone evaluation for sleep apnea is being treated for the same. Cardiovascular workup was negative. File in 2013 2014 as shown normal liver biochemi stries., Bile duct diameter was not commented on the CT scan presumed normal patient is dave or cholecystectomy her symptoms that she has now are similar to her colon was lithiasis symp toms small bowel appeared normal as did the terminal ileum. It is noted that the patient re cently has lost a brother to renal cell carcinoma and a earlier Brother with pancreatic carc inoma ET scan findings were gone over with the patient and she is reassured that at this poi nt in time we have no evidence for pancreatic malignancy Filed Vitals: 05/14/15 1606 BP: 106/58 Pulse: 83 Resp: 16 PainSc: 4 Allergies Allergen Reactions Lisinopril Cough Atorvastatin Muscle aches Codeine Sulfate Nausea and vomit Morphine Pt. Dose not like as makes her feel wierd Past Medical History Diagnosis Date Diabetes mellitus (HCC) Hyperchloremia Heat stroke 2011 thinks that she might have had once, lost feeling on one side and fell down. mouth went d own for 2-3 weeks. GERD (gastroesophageal reflux disease) DHAVAL (obstructive sleep apnea) Does not use CPAP anymore as says caused sinus and ear infections PONV (postoperative nausea and vomiting) Depression feels alone Chest pain one month ago Abdominal pain gnawing pain radiates around right side to back Hypertension Hyperlipidemia Obesity Miscarriage four times Past Surgical History Procedure Laterality Date Hysterectomy 1994 Tonsillectomy Lumbar spine surgery Approx -2013 Knee surgery Rt. Knee Cholecystectomy Ectopic surgery Bowel obstruction surgery twice Endometriosis surgery Tubal ligation Egd and colonoscopy N/A 04/02/2015 Procedure: EGD / COLONOSCOPY; Surgeon: Yahir Edwards MD; [facility]: [facility] Family History Problem Relation Age of Onset Heart disease Sister CABG age about 60 Diabetes Sister Heart disease Brother Age mid 50s Diabetes Brother Cancer 5 brothers with various cancers, including leg, lung, brain, renal, lymphoma Cancer Brother Heart disease Brother Diabetes Brother Other (See Comment) Brother [place] PTSD, snore Diabetes Mother Heart disease Mother High blood pressure Mother Diabetes Father Heart disease Father High blood pressure Father Diabetes Brother Heart disease Brother High blood pressure Brother Cancer Brother Heart disease Brother Diabetes Brother Diabetes Brother Heart disease Brother Diabetes Brother Heart disease Brother Diabetes Brother Heart disease Brother Diabetes Brother Heart disease Brother Diabetes Brother Heart disease Brother Diabetes Brother Heart disease Brother Diabetes Brother Heart disease Brother Cancer Brother 70 Dying of renal cancer, snore Sleep Apnea Son History Social History Marital Status: Spouse Name: N/A Number of Children: N/A Years of Education: 12+ 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 Respiratory: Positive for shortness of breath. Cardiovascular: Positive for chest pain and palpitations. Endocrine: Negative. Genitourinary: Negative. Musculoskeletal: Negative. Negative for arthralgias. Skin: Negative. Allergic/Immunologic: Negative. Neurological: Positive for headaches. Hematological: Negative. Psychiatric/Behavioral: Negative. All other systems reviewed and are negative. Objective: Physical Exam Constitutional: She is oriented to person, place, and time. She appears well-developed and well-nourished. No distress. HENT: Head: Normocephalic and atraumatic. Right Ear: External ear normal. Left Ear: External ear normal. Nose: Nose normal. Mouth/Throat: Oropharynx is clear and moist. No oropharyngeal exudate. Eyes: Conjunctivae and EOM are normal. Pupils are equal, round, and reactive to light. Righ t eye exhibits no discharge. Left eye exhibits no discharge. No scleral icterus. Neck: Normal range of motion. Neck supple. No JVD present. No tracheal deviation present. Cardiovascular: Normal rate, regular rhythm, normal heart sounds and intact distal pulses. Exam reveals no gallop and no friction rub. No murmur heard. Pulmonary/Chest: Effort normal and breath sounds normal. No stridor. No respiratory distres s. She has no wheezes. She has no rales. She exhibits no tenderness. Abdominal: Soft. Bowel sounds are normal. She exhibits no distension and no mass. There is no tenderness. There is no rebound and no guarding. Musculoskeletal: Normal range of motion. She exhibits no edema or tenderness. Lymphadenopathy: She has no cervical adenopathy. Neurological: She is alert and oriented to person, place, and time. No cranial nerve defici t. She exhibits normal muscle tone. Coordination normal. Skin: Skin is warm and dry. No rash noted. She is not diaphoretic. No erythema. No pallor. Psychiatric: She has a normal mood and affect. Her behavior is normal. Judgment and thought content normal. Nursing note and vitals reviewed. Assessment: Right upper quadrant pain with radiation through to the back associated with jaundice but n ot correlated with elevation in liver function test questionable sphincterotomy dysfunction common bile duct stone or microlithiasis. Fatty infiltration of the pancreas of probable no clinical significance Recent upper endoscopy colonoscopy CT scan negative for significant pathology questionable IBS Recent diagnosis of obstructive sleep apnea Plan: MRCP of the liver and the pancreas to be done as an outpatient. Portions of this report were transcribed using voice recognition software. Every effort wa s made to ensure accuracy; however, inadvertent computerized disability benefits specialist errors may be pre sent. documented in this enc ounter Miscellaneous Notes Addendum Note - Brittany Lang RN - 05/15/2015 3:08 PM PDT Addended by: JOESPH LANG on: 05/15/2015 15:08 Modules accepted: Medications documented in this encounter Plan of Treatment Not on filedocumented as of this encounter Results MRI MRCP Liver (05/29/2015 9:38 AM PDT) + + | Specimen | + + | | + + + + + | Narrative | Performed At | + + + | MRI MRCP LIVER 05/29/2015 9:00 AM HISTORY:?RUQ pain, jaundice, | [facility] | | post cholecystectomy. COMPARISON: CT scan of abdomen and pelvis | [facility] | | 12/31/2008, MRCP 11/19/2008. PROTOCOL: Coronal T2 practical nurse clinical coordinator, axial T2 [facility] | | practical nurse clinical coordinator, coronal 3D respiratory triggered, coronal T2 thin [...] | | | | PROTOCOL: Coronal T2 practical nurse clinical coordinator, axial T2 practical nurse clinical coordinator, coronal 3D respiratory triggered, | | coronal [...] + + | Performing | Address | City[facility]State[facility] | Phone Number | | Organization | | | | + + + + + | [facility] | [address] | [place] | [phone] | | [facility] | | [address] | | | - IMAGING | | | | + + + + + documented in this encounter Visit Diagnoses + + | Diagnosis | + + | RUQ pain - Primary Abdominal pain, right upper quadrant | + + | Jaundice Jaundice, unspecified, not of | + + documented in this encounter
--- OUTSIDE RECORDS SUMMARY | ~2020-05-31 | XMS | Encounter Summary ---
Demographics + + + | Address | [address] | | | [place] [address] | + + + | Home Phone | | + + + | Preferred Language | Unknown | + + + | Marital Status | | + + + | [employer] Affiliation | 1041 | + + + | Race | or | + + + | Ethnic Group | Not or | + + + Author + + + | Author | [facility] | | | and [place] | + + + | Organization | [facility] | | [...] Team Providers + +------+ + | Care Truck Farmer Name | Role | Phone | + +------+ + PCP | Unavailable | + +------+ + Encounter Details +--------+ + + + + | Date | Type | Department | Care Team | Description | +--------+ + + + + | 06/21/ | Abstract | [place] [facility] | [facility] | | | 2011 | | Conversion Location | [address] | | | | | [address] | | | | | | [place], [place] | | | | | | [address] | | | | | | [phone] | | | +--------+ + + + [...] + + + | Blood Pressure | 122/72 | 11/05/2010 12:00 AM | | | | | PST | | + + + + + | Pulse | - | - | | + + + + + | Temperature | - | - | | + + + + + | Respiratory Rate | - | - | | + + + + + | Oxygen Saturation | - | - | | + + + + + | Inhaled Oxygen | - | - | | | Concentration | | | | + + + + + | Weight | 100.5 kg (221 lb 8 | 11/05/2010 12:00 AM | | | | oz) | PST | | + + + + + | Height | 166.4 cm (5' 5.5") | 09/25/2010 12:00 AM | | | | | PST | | + + + + + | Body Mass Index | 36.3 | 09/25/2010 12:00 AM | | | | | PST | | + + + + + documented in this encounter Plan of Treatment Not on filedocumented as of this encounter Visit Diagnoses Not on filedocumented in this encounter
--- OUTSIDE RECORDS SUMMARY | ~2020-05-31 | XMS | Encounter Summary ---
Demographics + + + | Address | [address] | | | [place] [address] | + + + | Home Phone [...] + + + | Author | [facility] | | | and [place] | + + + | Organization | [facility] | | | [...] Team Providers + +------+ + | Care Producer Director Name | Role | Phone | + +------+ + | Ana Paula Masy MD | PCP | | + +------+ + Reason for Visit Auth/Cert +--------+--------+ + + + + | Status | Reason | Specialty | Diagnoses / | Referred By | Referred To | | | | | Procedures | Contact | Contact | +--------+--------+ + + + + | Closed | | | Diagnoses | | [facility] | | | | | Unstable | | [address] | | | | | [place]ina | | [place], | | | | | | | [place] | | | | | | | [address] | | | | | | | Phone: | | | | | | | [phone] | | | | | | | Fax: | | | | | | | [phone] | +--------+--------+ + + + + Encounter Details +--------+ + + + + | Date | Type | Department | Care Team | Description | +--------+ + + + + | 03/05/ | Hospital | [facility] | Wilbur Valdez, | Chest pain, | | 2015 - | Encounter | [facility] ICU [address] | MD [address] | unspecified chest | | | | [place], | [place], [place] | pain type (Primary | | 03/06/ | | [place] [address] | [id number] | Dx); Acute chest | | 2014 | | [phone] | | pain | +--------+ + + + + Social [...] + + + | Blood Pressure | 117/55 | 03/06/2015 11:20 AM | | | | | PDT | | + + + + + | Pulse | 74 | 03/06/2015 11:20 AM | | | | | PDT | | + + + + + | Temperature | 36.3 C (97.3 F) | 03/06/2015 11:20 AM | | | | | PDT | | + + + + + | Respiratory Rate | 20 | 03/06/2015 11:20 AM | | | | | PDT | | + + + + + | Oxygen Saturation | 98% | 03/06/2015 11:20 AM | | | | | PDT | | + + + + + | Inhaled Oxygen | - | - | | | Concentration | | | | + + + + + | Weight | - | - | | + + + + + | Height | - | - | | + + + + + | Body Mass Index | - | - | | + + + + + documented in this encounter Discharge Summaries Wilbur Valdez MD - 03/06/2015 2:59 PM PDTFormatting of this note might be different fro m the original. [place], [place] DISCHARGE SUMMARY Pt. Name/Age/: Odalys Cornejo 59 y.o. 1955 Date of Admission: 03/05/2015 Date of Discharge: 03/06/2015 Admitting Physician: Wilbur Valdez MD Primary Care Provider: Ana Paula Mays Discharging Physician: Wilbur Valdez MD DISCHARGE DIAGNOSES: Active Hospital Problems Diagnosis Chest pain Hyperlipidemia Stress at home Obstructive sleep apnea Diabetes mellitus, type II Family history of ischemic heart disease Resolved Hospital Problems Diagnosis No resolved problems to display. DISCHARGE MEDICATIONS: Discharge Medications Changed Medications Details aspirin 81 MG tablet Take 1 tablet by mouth Daily. What changed: - medication strength - how much to take Unchanged Medications Details Cholecalciferol 2000 units Caps Take 2,000 Units by mouth Daily. aka: VITAMIN D-3 cyclobenzaprine 10 mg tablet Take 10 mg by mouth 3 times daily as needed for Muscle spasms. aka: FLEXERIL FLUoxetine 10 mg capsule Take 10 mg by mouth Daily. aka: PROzac glipiZIDE 5 mg 24 hr tablet Take 5 mg by mouth daily (with breakfast). aka: GLUCOTROL XL hydrochlorothiazide 25 mg tablet Take 25 mg by mouth Daily. JANUMET 50-1000 MG per tablet Generic drug: sitagliptan-metFORMIN Take 1 tablet by mouth 2 times daily (with breakfast & dinner). lovastatin 20 mg tablet Take 20 mg by mouth nightly. aka: MEVACOR nitroglycerin 0.[address] 0.4 mg under the tongue every 5 minutes as needed for Chest pain. aka: NITROSTAT omeprazole 20 mg capsule Take 20 mg by mouth every morning (before breakfast). aka: Delia HOSPITAL COURSE: Please refer to the H&P for full details and the most recent rounding rounding (progress) n ote. Active Hospital Problems Diagnosis Chest pain Troponin in [place] Some relief with NTG Will do stress test today. Discussed if negative then home today and should have her PCP se t her up to see Dr Hamilton (she says last EGD about 6 years ago) Hyperlipidemia Stress at home Brother last week of cancer Obstructive sleep apnea but won't use her CPAP Discussed seeing Dr Sanz again Diabetes mellitus, type II Family history of ischemic heart disease DVT Prophylaxis SCD's while in bed Code Status DNR, DNI, I went over this carefully and she is sure in ER Medical Decision Maker Plan Stress test today Note neg enzymes Stress test normal and I discussed with patient makes her low risk but does not entirely ex clude CAD thus if significant recurrence of chest pain to still go to ER for eval. Discussed NTG relieves both cardiac pain and esophageal pain. Most recent weight: Input and output for last 24hrs: Wt Readings from Last 1 Encounters: 11/05/10 100.472 kg (221 lb 8 oz) I/O last 24 Hours: In: 704 [I.V.:704] Out: 475 [Urine:475] Vitals Ranges: Temp: [35.6 C (96.1 F)-36.7 C (98.1 F)] 36.3 C (97.3 F) Pulse: [57-90] 74 Resp: [9-28] 20 BP: (80-135)/(31-66) 117/55 mmHg Vitals: Temp: 36.3 C (97.3 F) BP: 117/55 mmHg Pulse: 74 Resp: 20 SpO2: 98 % SpO2 98 % on room air at flow rate 2L/min PHYSICAL EXAM: Patient seen and examined by me on discharge day PROCEDURES AND CONSULTS: Procedures stress test PENDING RESULTS: DISPOSITION AND DISCHARGE INSTRUCTIONS: Follow-up Information Follow up with Ana Paula Mays MD. Specialty: Family Medicine Why: Call Dr Mays and set up appt for this coming week Contact information: [id number] [place] [address] Condition: Patient being discharged with condition stable Healthy diabetic low fat low chol diet Regular physical activity If moderate to severe recurrence of chest pain do be seen again in ER Talk to Dr Mays about counseling vs medicines for stress Have Dr Mays refer you to filling hauler to consider upper endoscopy and to consider having you see Dr Sanz again for followup on sleep apnea Greater than 30 minutes were spent on discharge and coordination of post-hospital care. Electronically signed by: Wilbur Valdez MD, 03/06/2015 14:59 [facility] Portions of this chart may have been created with [employer] voice recognition software. Occasi onal wrong-word or sound-alike substitutions may have occurred due to the inherent wilkins itations of voice recognition software. Please read the chart carefully and recognize, using context, where these substitutions have occurred documented in this en counter Discharge Instructions Instructions Freida Arana RN - 03/06/2015 Healthy diabetic low fat low chol diet Regular physical activity If moderate to severe recurrence of chest pain do be seen again in ER Talk to Dr Mays about counseling vs medicines for stress Have Dr Mays refer you to filling hauler to consider upper endoscopy and to consider having you see Dr Sanz again for followup on sleep apnea Discharge Instructions for Angina You have been diagnosed with a type of chest pain called angina.Angina occurs when too li ttle oxygen reaches the heart muscle. It is most often felt under your breastbone, in your l eft shoulder, or down your left arm. The pain may even spread to your jaw or back. Exercise, increased activity, emotional upset, or stress can trigger this pain. With proper treatment and lifestyle changes to reduce risk factors, most people with angina are able to maintain a full and active life. Managing Risk Factors Your health care provider will work with you to modify lifestyle factors as needed to help prevent progression of atherosclerotic cardiovascular disease (ASCVD), which may be the caus e of your angina. Factors you may need to work on include: Diet Your health care provider will give you information on dietary changes that you may need to make, based on your situation. Your provider may recommend that you see a registered dietit tal for help with diet changes. Changes may include: Reducing fat and cholesterol intake Reducing sodium (salt) intake, especially if you have high blood pressure Increasing your intake of fresh vegetables and fruits Eating lean proteins, such as fish, poultry, and legumes (beans and peas) and eating les s red meat and processed meats Using low-fat dairy products Using vegetable and nut oils in limited amounts Limiting sweets and processed foods such as chips, cookies, and baked goods Physical activity Your health care provider may recommend that you increase your physical activity if you hav e not been as active as possible. Depending on your situation, your provider may recommend t hat you include moderate to vigorous intensity physical activity for at least 40 minutes eac h day for at least 3 to 4 days per week. A few examples of moderate to vigorous intensity ph ysical activity include: Walking at a brisk pace, about 3 to 4 miles per hour Jogging or running Swimming or water aerobics Hiking Dancing Martial arts Tennis Riding a bicycle or stationary bike Dancing Weight management If you are overweight or obese, your health care provider will work with you to lose weight and lower your BMI (body mass index) to a normal or near-normal level. Making diet changes and increasing physical activity can help. Smoking If you smoke, break the smoking habit. Enroll in a stop-smoking program to improve your rk nces of success. Stress Learn stress management techniques to help you deal with stress in your home and work life. Managing Medication Keep a record of your episodes of chest pain. Take these with you when you see your doct or. Take your medication exactly as directed. Don t skip doses. Taking Nitroglycerin Keep your nitroglycerin with you at all times. If you re on nitroglycerin, don t take medications used to treat impotenceat all. These medications can react with nitroglycerin and cause your blood pressure to drop to a da ngerous or even life-threatening level. If you use nitroglycerin to prevent angina attacks, follow your doctor s instructions for your kind of nitroglycerin (pill, spray,or skin ointment). If you use nitroglycerin to stop an angina attack, follow these steps: Sit down (you may become dizzy). Place1 tablet under your tongue, or between your lip and gum, or between your cheek an d gum. Let the tablet dissolve completely; do not chew or swallow the tablet. If you use a spray, then spray once on orunder your tongue. Do not inhale. Close your mouth. Wait a few seconds before you swallow and don't rinse your mouth for5 to 10 minutes . After taking1 tablet or spraying once, continue sitting for 5 minutes. If the angina goes away completely, rest awhile and follow your doctor's orders about re turning to your normal routine. If thechest pain or pressurecontinues, CALL 911 immediately. Do NOT delay. You may b e having a heart attack (acute myocardial infarction, or AMI)! You may be told by your doctor to CALL 911 after taking 2 or 3 tables or sprays of nitro glycerin (spaced 5 minutes apart) and the chest pain or pressure is still present 5 minutes after the last dose. Do not take more than 3 tablets, or spray more than 3 times, within 15 minutes. When to Call Your Doctor Call your doctor immediately if youhave any of the following: Severe headache Severe dizziness, or fainting Nausea or vomiting Fast heartbeat (higher than 100 beats per minute) Swollen ankles Weakness Angina attacks that last longer, occur more often, or are more severe than in the past [id number] [facility]. [address] [place] [address], [place] [address]. All righ ts reserved. This information is not intended as a substitute for professional medical care. Always follow your healthcare professional's instructions. Chest Pain, Uncertain Cause Chest pain can happen for a number of reasons. Sometimes the cause can not be determined. I f yourcondition does not seem serious, and your pain does not appear to be coming from you r heart, your doctor may recommend watching it closely. Sometimes the signs of a serious pro blem take more time to appear. Therefore, watch for the warning signs listed below. Home care After your visit, follow these recommendations: Rest today and avoid strenuous activity. Take any prescribed medicine as directed. Follow-up care Follow up with your doctor or this facility as instructed or if you do not start to feel be tter within 24 hours. Call 911 Get immediate medical attention if any of the following occur: A change in the type of pain: if it feels different, becomes more severe, lasts longer, or begins to spread into your shoulder, arm, neck, jaw or back Shortness of breath or increased pain with breathing Weakness, dizziness, or fainting Rapid heart beat Get prompt medical attention Call your doctor right away if any of the following occur: Cough with dark colored sputum (phlegm) or blood Fever of 100.4F(38C) or higher, or as directed by your health care provider Swelling, pain or redness in one leg [id number] [facility]. [address] [place] [address], [place] [address]. All righ ts reserved. This information is not intended as a substitute for professional medical care. Always follow your healthcare professional's instructions. Recognizing a Heart Attack or Angina If you have risk factors for heart problems, you should always be on the lookout for signs of angina or a heart attack. If you have a sudden heart problem, getting treatment right carroll y could save your life. Understanding angina and heart attack Anginais a painful burning, tightness, or pressure in the chest, back, neck, throat, o r jaw. It signals a lowered amount of blood flow to the heart, most commonly explained by a blockage in a heart artery.Angina is a signthat you may be having, or are about to have, aheart attack. A heart attack, also known as acute myocardial infarction, or AMI, is what happens when blood cannot get to part of the heartmuscle. Part of the heart muscle then begins to . A heart attack can be deadly. It is vital to get help as soon as possible for a heart attack . Stable angina versus unstable angina Stable angina, also known as chronic angina, has a typical pattern. It occurs predictably w ith physical exertion or strong emotion. Symptoms are easily relieved by rest and nitroglyce rin or both. Angina symptoms will most likely feel the same time each time you have them. It is important to discuss these symptoms with your doctor as they can be a warning sign for a future heart attack. Unstable angina causes unexpected or unpredictable symptoms, commonly occuring at rest, and is a medical emergency. Angina is also considered unstable if resting and nitroglycerin don 't provide symptom relief or if symptoms are worsening, occuring more frequently and lasting longer. These symptoms suggest a severe blockage or a spasm of a heart artery. Unstable ang kirstin is commonly a sign of an active heart attack. Remember the following tips: Stable angina symptoms last for only a few minutes. If they last for longer than a few m inutes, or go away and come back, you may be having a heart attack. Call 911! Stable angina symptoms should go away with rest or medication. If they don t go away, call 911! If you have shortness of breath, cold sweat, nausea, or lightheadedness, call 911! For new-onset angina, there is only one response: ?call 911! You should never "diagnose" an victor manuel by yourself. If these symptoms are new, or worse than usual, call 911! Warning signs of a heart attack If you have symptoms that you can t explain, call 911 right away. The following are warni ng signs of a possible heart attack: Chest discomfort.Most heart attacks involve discomfort in the center of the chest that lasts more than a few minutes, or that goes away and comes back. It can feel like uncomfort able pressure, squeezing, fullness or pain. Discomfort in other areas of the upper body.Symptoms can include pain or discomfort in one or both arms, the back, neck, jaw, or stomach. Shortness of breathwith or without chest discomfort. Other signsmay include breaking out in a cold sweat, nausea, or lightheadedness. Note for women:Like men, women commonly have chest pain or discomfort as a heart attack s ymptom. But women are somewhat more likely than men to have other common symptoms, particula rly shortness of breath, nausea and vomiting, back pain, or jaw pain. If you have diabetes: silent heart problems Over time, high blood sugar can damage nerves in your body. This may keep you from feeling pain caused by a heart problem, leading to a silent heart problem. If you don t feel symptoms, you are less able to get treatment right away. Talk to your health care provider about how to lower your risk for silent heart problems. [id number] [facility]. [address] [place] [address], [place] [address]. All righ ts reserved. This information is not intended as a substitute for professional medical care. Always follow your healthcare professional's instructions. documented in this encounter Medications at Time [...] documented as of this encounter Progress Notes Wilbur Valdez MD - 03/06/2015 6:45 AM PDTFormatting of this note might be different fro m the original. [place], [place] PROGRESS NOTE Patient: Odalys Cornejo : 1955: Age: 59 y.o. MedRec: [id number] PCP: Ana Paula Mays Admission date: 03/05/2015 Hospital day # : 1 Physician author: Wilbur Valdez MD Today: 03/06/2015 Allergies: Allergies Allergen Reactions Lisinopril Cough Atorvastatin Muscle aches Codeine Sulfate Nausea and vomit Morphine Pt. Dose not like as makes her feel wierd Current Medications: Current Facility-Administered Medications Medication Dose Route Frequency Provider Last Rate Last Dose acetaminophen (TYLENOL) tablet 650 mg 650 mg Oral Q4H PRN Wilbur Valdez MD aspirin tablet 325 mg 325 mg Oral Daily Wilbur Valdez MD cholecalciferol (VITAMIN D-3) tablet 2,000 Units 2,000 Units Oral Daily Wilbur Valdez MD cyclobenzaprine (FLEXERIL) tablet 10 mg 10 mg Oral TID PRN Wilbur Valdez MD dextrose 50% injection 12.5 g 12.5 g Intravenous PRN Wilbur Valdez MD docusate sodium (COLACE) capsule 100 mg 100 mg Oral BID PRN Wilbur Valdez MD FLUoxetine (PROzac) capsule 10 mg 10 mg Oral Daily Wilbur Valdez MD glipiZIDE (GLUCOTROL XL) ER tablet 5 mg 5 mg Oral Daily with breakfast Wilbur Valdez MD hydrochlorothiazide tablet 25 mg 25 mg Oral Daily Wilbur Valdez MD HYDROmorphone (DILAUDID) injection 0.25-1 mg 0.25-1 mg Intravenous Q2H PRN Wilbur clark MD insulin lispro (humaLOG KWIKPEN) injection pen 0-6 Units 0-6 Units Subcutaneous 4x Vida ly WC and HS Wilbur Valdez MD LORazepam (ATIVAN) tablet 0.5 mg 0.5 mg Oral Nightly PRN, MR x 1 Wilbur Valdez MD metFORMIN (GLUCOPHAGE) tablet 1,000 mg 1,000 mg Oral BID Wilbur Valdez MD nitroglycerin (NITROSTAT) SL tablet 0.4 mg 0.4 mg Sublingual Q5 Min PRN Wilbur Valdez MD ondansetron (ZOFRAN ODT) disintegrating tablet 4 mg 4 mg Oral Q6H PRN Wilbur Valdez MD ondansetron (ZOFRAN) injection 4 mg 4 mg Intravenous Q6H PRN Wilbur Valdez MD pantoprazole (PROTONIX) DR tablet 40 mg 40 mg Oral QAM AC Wilbur Valdez MD 40 mg a t 03/06/15 0642 regadenoson (LEXISCAN) injection 0.4 mg 0.4 mg Intravenous Once PRN Wilbur Valdez MD senna (SENOKOT) tablet 8.6 mg 8.6 mg Oral BID PRN Wilbur Valdez MD sitagliptin (JANUVIA) tablet 50 mg 50 mg Oral BID Wilbur Valdez MD sodium chloride 0.9% (NS) infusion Intravenous Continuous Geoff Pickard DO 75 mL/ hr at 03/05/152043 Current Infusions: sodium chloride 0.9% 75 mL/hr at 03/05/152043 Objective Data Labs Recent Labs Lab 03/05/151941 WBC 6.0 HGB 11.6 HCT 35.6 PLT 315 NEUPCT 50.0 MONPCT 6.6 No results for input(s): PROTIME, INR in the last 168 hours. No results for input(s): PTT in the last 168 hours. Recent Labs Lab 03/05/151941 GLU 117* NA 138 K 3.5 CL 104 CO2 29 ANIONGAP 5 BUN 15 CREA 0.81 GFRNONAA >60 CALCIUM 8.7 ALBUMIN 3.4 TOTALPROTEIN 6.1 BILITOT 0.4 ALKPHOS 84 ALT 18 AST 18 No results for input(s): BNP in the last 168 hours. No results for input(s): MG in the last 168 hours. No results for input(s): PHOS in the last 168 hours. No results for input(s): AMYLASE, LIPASE in the last 168 hours. No results for input(s): AMMONIA in the last 168 hours. Recent Labs Lab 03/06/15 0028 03/05/151941 TROPONINI <0.01 <0.01 No results for input(s): PHART, PO2ART, BDI2HYC, LQX2CFQ, BEART, Z2PRREDS in the last 168 h ours. No results for input(s): SPECSOURCE, PHPOCB, HCO3, TCO2, BEART, BE, IFPF0VPY in the last 16 8 hours. Invalid input(s): YZIYU5QX, BITE6DH Point of care glucose: Recent Labs Lab 03/06/15 0636 03/05/152023 POCGLU 121 106 Serial weights: There were no vitals filed for this visit. Most recent weight: Input and output for last 24hrs: Wt Readings from Last 1 Encounters: 11/05/10 100.472 kg (221 lb 8 oz) I/O last 24 Hours: In: - Out: 200 [Urine:200] I/O last 3 completed shifts: In: - Out: 200 [Urine:200] Vitals Ranges: Temp: [35.9 C (96.6 F)-36.7 C (98.1 F)] 36.2 C (97.2 F) Pulse: [57-82] 67 Resp: [9-28] 15 BP: (80-117)/(31-66) 113/55 mmHg Vitals: Temp: 36.2 C (97.2 F) BP: 113/55 mmHg Pulse: 67 Resp: 15 SpO2: 100 % SpO2 100 % on nasal cannula at flow rate 2L/min Subjective CC admitted with CP No CP Not SOB 88% asleep so on O2 last NOC and I discussed seeing Dr Sanz again (last 3 years ago) ROS See above Exam General alert, NAD mood and affect normal speech fluent Cardiac RRR no MRG Extremities no significant edema Lung clear to auscultation effort not labored Abdominal + bowel sounds, soft, mild epig tender Assessment and Hospital Course (meyprob vs meyprobap) Active Hospital Problems Diagnosis Chest pain Troponin in [place] Some relief with NTG Will do stress test today. Discussed if negative then home today and should have her PCP se t her up to see Dr Hamilton (she says last EGD about 6 years ago) Hyperlipidemia Stress at home Brother last week of cancer Obstructive sleep apnea but won't use her CPAP Discussed seeing Dr Sanz again Diabetes mellitus, type II Family history of ischemic heart disease DVT Prophylaxis SCD's while in bed Code Status DNR, DNI, I went over this carefully and she is sure in ER Medical Decision Maker Plan Stress test today Note neg enzymes Wilbur Valdez MD 03/06/2015 6:45 [facility] Portions of this chart may have been created with [employer] voice recognition software. Occasi onal wrong-word or sound-alike substitutions may have occurred due to the inherent wilkins itations of voice recognition software. Please read the chart carefully and recognize, using context, where these substitutions have occurred oChelsey estrella RN - 03/05/2015 8:[address] Pickard of BP at 2014 101/52, at 2029 80/66, at 2031 103/ 56. Nitro paste was removed. Instructed to start IV fluids and replace nitropaste per order s documented in this enc ounter H&P Notes Wilbur Valdez MD - 03/05/2015 6:52 PM PDTFormatting of this note might be different fro m the original. [place], [place] HISTORY & PHYSICAL Patient: Odalys Cornejo : 1955: Age: 59 y.o. MedRec: [id number] PCP: Ana Paula Mays Admission date: 03/05/2015 Hospital day #: 0 Physician author: Wilbur Valdez MD Today: 03/05/2015 CHIEF COMPLAINT: Chest Pain HISTORY OF PRESENT ILLNESS: This is a 59 y.o. female with a history of chest pain started last month at rest, not know if worse with walking, typically 10-15 minutes left anterior CP occ radiate to left shoulder . Much stress as with dying brother (cancer) whom last week on . Chest pain wor se saw Dr Mays and got NTG SL and set up to see Dr [place] for next week but his morning CP worse grade 7-8 associated with SOB, radiation, nausea, not diaphoresis, at rest approx 11 am bad for 30-45 mins got relief from NTG SL at home several times but kept coming back so t o [place] [facility] with EKG and labs and CXR and pain got NTG no help then dilaudid pain free an d got some ativan prior to transport and brigitte goldsmithte. Was to fly to tomorrow am. No pleurisy Wt stable Hx of EGD she says OK but is on prilosec daily Was light headed Recent 6 month ago lumbar sgy in [place] No rash No breast problem Glasses and vision better PAST MEDICAL and SURGICAL HISTORY: Past Medical History Diagnosis Date Diabetes mellitus (HCC) Hyperchloremia Stroke (HCC) thinks that she might have had once, lost feeling on one side and fell down. mouth went d own for 2-3 weeks. GERD (gastroesophageal reflux disease) DHAVAL (obstructive sleep apnea) Does not use CPAP anymore as says caused sinus and ear infections Past Surgical History Procedure Laterality Date Hysterectomy 1994 Tonsillectomy Lumbar spine surgery Approx -2013 Knee surgery Rt. Knee Cholecystectomy Ectopic surgery Bowel obstruction surgery twice Endometriosis surgery FAMILY HISTORY: family history includes Cancer in an other family member; Heart disease in her brother and sister. SOCIAL HISTORY: reports that she has never smoked. She does not have any smokeless tobacco history on file . She reports that she does not drink alcohol or use illicit drugs. REVIEW OF SYSTEMS: I did my usual 10 system ROS using: Constitutional, Eye, ENT, Cardiac, Respiratory, GI, , Musculoskeletal, Skin & Breast, Neurological. Also see notations in HPI. 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 Remainder of 10 system ROS negative HOME MEDICATIONS: Current Discharge Medication List CONTINUE these medications which have NOT CHANGED Details aspirin 325 mg tablet Take 325 mg by mouth Daily. Cholecalciferol (VITAMIN D-3) 2000 units CAPS Take 2,000 Units by mouth Daily. cyclobenzaprine (FLEXERIL) 10 mg tablet Take 10 mg by mouth 3 times daily as needed for Mus negar spasms. FLUoxetine (PROZAC) 10 mg capsule Take 10 mg by mouth Daily. glipiZIDE (GLUCOTROL XL) 5 mg 24 hr tablet Take 5 mg by mouth daily (with breakfast). hydrochlorothiazide 25 mg tablet Take 25 mg by mouth Daily. lovastatin (MEVACOR) 20 mg tablet Take 20 mg by mouth nightly. nitroglycerin (NITROSTAT) 0.[address] 0.4 mg under the tongue every 5 minutes as needed for Chest pain. omeprazole (PRILOSEC) 20 mg capsule Take 20 mg by mouth every morning (before breakfast). sitagliptan-metFORMIN (JANUMET) 50-1000 MG per tablet Take 1 tablet by mouth 2 times daily (with breakfast & dinner). ALLERGIES: Allergies Allergen Reactions Lisinopril Cough Atorvastatin Muscle aches Codeine Sulfate Nausea and vomit Morphine Pt. Dose not like as makes her feel wierd VITAL SIGNS: Temp: 36.7 C (98.1 F), Pulse: 82, Resp: 16, BP: 114/63 mmHg, SpO2 97 % on room air at f low rate L/min Temp Min: 36.7 C (98.1 F) Max: 36.7 C (98.1 F) PHYSICAL EXAMINATION: Constitutional Alert NAD Eye Pupils ER No conjunctivitis nor scleral icterus ENT Unremarkable oral ear and nose Neck No adenopathy, thyromegaly nor masses Lymph node exam Negative in the following areas: neck and epitrochlea Cardiac Rate and Rhythm reg Murmur no LE edema mild Lung Auscultation clear Respiratory effort not labored Percussion not performed Abdomen + BS, Soft, NT, no HSM nor masses Psych Mood and affect normal Oriented to name, date and place Neuro Alert and coop Fluent Face symm Aquatics Manager and Biceps [place] and no pronator drift Calves NT (dot meyexam) DIAGNOSTIC STUDIES: No results for input(s): WBC, HGB, HCT, PLT, NEUPCT, MONPCT in the last 168 hours. Invalid input(s): EOSPCT, NEUABC No results for input(s): PROTIME, INR in the last 168 hours. No results for input(s): PTT in the last 168 hours. No results for input(s): GLU, NA, K, CL, CO2, ANIONGAP, BUN, CREA, GFRNONAA, CALCIUM, ALBUM IN, TOTALPROTEIN, BILITOT, ALKPHOS, ALT, AST in the last 168 hours. No results for input(s): BNP in the last 168 hours. No results for input(s): MG in the last 168 hours. No results for input(s): PHOS in the last 168 hours. No results for input(s): AMYLASE, LIPASE in the last 168 hours. No results for input(s): AMMONIA in the last 168 hours. No results for input(s): TROPONINI, CK, CKMB in the last 168 hours. Invalid input(s): CKTOTAL No results for input(s): PHART, PO2ART, VSP1HVW, MKH3XIT, BEART, P8QECBOZ in the last 168 h ours. No results for input(s): SPECSOURCE, PHPOCB, HCO3, TCO2, BEART, BE, [id number] in the last 16 8 hours. Invalid input(s): FMDPA2OO, ZMHF8XA (dot meylab) Xray Results: No results found. EKG Results (I reviewed EKG) NSSTT changes in [place] I reviewed and summarized old records had some in [facility] and some from [place] ASSESSMENT: (meyprob vs meyprobap) Principal Problem: Chest pain Active Hospital Problems Diagnosis Chest pain Troponin in [place] Some relief with NTG Will do stress test in morning Hyperlipidemia Stress at home Brother last week of cancer Obstructive sleep apnea but won't use her CPAP Diabetes mellitus, type II Family history of ischemic heart disease DVT Prophylaxis SCD's while in bed Code Status DNR, DNI, I went over this carefully and she is sure Medical Decision Maker PLAN: Stress test tomorrow NTG paste off at 0300 Labs ordered for here and EKG She says had CXR at [facility] Documentation I expect this patient will be hospitalized for less than 2-midnights and expect the post-ho spital plan to be discharge to home or to an adult foster home. Electronically signed by: Wilbur Valdez MD 03/05/2015 18:52 [facility] Portions of this chart may have been created with [employer] voice recognition software. Occasi onal wrong-word or sound-alike substitutions may have occurred due to the inherent wilkins itations of voice recognition software. Please read the chart carefully and recognize, using context, where these substitutions have occurred documented in this en counter Procedure Notes Kelvin Sher MD - 03/06/2015 8:43 AM PDTAssociated Order(s): ECG 12 LEAD Adult ECG Repo rt Name: Odalys Cornejo Age: 59 y.o. Gender: female 03/05/15 at 18:59 Narrative Interpretation: Normal sinus rhythm. Prolonged QTc interval. Normal axis. documented in this enc ounter Miscellaneous Notes eICU Note - Freida Arana RN - 03/06/2015 3:50 PM PDTDischarge instructions reviewed and questions answered. Patient discharge to home with . Escorted to car via wheel chair. eICU Marleny - Abdirashid Arana RN - 03/06/2015 10:15 AM PDTPatient reports feeling nausea. Zofran given. Patient was ab le to ambulate back to bed without any other c/o. lan of Care - Norman Daley Chaplain - 03/06/2015 10:11 AM PDT Problem: General Plan of Care (Adult, Obstetrics) Goal: Care Plan Shift Summary & Review . Spiritual Care Odalys Cornejo is a 59 y.o. female who is admitted for Unstable agina. Spiritual Evaluation: Patient is active in her home jehovah's witness. Just lost her brother and would like to get to his [facility]. Has strong dickson in [place], active in [employer] in [place], [place]. Spiritual Intervention: Listened and evaluated. Had prayer and blessing. Spiritual Outcomes: Patient seems less anxious since certified physician assistant visit. Spiritual Goals / Follow-up: Provide ongoing emotional and spiritual support as requested by patient. lan of Care - Michael Cruz RRT - 03/06/2015 9:47 AM PDTFormatting of this note might be different f rom the original. Problem: General Plan of Care (Adult, Obstetrics) Goal: Care Plan Shift Summary & Review . Outcome: Progressing Here for CP, BS clear, no SOB, SpO2 on RA while awake 98%, needs CPAP but will not wear (OS A), no interventions needed at this time Severity Score 1 Class 1 Severity Score 0-4 ITEM 0 1 2 3 4 0 Respiratory History No Smoking history Current tobacco use Up to 10 Pack year history. Simple home regimen Known Pulmonary Disease 20 pack year history Complex Home regimen 30+ pack year history Severe Pulmonary Disease or exacerbation 0 Surgery Status (current admission) No surgery Minor surgery Lower abdominal rib fractures Thoracic or uppe r abdominal Thoracic with pulmonary disease or Central Nervous System 1 Chest X-RAY Clear or Normal baseline Unavailable Improving/clearing Abnormal, Unilateral or mild Infiltrates or atelectasis, Chronic changes Infiltrates mild bilateral or unilateral or pleural effusions extensive Inf iltrates, atelectasis or pleural effusions, pneumothorax 0 Respiratory Pattern Regular pattern Respiratory Rate:8-20 Increased Respiratory Rate, labored Dyspnea on exertion, irregular pattern Use of accessory muscles, prolonged expirato ry phase nasal flaring Severe Dyspnea , Purse Lip Breathing, Use of accessory muscles 0 Breath Sounds Clear Diminished unilaterally Diminished bilaterally &/or crackles Wheezing or Rhonchi &/or absent unilateral Absent bilaterally 0 Cough Strong, non productive Moderate, loose, productive Weak, non-productive Weak, ineffective Non-spontaneous or may require suctioning 0 Sputum None Scant / Thin White/clear Moderate Beige/ yellow Large / Thick Dark Green/Brown Copious / Plugs Hemoptysis zana 0 LOC Alert, oriented, cooperative Disoriented, follows commands Obtunded, arousable, follo ws commands Obtunded, uncooperative, sedated Comatose 0 Oxygen Demand Room air Baseline 1-2 liters 3-6 liters >7 Liters Oxymizer to > 55% 60% or greater Total Severity Score (SS) Class 0-3 1 4-7 2 8-11 3 12-14 4 15+ 5 lan of Care - Barbara Sidhu, COMMERCIAL LEASE ADMINISTRATOR - 03/06/2015 5:22 AM PDTProblem: General Plan of Care (Adult, Obstetrics) Goal: Care Plan Shift Summary & Review . RN reported to RT early in shift that when pt fell asleep she dropped intos 70s. Pt was cesar reji on 2 lpm nc-sao2 99-100% throughout shift. lan of Care - Prabhakar er, Chelsey Yao RN - 03/06/2015 2:50 AM PDTProblem: General Plan of Care (Adult, Obstetrics) Goal: Care Plan Shift Summary & Review . Outcome: Progressing At beginning of shift pt reports intermittent twinge of chest pain rating 0-2/10. Currently no chest pain. Ambulates w/supervision. Manages own HS care w/set up. Has been NPO since nd dnight for am stress test. IV fluids continue at 75cc/hr. SBP ranges from low 90's to low 1 00's, heart rate in the 60's. Was placed on nasal O2 due to drop in sats when sleeping. Unab le to tolerate using CPAP. Pt discussed her [employer] walk and reliance on [place]. Very seren e and content when discussing her brothers' illnesses and . She continues to express th e need to travel to be with family. lan of Care - Rudi tt, Barbara Vazquez COMMERCIAL LEASE ADMINISTRATOR - 03/05/2015 7:14 PM PDT Problem: General Plan of Care (Adult, Obstetrics) Goal: Care Plan Shift Summary & Review . Severity Score 0-3 /Class Chart 1 Severity Score 0-3 Known DHAVAL but doesn't wear cpap. Will monitor to see if O2 needed while asleep. No respirat ory history, bs clear, npc upon request. ITEM 0 1 2 3 4 0 Respiratory History No Smoking history Current tobacco use Up to 10 Pack year history Known Pulmonary Disease 20 pack year history Home regimen 30+ pack year history Severe Pulmonary Disease or exacerbation 0 Surgery Status (current admission) No surgery Minor surgery Lower abdominal Thoracic or upper abdominal Th oracic with pulmonary disease or Central Nervous System 1 Chest X-RAY Clear/Normal Unavailable Or Baseline/ Improving/ clearing Abnormal, Unilateral or mild Infiltrates or atelectasis, Chronic changes Infiltrates bilateral extensive Infiltrates, atelectasis or pleural effusions, pneumothorax 0 Respiratory Pattern Regular pattern Respiratory Rate:8-20 Increased Respiratory Rate, labored Dyspnea on exertion, irregular pattern Use of accessory muscles, E>I, speaks 1-2 wo rd sentences, nasal flaring Severe Dyspnea , Purse Lip Breathing, Use of accessory muscles 0 Breath Sounds Clear Diminished unilaterally Diminished bilaterally &/or crackles Wheezing or Rhonchi &/or absent unilateral Absent bilaterally 0 Cough Strong, non productive Moderate, loose, productive Weak, non-productive Weak, ineffective Non-spontaneous or may require suctioning 0 Sputum None Scant / Thin White/clear Moderate Beige/ yellow Large / Thick Dark Green/Brown Copious / Plugs Hemoptysis zana 0 LOC Alert, oriented, cooperative Disoriented, follows commands Obtunded, arousable, follo ws commands Obtunded, uncooperative, sedated Comatose 0 Oxygen Demand Room air Baseline 1-2 liters 3-6 liters Oxymizer, > 55% >60% Total Severity Score (SS) Class 0-3 1 4-7 2 8-11 3 12-14 4 15+ 5 documented in this e ncounter Plan of Treatment Not on filedocumented as of this encounter Procedures + +--------+ + + + | Procedure Name | Priori | Date/Time | Associated Diagnosis | Comments | | | ty | | | | + +--------+ + + + | NM NUCLEAR STRESS | Routin | 03/06/2015 | | Results for this | | TEST (PHARMACOLOGIC | e | 12:43 PM | | procedure are in the | | - VASODILATOR) | | PDT | | results section. | + +--------+ + + + | POC GLUCOSE | Routin | 03/06/2015 | | Results for this | | | e | 11:24 AM | | procedure are in the | | | | PDT | | results section. | + +--------+ + + + | ECG 12 LEAD | ALBERT | 03/06/2015 | | Results for this | | | | 8:45 AM | | procedure are in the | | | | PDT | | results section. | + +--------+ + + + | TROPONIN I | Routin | 03/06/2015 | | Results for this | | | e | 6:38 AM | | procedure are in the | | | | PDT | | results section. | + +--------+ + + + | POC GLUCOSE | Routin | 03/06/2015 | | Results for this | | | e | 6:36 AM | | procedure are in the | | | | PDT | | results section. | + +--------+ + + + | TROPONIN I | Routin | 03/06/2015 | | Results for this | | | e | 12:28 AM | | procedure are in the | | | | PDT | | results section. | + +--------+ + + + | POC GLUCOSE | Routin | 03/05/2015 | | Results for this | | | e | 8:24 PM | | procedure are in the | | | | PDT | | results section. | + +--------+ + + + | TROPONIN I | Routin | 03/05/2015 | | Results for this | | | e | 7:42 PM | | procedure are in the | | | | PDT | | results section. | + +--------+ + + + | CBC WITH | Routin | 03/05/2015 | | Results for this | | DIFFERENTIAL | e | 7:42 PM | | procedure are in the | | | | PDT | | results section. | + +--------+ + + + | COMPREHENSIVE | Routin | 03/05/2015 | | Results for this | | METABOLIC PANEL | e | 7:42 PM | | procedure are in the | | | | PDT | | results section. | + +--------+ + + + documented in this encounter Results [place] Nuclear Stress Test (Vasodilator) (03/06/2015 12:43 PM PDT) + + | Specimen | + + | | + + + + + | Impressions | Performed At | + + + | 1. Regadenoson EKG is negative. 2. Normal Regadenoson | [facility] | | Sestamibi myocardial perfusion study with a normal left ventricular | | | size and wall thickness. Preserved left ventricular systolic | | | function. LVEF by gated SPECT is 77 %. Signed by: | | | Harsh Peace MD [facility] 03/06/2015, 12:44 | | + + + + + + | Narrative | Performed At | + + + | NUCLEAR MEDICINE STRESS TEST REPORT | [facility] | | Patient Name: Odalys Cornejo Study Date: 03/06/2015 Primary | | | Care Provider: Ana Paula Mays MD : | | | 1955 Age: 59 y.o. Gender: female CLINICAL | | | HISTORY/DIAGNOSIS: Chest pain REGADENOSON SESTAMIBI STRESS | | | TEST Indication: has been Procedure: In the supine position, | | | 0.4 mg of Regadenoson was infused intravenously over 10 seconds. | | | Blood pressure and EKG were monitored every 1 minute. 5 mL of | | | normal saline was utilized to flush the IV line. Twenty seconds | | | later, 11.69 mCi sestamibi intravenous injection. SPECT myocardial | | | perfusion imaging was acquired with wall motion analysis. Rest | | | imaging was performed using 30.9 mCi Sestamibi intravenous | | | injection. Repeated SPECT myocardial perfusion imaging was | | | acquired with wall motion analysis. At the end of the procedure, 0 | | | mg of aminophylline was infused intravenously. Hemodynamics: | | | Heart rate baseline 67 beats per minute, peak 98 beats per minute. | | | Blood pressure baseline 116/61 mmHg, peak and 38/59 mmHg. EKG | | | baseline underlying sinus rhythm, nonspecific ST-T abnormalities. | | | Peak unchanged. Side Effects: Chest pressure 8/10 | | | Arrhythmia: None. Regadenoson Sestamibi Myocardial Perfusion | | | Imaging Result: The Regadenoson Sestamibi tomographic images, | | | reviewed without the attenuation compensation resolution, revealed | | | a normal myocardial perfusion pattern as seen in short axis, | | | vertical long axis, and horizontal long axis projections. The left | | | ventricular cavity is normal. The rest imaging is also normal. | | | Gated SPECT reveals a normal left ventricular wall thickness | | | and motion. Preserved left ventricular systolic function. LVEF by | | | gated SPECT is 67 %. | | + + + + +---------+ + + | Performing | Address | City/State/Zipcode | Phone Number | | Organization | | | | + +---------+ + + | [facility] | | | | + +---------+ + + POC Glucose (03/06/2015 11:24 AM PDT) + +-------+ + + + | Component | Value | Ref Range | Performed | Pathologist | | | | | At | Signature | + +-------+ + + + | Glucose, | 124 | 70 - 150 mg/dL | [facility] | | | POC | | | [facility] | | [...] [address] | [place] | [phone] | | [facility] | | [address] | | | - LABORATORY | | | | + + + + + ECG 12 lead (03/06/2015 8:45 AM PDT) + + + | Narrative | Performed At | + + + | Kelvin Sher MD 03/06/2015 8:45 Adult ECG Report | | | Name: Odalys Cornejo Age: 59 y.o. Gender: female 03/05/15 | | | at 18:59 Narrative Interpretation: Normal sinus rhythm. Prolonged | | | QTc interval. Normal axis. | | + + + Troponin I (03/06/2015 6:38 AM PDT) + + + + + + | Component | Value | Ref Range | Performed | Pathologist | | | | | At | Signature | + + + + + + | Troponin I | <0.01Comment: Reference | <0.06 ng/mL | [facility] | | | | Ranges:0.00-0.06 = | | [facility] | | | | NORMAL>0.06 = | | MEDICAL | | | | SUSPICIOUS FOR | | CENTER - | | | | MYOCARDIAL DAMAGE NOTE: | | LABORATORY | | | | Values greater than 0.50 | | | | | | ng/mL have been shown | | | | | | to be strongly | | | | | | associated with acute | | | | | | myocardial infarction. | | | | | | The [employer] | | | | | | Cardiology (ACC) | | | | | | recommends a decision | | | | | | limit of 0.06 ng/mL for | | | | | | this assay. Results | | | | | | greater than 0.06 can | | | | | | reflect a pre-infarct | | | | | | acute coronary syndrome, | | | | | | but can also reflect | | | | | | myocardial necrosis or | | | | | | injury that is not due | | | | | | to coronary artery | | | | | | disease. Some of these | | | | | | causes are sepsis, | | | | | | hypocolemia, atrial | | | | | | fibrillation, heart | | | | | | failure, pulmonary | | | | | | embolism, myocarditis, | | | | | | myocardial contusion, | | | | | | and renal failure. The | | | | | | diagnosis of myocardial | | | | | | infarction should be | | | | | | based on a combination | | | | | | of the patient's | | | | | | clinical presentation | | | | | | and the clinical | | | | | | laboratory test results | | | | | | (especially serial | | | | | | troponin levels). | | | | + + + + + + + + | Specimen | + + | Blood | + + + + + + + | Performing | Address | City/State/Zipcode | Phone Number | | Organization | | | | + + + + + | [facility] | [address] | [place] | [phone] | | [facility] | | [address] | | | - LABORATORY | | | | + + + + + POC Glucose (03/06/2015 6:36 AM PDT) + +-------+ + + + | Component | Value | Ref Range | Performed | Pathologist | | | | | At | Signature | + +-------+ + + + | Glucose, | 121 | 70 - 150 mg/dL | [facility] | | | POC | | | [facility] | | | | | | MEDICAL [...] | + + + + + | [facility] | [address] | [place] | [phone] | | [facility] | | [address] | | | - LABORATORY | | | | + + + + + Troponin I (03/06/2015 12:28 AM PDT) + + + + + + | Component | Value | Ref Range | Performed | Pathologist | | | | | At | Signature | + + + + + + | Troponin I | <0.01Comment: Reference | <0.06 ng/mL | [facility] | | | | Ranges:0.00-0.06 = | | [facility] | | | | NORMAL>0.06 = | | MEDICAL | | | | SUSPICIOUS FOR | | CENTER - | | | | MYOCARDIAL DAMAGE NOTE: | | LABORATORY | | | | Values greater than 0.50 | | | | | | ng/mL have been shown | | | | | | to be strongly | | | | | | associated with acute | | | | | | myocardial infarction. | | | | | | The [employer] | | | | | | Cardiology (ACC) | | | | | | recommends a decision | | | | | | limit of 0.06 ng/mL for | | | | | | this assay. Results | | | | | | greater than 0.06 can | | | | | | reflect a pre-infarct | | | | | | acute coronary syndrome, | | | | | | but can also reflect | | | | | | myocardial necrosis or | | | | | | injury that is not due | | | | | | to coronary artery | | | | | | disease. Some of these | | | | | | causes are sepsis, | | | | | | hypocolemia, atrial | | | | | | fibrillation, heart | | | | | | failure, pulmonary | | | | | | embolism, myocarditis, | | | | | | myocardial contusion, | | | | | | and renal failure. The | | | | | | diagnosis of myocardial | | | | | | infarction should be | | | | | | based on a combination | | | | | | of the patient's | | | | | | clinical presentation | | | | | | and the clinical | | | | | | laboratory test results | | | | | | (especially serial | | | | | | troponin levels). | | | | + + + + + + + + | Specimen | + + | Blood | + + + + + + + | Performing | Address | City/State/Zipcode | Phone Number | | Organization | | | | + + + + + | [facility] | [address] | [place] | [phone] | | [facility] | | [address] | | | - LABORATORY | | | | + + + + + POC Glucose (03/05/2015 8:24 PM PDT) + +-------+ + + + | Component | Value | Ref Range | Performed | Pathologist | | | | | At | Signature | + +-------+ + + + | Glucose, | 106 | 70 - 150 mg/dL | [facility] | | | POC | | | [facility] | | | | | | MEDICAL [...] + + | [facility] | [address] | [place] | [phone] | | [facility] | | [address] | | | - LABORATORY | | | | + + + + + Troponin I (03/05/2015 7:42 PM PDT) + + + + + + | Component | Value | Ref Range | Performed | Pathologist | | | | | At | Signature | + + + + + + | Troponin I | <0.01Comment: Reference | <0.06 ng/mL | [facility] | | | | Ranges:0.00-0.06 = | | [facility] | | | | NORMAL>0.06 = | | MEDICAL | | | | SUSPICIOUS FOR | | CENTER - | | | | MYOCARDIAL DAMAGE NOTE: | | LABORATORY | | | | Values greater than 0.50 | | | | | | ng/mL have been shown | | | | | | to be strongly | | | | | | associated with acute | | | | | | myocardial infarction. | | | | | | The [employer] | | | | | | Cardiology (ACC) | | | | | | recommends a decision | | | | | | limit of 0.06 ng/mL for | | | | | | this assay. Results | | | | | | greater than 0.06 can | | | | | | reflect a pre-infarct | | | | | | acute coronary syndrome, | | | | | | but can also reflect | | | | | | myocardial necrosis or | | | | | | injury that is not due | | | | | | to coronary artery | | | | | | disease. Some of these | | | | | | causes are sepsis, | | | | | | hypocolemia, atrial | | | | | | fibrillation, heart | | | | | | failure, pulmonary | | | | | | embolism, myocarditis, | | | | | | myocardial contusion, | | | | | | and renal failure. The | | | | | | diagnosis of myocardial | | | | | | infarction should be | | | | | | based on a combination | | | | | | of the patient's | | | | | | clinical presentation | | | | | | and the clinical | | | | | | laboratory test results | | | | | | (especially serial | | | | | | troponin levels). | | | | + + + + + + + + | Specimen | + + | Blood | + + + + + + + | Performing | Address | City/State/[facility] | Phone Number | | Organization | | | | + + + + + | [facility] | [address] | [place] | [phone] | | [facility] | | [address] | | | - LABORATORY | | | | + + + + + Comprehensive Metabolic Panel (03/05/2015 7:42 PM PDT) + + + + + + | Component | Value | Ref Range | Performed | Pathologist | | | | | At | Signature | + + + + + + | Na | 138 | 136 - 149 | [facility] | | | | | mmol/L | [facility] | | | | | | MEDICAL | | | | | | CENTER - | | | | | | LABORATORY | | + + + + + + | K | 3.5 | 3.5 - 5.1 | [facility] | | | | | mmol/L | [facility] | | | | | | MEDICAL | | | | | | CENTER - | | | | | | LABORATORY | | + + + + + + | Cl | 104 | 98 - 109 mmol/L | [facility] | | | | | | [facility] | | | | | | MEDICAL | | | | | | CENTER - | | | | | | LABORATORY | | + + + + + + | CO2 | 29 | 24 - 31 mmol/L | [facility] | | | | | | [facility] | | | | | | MEDICAL | | | | | | CENTER - | | | | | | LABORATORY | | + + + + + + | Anion Gap | 5 | 3 - 16 mmol/L | [facility] | | | | | | [facility] | | | | | | [facility] | | | | | | [facility]ENTER - | | | | | | LABORATORY | | + + + + + + | Glucose | 117 (H) | 70 - 109 mg/dL | [facility] | | | | | | [facility] | | | | | | [facility] | | | | | | CENTER - | | | | | | LABORATORY | | + + + + + + | BUN | 15 | 7 - 18 mg/dL | [facility] | | | | | | [facility] | | | | | | [facility] | | | | | | CENTER - | | | | | | LABORATORY | | + + + + + + | Creatinine | 0.81 | 0.60 - 1.30 | [facility] | | | | | mg/dL | [facility] | | | | | | [facility]ICAL | | | | | | CENTER - | | | | | | LABORATORY | | + + + + + + | eGFR, | >60Comment: GLOMERULAR | >=60 | [facility] | | | non- | FILTRATION | mL/min/1.73m2 | [facility] | | | [place] | RATE,ESTIMATED | | MEDICAL | | | | mL/min/1.00n4Chkk than | | CENTER - | | | | 60 Chronic kidney | | LABORATORY | | | | disease,if found over a | | | | | | 3-month period.Less than | | | | | | 15 Kidney failureFor | | | | | | | | | | | | Americans,multiply the | | | | | | calculated GFR by 1.21. | | | | | | | | | | + + + + + + | Calcium | 8.7 | 8.3 - 10.5 | [facility] | | | | | mg/dL | [facility] | | | | | | [facility]ICAL | | | | | | CENTER - | | | | | | LABORATORY | | + + + + + + | Albumin | 3.4 | 3.2 - 5.0 g/dL | [facility] | | | | | | [facility] | | | | | | MEDICAL | | | | | | CENTER - | | | | | | LABORATORY | | + + + + + + | Bilirubin | 0.4 | 0.1 - 1.5 mg/dL | [facility] | | | Total | | | [facility] | | | | | | MEDICAL | | | | | | CENTER - | | | | | | LABORATORY | | + + + + + + | Total | 6.1 | 6.0 - 7.8 g/dL | [facility] | | | Protein | | | [facility] | | | | | | MEDICAL | | | | | | CENTER - | | | | | | LABORATORY | | + + + + + + | AST | 18 | 10 - 42 U/L | [facility] | | | | | | [facility] | | | | | | [facility]ICAL | | | | | | CENTER - | | | | | | LABORATORY | | + + + + + + | ALT | 18 | 6 - 45 U/L | [facility] | | | | | | [facility] | | | | | | [facility]ICAL | | | | | | CENTER - | | | | | | LABORATORY | | + + + + + + | Alkaline | 84 | 40 - 110 U/L | [facility] | | | Phosphatase | | | [facility] | | | | | | MEDICAL | | | | | | CENTER - | | | | | | LABORATORY | | + + + + + + | Globulin | 2.7 | g/dL | [facility] | | | | | | [facility] | | | | | | [facility]ICAL | | | | | | CENTER - | | | | | | LABORATORY | | + + + + + + | Albumin/Janene | 1.3 | | [facility] | | | bulin Ratio | | | [facility] | | | | | | MEDICAL | | | | | | CENTER - | | | | | | LABORATORY | | + + + + + + | BUN/Creatin | 18.5 | | [facility] | | | ine Ratio | | | [facility] [...] ST. | [address] | [place] | [phone] | | [facility] | | [address] | | | - LABORATORY | | | | + + + + + CBC with Differential (03/05/2015 7:42 PM PDT) + + + + + + | Component | Value | Ref Range | Performed | Pathologist | | | | | At | Signature | + + + + + + | White Blood | 6.0 | 4.0 - 11.0 K/uL | [facility] | | | Cells | | | [facility] | | | | | | MEDICAL | | | | | | CENTER - | | | | | | LABORATORY | | + + + + + + | Red Blood | 4.25 | 3.70 - 5.20 | [facility] | | | Cells | | M/uL | [facility] | | | | | | MEDICAL | | | | | | CENTER - | | | | | | LABORATORY | | + + + + + + | Hemoglobin | 11.6 | 11.5 - 16.0 | [facility] | | | | | g/dL | [facility] | | | | | | MEDICAL | | | | | | CENTER - | | | | | | LABORATORY | | + + + + + + | Hematocrit | 35.6 | 34.0 - 47.0 % | [facility] | | | | | | [facility] | | | | | | [facility]ICAL | | | | | | CENTER - | | | | | | LABORATORY | | + + + + + + | MCV | 83.8 | 83.0 - 101.0 fL | [facility] | | | | | | [facility] | | | | | | [facility]ICAL | | | | | | CENTER - | | | | | | LABORATORY | | + + + + + + | MCH | 27.3 (L) | 28.0 - 35.0 pg | [facility] | | | | | | [facility] | | | | | | [facility]ICAL | | | | | | CENTER - | | | | | | LABORATORY | | + + + + + + | MCHC | 32.5 | 32.0 - 36.0 | [facility] | | | | | g/dL | [facility] | | | | | | MEDICAL | | | | | | CENTER - | | | | | | LABORATORY | | + + + + + + | RDW-CV | 15.5 (H) | <15.0 % | [facility] | | | | | | [facility] | | | | | | [facility]ICAL | | | | | | CENTER - | | | | | | LABORATORY | | + + + + + + | Platelet | 315 | 140 - 440 K/uL | [facility] | | | Count | | | [facility] | | | | | | MEDICAL | | | | | | CENTER - | | | | | | LABORATORY | | + + + + + + | MPV | 7.5 | fL | [facility] | | | | | | [facility] | | | [facility] | | [facility] | | | | | | CENTER - | | | | | | LABORATORY | | + + + + + + | % | 50.0 | 45.0 - 82.0 % | [facility] | | | Neutrophils | | | [facility] | | | | | | MEDICAL | | | | | | CENTER - | | | | | | LABORATORY | | + + + + + + | % | 40.9 | 20.0 - 45.0 % | [facility] | | | Lymphocytes | | | [facility] | | | | | | MEDICAL | | | | | | CENTER - | | | | | | LABORATORY | | + + + + + + | % Monocytes | 6.6 | 4.0 - 12.0 % | [facility] | | | | | | [facility] | | | | | | [facility]ICAL | | | | | | CENTER - | | | | | | LABORATORY | | + + + + + + | % | 1.8 | 0.0 - 5.0 % | [facility] | | | Eosinophils | | | [facility] | | | | | | MEDICAL | | | | | | CENTER - | | | | | | LABORATORY | | + + + + + + | % Basophils | 0.7 | 0.0 - 1.0 % | [facility] | | | | | | [facility] | | | | | | MEDICAL | | | | | | CENTER - | | | | | | LABORATORY | | + + + + + + | Absolute | 3.00 | 1.80 - 8.50 | [facility] | | | Neutrophils | | K/uL | [facility] | | | | | | MEDICAL | | | | | | CENTER - | | | | | | LABORATORY | | + + + + + + | Absolute | 2.50 | 0.60 - 3.20 | [facility] | | | Lymphocytes | | K/uL | [facility] | | | | | | MEDICAL | | | | | | CENTER - | | | | | | LABORATORY | | + + + + + + | Absolute | 0.40 | 0.00 - 1.00 | [facility] | | | Monocytes | | K/uL | [facility] | | | | | | MEDICAL | | | | | | CENTER - | | | | | | LABORATORY | | + + + + + + | Absolute | 0.10 | 0.00 - 0.40 | [facility] | | | Eosinophils | | K/uL | [facility] | | | | | | MEDICAL | | | | | | CENTER - | | | | | | LABORATORY | | + + + + + + | Absolute | 0.00 | 0.00 - 0.10 | [facility] | | | Basophils | | K/uL | [facility] | | | | [...] [address] | [place] | [phone] | | [facility] | | [id number] | | | - LABORATORY | | | | + + + + + documented in this encounter Visit Diagnoses + + | Diagnosis | + + | Chest pain - Primary Chest pain, unspecified | + + | Chest pain, unspecified chest pain type | + + | Acute chest pain Chest pain, unspecified | + + | Obstructive sleep apnea Obstructive sleep apnea (adult) (pediatric) | + + | Diabetes mellitus, type II (HCC) Type II or unspecified type diabetes mellitus | | without mention of complication, not stated as uncontrolled | + + | Family history of ischemic heart disease | + + | Hyperlipidemia Other and unspecified hyperlipidemia | + + | Stress at home Unspecified family circumstance | + + documented in this encounter Administered Medications + +--------+ +--------+------+------+ | Medication Order | MAR | Action | Dose | Rate | Site | | | Action | Date | | | | + +--------+ +--------+------+------+ | aspirin tablet 325 mg 325 mg, | Given | 03/06/20 | 325 mg | | | | Oral, DAILY, First dose on Tue | | 15 8:32 | | | | | 03/06/15 at 0900 | | AM PDT | | | | + +--------+ +--------+------+------+ +---+---+ | | | +---+---+ + +-------+ +--------+---+---+ | cholecalciferol (VITAMIN D-3) | Given | 03/06/20 | 2,000 | | | | tablet 2,000 Units 2,000 Units, | | 15 8:32 | Units | | | | Oral, DAILY, First dose on Tue | | AM PDT | | | | | 03/06/15 at 0900 | | | | | | + +-------+ +--------+---+---+ +---+---+ | | | +---+---+ + +-------+ +-------+---+---+ | FLUoxetine (PROzac) capsule 10 | Given | 03/06/20 | 10 mg | | | | mg 10 mg, Oral, DAILY, First | | 15 8:32 | | | | | dose on [facility] 03/06/15 at 0900 | | AM PDT | | | | + +-------+ +-------+---+---+ +---+---+ | | | +---+---+ + +-------+ +------+---+---+ | glipiZIDE (GLUCOTROL XL) ER | Given | 03/06/20 | 5 mg | | | | tablet 5 mg 5 mg, Oral, DAILY | | 15 8:32 | | | | | WITH BREAKFAST, First dose on [facility] | | AM PDT | | | | | 03/06/15 at 0800, Do not cut or | | | | | | | crush., | | | | | | + +-------+ +------+---+---+ +---+---+ | | | +---+---+ + +-------+ +-------+---+---+ | hydrochlorothiazide tablet 25 | Given | 03/06/20 | 25 mg | | | | mg 25 mg, Oral, DAILY, First | | 15 8:32 | | | | | dose on Tue03/06/15 at 0900 | | AM PDT | | | | + +-------+ +-------+---+---+ +---+---+ | | | +---+---+ + +-------+ + +---+---+ | metFORMIN (GLUCOPHAGE) tablet | Given | 03/06/20 | 1,000 mg | | | | 1,000 mg 1,000 mg, Oral, 2 TIMES | | 15 8:32 | | | | | DAILY WITH BREAKFAST & DINNER, | | AM PDT | | | | | First dose on Tue03/05/15 at | | | | | | | 1915, Stop metFORMIN prior to | | | | | | | procedures using IV iodinated | | | | | | | contrast & continue to hold 48 | | | | | | | hours after receiving IV | | | | | | | iodinated contrast. Don't resume | | | | | | | until renal function is normal., | | | | | | + +-------+ + +---+---+ +---+---+ | | | +---+---+ + +-------+ +--------+---+ + | nitroglycerin (NITRO-BID) 2% | Given | 03/05/20 | 1 inch | | Chest-Ri | | ointment 1 inch 1 inch, Topical, | | 15 8:48 | | | ght | | EVERY 6 HOURS (4 times per day), | | PM PDT | | | Anterior | | First dose on Tue03/05/15 at | | | | | | | 1915, For 2 doses, She has some | | | | | | | nitro ointment on from [employer], | | | | | | | replace it with this. Clean off | | | | | | | ointment at 0300 tomorrow in | | | | | | | preparation for a stress test, | | | | | | + +-------+ +--------+---+ + +---+---+ | | | +---+---+ + +-------+ +------+---+---+ | ondansetron (ZOFRAN ODT) | Given | 03/06/20 | 4 mg | | | | disintegrating tablet 4 mg 4 mg, | | 15 10:14 | | | | | Oral, EVERY 6 HOURS PRN, Nausea, | | AM PDT | | | | | Vomiting, Starting 03/05/15 | | | | | | | at 1841, First line agent, | | | | | | + +-------+ +------+---+---+ +---+---+ | | | +---+---+ + +-------+ +-------+---+---+ | pantoprazole (PROTONIX) DR | Given | 03/06/20 | 40 mg | | | | tablet 40 mg 40 mg, Oral, DAILY | | 15 6:42 | | | | | BEFORE BREAKFAST, First dose on | | AM PDT | | | | | [facility] 03/06/15 at 0730, Do not cut | | | | | | | or crush. Therapeutic Interchange | | | | | | | for omeprazole., | | | | | | + +-------+ +-------+---+---+ +---+---+ | | | +---+---+ + +-------+ +-------+---+---+ | sitagliptin (JANUVIA) tablet 50 | Given | 03/06/20 | 50 mg | | | | mg 50 mg, Oral, 2 TIMES DAILY | | 15 8:32 | | | | | WITH BREAKFAST & DINNER, First | | AM PDT | | | | | dose on Tue03/05/15 at 1915 | | | | | | + +-------+ +-------+---+---+ +---+---+ | | | +---+---+ + +---------+ +---+ +---+ | sodium chloride 0.9% (NS) | New Bag | 03/06/20 | | 75 mL/hr | | | infusion at 75 mL/hr, | | 15 10:06 | | | | | Intravenous, CONTINUOUS, Starting | | AM PDT | | | | | Tue03/05/15 at 2100 | | | | | | + +---------+ +---+ +---+ +---------+ +---+ +---+ | New Bag | 03/05/20 | | 75 mL/hr | | | | 15 8:44 | | | | | | PM PDT | | | | +---------+ +---+ +---+ +---+---+ | | | +---+---+ + +-------+ + +---+---+ | technetium TC-99M sestamibi | Given | 03/06/20 | 30.9 | | | | (CARDIOLITE) injection 30 | | 15 12:14 | -millicu | | | | millicurie 30 -millicurie, | | PM PDT | aneta | | | | Intravenous, ONCE PRN, Other, | | | | | | | Starting [place] 03/06/15 at 1214, For | | | | | | | 1 dose, Nuclear Medicine | | | | | | + +-------+ + +---+---+ +---+---+ | | | +---+---+ + +-------+ + +---+---+ | technetium TC-99M sestamibi | Given | 03/06/20 | 11.69 | | | | (CARDIOLITE) injection | | 15 7:43 | -millicu | | | | millicurie 9 -millicurie, | | AM PDT | aneta | | | | Intravenous, ONCE PRN, Other, | | | | | | | Starting [place] 03/06/15 at 0743, For | | | | | | | 1 dose, Nuclear Medicine | | | | | | + +-------+ + +---+---+ +---+---+ | | | +---+---+ documented in this encounter
[2020-05-31] MEDS ORDERED: HYDROCHLOROTHIA25 MG PO (18:12)
[2020-05-31] MEDS ORDERED: VITAMIN B-12100 MCG PO (18:12)
[2020-05-31] MEDS ORDERED: MONTELUKAST SOD10 MG PO (18:13)
== END 2020-05-31 22:36 | disposition home or self-care (01) ==
LOC: ED 17:28
DX: K59.00 Constipation, unspecified (principal); E11.9 Type 2 diabetes mellitus without complications; I10 Essential (primary) hypertension; J43.9 Emphysema, unspecified; Z79.899 Other long term (current) drug therapy; Z88.8 Allergy status to other drugs, medicaments and biological substances
CPT/HCPCS: 74177; 80053; 81001; 83690; 85025; 96376; 99284-25; J2405; J7030; Q9967

== ENCOUNTER 2020-07-11 14:32 | Emergency (ER) | payer MEDICARE, OTHER | END 2020-07-11 14:50 | disposition left against medical advice (07) | LOC: ED 14:32 | DX: Z53.21 Procedure and treatment not carried out due to patient leaving prior to being seen by health care provider (principal) ==